=== PATIENT | male | born 1965 | race Caucasian/White ===

== ENCOUNTER 2018-07-01 07:58 | Day surgery (SDC) | payer OTHER ==
[2018-06-30 09:47] VITALS: BMI 30.2
[~2018-07-01 07:58] MED LIST: LACTATED RINGERS 1,000 ML IV SCH; LIDOCAINE 1% 20 ML VIAL (10MG/ML) FOR IV START INTRADERMA PRN
[2018-07-01 08:19] VITALS: TEMP 98
[2018-07-01] MEDS ORDERED: PROPOFOL 10 MG/ML 20 ML VIAL IV ONE (08:57)
--- NOTE | 2018-07-01 09:04 | P.GSHP ---
History of Present Illness H&P Date: 07/01/18 Chief Complaint: Screening colonoscopy This a 53-year-old male who presents today for screening colonoscopy. Patient never had a colonoscopy before. He denies a significant GI complaints. 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 History of Any Multi-Drug Resistant Organisms: None Reported Past Surgical History: Hernia Repair, Orthopedic Surgery Additional Past Surgical History / Comment(s): BENIGN LEFT TIBIA OSTEOCHONDROMA REMOVED, RT KNEE MENISCUS REPAIR, LEFT ACHILLIES TEAR Past Anesthesia/Blood Transfusion Reactions: No Reported Reaction Smoking Status: Current every day smoker - Past Family History Mother Family Medical History: No Reported History Medications and Allergies Home Medications Medication Instructions Recorded Confirmed Type Naproxen Sodium [Aleve] 220 mg PO Q6H PRN 01/29/16 07/01/18 History Losartan Potassium 50 mg PO QAM 06/30/18 07/01/18 History Rosuvastatin [Crestor] 10 mg PO HS 06/30/18 07/01/18 History Allergies Allergy/AdvReac Type Severity Reaction Status Date / Time No Known Allergies Allergy Verified 07/01/18 08:11 Surgical - Exam Vital Signs Temp Pulse Resp BP Pulse Ox 98.0 F 72 16 141/91 98 07/01/18 08:18 07/01/18 08:18 07/01/18 08:18 07/01/18 08:18 07/01/18 08:18 - General well developed, no distress - Eyes PERRL - ENT normal pinna - Neck no masses - Respiratory normal expansion - Cardiovascular Rhythm: regular - Abdomen Abdomen: soft, non tender Assessment and Plan Assessment: We'll perform initial screening colonoscopy
--- NOTE | 2018-07-01 09:19 | P.OP ---
Date of Procedure: 07/01/18 Preoperative Diagnosis: Screening colonoscopy Postoperative Diagnosis: Diverticulosis Left colon polyp Procedure(s) Performed: Colonoscopy Anesthesia: MAC Surgeon: Darrius Tinoco Pathology: other (Left colon polyp) Condition: stable Disposition: PACU Description of Procedure: the patient's placed on the endoscopy table in the lateral position. He received IV sedation. Digital rectal exam was performed which revealed no abnormalities. The flexible colonoscope was then placed patient anus and passed throughout the entire colon. The ileocecal valve was visualized. The cecum, ascending and transverse colon appeared normal. In the descending colon there was mild diverticular changes. There was also a pedunculated polyp which was removed. This was removed with snare. Scope was then brought back the sigmoid colon and there a few scattered diverticula. Scope was brought back the rectum and this appeared normal. Scope withdrawn for patient.
[2018-07-01 09:43] VITALS: BP 133/78; PULSE 78; RESP 18
== END 2018-07-01 10:13 | disposition home or self-care (01) ==
LOC: ORWHC2ENDO 07:58
PROVIDERS: ATTEND Surgery
DX: Z12.11 Encounter for screening for malignant neoplasm of colon (principal); K63.5 Polyp of colon; K57.30 Diverticulosis of large intestine without perforation or abscess without bleeding; E78.5 Hyperlipidemia, unspecified; I10 Essential (primary) hypertension; F17.200 Nicotine dependence, unspecified, uncomplicated; Z79.899 Other long term (current) drug therapy
CPT/HCPCS: 88305; 45385; J2704

== ENCOUNTER → 2019-03-02 | Outpatient (CLI) | payer OTHER ==
--- NOTE | 2019-03-03 10:12 | CT ---
EXAMINATION TYPE: CT chest w con DATE OF EXAM: 03/02/2019 COMPARISON: 08/16/2018 HISTORY: Follow-up lung nodule Automated exposure control for dose reduction was used. CONTRAST: CT scan of the chest is performed with IV Contrast, patient injected with 100 mL of Isovue 300. FINDINGS: LUNGS: Stable spiculated nodular density right upper lobe posteriorly measuring 7 mm seen best on jannette ge 20 of 70. No additional nodules identified. No focal consolidation. Curvilinear scarring right low er lobe image 43. Mild centrilobular emphysema. MEDIASTINUM: There are no greater than 1 cm hilar or mediastinal lymph nodes. No pericardial effusi on is seen. Mild cardiomegaly with coronary artery calcifications. Thoracic aorta is of normal calibe r. UPPER ABDOMEN: Simple cyst left kidney measures 1.1 cm upper pole. OTHER: No additional significant abnormality is seen. IMPRESSION: 1.Stable spiculated nodular density right upper lobe posteriorly measuring 7 mm seen best on image 20 of 70. No additional nodules identified. This likely reflects an area of scarring however continued follow-up is advised with CT of the chest recommended in 4-6 months.
== END | disposition home or self-care (01) ==
LOC: RADCTMAIN 13:32
PROVIDERS: ATTEND Internal Medicine
DX: R91.8 Other nonspecific abnormal finding of lung field (principal)
CPT/HCPCS: 71260; Q9967

== ENCOUNTER 2019-09-06 00:21 | Emergency (ER) | payer OTHER ==
[2019-09-06 00:28] VITALS: TEMP 97.3
[2019-09-06] MEDS ORDERED: IPRATROPIUM-ALBUTEROL 3 ML NEB INHALATION STA (00:56)
[2019-09-06] MEDS ORDERED: predniSONE 20 MG TAB PO STA (00:56)
[2019-09-06] MEDS ORDERED: ALBUTEROL NEBULIZED 2.5 MG/3 ML INHALATION STA (00:56)
--- NOTE | 2019-09-06 01:01 | ED ---
SOB HPI - General Chief Complaint: Shortness of Breath Stated Complaint: ESTELA Time Seen by Provider: 09/06/19 00:35 Source: patient Mode of arrival: ambulatory - History of Present Illness MD Complaint: shortness of breath, cough Onset/Timin -: hour(s) Consistency: constant Improves With: nothing Worsens With: exertion Known History Of: COPD Associated Symptoms: cough Treatments Prior to Arrival: none - Related Data Home Oxygen Therapy: No Home Medications Medication Instructions Recorded Confirmed Naproxen Sodium [Aleve] 220 mg PO Q6H PRN 01/29/16 07/01/18 Losartan Potassium 50 mg PO QAM 06/30/18 07/01/18 Rosuvastatin [Crestor] 10 mg PO HS 06/30/18 07/01/18 Previous Rx's Medication Instructions Recorded Albuterol Inhaler [Ventolin Hfa 1 - 2 puff INHALATION Q6HR PRN #1 09/06/19 Inhaler] inhaler predniSONE 60 mg PO DAILY #30 tab 09/06/19 Allergies Allergy/AdvReac Type Severity Reaction Status Date / Time No Known Allergies Allergy Verified 07/01/18 08:11 Review of Systems ROS Statement: Those systems with pertinent positive or pertinent negative responses have been documented in the HPI. ROS Other: All systems not noted in ROS Statement are negative. Constitutional: Denies: fever, weakness Respiratory: Reports: cough, dyspnea, wheezes Cardiovascular: Reports: dyspnea on exertion. 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 History of Any Multi-Drug Resistant Organisms: None Reported Past Surgical History: Hernia Repair, Orthopedic Surgery Additional Past Surgical History / Comment(s): BENIGN LEFT TIBIA OSTEOCHONDROMA REMOVED, RT KNEE MENISCUS REPAIR, LEFT ACHILLIES TEAR Past Anesthesia/Blood Transfusion Reactions: No Reported Reaction Past Psychological History: No Psychological Hx Reported Smoking Status: Current every day smoker - Past Family History Mother Family Medical History: No Reported History General Exam General appearance: alert, in no apparent distress Head exam: Present: atraumatic, normocephalic Eye exam: Present: normal appearance ENT exam: Present: normal oropharynx Respiratory exam: Present: respiratory distress (Mild tachypnea), wheezes. Absent: rales, rhonchi, stridor, accessory muscle use, decreased breath sounds, prolonged expiratory Cardiovascular Exam: Present: regular rate, normal rhythm, normal heart sounds. Absent: systolic murmur, diastolic murmur, rubs, gallop GI/Abdominal exam: Present: soft. Absent: distended, tenderness, guarding, rebound, rigid, mass Extremities exam: Present: normal inspection, normal capillary refill. Absent: pedal edema, calf tenderness Back exam: Present: normal inspection Neurological exam: Present: alert Skin exam: Present: warm, dry, intact, normal color. Absent: rash Course Vital Signs 09/06/19 09/06/19 09/06/19 00:24 01:27 01:37 Temperature 97.3 F L Pulse Rate 79 80 72 Respiratory 24 Rate Blood Pressure 157/93 O2 Sat by Pulse 95 Oximetry 09/06/19 09/06/19 01:38 02:01 Temperature Pulse Rate 72 68 Respiratory Rate Blood Pressure O2 Sat by Pulse Oximetry Medical Decision Making - Lab Data Result diagrams: 09/06/19 00:57 09/06/19 00:57 Lab Results 09/06/19 09/06/19 09/06/19 Range/Units 00:57 00:57 00:57 WBC 12.6 H (3.8-10.6) k/uL RBC 4.38 (4.30-5.90) m/uL Hgb 13.9 (13.0-17.5) gm/dL Hct 41.6 (39.0-53.0) % MCV 95.0 (80.0-100.0) fL MCH 31.8 (25.0-35.0) pg MCHC 33.5 (31.0-37.0) g/dL RDW 12.1 (11.5-15.5) % Plt Count 276 (150-450) k/uL Neutrophils % 71 % Lymphocytes % 11 % Monocytes % 5 % Eosinophils % 10 % Basophils % 1 % Neutrophils # 8.9 H (1.3-7.7) k/uL Lymphocytes # 1.4 (1.0-4.8) k/uL Monocytes # 0.7 (0-1.0) k/uL Eosinophils # 1.2 H (0-0.7) k/uL Basophils # 0.1 (0-0.2) k/uL PT 10.1 (9.0-12.0) sec INR 0.9 (<1.2) APTT 24.5 (22.0-30.0) sec Sodium 137 (137-145) mmol/L Potassium 4.4 (3.5-5.1) mmol/L Chloride 103 (98-107) mmol/L Carbon Dioxide 25 (22-30) mmol/L Anion Gap 9 mmol/L BUN 13 (9-20) mg/dL Creatinine 0.65 L (0.66-1.25) mg/dL Est GFR (CKD-EPI)AfAm >90 (>60 ml/min/1.73 sqM) Est GFR (CKD-EPI)NonAf >90 (>60 ml/min/1.73 sqM) Glucose 137 H (74-99) mg/dL Calcium 9.5 (8.4-10.2) mg/dL Total Bilirubin 0.6 (0.2-1.3) mg/dL AST 23 (17-59) U/L ALT 21 (4-49) U/L Alkaline Phosphatase 83 (38-126) U/L Troponin I (0.000-0.034) ng/mL Total Protein 7.8 (6.3-8.2) g/dL Albumin 4.2 (3.5-5.0) g/dL 09/06/19 Range/Units 00:57 WBC (3.8-10.6) k/uL RBC (4.30-5.90) m/uL Hgb (13.0-17.5) gm/dL Hct (39.0-53.0) % MCV (80.0-100.0) fL MCH (25.0-35.0) pg MCHC (31.0-37.0) g/dL RDW (11.5-15.5) % Plt Count (150-450) k/uL Neutrophils % % Lymphocytes % % Monocytes % % Eosinophils % % Basophils % % Neutrophils # (1.3-7.7) k/uL Lymphocytes # (1.0-4.8) k/uL Monocytes # (0-1.0) k/uL Eosinophils # (0-0.7) k/uL Basophils # (0-0.2) k/uL PT (9.0-12.0) sec INR (<1.2) APTT (22.0-30.0) sec Sodium (137-145) mmol/L Potassium (3.5-5.1) mmol/L Chloride (98-107) mmol/L Carbon Dioxide (22-30) mmol/L Anion Gap mmol/L BUN (9-20) mg/dL Creatinine (0.66-1.25) mg/dL Est GFR (CKD-EPI)AfAm (>60 ml/min/1.73 sqM) Est GFR (CKD-EPI)NonAf (>60 ml/min/1.73 sqM) Glucose (74-99) mg/dL Calcium (8.4-10.2) mg/dL Total Bilirubin (0.2-1.3) mg/dL AST (17-59) U/L ALT (4-49) U/L Alkaline Phosphatase (38-126) U/L Troponin I <0.012 (0.000-0.034) ng/mL Total Protein (6.3-8.2) g/dL Albumin (3.5-5.0) g/dL - EKG Data -: EKG Interpreted by Ri EKG shows normal: sinus rhythm, axis (Normal), intervals (Normal), QRS complexes (Normal), ST-T waves (Normal) Rate: normal (Rate 74 bpm) Disposition Clinical Impression: COPD exacerbation Disposition: HOME SELF-CARE Condition: Good Instructions (If sedation given, give patient instructions): COPD (Chronic Obstructive Pulmonary Disease) (ED) Prescriptions: predniSONE 60 mg PO DAILY #30 tab Albuterol Inhaler [Ventolin Hfa Inhaler] 1 - 2 puff INHALATION Q6HR PRN #1 inhaler PRN Reason: Wheezing Is patient prescribed a controlled substance at d/c from ED?: No Referrals: Stas Fink DO [Primary Care Provider] - 1-2 days
[2019-09-06 01:13] LABS: Basophils # (A) 0.1 k/uL (0-0.2); Basophils % (A) 1 %; Eosinophils # (A) 1.2 k/uL (0-0.7); Eosinophils % (A) 10 %; HCT 41.6 % (39.0-53.0); HGB 13.9 gm/dL (13.0-17.5); Lymphocytes # (A) 1.4 k/uL (1.0-4.8); Lymphocytes % (A) 11 %; MCH 31.8 pg (25.0-35.0); MCHC 33.5 g/dL (31.0-37.0); Mean Platelet Volume 7.6; Monocytes # (A) 0.7 k/uL (0-1.0); Monocytes % (A) 5 %; Neutrophils # (A) 8.9 k/uL (1.3-7.7); Neutrophils % (A) 71 %; Platelet Count 276 k/uL (150-450); RBC 4.38 m/uL (4.30-5.90); RDW 12.1 % (11.5-15.5); WBC 12.6 k/uL (3.8-10.6)
--- NOTE | 2019-09-06 01:13 | XR ---
EXAMINATION TYPE: XR chest 2V DATE OF EXAM: 09/06/2019 COMPARISON: 11/17/2018 HISTORY: Cough TECHNIQUE: Single view FINDINGS: There is no heart failure nor confluent pneumonic infiltrate. There is slight coarsening of interstitial markings. There are chest leads. Costophrenic angles are clear. IMPRESSION: Mild pulmonary fibrotic changes. No acute lung disease. No adverse change.
[2019-09-06 01:19] LABS: ALT 21 U/L (4-49); AST 23 U/L (17-59); African American GFR (CKD) >90 (>60 ml/min/1.73 sqM); Albumin 4.2 g/dL (3.5-5.0); Alkaline Phosphatase 83 U/L (38-126); Anion Gap 9 mmol/L; Blood Urea Nitrogen 13 mg/dL (9-20); Calcium 9.5 mg/dL (8.4-10.2); Carbon Dioxide 25 mmol/L (22-30); Chloride 103 mmol/L (98-107); Glucose 137 mg/dL (74-99); Non-African American GFR(CKD) >90 (>60 ml/min/1.73 sqM); Potassium 4.4 mmol/L (3.5-5.1); Sodium 137 mmol/L (137-145); Total Bilirubin 0.6 mg/dL (0.2-1.3); Total Protein 7.8 g/dL (6.3-8.2)
[2019-09-06 01:20] LABS: INR 0.9 (<1.2); Partial Thromboplastin Time 24.5 sec (22.0-30.0); Prothrombin Time 10.1 sec (9.0-12.0)
[2019-09-06 02:14] VITALS: RESP 18
[2019-09-06 02:20] VITALS: BP 122/77; PULSE 63
== END 2019-09-06 02:27 | disposition home or self-care (01) ==
LOC: EC 00:21
DX: J44.1 Chronic obstructive pulmonary disease with (acute) exacerbation (principal); I10 Essential (primary) hypertension; E78.5 Hyperlipidemia, unspecified; F17.200 Nicotine dependence, unspecified, uncomplicated
CPT/HCPCS: 36415; 94640 ×2; 93005; 80053; 84484; 85025; 85610; 85730; 71046; 99285; J7512

== ENCOUNTER 2019-10-04 09:38 | Emergency (ER) | payer OTHER ==
[2019-10-04 09:42] VITALS: TEMP 97.9
[2019-10-04] MEDS ORDERED: IPRATROPIUM-ALBUTEROL 3 ML NEB INHALATION STA ×2 (10:07→13:32)
[2019-10-04] MEDS ORDERED: methylPREDNISolone SOD SUCCI 125 MG/2 ML VIAL IV STA (10:07)
[2019-10-04] MEDS ORDERED: DILTIAZEM DRIP BOLUS FROM BAG 1 MG SOLN IV ONE (10:07)
[2019-10-04] MEDS ORDERED: DILTIAZEM 125 MG in SODIUM CHLORIDE 0.9% 100 ML IV SCH (10:15)
[2019-10-04 10:29] LABS: Basophils # (A) 0.1 k/uL (0-0.2); Basophils % (A) 1 %; Eosinophils # (A) 1.3 k/uL (0-0.7); Eosinophils % (A) 10 %; HCT 45.1 % (39.0-53.0); HGB 14.5 gm/dL (13.0-17.5); Lymphocytes # (A) 2.3 k/uL (1.0-4.8); Lymphocytes % (A) 19 %; MCH 30.8 pg (25.0-35.0); MCV 96.3 fL (80.0-100.0); Mean Platelet Volume 7.7; Monocytes # (A) 0.6 k/uL (0-1.0); Monocytes % (A) 5 %; Neutrophils # (A) 7.6 k/uL (1.3-7.7); Neutrophils % (A) 63 %; Platelet Count 358 k/uL (150-450); RBC 4.69 m/uL (4.30-5.90); RDW 12.2 % (11.5-15.5); WBC 12.2 k/uL (3.8-10.6)
[2019-10-04 10:30] LABS: Partial Thromboplastin Time 22.5 sec (22.0-30.0); Prothrombin Time 10.2 sec (9.0-12.0)
[2019-10-04 10:37] LABS: ALT 19 U/L (4-49); AST 25 U/L (17-59); African American GFR (CKD) >90 (>60 ml/min/1.73 sqM); Alkaline Phosphatase 68 U/L (38-126); Anion Gap 11 mmol/L; Blood Urea Nitrogen 14 mg/dL (9-20); Calcium 9.3 mg/dL (8.4-10.2); Carbon Dioxide 24 mmol/L (22-30); Chloride 105 mmol/L (98-107); Creatine Kinase 52 U/L (55-170); Glucose 187 mg/dL (74-99); Magnesium 1.9 mg/dL (1.6-2.3); Non-African American GFR(CKD) >90 (>60 ml/min/1.73 sqM); Potassium 4.3 mmol/L (3.5-5.1); Sodium 140 mmol/L (137-145); Total Bilirubin 0.5 mg/dL (0.2-1.3); Total Protein 7.5 g/dL (6.3-8.2)
[2019-10-04 10:41] VITALS: RESP 18
--- NOTE | 2019-10-04 11:09 | XR ---
EXAMINATION TYPE: XR chest 2V DATE OF EXAM: 10/04/2019 COMPARISON: 09/06/2019 HISTORY: 54 year-old male shortness of breath, difficulty breathing TECHNIQUE: PA and lateral views FINDINGS: Slight rightward patient rotation. Heart upper limits of normal in size. Mild diffuse interstitial pr ominence. Mild hyperinflation. No consolidation or pleural effusion. IMPRESSION: Chronic changes, possible underlying COPD. Correlate for underlying bronchitis or chronic asthma. No focal infiltrate.
--- NOTE | 2019-10-04 11:49 | ED ---
SOB HPI - General Chief Complaint: Shortness of Breath Stated Complaint: ESTELA Time Seen by Provider: 10/04/19 09:46 Source: patient, RN notes reviewed Mode of arrival: wheelchair Limitations: no limitations - History of Present Illness Initial Comments: This is a 54-year-old male with a history of atrial fibrillation in the past who presents with complaints of shortness of breath this started this morning. He did take his inhaler without much resolved this morning. He denies any fevers chills nausea vomiting sweats or cough at this time. He did feel palpitations also is concern for recurrent atrial fibrillation. Patient does state he took his medications about an hour prior to arrival. MD Complaint: shortness of breath - Related Data Home Medications Medication Instructions Recorded Confirmed Losartan Potassium 50 mg PO QAM 06/30/18 10/04/19 Rosuvastatin [Crestor] 10 mg PO HS 06/30/18 10/04/19 Albuterol Sulfate [Proair Hfa] 1 - 2 puff INHALATION RT-Q6H PRN 10/04/19 0 Apixaban [Eliquis] 5 mg PO BID 10/04/19 10/04/19 Cyclobenzaprine [Flexeril] 10 mg PO HS 10/04/19 10/04/19 Diltiazem HCl [Diltiazem HCl 24Hr 240 mg PO DAILY 10/04/19 10/04/19 ER (LA)] Ipratropium-Albuterol Nebulize 3 ml INHALATION RT-QID PRN 10/04/19 10/04/19 [Duoneb 0.5 mg-3 mg/3 ml Soln] Sotalol [Betapace] 80 mg PO BID 10/04/19 10/04/19 Previous Rx's Medication Instructions Recorded predniSONE [Deltasone] 20 mg PO BID #10 tab 10/04/19 Allergies Allergy/AdvReac Type Severity Reaction Status Date / Time No Known Allergies Allergy Verified 10/04/19 11:45 Review of Systems ROS Statement: Those systems with pertinent positive or pertinent negative responses have been documented in the HPI. ROS Other: All systems not noted in ROS Statement are negative. 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 History of Any Multi-Drug Resistant Organisms: None Reported Past Surgical History: Hernia Repair, Orthopedic Surgery Additional Past Surgical History / Comment(s): BENIGN LEFT TIBIA OSTEOCHONDROMA REMOVED, RT KNEE MENISCUS REPAIR, LEFT ACHILLIES TEAR Past Anesthesia/Blood Transfusion Reactions: No Reported Reaction Past Psychological History: No Psychological Hx Reported Smoking Status: Current every day smoker - Past Family History Mother Family Medical History: No Reported History General Exam - General Exam Comments Initial Comments: Is a well-developed well-nourished awake alert oriented times 3 male Limitations: no limitations General appearance: alert, anxious, in distress Head exam: Present: atraumatic, normocephalic, normal inspection Eye exam: Present: normal appearance, PERRL, EOMI. Absent: scleral icterus, conjunctival injection, periorbital swelling ENT exam: Present: normal exam, mucous membranes moist Neck exam: Present: normal inspection, full ROM, other (nO Stridor JVD or bruits). Absent: tenderness, meningismus, lymphadenopathy Respiratory exam: Present: wheezes, decreased breath sounds. Absent: respiratory distress, rales, rhonchi, stridor Cardiovascular Exam: Present: tachycardia, irregular rhythm. Absent: systolic murmur, diastolic murmur, rubs, gallop, clicks GI/Abdominal exam: Present: soft, normal bowel sounds. Absent: distended, tenderness, guarding, rebound, rigid Extremities exam: Present: normal inspection, full ROM, normal capillary refill. Absent: tenderness, pedal edema, joint swelling, calf tenderness Back exam: Present: normal inspection Neurological exam: Present: alert, oriented X3, CN II-XII intact Psychiatric exam: Present: normal affect, normal mood Skin exam: Present: warm, dry, intact, normal color. Absent: rash Course Vital Signs 10/04/19 10/04/19 10/04/19 09:40 09:57 10:23 Temperature 97.9 F Pulse Rate 67 90 Respiratory 28 H 20 Rate Blood Pressure 157/87 O2 Sat by Pulse 95 Oximetry 10/04/19 10/04/19 10/04/19 10:32 10:40 11:01 Temperature Pulse Rate 94 81 71 Respiratory 18 18 Rate Blood Pressure 92/76 107/80 O2 Sat by Pulse 93 L 95 Oximetry 10/04/19 10/04/19 13:00 14:16 Temperature Pulse Rate 65 Respiratory 18 Rate Blood Pressure 100/69 O2 Sat by Pulse 93 L 94 L Oximetry - Reevaluation(s) Reevaluation #1: 10/04/19 14:13 She is feeling better he did require second updraft treatment. Saturations have improved to 9% he will be discharged he is a follow-up with his doctor return when necessary he does have an appointment with Dr. Prieto tomorrow Reevaluation #2: 10/04/19 14:15 Patient did spontaneously convert to a sinus rhythm and repeat EKG showed a sinus rhythm a 61 appear interval 168 QRS 84 QT since QTC 414/416 nonspecific T- wave configuration Medical Decision Making - Medical Decision Making A she has improved with respect to his breathing and his heart rate has normalized. He will be discharged she is keep his follow-up tomorrow. He'll be placed on a Medrol Dosepak he does have inhalers at home. - Lab Data Result diagrams: 10/04/19 10:05 10/04/19 10:05 Lab Results 10/04/19 10/04/19 10/04/19 Range/Units 10:05 10:05 10:05 WBC 12.2 H (3.8-10.6) k/uL RBC 4.69 (4.30-5.90) m/uL Hgb 14.5 (13.0-17.5) gm/dL Hct 45.1 (39.0-53.0) % MCV 96.3 (80.0-100.0) fL MCH 30.8 (25.0-35.0) pg MCHC 32.0 (31.0-37.0) g/dL RDW 12.2 (11.5-15.5) % Plt Count 358 (150-450) k/uL Neutrophils % 63 % Lymphocytes % 19 % Monocytes % 5 % Eosinophils % 10 % Basophils % 1 % Neutrophils # 7.6 (1.3-7.7) k/uL Lymphocytes # 2.3 (1.0-4.8) k/uL Monocytes # 0.6 (0-1.0) k/uL Eosinophils # 1.3 H (0-0.7) k/uL Basophils # 0.1 (0-0.2) k/uL PT (9.0-12.0) sec INR (<1.2) APTT (22.0-30.0) sec Sodium 140 (137-145) mmol/L Potassium 4.3 (3.5-5.1) mmol/L Chloride 105 (98-107) mmol/L Carbon Dioxide 24 (22-30) mmol/L Anion Gap 11 mmol/L BUN 14 (9-20) mg/dL Creatinine 0.64 L (0.66-1.25) mg/dL Est GFR (CKD-EPI)AfAm >90 (>60 ml/min/1.73 sqM) Est GFR (CKD-EPI)NonAf >90 (>60 ml/min/1.73 sqM) Glucose 187 H (74-99) mg/dL Plasma Lactic Acid Matti 2.0 (0.7-2.0) mmol/L Calcium 9.3 (8.4-10.2) mg/dL Magnesium 1.9 (1.6-2.3) mg/dL Total Bilirubin 0.5 (0.2-1.3) mg/dL AST 25 (17-59) U/L ALT 19 (4-49) U/L Alkaline Phosphatase 68 (38-126) U/L Creatine Kinase 52 L (55-170) U/L Troponin I (0.000-0.034) ng/mL NT-Pro-B Natriuret Pep pg/mL Total Protein 7.5 (6.3-8.2) g/dL Albumin 4.0 (3.5-5.0) g/dL 10/04/19 10/04/19 10/04/19 Range/Units 10:05 10:05 10:05 WBC (3.8-10.6) k/uL RBC (4.30-5.90) m/uL Hgb (13.0-17.5) gm/dL Hct (39.0-53.0) % MCV (80.0-100.0) fL MCH (25.0-35.0) pg MCHC (31.0-37.0) g/dL RDW (11.5-15.5) % Plt Count (150-450) k/uL Neutrophils % % Lymphocytes % % Monocytes % % Eosinophils % % Basophils % % Neutrophils # (1.3-7.7) k/uL Lymphocytes # (1.0-4.8) k/uL Monocytes # (0-1.0) k/uL Eosinophils # (0-0.7) k/uL Basophils # (0-0.2) k/uL PT 10.2 (9.0-12.0) sec INR 1.0 (<1.2) APTT 22.5 (22.0-30.0) sec Sodium (137-145) mmol/L Potassium (3.5-5.1) mmol/L Chloride (98-107) mmol/L Carbon Dioxide (22-30) mmol/L Anion Gap mmol/L BUN (9-20) mg/dL Creatinine (0.66-1.25) mg/dL Est GFR (CKD-EPI)AfAm (>60 ml/min/1.73 sqM) Est GFR (CKD-EPI)NonAf (>60 ml/min/1.73 sqM) Glucose (74-99) mg/dL Plasma Lactic Acid Matti (0.7-2.0) mmol/L Calcium (8.4-10.2) mg/dL Magnesium (1.6-2.3) mg/dL Total Bilirubin (0.2-1.3) mg/dL AST (17-59) U/L ALT (4-49) U/L Alkaline Phosphatase (38-126) U/L Creatine Kinase (55-170) U/L Troponin I <0.012 (0.000-0.034) ng/mL NT-Pro-B Natriuret Pep 788 pg/mL Total Protein (6.3-8.2) g/dL Albumin (3.5-5.0) g/dL - EKG Data -: EKG Interpreted by Me EKG Comments: EKG showed atrial fibrillation the rate was 100 on this reading QRS 86 QT since QTC 346/446 nonspecific T-wave configuration - Radiology Data Radiology results: report reviewed (I did review the imaging and report no acute findings.), image reviewed Disposition Clinical Impression: Paroxysmal atrial fibrillation, COPD with exacerbation Disposition: HOME SELF-CARE Condition: Good Instructions (If sedation given, give patient instructions): COPD (Chronic Obstructive Pulmonary Disease) (ED), A-fib (Atrial Fibrillation) (ED) Additional Instructions: Steroid prescription sent to your preferred [facility] pharmacy Prescriptions: predniSONE [Deltasone] 20 mg PO BID #10 tab Is patient prescribed a controlled substance at d/c from ED?: No Referrals: Stas Fink DO [Primary Care Provider] - 1-2 days
[2019-10-04 14:37] VITALS: BP 112/83; PULSE 66
== END 2019-10-04 14:31 | disposition home or self-care (01) ==
LOC: EC 09:38
DX: J44.1 Chronic obstructive pulmonary disease with (acute) exacerbation (principal); I48.0 Paroxysmal atrial fibrillation; E78.5 Hyperlipidemia, unspecified; I10 Essential (primary) hypertension; M51.86 Other intervertebral disc disorders, lumbar region; F17.200 Nicotine dependence, unspecified, uncomplicated; Z79.01 Long term (current) use of anticoagulants; Z79.899 Other long term (current) drug therapy
CPT/HCPCS: 36415; 94640; 93005; 83880; 80053; 82550; 83605; 83735; 84484; 85025; 85610; 85730; 71046; 99285; 96365; 96375; 96376; J2930

== ENCOUNTER → 2019-11-23 | Day surgery (SDC) | payer OTHER ==
[2019-11-21 11:56] VITALS: BMI 31.9
[~2019-11-23] MED LIST changes: +LIDOCAINE 1% (10MG/ML) FOR IV START INTRADERMA PRN; -LIDOCAINE 1% 20 ML VIAL (10MG/ML) FOR IV START INTRADERMA PRN; +ONDANSETRON 4 MG/2 ML VIAL IVP PRN; +PROPOFOL 10 MG/ML 20 ML VIAL IV ONE; +SODIUM CHLORIDE 0.9% 1,000 ML IV SCH
[2019-11-23 08:48] LABS: African American GFR (CKD) >90 (>60 ml/min/1.73 sqM); Anion Gap 8 mmol/L; Blood Urea Nitrogen 9 mg/dL (9-20); Carbon Dioxide 24 mmol/L (22-30); Chloride 107 mmol/L (98-107); Glucose 124 mg/dL (74-99); Non-African American GFR(CKD) >90 (>60 ml/min/1.73 sqM); Potassium 4.5 mmol/L (3.5-5.1); Sodium 139 mmol/L (137-145)
[2019-11-23 10:00] VITALS: TEMP 97.2
[2019-11-23 10:01] VITALS: RESP 16
[2019-11-23 11:52] VITALS: BP 124/84; PULSE 108
--- NOTE | 2019-11-23 12:03 | P.PCN ---
Date of Procedure: 11/23/19 Description of Procedure: CARDIOVERSION REPORT Performing physician Ishaan Prieto MD Procedure performed Attempted cardioversion of atrial fibrillation Complication None Level of sedation Deep with propofol with [employer] in the room Indication Atrial fibrillation Procedure description After general anesthesia was induced using propofol we attempted doing cardioversion on the patient using 200 J, 300 J, and 360 J, and the patient continues to be in atrial fibrillation Conclusion Three attempts of cardioversion of atrial fibrillation performed and we are unsuccessful and the patient continues to be in A. fib.
== END ==
LOC: CATHCVL 07:51
PROVIDERS: ATTEND Internal Medicine Interventional Cardiology
DX: I48.0 Paroxysmal atrial fibrillation (principal); I10 Essential (primary) hypertension; E78.5 Hyperlipidemia, unspecified; I34.0 Nonrheumatic mitral (valve) insufficiency; I42.9 Cardiomyopathy, unspecified; J44.9 Chronic obstructive pulmonary disease, unspecified; N52.9 Male erectile dysfunction, unspecified; I49.3 Ventricular premature depolarization; I47.1 Supraventricular tachycardia; K21.9 Gastro-esophageal reflux disease without esophagitis; Z79.899 Other long term (current) drug therapy; Z79.01 Long term (current) use of anticoagulants; Z87.891 Personal history of nicotine dependence; Z79.51 Long term (current) use of inhaled steroids; Z82.49 Family history of ischemic heart disease and other diseases of the circulatory system
CPT/HCPCS: 92960; 80048; J2704

== ENCOUNTER 2019-12-18 14:37 | Inpatient (IN) | payer OTHER ==
[2019-12-18 15:04] LABS: Basophils # (A) 0.1 k/uL (0-0.2); Basophils % (A) 0 %; Eosinophils # (A) 0.6 k/uL (0-0.7); Eosinophils % (A) 5 %; HCT 38.9 % (39.0-53.0); HGB 12.8 gm/dL (13.0-17.5); Lymphocytes # (A) 2.5 k/uL (1.0-4.8); Lymphocytes % (A) 20 %; MCH 31.1 pg (25.0-35.0); MCV 94.4 fL (80.0-100.0); Mean Platelet Volume 7.9; Monocytes # (A) 0.6 k/uL (0-1.0); Monocytes % (A) 5 %; Neutrophils # (A) 8.3 k/uL (1.3-7.7); Neutrophils % (A) 67 %; Platelet Count 267 k/uL (150-450); RBC 4.12 m/uL (4.30-5.90); RDW 13.2 % (11.5-15.5); WBC 12.3 k/uL (3.8-10.6)
--- NOTE | 2019-12-18 15:07 | ED ---
General Adult HPI - General Source: patient Mode of arrival: wheelchair Limitations: no limitations <Chester Grimm Filomena - Last Filed: 12/18/19 15:06> <JoaquinAnnel Poonam - Last Filed: 12/18/19 16:55> - General Chief complaint: Shortness of Breath Stated complaint: SOB/sent bt pcp Time Seen by Provider: 12/18/19 14:43 - History of Present Illness Initial comments: Dictation was produced using [employer] dictation software. please excuse any grammatical, word or spelling errors. This patient was cared for during a federal and state declared state of emergency secondary to Covid 19 Chief Complaint: 54-year-old male presents with shortness of breath History of Present Illness: 54-year-old male who sent in by primary care physician for shortness of breath. Patient was directed by his primary care meliton britton come to the emergency department for evaluation. Patient has been short of breath for the last 2 weeks. Patient states he has history of COPD. States that he noticed that he is having difficulty breathing. He states that he also feels sharp chest pains especially worse at night that's worse with deep breathing. He was in contact with his primary care doctor who told him to come to the emergency department. 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 States he's been possibly exposed to a lot of people. Considering his job he was not able to social distance appropriately. Does complain of constitutional symptoms at home. The ROS documented in this emergency department record has been reviewed and confirmed by me. Those systems with pertinent positive or negative responses have been documented in the HPI. All other systems are other negative and/or noncontributory. PHYSICAL EXAM: General Impression: Alert and oriented x3, tachypneic HEENT: Normocephalic atraumatic, extra-ocular movements intact, pupils equal and reactive to light bilaterally, mucous membranes moist. Cardiovascular: Heart regular rate and rhythm Chest: Slightly Tachypneic Abdomen: Bowel sounds present, abdomen soft, non-tender, non-distended, no organomegaly Musculoskeletal: Pulses present and equal in all extremities, no peripheral edema Motor: no focal deficits noted Neurological: CN II-XII grossly intact, no focal motor or sensory deficits noted Skin: Intact with no visualized rashes Psych: Normal affect and mood ED course: -year-old male presents with shortness of breath. Vital signs upon arrival shows respiratory of 24, blood pressure 196/120, rest of vital signs within acceptable limits. Patient is taking apixaban. Patient is signed out to Dr. Nuñez for follow-up of pending labs and imaging studies. EKG interpretation: Ventricular rate 119, H or fibrillation rapid ventricular rate, QRS 90, QTC 396. No NC prolongation, no QTC prolongation, no ST or T-wave changes noted. . Overall, this EKG is unremarkable (Chester Grimm) - Related Data Home Medications Medication Instructions Recorded Confirmed Losartan Potassium 50 mg PO DAILY 06/30/18 12/18/19 Rosuvastatin [Crestor] 10 mg PO HS 06/30/18 12/18/19 Albuterol Sulfate [Proair Hfa] 1 - 2 puff INHALATION RT-Q4H PRN 10/04/19 12/18/19 Apixaban [Eliquis] 5 mg PO BID 10/04/19 12/18/19 Cyclobenzaprine [Flexeril] 10 mg PO HS PRN 10/04/19 12/18/19 Diltiazem HCl [Diltiazem HCl 24Hr 240 mg PO DAILY 10/04/19 12/18/19 ER ([place])] Ipratropium-Albuterol Nebulize 3 ml INHALATION RT-QID PRN 10/04/19 12/18/19 [Duoneb 0.5 mg-3 mg/3 ml Soln] Flecainide [Tambocor] 50 mg PO BID 11/21/19 12/18/19 Fluticasone/Umeclidin/Vilanter 1 inhalation INHALATION DAILY 11/21/19 12/18/19 [Trelegy Ellipta 100-62.5-25] Allergies Allergy/AdvReac Type Severity Reaction Status Date / Time No Known Allergies Allergy Verified 12/18/19 15:29 Review of Systems ROS Other: All systems not noted in ROS Statement are negative. <Chester Grimm - Last Filed: 12/18/19 15:06> ROS Other: All systems not noted in ROS Statement are negative. <Annel Nuñez - Last Filed: 12/18/19 16:55> ROS Statement: Those systems with pertinent positive or pertinent negative responses have been documented in the HPI. Past Medical History Past Medical History: COPD, Hyperlipidemia, Hypertension, Respiratory Disorder Additional Past Medical History / Comment(s): BACK PAIN, STATES HAS CURRENT RU PTURED DISC L4 and L5 History of Any Multi-Drug Resistant Organisms: None Reported Past Surgical History: Hernia Repair, Orthopedic Surgery Additional Past Surgical History / Comment(s): BENIGN LEFT TIBIA OSTEOCHONDROMA REMOVED, RT KNEE MENISCUS REPAIR, LEFT ACHILLIES TEAR Past Anesthesia/Blood Transfusion Reactions: No Reported Reaction Past Psychological History: No Psychological Hx Reported Smoking Status: Former smoker - Past Family History Mother Family Medical History: No Reported History <Chester Grimm - Last Filed: 12/18/19 15:06> General Exam Limitations: no limitations <Chester Grimm - Last Filed: 12/18/19 15:06> Course Vital Signs 12/18/19 12/18/19 12/18/19 14:38 15:01 16:03 Temperature 97.5 F L Pulse Rate 94 115 H 115 H Respiratory 24 24 22 Rate Blood Pressure 196/128 134/71 106/95 O2 Sat by Pulse 96 96 95 Oximetry Medical Decision Making - Lab Data Result diagrams: 12/18/19 14:55 <Chester Grimm - Last Filed: 12/18/19 15:06> - Lab Data Result diagrams: 12/18/19 14:55 12/18/19 14:55 <Annel Nuñez - Last Filed: 12/18/19 16:55> - Medical Decision Making The patient was signed out to me. The patient does continue to have conversational dyspnea. I did order 125 mg of Solu-Medrol and an albuterol inhaler. The patient's heart rate is near 115. The lab results with the patient's and the report of his imaging. I recommended admission to the hospital at this time for which the patient did agree. Discussed case with Dr. Fink who accepted admission. I will consult cardiology and pulmonology. The patient was treated with azithromycin and Rocephin. He is Coban negative at this time. The patient currently is awaiting a bed on the floor (Annel Nuñez) - Lab Data Lab Results 12/18/19 12/18/19 12/18/19 Range/Units 14:55 14:55 14:55 WBC 12.3 H (3.8-10.6) k/uL RBC 4.12 L (4.30-5.90) m/uL Hgb 12.8 L (13.0-17.5) gm/dL Hct 38.9 L (39.0-53.0) % MCV 94.4 (80.0-100.0) fL MCH 31.1 (25.0-35.0) pg MCHC 33.0 (31.0-37.0) g/dL RDW 13.2 (11.5-15.5) % Plt Count 267 (150-450) k/uL Neutrophils % 67 % Lymphocytes % 20 % Monocytes % 5 % Eosinophils % 5 % Basophils % 0 % Neutrophils # 8.3 H (1.3-7.7) k/uL Lymphocytes # 2.5 (1.0-4.8) k/uL Monocytes # 0.6 (0-1.0) k/uL Eosinophils # 0.6 (0-0.7) k/uL Basophils # 0.1 (0-0.2) k/uL PT 10.8 (9.0-12.0) sec INR 1.0 (<1.2) APTT 23.2 (22.0-30.0) sec Sodium (137-145) mmol/L Potassium (3.5-5.1) mmol/L Chloride (98-107) mmol/L Carbon Dioxide (22-30) mmol/L Anion Gap mmol/L BUN (9-20) mg/dL Creatinine (0.66-1.25) mg/dL Est GFR (CKD-EPI)AfAm (>60 ml/min/1.73 sqM) Est GFR (CKD-EPI)NonAf (>60 ml/min/1.73 sqM) Glucose (74-99) mg/dL Calcium (8.4-10.2) mg/dL Total Bilirubin (0.2-1.3) mg/dL AST (17-59) U/L ALT (4-49) U/L Alkaline Phosphatase (38-126) U/L C-Reactive Protein (<10.0) mg/L NT-Pro-B Natriuret Pep 1590 pg/mL Total Protein (6.3-8.2) g/dL Albumin (3.5-5.0) g/dL Coronavirus (PCR) (Not Detectd) 12/18/19 12/18/19 Range/Units 14:55 14:55 WBC (3.8-10.6) k/uL RBC (4.30-5.90) m/uL Hgb (13.0-17.5) gm/dL Hct (39.0-53.0) % MCV (80.0-100.0) fL MCH (25.0-35.0) pg MCHC (31.0-37.0) g/dL RDW (11.5-15.5) % Plt Count (150-450) k/uL Neutrophils % % Lymphocytes % % Monocytes % % Eosinophils % % Basophils % % Neutrophils # (1.3-7.7) k/uL Lymphocytes # (1.0-4.8) k/uL Monocytes # (0-1.0) k/uL Eosinophils # (0-0.7) k/uL Basophils # (0-0.2) k/uL PT (9.0-12.0) sec INR (<1.2) APTT (22.0-30.0) sec Sodium 138 (137-145) mmol/L Potassium 4.0 (3.5-5.1) mmol/L Chloride 107 (98-107) mmol/L Carbon Dioxide 21 L (22-30) mmol/L Anion Gap 10 mmol/L BUN 14 (9-20) mg/dL Creatinine 0.69 (0.66-1.25) mg/dL Est GFR (CKD-EPI)AfAm >90 (>60 ml/min/1.73 sqM) Est GFR (CKD-EPI)NonAf >90 (>60 ml/min/1.73 sqM) Glucose 140 H (74-99) mg/dL Calcium 8.9 (8.4-10.2) mg/dL Total Bilirubin 0.4 (0.2-1.3) mg/dL AST 21 (17-59) U/L ALT 19 (4-49) U/L Alkaline Phosphatase 65 (38-126) U/L C-Reactive Protein 26.1 H (<10.0) mg/L NT-Pro-B Natriuret Pep pg/mL Total Protein 7.0 (6.3-8.2) g/dL Albumin 3.9 (3.5-5.0) g/dL Coronavirus (PCR) Not Detected (Not Detectd) Disposition <Chester Grimm - Last Filed: 12/18/19 15:06> Is patient prescribed a controlled substance at d/c from ED?: No Decision to Admit Reason: Admit from EC Decision Date: 12/18/19 Decision Time: 16:17 <Annel Nuñez - Last Filed: 12/18/19 16:55> Clinical Impression: COPD exacerbation, CAP (community acquired pneumonia), Atrial fibrillation with RVR Disposition: ADMITTED IP TO THIS HOSP Condition: Stable
[2019-12-18 15:16] LABS: ALT 19 U/L (4-49); AST 21 U/L (17-59); African American GFR (CKD) >90 (>60 ml/min/1.73 sqM); Albumin 3.9 g/dL (3.5-5.0); Alkaline Phosphatase 65 U/L (38-126); Anion Gap 10 mmol/L; Blood Urea Nitrogen 14 mg/dL (9-20); C Reactive Protein 26.1 mg/L (<10.0); Calcium 8.9 mg/dL (8.4-10.2); Carbon Dioxide 21 mmol/L (22-30); Chloride 107 mmol/L (98-107); Glucose 140 mg/dL (74-99); Non-African American GFR(CKD) >90 (>60 ml/min/1.73 sqM); Sodium 138 mmol/L (137-145); Total Bilirubin 0.4 mg/dL (0.2-1.3)
[2019-12-18 15:17] LABS: Partial Thromboplastin Time 23.2 sec (22.0-30.0); Prothrombin Time 10.8 sec (9.0-12.0)
--- NOTE | 2019-12-18 15:28 | XR ---
EXAMINATION TYPE: XR chest 1V portable DATE OF EXAM: 12/18/2019 COMPARISON: 10/04/2019 INDICATION: Suspected Covid 19 pneumonia TECHNIQUE: Single frontal view of the chest is obtained. FINDINGS: The heart size is normal. The pulmonary vasculature is somewhat prominent. There is diffuse increased lung markings especially through the mid and lower lung sauceda. Clinical c orrelation recommended for pneumonia. IMPRESSION: 1. Bilateral increased lung markings especially through the mid lower lung sauceda compatible with an infectious pneumonia.
[2019-12-18] MEDS ORDERED: methylPREDNISolone SOD SUCCI 125 MG/2 ML VIAL IV STA (16:18)
[2019-12-18] MEDS ORDERED: AZITHROMYCIN 500 MG in SODIUM CHLORIDE 0.9% 250 ML IVPB STA (16:19)
[2019-12-18] MEDS ORDERED: NALOXONE 0.4 MG/ML 1 ML VIAL IV PRN (16:19)
[2019-12-18] MEDS ORDERED: cefTRIAXone IN SWFI 1,000 MG/10 ML SYRINGE IVP STA (16:19)
[2019-12-18] MEDS ORDERED: ALBUTEROL NEBULIZED 2.5 MG/3 ML INHALATION STA (16:28)
[2019-12-18] MEDS ORDERED: ONDANSETRON 4 MG/2 ML VIAL IVP STA (16:48)
[2019-12-18] MEDS ORDERED: ALBUTEROL HFA INHALER INHALATION PRN ×2 (18:47→19:37)
[2019-12-18] MEDS ORDERED: CYCLOBENZAPRINE 10 MG TAB PO PRN (18:47)
[2019-12-18] MEDS ORDERED: IPRATROPIUM-ALBUTEROL 3 ML NEB INHALATION PRN (18:47)
[2019-12-18] MEDS: SYMBICORT 80-4.5 MCG INHALER INHALATION SCH ×2 (19:24→19:34)
[2019-12-18] MEDS: ALBUTEROL HFA INHALER INHALATION SCH ×2 (19:24→19:34)
[2019-12-18] MEDS: FLECAINIDE 50 MG TAB PO SCH (19:50)
[2019-12-18] MEDS: APIXABAN 5 MG TAB PO SCH (19:50)
[2019-12-18] MEDS: ATORVASTATIN 20 MG TAB PO SCH (19:50)
[2019-12-19 03:45] LABS: Basophils % (A) 0 %; Eosinophils # (A) 0.1 k/uL (0-0.7); Eosinophils % (A) 1 %; HCT 38.7 % (39.0-53.0); HGB 12.5 gm/dL (13.0-17.5); Lymphocytes # (A) 0.7 k/uL (1.0-4.8); Lymphocytes % (A) 7 %; MCH 30.7 pg (25.0-35.0); MCHC 32.3 g/dL (31.0-37.0); MCV 95.3 fL (80.0-100.0); Mean Platelet Volume 8.1; Monocytes # (A) 0.1 k/uL (0-1.0); Monocytes % (A) 1 %; Neutrophils # (A) 8.6 k/uL (1.3-7.7); Neutrophils % (A) 91 %; Platelet Count 249 k/uL (150-450); RBC 4.06 m/uL (4.30-5.90); RDW 13.1 % (11.5-15.5); WBC 9.5 k/uL (3.8-10.6)
[2019-12-19 03:54] LABS: African American GFR (CKD) >90 (>60 ml/min/1.73 sqM); Anion Gap 7 mmol/L; Blood Urea Nitrogen 14 mg/dL (9-20); Calcium 9.2 mg/dL (8.4-10.2); Carbon Dioxide 23 mmol/L (22-30); Chloride 108 mmol/L (98-107); Glucose 174 mg/dL (74-99); Non-African American GFR(CKD) >90 (>60 ml/min/1.73 sqM); Potassium 4.7 mmol/L (3.5-5.1); Sodium 138 mmol/L (137-145)
[2019-12-19] MEDS ORDERED: IPRATROPIUM 0.5 MG/2.5 ML NEBU INHALATION SCH (08:00)
[2019-12-19] MEDS ORDERED: Trelegy Ellipta (fluticasone 100 mcg/umeclidinium 62.5 cmg/vilanterol 25 mcg) INHALATION SCH (08:00)
[2019-12-19 08:01] VITALS: RESP 18
[2019-12-19] MEDS ORDERED: DILTIAZEM CD 240 MG CAP.ER.24H PO SCH (09:00)
[2019-12-19] MEDS ORDERED: METOPROLOL TARTRATE 25 MG TAB PO SCH (09:00)
--- NOTE | 2019-12-19 09:06 | ECHOF ---
Referral Reason:afib MEASUREMENTS -------- HEIGHT: 185.4 cm WEIGHT: 103.9 kg BP: 126/78 RVIDd: 3.3 cm (< 3.3) IVSd: 1.4 cm (0.6 - 1.1) LVIDd: 4.8 cm (3.9 - 5.3) LVPWd: 1.5 cm (0.6 - 1.1) IVSs: 1.5 cm LVIDs: 4.1 cm LVPWs: 2.2 cm LA Diam: 4.1 cm (2.7 - 3.8) LAESV Index (A-L): 38.28 ml/m Ao Diam: 2.8 cm (2.0 - 3.7) AV Cusp: 1.8 cm (1.5 - 2.6) MV EXCURSION: 22.213 mm (> 18.000) MV EF SLOPE: 305 mm/s (70 - 150) EPSS: 1.2 cm AV maxP.29 mmHg AV meanP.38 mmHg RAP: 15.00 mmHg RVSP: 54.40 mmHg TAPSE: 14.32 mm FINDINGS -------- Atrial fibrillation. This was a technically adequate study. The left ventricular size is normal. There is moderate concentric left ventricular hypertrophy. T here is severe global hypokinesis of LV . Overall left ventricular systolic function is moderate-se verely impaired with, an EF between 30 - 35 %. The right ventricle is mildly enlarged. LA is moderately dilated 34-39 ml/m2 The right atrial size is normal. Interatrial and interventricular septum intact. There is mild to moderate aortic valve sclerosis. The mitral valve leaflets are mildly thickened. Ztstistu-ao-aoqqhf mitral regurgitation is present. Hdso-zn-fqljrsfu tricuspid regurgitation present. There is moderate pulmonary hypertension. The r ight ventricular systolic pressure, as measured by Doppler, is 54.40mmHg. Trace/mild (physiologic) pulmonic regurgitation. The aortic root size is normal. The inferior vena cava is dilated with poor inspiratory collapse which is consistent with estimated r ight atrial pressure of 15 mmHg. There is no pericardial effusion. CONCLUSIONS -------- 1. Atrial fibrillation. 2. There is moderate concentric left ventricular hypertrophy. 3. There is severe global hypokinesis of LV . 4. Overall left ventricular systolic function is moderate-severely impaired with, an EF between 30 - 35 %. 5. The right ventricle is mildly enlarged. 6. LA is moderately dilated 34-39 ml/m2 7. There is mild to moderate aortic valve sclerosis. 8. The mitral valve leaflets are mildly thickened. 9. Xgcoxrge-zw-vxqyta mitral regurgitation is present. 10. Ckkq-sw-lisguwsx tricuspid regurgitation present. 11. There is moderate pulmonary hypertension. 12. Trace/mild (physiologic) pulmonic regurgitation. 13. The inferior vena cava is dilated with poor inspiratory collapse which is consistent with estimat ed right atrial pressure of 15 mmHg. [employer]: Rona Queen RDCS
[2019-12-19] MEDS: LOSARTAN 50 MG TAB PO SCH (09:34)
[2019-12-19] MEDS: APIXABAN 5 MG TAB PO SCH ×2 (09:34→21:23)
--- NOTE | 2019-12-19 11:32 | P.HPIM ---
History of Present Illness H&P Date: 12/19/19 This is a 54-year-old gentleman with history of COPD, hyperlipidemia, hypertension, chronic back pain, former nicotine dependence presented to the ER with worsening dyspnea, palpitations, recent cardioversion November [address] Prieto and multiple other medical issues. 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 Denies fever. Reports productive cough with light brown sputum. Coronavirus reported negative. Complains of sleep deprivation secondary to shortness of breath. Reported no nausea, vomiting, positive diarrhea. Positive emesis in the ER. Afebrile on admission with leukocytosis, EKG reported atrial fibrillation with RVR, heart rate 120, telemetry reporting heart rates up to the 170s. Troponins negative 3. BNP 1590. Chest x-ray reporting bilateral increased lung markings especially to the mid lower lung sauceda compatible with infectious pneumonia. Echo reporting moderate concentric left ventricular hypertrophy, severe global hypokinesis of LV, moderately severe impaired LV function, EF 30-35%, moderate aortic sclerosis, moderate to severe mitral regurgitation, ihcv-vz-dwboespr tricuspid regurgitation, moderate pulmonary hypertension. Review of Systems ROS Other: All systems not noted in ROS Statement are negative. ROS Statement: Those systems with pertinent positive or pertinent negative responses have been documented in the HPI. Past Medical History Past Medical History: COPD, Hyperlipidemia, Hypertension, Respiratory Disorder Additional Past Medical History / Comment(s): BACK PAIN, STATES HAS CURRENT RUPTURED DISC L4 and L5 History of Any Multi-Drug Resistant Organisms: None Reported Past Surgical History: Hernia Repair, Orthopedic Surgery Additional Past Surgical History / Comment(s): BENIGN LEFT TIBIA OSTEOCHONDROMA REMOVED, RT KNEE MENISCUS REPAIR, LEFT ACHILLIES TEAR Past Anesthesia/Blood Transfusion Reactions: No Reported Reaction Past Psychological History: No Psychological Hx Reported Smoking Status: Former smoker Past Alcohol Use History: Rare Additional Past Alcohol Use History / Comment(s): SMOKES 3/4 PPD FROM AGE 14, (1978) Past Drug Use History: None Reported - Past Family History Mother Family Medical History: No Reported History Medications and Allergies Home Medications Medication Instructions Recorded Confirmed Type Losartan Potassium 50 mg PO DAILY 06/30/18 12/18/19 History Rosuvastatin [Crestor] 10 mg PO HS 06/30/18 12/18/19 History Albuterol Sulfate [Proair Hfa] 1 - 2 puff INHALATION RT-Q4H PRN 10/04/19 12/18/19 History Apixaban [Eliquis] 5 mg PO BID 10/04/19 12/18/19 History Cyclobenzaprine [Flexeril] 10 mg PO HS PRN 10/04/19 12/18/19 History Diltiazem HCl [Diltiazem HCl 24Hr 240 mg PO DAILY 10/04/19 12/18/19 History ER ([place])] Ipratropium-Albuterol Nebulize 3 ml INHALATION RT-QID PRN 10/04/19 12/18/19 History [Duoneb 0.5 mg-3 mg/3 ml Soln] Flecainide [Tambocor] 50 mg PO BID 11/21/19 12/18/19 History Fluticasone/Umeclidin/Vilanter 1 inhalation INHALATION DAILY 11/21/19 12/18/19 History [Trelegy Ellipta 100-62.5-25] Allergies Allergy/AdvReac Type Severity Reaction Status Date / Time egg AdvReac Diarrhea Verified 12/18/19 18:18 Physical Exam Vitals: Vital Signs Temp Pulse Pulse Resp BP BP Pulse Ox 12/19/19 07:56 97.6 F 90 18 123/87 92 L 12/19/19 03:58 98.2 F 113 H 20 126/78 96 12/19/19 00:20 97.9 F 118 H 18 155/78 98 12/18/19 20:00 98.2 F 126 H 18 126/78 99 12/18/19 18:38 103 H 12/18/19 18:00 98.1 F 103 H 20 125/73 96 12/18/19 17:29 98.0 F 128 H 22 107/85 96 12/18/19 16:03 115 H 22 106/95 95 12/18/19 15:01 115 H 24 134/71 96 12/18/19 14:38 97.5 F L 94 24 196/128 96 Intake and Output 12/18/19 12/19/19 12/19/19 22:59 06:59 14:59 Intake Total 250 555 Output Total 350 Balance 250 205 Intake: IV 250 Azithromycin 500 mg In 250 Sodium Chloride 0.9% 250 ml @ 250 mls/hr IVPB ONCE STA Rx#:[id number] Oral 555 Output: Urine 350 Other: Voiding Method Toilet Toilet # Voids 1 Weight 113.398 kg 104 kg PHYSICAL EXAM: VITAL SIGNS: As above GENERAL: Sitting up in bed, no acute distress HEENT: Conjunctivae normal. eyes normal. Oral mucosa moist NECK: No JVD. No thyroid enlargement. No LNs CARDIOVASCULAR: S1, S2 regular. Positive systolic murmur. RESPIRATION: Breath sounds diminished in the bases. No rhonchi, fine scattered crackles bilaterally, mid lobes through bases. No bronchial breathing. ABDOMEN: Soft, nontender . No guarding. no masses palpable. No ascites, No hepatosplenomegaly.Bowel sounds heard. LEGS: Trace edema. no calf tenderness. PSYCHIATRY: Alert and oriented X3, mood and affect normal. NERVOUS SYSTEM: Cranial N 2-12 grossly normal. Moves all 4 limbs. No focal deficits. Strength and sensation grossly intact.. Skin: no rash Results CBC & Chem 7: 12/19/19 03:29 12/19/19 03:29 Labs: Abnormal Lab Results - Last 24 Hours (Table) 12/18/19 12/18/19 12/19/19 Range/Units 14:55 14:55 03:29 WBC 12.3 H (3.8-10.6) k/uL RBC 4.12 L 4.06 L (4.30-5.90) m/uL Hgb 12.8 L 12.5 L (13.0-17.5) gm/dL Hct 38.9 L 38.7 L (39.0-53.0) % Neutrophils # 8.3 H 8.6 H (1.3-7.7) k/uL Lymphocytes # 0.7 L (1.0-4.8) k/uL Chloride (98-107) mmol/L Carbon Dioxide 21 L (22-30) mmol/L Creatinine (0.66-1.25) mg/dL Glucose 140 H (74-99) mg/dL C-Reactive Protein 26.1 H (<10.0) mg/L 12/19/19 Range/Units 03:29 WBC (3.8-10.6) k/uL RBC (4.30-5.90) m/uL Hgb (13.0-17.5) gm/dL Hct (39.0-53.0) % Neutrophils # (1.3-7.7) k/uL Lymphocytes # (1.0-4.8) k/uL Chloride 108 H (98-107) mmol/L Carbon Dioxide (22-30) mmol/L Creatinine 0.58 L (0.66-1.25) mg/dL Glucose 174 H (74-99) mg/dL C-Reactive Protein (<10.0) mg/L Thrombosis Risk Factor Assmnt - Choose All That Apply Each Factor Represents 1 point: Abnormal pulmonary function (COPD), Age 41-60 years, Serious lung disease incl. pneumonia (< 1month) Other Risk Factors: No Other congenital or acquired thrombophilia - If yes, enter type in comment: No Thrombosis Risk Factor Assessment Total Risk Factor Score: 3 Thrombosis Risk Factor Assessment Level: Moderate Risk Assessment and Plan Assessment: Acute bilateral pneumonia, community-acquired, coronavirus tested negative Leukocytosis secondary to the above Acute hypoxic respiratory failure secondary to the above COPD Chronic A.fib with RVR in a patient with history of Recent cardioversion November 2019 Moderately severely impaired LV function, EF 30-35% Moderate to severe mitral regurgitation Moderate tricuspid regurgitation Moderate pulmonary hypertension Hyperlipidemia Hypertension Chronic back pain History of nicotine dependence Plan: Continue current medication regime ,monitoring and symptomatic treatment. Continues on oral Cardizem. Anticoagulated on Eliquis. GI prophylaxis with Protonix. Maintain Rocephin, Zithromax, nebulized bronchodilators. Cardiology and pulmonary consult in place with recommendations pending. Home meds have been reviewed and resumed accordingly. The impression and plan of care has been dictated as directed. : I performed a history and examination of this patient, discussed the same with the dictator. I agree with the dictator's note ,documented as a scribe. Any additional findings or plans will be noted.
[2019-12-19] MEDS ORDERED: IPRATROPIUM-ALBUTEROL 3 ML NEB INHALATION PRN (11:42)
[2019-12-19 11:54] LABS: Glucose,Whole Blood 149 mg/dL (75-99)
--- NOTE | 2019-12-19 11:55 | P.CRDCN ---
History of Present Illness Consult date: 12/19/19 Requesting physician: Stas Fink Consult reason: atrial fibrillation Chief complaint: Shortness of breath History of present illness: This is a 54-year-old gentleman who follows with Dr. Alejandro in the office. He has a history of paroxysmal atrial fibrillation, prior cardiomyopathy, although according to the documentation from the office his most recent echo showed a normal LV function with mild to moderate MR, history of COPD, nicotine dependence. Patient was recently in the hospital in November at which time Dr. Alejandro attempted cardioversion which was unsuccessful. Patient presented to the hospital on this admission with symptoms of progressively worsening shortness of breath cardiology consultation was requested because of atrial fibrillation with a rapid ventricular response. Past Medical History Past Medical History: COPD, Hyperlipidemia, Hypertension, Respiratory Disorder Additional Past Medical History / Comment(s): BACK PAIN, STATES HAS CURRENT RUPTURED DISC L4 and L5 History of Any Multi-Drug Resistant Organisms: None Reported Past Surgical History: Hernia Repair, Orthopedic Surgery Additional Past Surgical History / Comment(s): BENIGN LEFT TIBIA OSTEOCHONDROMA REMOVED, RT KNEE MENISCUS REPAIR, LEFT ACHILLIES TEAR Past Anesthesia/Blood Transfusion Reactions: No Reported Reaction Past Psychological History: No Psychological Hx Reported Smoking Status: Former smoker Past Alcohol Use History: Rare Additional Past Alcohol Use History / Comment(s): SMOKES 3/4 PPD FROM AGE 14, (1978) Past Drug Use History: None Reported - Past Family History Mother Family Medical History: No Reported History Medications and Allergies Home Medications Medication Instructions Recorded Confirmed Type Losartan Potassium 50 mg PO DAILY 06/30/18 12/18/19 History Rosuvastatin [Crestor] 10 mg PO HS 06/30/18 12/18/19 History Albuterol Sulfate [Proair Hfa] 1 - 2 puff INHALATION RT-Q4H PRN 10/04/19 12/18/19 History Apixaban [Eliquis] 5 mg PO BID 10/04/19 12/18/19 History Cyclobenzaprine [Flexeril] 10 mg PO HS PRN 10/04/19 12/18/19 History Diltiazem HCl [Diltiazem HCl 24Hr 240 mg PO DAILY 10/04/19 12/18/19 History ER ([place])] Ipratropium-Albuterol Nebulize 3 ml INHALATION RT-QID PRN 10/04/19 12/18/19 History [Duoneb 0.5 mg-3 mg/3 ml Soln] Flecainide [Tambocor] 50 mg PO BID 11/21/19 12/18/19 History Fluticasone/Umeclidin/Vilanter 1 inhalation INHALATION DAILY 11/21/19 12/18/19 History [Trelegy Ellipta 100-62.5-25] Allergies Allergy/AdvReac Type Severity Reaction Status Date / Time egg AdvReac Diarrhea Verified 12/18/19 18:18 Physical Exam Vitals: Vital Signs Temp Pulse Pulse Resp BP BP Pulse Ox 12/19/19 07:56 97.6 F 90 18 123/87 92 L 12/19/19 03:58 98.2 F 113 H 20 126/78 96 12/19/19 00:20 97.9 F 118 H 18 155/78 98 12/18/19 20:00 98.2 F 126 H 18 126/78 99 12/18/19 18:38 103 H 12/18/19 18:00 98.1 F 103 H 20 125/73 96 12/18/19 17:29 98.0 F 128 H 22 107/85 96 12/18/19 16:03 115 H 22 106/95 95 12/18/19 15:01 115 H 24 134/71 96 12/18/19 14:38 97.5 F L 94 24 196/128 96 Intake and Output 12/18/19 12/19/19 12/19/19 22:59 06:59 14:59 Intake Total 250 555 420 Output Total 350 Balance 250 205 420 Intake: IV 250 Azithromycin 500 mg In 250 Sodium Chloride 0.9% 250 ml @ 250 mls/hr IVPB ONCE STA Rx#:[id number] Oral 555 420 Output: Urine 350 Other: Voiding Method Toilet Toilet # Voids 1 Weight 113.398 kg 104 kg Results 12/19/19 03:29 12/19/19 03:29 Cardiac Enzymes 12/18/19 12/18/19 12/18/19 Range/Units 14:55 14:55 22:11 AST 21 (17-59) U/L Troponin I <0.012 <0.012 (0.000-0.034) ng/mL 12/19/19 Range/Units 03:29 AST (17-59) U/L Troponin I <0.012 (0.000-0.034) ng/mL Coagulation 12/18/19 Range/Units 14:55 PT 10.8 (9.0-12.0) sec APTT 23.2 (22.0-30.0) sec CBC 12/18/19 12/19/19 Range/Units 14:55 03:29 WBC 12.3 H 9.5 (3.8-10.6) k/uL RBC 4.12 L 4.06 L (4.30-5.90) m/uL Hgb 12.8 L 12.5 L (13.0-17.5) gm/dL Hct 38.9 L 38.7 L (39.0-53.0) % Plt Count 267 249 (150-450) k/uL Comprehensive Metabolic Panel 12/18/19 12/19/19 Range/Units 14:55 03:29 Sodium 138 138 (137-145) mmol/L Potassium 4.0 4.7 (3.5-5.1) mmol/L Chloride 107 108 H (98-107) mmol/L Carbon Dioxide 21 L 23 (22-30) mmol/L BUN 14 14 (9-20) mg/dL Creatinine 0.69 0.58 L (0.66-1.25) mg/dL Glucose 140 H 174 H (74-99) mg/dL Calcium 8.9 9.2 (8.4-10.2) mg/dL AST 21 (17-59) U/L ALT 19 (4-49) U/L Alkaline Phosphatase 65 (38-126) U/L Total Protein 7.0 (6.3-8.2) g/dL Albumin 3.9 (3.5-5.0) g/dL Current Medications Generic Name Dose Route Start Last Admin Trade Name Freq PRN Reason Stop Dose Admin Albuterol Sulfate 2 puff 12/18/19 19:37 Ventolin Hfa Inhaler INHALATION RT-QID PRN Shortness Of Breath Or Wheezing Apixaban 5 mg 12/18/19 21:00 12/19/19 09:34 Eliquis PO 5 mg BID JOSH Administration Atorvastatin Calcium 20 mg 12/18/19 21:00 12/18/19 19:50 Lipitor PO 20 mg HS JOSH Administration Cyclobenzaprine HCl 10 mg 12/18/19 18:47 Flexeril PO HS PRN pain Diltiazem HCl 120 mg 12/20/19 09:00 Cardizem Cd PO DAILY [facility] Insulin Aspart 0 unit 12/19/19 12:30 Novolog SQ ACHS [facility] Protocol Losartan Potassium 50 mg 12/19/19 09:00 12/19/19 09:34 Cozaar PO 50 mg DAILY JOSH Administration Metoprolol Tartrate 50 mg 12/19/19 21:00 Lopressor PO BID [facility] Naloxone HCl 0.2 mg 12/18/19 16:19 Narcan IV Q2M PRN Opioid Reversal Trelegy Ellipta ( 1 each 12/19/19 08:00 12/19/19 07:29 Fluticasone 100 Mcg/ INHALATION 1 each Umeclidinium 62.5 RT-DAILY JOSH Administration Cmg/Vilanterol 25 Mcg) Intake and Output 12/18/19 12/19/19 12/19/19 22:59 06:59 14:59 Intake Total 250 555 420 Output Total 350 Balance 250 205 420 Intake: IV 250 Azithromycin 500 mg In 250 Sodium Chloride 0.9% 250 ml @ 250 mls/hr IVPB ONCE STA Rx#:[id number] Oral 555 420 Output: Urine 350 Other: Voiding Method Toilet Toilet # Voids 1 Weight 113.398 kg 104 kg 12/19/19 03:29 12/19/19 03:29
[2019-12-19] MEDS: methylPREDNISolone SOD SUCCI 40 MG/ML 1 ML VIAL IV SCH ×3 (13:00→23:37)
[2019-12-19] MEDS: INSULIN ASPART (NovoLOG) 100 UNIT/ML VIAL SQ SCH ×3 (13:03→21:23)
[2019-12-19] MEDS: PANTOPRAZOLE 40 MG/10 ML VIAL IVP SCH (13:03)
--- NOTE | 2019-12-19 13:56 | CONS ---
CONSULTATION PULMONARY/CRITICAL CARE CONSULTATION. DATE OF CONSULTATION: 12/18/2019 This is a 54-year-old male who I am seeing for shortness of breath. The patient was seen on December 17 at 1437. A 54-year-old male who presented to the emergency department for shortness of breath. He apparently was directed by his primary care physician to come to the emergency room to be evaluated. I believe that doctor is Dr. Fink. He has been short of breath, which has been progressive in nature for the prior two weeks prior to admission to the ER. He does have history of moderately severe COPD with an FEV1 at 54% of predicted. 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 In addition, he had some sharp pains in his chest, particularly at nighttime with deep breathing. Again, he was told to come in to the emergency room by his primary care provider. He also sees one of the pulmonologists, I believe one of my partners, and does also see Dr. Prieto in cardiology. The patient was tested for COVID-19 infection and apparently the test was negative. HOME MEDICATIONS: His home medications are reviewed. He is on losartan, Crestor, ProAir HFA, Eliquis, cyclobenzaprine, diltiazem, updrafts with albuterol and Atrovent, flecainide, and Trelegy. ALLERGIES: Denied. PAST MEDICAL HISTORY: Positive for COPD, hyperlipidemia, hypertension, chronic back pain, and irregular heart rhythm. PAST SURGICAL HISTORY: Previous benign left tibial osteochondroma, right knee meniscus removal, right knee meniscus repair, left Achilles tear, hernia repair, and some other minor procedures. SOCIAL HISTORY: Positive for previous tobacco use. He does not smoke currently. FAMILY HISTORY: Unremarkable. Mother is healthy. Does not know his father's health history. REVIEW OF SYSTEMS: CONSTITUTIONAL: Negative. NEUROLOGIC: Negative. HEENT: Negative. CARDIOVASCULAR: Sharp, left-sided, pleuritic type chest pain. PULMONARY: Shortness of breath, progressive, worse on exertion. GI: Negative. : Negative. RHEUMATOLOGIC: Negative. IMMUNOLOGIC: Negative. ENDOCRINOLOGIC: Negative. DERMATOLOGIC: Negative. PHYSICAL EXAMINATION: VITAL SIGNS: Current vital signs are reviewed. Temperature is 97.6, heart rate 90, respiratory rate 18, blood pressure 123/87, mean 99, and room air saturation is 96% to 98%. GENERAL: Appears in no acute distress. HEENT: Grossly unremarkable. Mucous membranes are moist. No oral lesions. NECK: Supple. Full range of motion. No adenopathy, thyromegaly, or neck vein distention. CARDIOVASCULAR: Regular rhythm and rate. Heart rate about 85 beats per minute. S1 and S2 normal. Heart sounds distant. No murmur. LUNGS: Reveal relatively clear but somewhat diminished breath sounds. There is slight prolongation on force maneuver. There are some mild, high-pitch expiratory wheezes on force maneuver. No crackles. ABDOMEN: Obese. Bowel sounds are heard. EXTREMITIES: Intact. No cyanosis, clubbing, or edema. SKIN: Without rash. NEUROLOGIC: Brief but nonfocal. Chest x-ray done yesterday in the emergency room reveals possible bibasilar pneumonia. LABS: Reviewed. White count 9.5, hemoglobin 12.5, hematocrit 38.7, platelet count 249,000. PT, INR, and PTT normal. Sodium and potassium normal. Chloride is 108, CO2 23, anion gap is 7, BUN and creatinine were 14 and 0.58. Troponins were negative x3. C-reactive protein 26.1. N-terminal proBNP 1590. Coronavirus testing was negative. TSH was 0.876. CURRENT MEDICATIONS: Reviewed. He is on albuterol inhaler, Eliquis, Lipitor, Flexeril, Cardizem, insulin, cozaar, metoprolol, Narcan, and Protonix. ASSESSMENT: 1. Chronic obstructive pulmonary disease exacerbation, possibly complicated by bibasilar pneumonia. Clinically is not behaving like pneumonia. 2. Previous history of tobacco use. 3. Moderately severe chronic obstructive pulmonary disease. 4. History of cardiac arrhythmia. 5. History of hypertension. 6. History of hyperlipidemia. 7. Chronic back pain. PLAN: The patient's medications will be adjusted accordingly. Additional recommendations and suggestions are forthcoming. We will get him on some corticosteroids. In addition, we do not have Trelegy on formulary here. Additional recommendations and suggestions are forthcoming. He could bring his Trelegy from home. Please see my orders and my recommendations. Prognosis is good. MMODL / IJN: [id number] /
[2019-12-19] MEDS: IPRATROPIUM-ALBUTEROL 3 ML NEB INHALATION SCH ×3 (15:48→20:07)
[2019-12-19 17:34] LABS: Glucose,Whole Blood 169 mg/dL (75-99)
[2019-12-19] MEDS: FLECAINIDE 50 MG TAB PO SCH (18:48)
[2019-12-19] MEDS: SYMBICORT 160-4.5 MCG INHALER INHALATION SCH (20:06)
[2019-12-19 20:43] LABS: Glucose,Whole Blood 200 mg/dL (75-99)
[2019-12-19] MEDS: ATORVASTATIN 20 MG TAB PO SCH (21:23)
[2019-12-19] MEDS: METOPROLOL TARTRATE 50 MG TAB PO SCH (21:59)
[2019-12-19 23:37] LABS: Glucose,Whole Blood 169 mg/dL (75-99)
[2019-12-20 06:20] LABS: Glucose,Whole Blood 179 mg/dL (75-99)
[2019-12-20] MEDS: methylPREDNISolone SOD SUCCI 40 MG/ML 1 ML VIAL IV SCH (06:46)
[2019-12-20] MEDS: INSULIN ASPART (NovoLOG) 100 UNIT/ML VIAL SQ SCH ×2 (06:52→12:25)
[2019-12-20 07:18] LABS: HCT 38.4 % (39.0-53.0); HGB 12.2 gm/dL (13.0-17.5); MCH 30.8 pg (25.0-35.0); MCHC 31.9 g/dL (31.0-37.0); MCV 96.5 fL (80.0-100.0); Mean Platelet Volume 8.4; Platelet Count 237 k/uL (150-450); RBC 3.98 m/uL (4.30-5.90); RDW 13.6 % (11.5-15.5); WBC 21.3 k/uL (3.8-10.6)
--- NOTE | 2019-12-20 07:27 | XR ---
EXAMINATION TYPE: XR chest 1V DATE OF EXAM: 12/20/2019 COMPARISON: 12/18/2019 INDICATION: Pneumonia TECHNIQUE: Single frontal view of the chest is obtained. FINDINGS: The heart size is enlarged. The pulmonary vasculature is normal. Mild diffuse increased lung markings are present diffusely. Suspicious focal consolidation is not saravanan dent. IMPRESSION: 1. Cardiomegaly. 2. Mild increased lung markings which are nonspecific. Findings have improved over the interval.
[2019-12-20 07:30] LABS: African American GFR (CKD) >90 (>60 ml/min/1.73 sqM); Anion Gap 10 mmol/L; Blood Urea Nitrogen 21 mg/dL (9-20); Calcium 9.3 mg/dL (8.4-10.2); Carbon Dioxide 23 mmol/L (22-30); Chloride 106 mmol/L (98-107); Glucose 162 mg/dL (74-99); Non-African American GFR(CKD) >90 (>60 ml/min/1.73 sqM); Potassium 5.1 mmol/L (3.5-5.1); Sodium 139 mmol/L (137-145)
[2019-12-20] MEDS: IPRATROPIUM-ALBUTEROL 3 ML NEB INHALATION SCH ×2 (08:08→12:00)
[2019-12-20] MEDS: SYMBICORT 160-4.5 MCG INHALER INHALATION SCH (08:08)
[2019-12-20] MEDS: APIXABAN 5 MG TAB PO SCH (08:40)
[2019-12-20] MEDS: LOSARTAN 50 MG TAB PO SCH (08:40)
[2019-12-20] MEDS ORDERED: DILTIAZEM CD 120 MG CAP.ER.24H PO SCH (09:00)
[2019-12-20] MEDS ORDERED: DILTIAZEM CD 240 MG CAP.ER.24H PO SCH (09:00)
[2019-12-20] MEDS: METOPROLOL TARTRATE 50 MG TAB PO SCH (09:29)
[2019-12-20] MEDS: PANTOPRAZOLE 40 MG/10 ML VIAL IVP SCH (09:29)
[2019-12-20 11:36] LABS: Glucose,Whole Blood 210 mg/dL (75-99)
[2019-12-20 12:38] VITALS: BP 125/82; PULSE 104; TEMP 97.9
--- NOTE | 2019-12-20 12:56 | PN ---
PROGRESS NOTE Mr. Nolan has chronic persistent atrial fibrillation. I explained that we need a beta gilmar, but he is not able to take it because of erectile dysfunction. He wants sotalol or flecainide. I explained to him that he has remaining atrial fib. We are unable to convert him to sinus rhythm. We should therefore pursue rate control. Additionally, his ejection fraction is quite poor, he is at 30%-35% range, which is a drop from his recent note from Dr. Prieto during the cardioversion. Given this, I explained to the patient that we will reduce the dose of Cardizem and place him on 6.25 mg b.i.d. of carvedilol. I had a long discussion and explained to him. He is willing to try this. I also spoke to his primary care physician, Dr. Fink. He has a question of pneumonia as well. Vitals are stable, no JVD. S1, S2 heard normally. Regular rhythm noted, short systolic murmur noted. Lungs reveal fair air entry. Abdomen and lower extremity exam unchanged. MMODL / IJN: [id number] /
--- NOTE | 2019-12-20 13:51 | P.PN ---
Subjective Progress Note Date: 12/20/19 Principal diagnosis: This is a 54-year-old gentleman who was seen in consultation by Dr. Khoury yesterday for complaints of shortness of breath. He presented to the emergency department here at [facility] for complaints of shortness of breath. He was apparently directed by his primary care physician to come to the emergency department to be evaluated. He has been complaining of progressive shortness of breath for 2 weeks prior to his presentation to the emergency department. He does have a history of moderately severe COPD with an FEV1 at 54% of predicted value. 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 In addition he had some sharp pains in his chest, particularly at nighttime with deep breathing. Due to his history of moderately severe COPD he also follows with Dr. Fish from [facility] medicine and follows with Dr. Prieto from cardiology for his hypertension and paroxysmal atrial fibrillation. On 12/20/2019 the patient was seen in follow-up on the selective care unit with Dr. Khoury. The patient is sitting up to the bedside chair and is in no acute distress. He is currently on room air with oxygen saturation is 96%. He had a repeat chest x-ray completed today which demonstrated some cardiomegaly, mild increase in lung markings which are nonspecific and an overall improvement compared to yesterday's film. His been afebrile the last 24 hours. Laboratory results today show a WBC count 21.3, Hgb 12.2, BUN 21, and creatinine 0.73. The patient reports that he is feeling much better today, denies any complaints of shortness of breath and would like to be discharged home today. He was tested for COVID 19 which was negative on 12/18/2019. Remote telemetry showing atrial fibrillation with RVR heart rate 130. Objective - Vital Signs Vital signs: Vital Signs Temp 97.9 F 12/20/19 12:00 Pulse 104 H 12/20/19 12:00 Resp 18 12/20/19 12:00 BP 125/82 12/20/19 12:00 Pulse Ox 95 12/20/19 12:00 Intake & Output 12/19/19 12/20/19 12/20/19 18:59 06:59 18:59 Intake Total 420 620 360 Balance 420 620 360 Weight 114.9 kg Intake: IV 0 Azithromycin 500 mg In 0 Sodium Chloride 0.9% 250 ml @ 250 mls/hr IVPB ONCE STA Rx#:[id number] Oral 420 761 360 Other: Voiding Method Toilet # Voids 1 1 - Exam Pleasant 54-year-old gentleman who is an obese gentleman, currently on room air with oxygen saturation is 96%. No acute distress. - Constitutional General appearance: Present: cooperative, no acute distress, obese - EENT Eyes: Present: PERRLA. Absent: scleral icterus ENT: Present: normal oropharynx. Absent: hard of hearing - Neck Details: Neck is supple, no JVD. Neck: Absent: stridor - Respiratory Details: Lung sounds with some few scattered crackles throughout. No wheezes or rhonchi. Respirations are symmetrical and nonlabored. - Cardiovascular Details: Irregular rhythm and tachycardic rate. Heart sounds: normal: S1, S2 Abnormal Heart Sounds: Present: systolic murmur. Absent: rub, S3 Gallop - Gastrointestinal Gastrointestinal Comment(s): Abdomen is soft, nontender and nondistended. Active bowel sounds present in all 4 quadrants. No guarding or rigidity. No organomegaly. - Integumentary Integumentary Comment(s): Skin is warm and dry. Integumentary: Absent: rash - Neurologic Neurologic: Present: CNII-XII intact - Musculoskeletal Musculoskeletal: Present: gait normal, strength equal bilaterally - Psychiatric Psychiatric: Present: A&O x's 3, appropriate affect, intact judgment & insight - Allied health notes Allied health notes reviewed: nursing - Labs CBC & Chem 7: 12/20/19 05:58 12/20/19 05:58 Labs: Abnormal Lab Results - Last 24 Hours (Table) 12/19/19 12/19/19 12/19/19 Range/Units 17:27 20:42 23:36 WBC (3.8-10.6) k/uL RBC (4.30-5.90) m/uL Hgb (13.0-17.5) gm/dL Hct (39.0-53.0) % BUN (9-20) mg/dL Glucose (74-99) mg/dL POC Glucose (mg/dL) 169 H 200 H 169 H (75-99) mg/dL 12/20/19 12/20/19 12/20/19 Range/Units 05:58 05:58 06:18 WBC 21.3 H (3.8-10.6) k/uL RBC 3.98 L (4.30-5.90) m/uL Hgb 12.2 L (13.0-17.5) gm/dL Hct 38.4 L (39.0-53.0) % BUN 21 H (9-20) mg/dL Glucose 162 H (74-99) mg/dL POC Glucose (mg/dL) 179 H (75-99) mg/dL 12/20/19 Range/Units 11:35 WBC (3.8-10.6) k/uL RBC (4.30-5.90) m/uL Hgb (13.0-17.5) gm/dL Hct (39.0-53.0) % BUN (9-20) mg/dL Glucose (74-99) mg/dL POC Glucose (mg/dL) 210 H (75-99) mg/dL - Imaging and Cardiology Chest x-ray: report reviewed, image reviewed Assessment and Plan Assessment: 1. Chronic obstructive pulmonary disease exacerbation, possibly complicated by a basilar pneumonia. Clinically not behaving like pneumonia 2. Previous history of tobacco use. 3. Moderately severe chronic obstructive pulmonary disease 4. History of chronic persistent paroxysmal atrial fibrillation 5. History of hypertension 6. History of hyperlipidemia 7. Chronic back pain Plan: 1. The patient was seen and examined at his bedside at the cardiac stepdown unit with Dr. Khoury. 2. His Solu-Medrol has been discontinued as he reports his breathing is much better and his oxygen saturations are well maintained on room air. 3. Per the pulmonary medicine standpoint he can be discharged home whenever he is cleared by cardiology and primary care service. 4. The importance of continued smoking cessation has been reviewed with the patient. 5. Once the patient is discharged he should follow-up with Dr. Fish 1 week post discharge, this has been discussed with the patient. 6. More recommendations follow based on patient's clinical course. I, the cosigning physician, performed a history and physical examination on the patient. Lungs with few scattered crackles and maintaining O2 saturation in the 90s on room air. I discussed the plan and assessment of care with Ap Hickman NP. I attest that the above note is dictated by him. Time with Patient: Greater than 30
--- NOTE | 2019-12-20 14:06 | P.DS ---
Providers Date of admission: 12/18/19 16:19 Expected date of discharge: 12/20/19 Attending physician: Stas Fink Consults: 12/18/19 16:20 Consult Physician Urgent Consulting Provider: [facility] Consult Reason/Comments: afib with rvr Do you want consulting provider notified?: Yes Consult Physician Urgent Consulting Provider: Antonio Fish Reason/Comments: COPD exacerbation, CAP Do you want consulting provider notified?: Yes Primary care physician: Stas Fink Hospital Course: Final Diagnoses: Acute COPD Exac. with Acute bilateral pneumonia, community-acquired, influenza A & B, coronavirus tested negative. Leukocytosis secondary to the above Hx. of moderate to severe COPD Chronic A.fib with RVR in a patient with history of Recent cardioversion November 2019 Moderately severely impaired LV function, EF 30-35% Moderate to severe mitral regurgitation Moderate tricuspid regurgitation Moderate pulmonary hypertension Hyperlipidemia Hypertension Chronic back pain History of nicotine dependence Hospital course:This is a 54-year-old gentleman with history of COPD, hyperlipidemia, hypertension, chronic back pain, former nicotine dependence presented to the ER with worsening dyspnea, palpitations, recent cardioversion November [address] Prieto and multiple other medical issues. 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 Denies fever. Reports productive cough with light brown sputum. Coronavirus reported negative. Complains of sleep deprivation secondary to shortness of breath. Reported no nausea, vomiting, positive diarrhea. Positive emesis in the ER. Afebrile on admission with leukocytosis, EKG reported atrial fibrillation with RVR, heart rate 120, telemetry reporting heart rates up to the 170s. Troponins negative 3. BNP 1590. Chest x-ray reporting bilateral increased lung markings especially to the mid lower lung sauceda compatible with infectious pneumonia. Echo reporting moderate concentric left ventricular hypertrophy, severe global hypokinesis of LV, moderately severe impaired LV function, EF 30-35%, moderate aortic sclerosis, moderate to severe mitral regurgitation, [id number] tricuspid regurgitation, moderate pulmonary hypertension. 12/19/2009 tested negative for influenza A and B. Chest x-ray reporting mild increased lung markings, nonspecific, overall improved. Last night patient declined change in beta gilmar/metoprolol. telemetry reporting A. fib, uncontrolled with heart rates up into the 180s currently.Mainstaining O2 Sats in the 90s on RA. Evaluated by both pulmonary and cardiology. Antiarrhythmics further adjusted. Significant clinical improvement. Cleared by pulmonary for discharge. Patient will be discharged home today in stable condition with fair prognosis pending cardiology clearance. The impression and plan of care has been dictated as directed. : I performed a history and examination of this patient, discussed the same with the dictator. I agree with the dictator's note ,documented as a scribe. Any additional findings or plans will be noted. Patient Condition at Discharge: Stable Plan - Discharge Summary Discharge Rx Participant: No New Discharge Prescriptions: New Diltiazem Cd [Cardizem CD] 120 mg PO DAILY #30 cap.er.24h Carvedilol [Coreg] 6.25 mg PO BID-W/MEALS #60 tab methylPREDNISolone Dose Pack [Medrol Dose Pack] 4 mg PO DIRECTED #21 package Azithromycin [Zithromax Z-pack] 0 mg PO DIRECTED #6 tab Continue Rosuvastatin [Crestor] 10 mg PO HS Losartan Potassium 50 mg PO DAILY Albuterol Sulfate [Proair Hfa] 1 - 2 puff INHALATION RT-Q4H PRN PRN Reason: Shortness Of Breath Apixaban [Eliquis] 5 mg PO BID Cyclobenzaprine [Flexeril] 10 mg PO HS PRN PRN Reason: pain Fluticasone/Umeclidin/Vilanter [Trelegy Ellipta 100-62.5-25] 1 inhalation INHALATION DAILY Ipratropium-Albuterol Nebulize [Duoneb 0.5 mg-3 mg/3 ml Soln] 3 ml INHALATION RT-QID PRN #0 PRN Reason: Shortness Of Breath Discontinued Diltiazem HCl [Diltiazem HCl 24Hr ER (LA)] 240 mg PO DAILY Flecainide [Tambocor] 50 mg PO BID Discharge Medication List Losartan Potassium 50 mg PO DAILY 06/30/18 [History] Rosuvastatin [Crestor] 10 mg PO HS 06/30/18 [History] Albuterol Sulfate [Proair Hfa] 1 - 2 puff INHALATION RT-Q4H PRN 10/04/19 [History] Apixaban [Eliquis] 5 mg PO BID 10/04/19 [History] Cyclobenzaprine [Flexeril] 10 mg PO HS PRN 10/04/19 [History] Fluticasone/Umeclidin/Vilanter [Trelegy Ellipta 100-62.5-25] 1 inhalation INHALATION DAILY 11/21/19 [History] Azithromycin [Zithromax Z-pack] 0 mg PO DIRECTED #6 tab 12/20/19 [Rx] Carvedilol [Coreg] 6.25 mg PO BID-W/MEALS #60 tab 12/20/19 [Rx] Diltiazem Cd [Cardizem CD] 120 mg PO DAILY #30 cap.er.24h 12/20/19 [Rx] Ipratropium-Albuterol Nebulize [Duoneb 0.5 mg-3 mg/3 ml Soln] 3 ml INHALATION RT-QID PRN #0 12/20/19 [Rx] methylPREDNISolone Dose Pack [Medrol Dose Pack] 4 mg PO DIRECTED #21 package 12/20/19 [Rx] Follow up Appointment(s)/Referral(s): Antonio Fish MD [STAFF PHYSICIAN] - 1 Week Stas Fink DO [Primary Care Provider] - 1-2 days Patient Instructions/Handouts: Metoprolol (By mouth), Carvedilol (By mouth)
[2019-12-20] MEDS ORDERED: CARVEDILOL 6.25 MG TAB PO SCH (17:30)
== END 2019-12-20 15:28 | disposition home or self-care (01) | DRG 193 ==
LOC: EC 14:37 → 3SCARD 16:19
PROVIDERS: ADMIT Family Medicine; ATTEND Family Medicine
DX: J18.9 Pneumonia, unspecified organism (principal); J96.01 Acute respiratory failure with hypoxia; J44.0 Chronic obstructive pulmonary disease with (acute) lower respiratory infection; J44.1 Chronic obstructive pulmonary disease with (acute) exacerbation; I42.9 Cardiomyopathy, unspecified; I48.19 Other persistent atrial fibrillation; I27.20 Pulmonary hypertension, unspecified; Z20.828 Contact with and (suspected) exposure to other viral communicable diseases; G89.29 Other chronic pain; M54.9 Dorsalgia, unspecified; I08.3 Combined rheumatic disorders of mitral, aortic and tricuspid valves; E78.5 Hyperlipidemia, unspecified; I10 Essential (primary) hypertension; R19.7 Diarrhea, unspecified; N52.9 Male erectile dysfunction, unspecified; Z79.01 Long term (current) use of anticoagulants; Z79.51 Long term (current) use of inhaled steroids; Z79.899 Other long term (current) drug therapy; Z72.820 Sleep deprivation; Z87.891 Personal history of nicotine dependence; Z87.39 Personal history of other diseases of the musculoskeletal system and connective tissue; Z98.890 Other specified postprocedural states
CPT/HCPCS: 36415; 71045; 80048; 80053; 83735; 83880; 84443; 84484; 85025; 85027; 85610; 85730; 86140; 87502; 87635; 93005; 93306; 94640; 96365; 96375; 99285

== ENCOUNTER 2020-01-01 10:33 | Day surgery (SDC) | payer OTHER ==
[2019-12-28 09:50] VITALS: BMI 33.0
[~2020-01-01 10:33] MED LIST changes: +ALPRAZolam 0.25 MG TAB PO PRN; +ALPRAZolam 0.5 MG TAB PO PRN; +ASPIRIN 325 MG TAB PO STA; +ATORVASTATIN 80 MG TAB PO STA; -LACTATED RINGERS 1,000 ML IV SCH; -LIDOCAINE 1% (10MG/ML) FOR IV START INTRADERMA PRN; +NITROGLYCERIN SL TABS 0.4 MG TAB SUBLINGUAL PRN; -ONDANSETRON 4 MG/2 ML VIAL IVP PRN; -PROPOFOL 10 MG/ML 20 ML VIAL IV ONE; -SODIUM CHLORIDE 0.9% 1,000 ML IV SCH; +SODIUM CHLORIDE 0.9% 1,000 ML in EMPTY BAG 1 BAG IV ONE
[2020-01-01 11:26] VITALS: TEMP 98
[2020-01-01 11:43] LABS: Basophils # (A) 0.1 k/uL (0-0.2); Basophils % (A) 1 %; Eosinophils # (A) 0.4 k/uL (0-0.7); Eosinophils % (A) 3 %; HGB 13.1 gm/dL (13.0-17.5); Lymphocytes # (A) 2.1 k/uL (1.0-4.8); Lymphocytes % (A) 16 %; MCH 30.5 pg (25.0-35.0); MCHC 31.1 g/dL (31.0-37.0); Mean Platelet Volume 7.8; Monocytes # (A) 0.8 k/uL (0-1.0); Monocytes % (A) 6 %; Neutrophils # (A) 9.6 k/uL (1.3-7.7); Neutrophils % (A) 73 %; Platelet Count 231 k/uL (150-450); RBC 4.29 m/uL (4.30-5.90); RDW 13.5 % (11.5-15.5); WBC 13.2 k/uL (3.8-10.6)
[2020-01-01] MEDS ORDERED: BENZOCAINE SPRAY 1 CAN TOPICAL ONE ×2 (11:47→11:53)
[2020-01-01] MEDS ORDERED: IV FLUID CONTINUATION 950 ML IV ONE (11:48)
[2020-01-01] MEDS ORDERED: LIDOCAINE 1% INJ 10MG/ML (20 ML MDV) ONE (12:06)
[2020-01-01] MEDS ORDERED: VERAPAMIL 2.5 MG/ML 2 ML AMP ONE (12:06)
[2020-01-01] MEDS ORDERED: MIDAZOLAM 2 MG/2 ML VIAL IVP ONE ×2 (12:10→12:41)
[2020-01-01] MEDS ORDERED: fentaNYL (PF) 50 MCG/ML 2 ML AMP IVP ONE (12:10)
[2020-01-01 12:17] VITALS: RESP 16
--- NOTE | 2020-01-01 12:31 | P.PCN ---
Date of Procedure: 01/01/20 Operative Findings: TRANSESOPHAGEAL ECHOCARDIOGRAM PRACTICE OFFICE ASSOCIATE: TESS ROBERTS MD, RPVI INDICATION: Mitral regurgitation SEDATION: Conscious sedation COMPLICATION: None PROCEDURE DESCRIPTION: After obtaining an informed consent, the patient was brought to transesophageal echocardiogram room. Pulse oximetry and heart monitors were attached to the patient. The patient throat was sprayed using lidocaine. The patient was turned into left lateral position. After that a bite guard was placed. After an appropriate conscious sedation was initiated, the transesophageal echocardiogram was advanced through a bite guard into the mid esophagus. A 2-D echocardiogram images, color Doppler images, continuous wave images, pulse-wave images, of various cardiac structure were performed. After that the transesophageal echocardiogram probe was advanced into the stomach and fixed to obtain transgastric view was. The probe was brought into the mid esophagus. Inter-atrial septum was interrogated using 2D images, color Doppler images, continuous Doppler images, and then contrast study. After that transesophageal echocardiogram was withdrawn out and upon withdrawing the descending thoracic aorta all the way up to the arch was evaluated. FINDING: The left ventricular systolic function is impaired with EF between 40-45%. The right ventricle appears to be within normal limits for function. The left atrium and right atrium are moderately dilated. The left atrial appendage was not well visualized. The interatrial septum appears to be intact without any evidence of shunt by color flow or by contrast study. The aortic valve is sclerotic but no evidence of stenosis or regurgitation. The mitral valve appears to be thickened with evidence off severe mitral regurgitation by color flow Doppler as well as by evidence of reversal flow in the pulmonary veins. The tricuspid valve showed evidence of moderate tricuspid regurgitation. The pulmonic valve was not well-visualized. CONCLUSION: 1. Impaired LV function with EF between 40-45% and global hypokinesia 2. Normal right ventricular dimension and systolic function 3. Moderate biatrial enlargement 4. Intact interatrial septum without any evidence of shunt 5. Aortic sclerosis without stenosis or insufficiency 6. Thickened mitral valve leaflets with evidence of severe mitral regurgitation by color flow Doppler. There was reversal flow in the pulmonary veins 7. Moderate tricuspid regurgitation 8. No evidence of pericardial effusion
[2020-01-01] MEDS ORDERED: LIDOCAINE 1% INJ 10MG/ML (20 ML MDV) SQ ONE (12:37)
[2020-01-01] MEDS ORDERED: VERAPAMIL SYRINGE (5 MG/10 ML) INTRAARTER ONE ×2 (12:39→12:53)
[2020-01-01] MEDS ORDERED: HEPARIN SODIUM 1,000 UN/ML (10ML VL) ONE (12:42)
[2020-01-01] MEDS ORDERED: HEPARIN SODIUM 1,000 UN/ML (10ML VL) IV ONE (12:45)
[2020-01-01] MEDS ORDERED: IOPAMIDOL-370 125ML BTL INJ ONE (12:53)
[2020-01-01] MEDS ORDERED: RX INFO: IV CONTRAST WAS GIVEN 1 EACH MISC MISCELLANE PRN (12:57)
[2020-01-01] MEDS ORDERED: SODIUM CHLORIDE 0.9% 1,000 ML IV SCH (13:00)
--- NOTE | 2020-01-01 13:02 | P.PCN ---
Date of Procedure: 01/01/20 Operative Findings: CARDIAC CATHETERIZATION PERFORMING PHYSICIAN: Ishaan Prieto MD, RPVI PROCEDURE PERFORMED: 1. Selective right and left coronary angiogram 2. Left heart catheterization INDICATION: This is a 54-year-old gentleman who was diagnosed recently with cardiomyopathy as well as atrial fibrillation. The heart catheterization is to rule out severe underlying coronary artery disease COMPLICATION: None APPROACH: Right radial artery LEVEL OF SEDATION: Moderate with sedation length of 20 minutes PROCEDURE DESCRIPTION: After obtaining an informed consent, the patient was brought to cardiac engineer geophysical laboratory. Local anesthesia was performed using lidocaine subcutaneously. The right radial artery was cannulated using Seldinger technique, the guidewire passed easily, following that we advanced a 5-Surinamese sheath dilator assembly, the wire and dilator were removed and sheath was flushed. Following that, 2 mg of verapamil along with 5000 unit heparin were given. Selective right and left coronary angiogram using a 6-Surinamese JR4 and JL 3.5 catheters. Following that we did left heart catheterization using 6-Surinamese pigtail catheter. The procedure was completed there was no complication. SELECTIVE CORONARY ANGIOGRAM: The right coronary artery: Is a large caliber vessel and super dominant vessel. The proximal RCA is angiographically normal. The mid RCA is calcified with a long tubular lesion with multiple spots appeared to be in the range of 70-80%. The distal RCA is normal and bifurcates into PDA and PLV branches and both appeared to be angiographically normal Left main: Has a plaque appears to be in the range of 30%. Bifurcates into LCx and LAD The left circumflex: Is a large caliber vessel and nondominant vessel. The left circumflex in the proximal portion appears to have mild plaque. Gives rises into the first and second obtuse marginal branches and both appeared to be angiographically normal The left anterior descending artery: Is a large caliber vessel. The proximal and mid LAD appears to have mild disease only. The LAD distally appears to be angiographically normal. LAD gives rises into the first and second diagonal branches and both appeared to have mild disease only. HEMODYNAMICS: The LVEDP was 16-18 mmHg without significant gradient across aortic valve CONCLUSION: 1. Calcified right and left coronary systems 2. Severe disease involving the mid RCA along segment 3. Mild disease involving the left coronary system POSTPROCEDURE MANAGEMENT: PCI of the RCA probably with adjunctive use off atherectomy device
[2020-01-01 16:00] VITALS: BP 112/83; PULSE 88
== END 2020-01-01 16:55 | disposition home or self-care (01) ==
LOC: CATHCVL 10:33
PROVIDERS: ATTEND Internal Medicine Interventional Cardiology
DX: I25.10 Atherosclerotic heart disease of native coronary artery without angina pectoris (principal); I08.1 Rheumatic disorders of both mitral and tricuspid valves; I42.9 Cardiomyopathy, unspecified; I70.0 Atherosclerosis of aorta; I48.0 Paroxysmal atrial fibrillation; I47.1 Supraventricular tachycardia; I10 Essential (primary) hypertension; J44.9 Chronic obstructive pulmonary disease, unspecified; F17.210 Nicotine dependence, cigarettes, uncomplicated; Z79.01 Long term (current) use of anticoagulants; Z79.899 Other long term (current) drug therapy; Z82.49 Family history of ischemic heart disease and other diseases of the circulatory system
CPT/HCPCS: 93312; 93320; 93325; 85025; 93458; J2250; J2001; J3010; J1644; Q9967

== ENCOUNTER 2020-01-05 10:46 | Day surgery (SDC) | payer OTHER ==
[2020-01-05] MEDS ORDERED: SODIUM CHLORIDE 0.9% 1,000 ML IV ONE (11:00)
[2020-01-05] MEDS ORDERED: LIDOCAINE 1% INJ 10MG/ML (20 ML MDV) ONE (13:54)
[2020-01-05] MEDS ORDERED: LIDOCAINE 1% INJ 10MG/ML (20 ML MDV) SQ ONE (14:22)
[2020-01-05] MEDS ORDERED: MIDAZOLAM 2 MG/2 ML VIAL IVP ONE (14:22)
[2020-01-05] MEDS ORDERED: HYDROmorphone 1 MG/ML 1 ML SYRINGE ONE ×3 (14:26→15:22)
[2020-01-05] MEDS: HYDROmorphone 1 MG/ML 1 ML SYRINGE IVP ONE ×2 (14:27→15:15)
[2020-01-05] MEDS ORDERED: BIVALIRUDIN BOLUS 250 MG/50 ML IV ONE (14:30)
[2020-01-05] MEDS ORDERED: BIVALIRUDIN 250 MG in SODIUM CHLORIDE 0.9% 50 ML IV ONE ×2 (14:34→15:08)
[2020-01-05] MEDS ORDERED: niCARdipine 25 MG/10 ML VIAL ONE (14:43)
[2020-01-05] MEDS ORDERED: NITROGLYCERIN 1000MCG/10ML SYRINGE INTRACORON ONE ×3 (14:49→16:00)
[2020-01-05] MEDS ORDERED: niCARdipine Syringe (1,000 mcg/10 mL) INTRACORON ONE (14:49)
[2020-01-05] MEDS ORDERED: HYDROmorphone 1 MG/ML 1 ML SYRINGE IVP ONE ×2 (15:00→15:24)
[2020-01-05] MEDS ORDERED: PRASUGREL 10 MG TAB ONE (15:44)
[2020-01-05] MEDS ORDERED: PRASUGREL 10 MG TAB PO ONE (15:48)
[2020-01-05] MEDS ORDERED: IOPAMIDOL-370 100ML BTL INJ ONE (16:10)
[2020-01-05] MEDS ORDERED: HEPARIN SODIUM 1,000 UN/ML (10ML VL) ONE (16:13)
[2020-01-05] MEDS ORDERED: CYCLOBENZAPRINE 10 MG TAB PO PRN (16:20)
[2020-01-05] MEDS ORDERED: ALBUTEROL NEBULIZED 2.5 MG/3 ML INHALATION PRN (16:20)
[2020-01-05] MEDS ORDERED: MAG HYDROX/AL HYDROX/SIMETH 30 ML CUP PO PRN (16:21)
[2020-01-05] MEDS ORDERED: NITROGLYCERIN SL TABS 0.4 MG TAB SUBLINGUAL PRN (16:21)
[2020-01-05] MEDS ORDERED: ATROPINE SULFATE 0.1 MG/ML 10ML SYRINGE IV PRN (16:21)
[2020-01-05] MEDS ORDERED: RX INFO: IV CONTRAST WAS GIVEN 1 EACH MISC MISCELLANE PRN (16:21)
[2020-01-05] MEDS ORDERED: ZOLPIDEM 5 MG TAB PO PRN (16:21)
[2020-01-05] MEDS ORDERED: ONDANSETRON 4 MG/2 ML VIAL ONE (16:28)
[2020-01-05] MEDS ORDERED: SODIUM CHLORIDE 0.9% 1,000 ML IV SCH (16:30)
--- NOTE | 2020-01-05 16:43 | P.PCN ---
Date of Procedure: 01/05/20 Operative Findings: PERCUTANEOUS CORONARY INTERVENTION Performing physician Ishaan Prieto M.D. Procedure performed 1. An atherectomy of the right coronary artery using the Diamondback atherectomy device 2. Successful stenting of the distal right RCA using 3.5 x 8 mm Xience EES with an excellent angiographic results 3. Successful stenting of the mid RCA using 3.5 x 18 and 3.5 x 23 mm Xience AVI with an excellent angiographic results 4. Successful stenting of the proximal RCA using 3.5 x 23 mm Xience AVI with an excellent angiographic results 5. Intravascular ultrasound (IVUS) of the right coronary artery 6. Placement of transvenous temporary pacemaker Indication This is a 54-year-old gentleman who was diagnosed recently with atrial fibrillation and underwent cardioversion and that was unsuccessful. He underwent an echocardiogram as part of his workup and that revealed cardiomyopathy. A heart catheterization was advised to rule out severe CAD and a heart catheterization revealed critical disease involving the mid RCA which was tortuous and calcified with a long lesion. He was brought today to undergo a PCI of the RCA Approach Right common femoral artery The right common femoral vein Complication None Level of sedation Moderate with a sedation length of 114 minutes Procedure description After obtaining an informed consent the patient was brought to the cardiac corn lab technician. The right common femoral vein and right common femoral artery where cannulated using micropuncture technique, the micropuncture wire passed easily then I placed a 6-Belarusian sheath in the artery as well as the vein. Subsequently anticoagulation was initiated was Angiomax was bolused and drip per protocol. Subsequently and under fluoroscopy guidance transvenous temporary pacemaker was advanced after the balloon was inflated all the way to the right ventricle. The pacer was set for a heart rate of 60 and an 05. Subsequently I did engage the right coronary artery using JR4 guide. I did wire the right coronary artery using a whisper wire. The wire was a long wire. After that I did exchange my whisper J-wire into the Viber using a Teleport catheter. The wire was advanced all the way to the PDA branch of the RCA. After that I did atherectomy of the right coronary artery were I did 2 runs of atherectomy and the low-speed and each run for 20 seconds. The following angiogram showed no flow in the right coronary artery but the flow has improved after a gave the patient nitroglycerin as well as nicardipine. The pressure was low briefly then the pressure came back to normal. After that I did balloon angioplasty of the right coronary artery initially tried using 3.5 mm balloon but the balloon want cross the RCA in the midportion and at that point I did balloon angioplasty using 2.5 x 20 mm balloon. I did balloon angioplasty for the whole mid and distal right coronary artery. Attempting advancing 3.5 x 23 mm Xience AVI was unsuccessful in spite using heraclio wire with a run-through wire. After that I was able to get 3.5 mm x 15 mm noncompliant balloon and I did balloon angioplasty of the right coronary artery in the mid portion. Attempting advancing the stent again over the fiber wire as well as a run- through wire was unsuccessful. At that point I decided to pull the fiber wire out and I placed a whisper wire. I attempted advancing the stent over the whisper wire and that was unsuccessful but finally I was able to advance a short the stent which was 3.5 x 18 mm over the run-through wire to the mid right coronary artery where the stent was positioned under fluoroscopy guidance and deployed under its nominal pressure. The stent was deployed after the heraclio wire was pulled out. After that every advanced a heraclio wire in again. Then proximal to that lesion I deployed the 3.5 x 23 mm which we used initially and I deployed that stent just proximal to the first the stent with about 2 mm overlap between the 2 stents. Again the second stent was deployed after the heraclio wire was pulled out and then every advanced a heraclio wire again. The following angiogram showed a hazy lesion involving the very proximal right coronary artery I decided to cover that with a stent so I placed 3.5 x 23 mm Xience AVI where the stent again was positioned under fluoroscopy guidance and deployed under its nominal pressure. The following angiogram showed flow outside the stent concerning for some dissection and because of that I did intravascular ultrasound which showed no flap inside the ramona part of the right coronary artery proximal to the stent and no flap protruding inside the stent as well. There was no dye staining seen. The flow in the right coronary artery was good and because of that I decided not to do anything on that part of the right coronary artery. There was a hazy lesion involving the distal right coronary artery distal to the first stent we placed and I decided to cover that with the stent so I placed 3.5 x 8 mm Xience AVI where the stent again was positioned under fluoroscopy guidance and deployed under its nominal pressure. Please note that I postdilated the whole stented segment using 3.75 x 20 mm NC balloon. The final angiogram showed good angiographic results with DONTAE-3 flow and no dye staining and the patient was asymptomatic as well. The procedure was completed without any complication. The pacer wire was pulled out and the patient left the room in a very stable condition. I gave the patient 60 mg of Effient at the beginning of the procedure. Postprocedure management 1. Dual antiplatelet therapy 2. Risk factors modifications 3. Follow-up with the patient
[2020-01-05] MEDS ORDERED: ATORVASTATIN 20 MG TAB PO SCH (21:00)
[2020-01-05] MEDS: ASPIRIN 325 MG TAB PO SCH (21:09)
[2020-01-05] MEDS: DILTIAZEM CD 120 MG CAP.ER.24H PO SCH (21:10)
[2020-01-05] MEDS: CARVEDILOL 6.25 MG TAB PO SCH (21:10)
[2020-01-06 07:26] LABS: Basophils # (A) 0.1 k/uL (0-0.2); Basophils % (A) 1 %; Eosinophils # (A) 0.3 k/uL (0-0.7); Eosinophils % (A) 3 %; HCT 35.9 % (39.0-53.0); Hypochromasia Slight; Lymphocytes # (A) 1.4 k/uL (1.0-4.8); Lymphocytes % (A) 14 %; MCH 30.8 pg (25.0-35.0); MCHC 30.7 g/dL (31.0-37.0); MCV 100.1 fL (80.0-100.0); Mean Platelet Volume 7.9; Monocytes # (A) 0.5 k/uL (0-1.0); Monocytes % (A) 5 %; Neutrophils % (A) 76 %; Platelet Count 178 k/uL (150-450); RBC 3.58 m/uL (4.30-5.90); RDW 13.4 % (11.5-15.5); WBC 10.5 k/uL (3.8-10.6)
[2020-01-06 07:33] LABS: African American GFR (CKD) >90 (>60 ml/min/1.73 sqM); Anion Gap 6 mmol/L; Blood Urea Nitrogen 17 mg/dL (9-20); Calcium 8.6 mg/dL (8.4-10.2); Carbon Dioxide 26 mmol/L (22-30); Chloride 105 mmol/L (98-107); Glucose 110 mg/dL (74-99); Non-African American GFR(CKD) >90 (>60 ml/min/1.73 sqM); Potassium 4.8 mmol/L (3.5-5.1); Sodium 137 mmol/L (137-145)
[2020-01-06] MEDS ORDERED: TRELEGY ELLIPTA INHALATION SCH (08:00)
[2020-01-06] MEDS: DILTIAZEM CD 120 MG CAP.ER.24H PO SCH (08:08)
[2020-01-06] MEDS: CARVEDILOL 6.25 MG TAB PO SCH (08:08)
[2020-01-06] MEDS: ASPIRIN 325 MG TAB PO SCH (08:08)
[2020-01-06 08:15] VITALS: BP 125/77; PULSE 63; RESP 16; TEMP 98.2
--- NOTE | 2020-01-06 08:40 | P.DS ---
Providers Date of admission: January 042019 Attending physician: Ishaan Prieto Consults: 01/05/20 16:21 Consult Physician Routine Consulting Provider: [facility] Consult Reason/Comments: Post Interventional patient Do you want consulting provider notified?: Already Contacted Primary care physician: Stas Fink [facility] Course: This is a very pleasant 54-year-old gentleman who underwent yesterday successful stenting of the right coronary artery with a placing of 4 drug-eluting stents with a very complex procedure due to extremely calcified right coronary artery and tortuous as well. The procedure was performed with adjunctive use of atherectomy as well as intravascular ultrasound. By the end we achieved excellent angiographic results and the procedure was performed without any complication. The patient was seen this morning. He seems to be asymptomatic. Overall he states "I feel better" and he stated that he does not feel as tired as before and not as short of breath as before. His physical examination is unremarkable. The chest is clear on examination. He still in atrial fibrillation was controlled heart rate. The right groin is soft nontender and without any bruises. He is going to be discharged on dual antiplatelet therapy along with anticoagulation along with statin. I will follow-up with the patient next week in the office Plan - Discharge Summary Discharge Rx Participant: Yes New Discharge Prescriptions: New Prasugrel [Effient] 10 mg PO DAILY #90 tab Continue Rosuvastatin [Crestor] 10 mg PO HS Losartan Potassium 50 mg PO DAILY Albuterol Sulfate [Proair Hfa] 1 - 2 puff INHALATION DIRECTED PRN PRN Reason: Shortness Of Breath Cyclobenzaprine [Flexeril] 10 mg PO HS PRN PRN Reason: pain Fluticasone/Umeclidin/Vilanter [Trelegy Ellipta 100-62.5-25] 1 inhalation INHALATION DAILY Diltiazem Cd [Cardizem CD] 120 mg PO BID Carvedilol [Coreg] 6.25 mg PO BID Albuterol Nebulizer 1 dose INHALATION DIRECTED PRN PRN Reason: Shortness Of Breath Aspirin 325 mg PO BID Changed Apixaban [Eliquis] 2.5 mg PO BID #0 Discharge Medication List Losartan Potassium 50 mg PO DAILY 06/30/18 [History] Rosuvastatin [Crestor] 10 mg PO HS 06/30/18 [History] Albuterol Sulfate [Proair Hfa] 1 - 2 puff INHALATION DIRECTED PRN 10/04/19 [History] Cyclobenzaprine [Flexeril] 10 mg PO HS PRN 10/04/19 [History] Fluticasone/Umeclidin/Vilanter [Trelegy Ellipta 100-62.5-25] 1 inhalation INHALATION DAILY 11/21/19 [History] Albuterol Nebulizer 1 dose INHALATION DIRECTED PRN 12/28/19 [History] Carvedilol [Coreg] 6.25 mg PO BID 12/28/19 [History] Diltiazem Cd [Cardizem CD] 120 mg PO BID 12/28/19 [History] Aspirin 325 mg PO BID 01/03/20 [History] Apixaban [Eliquis] 2.5 mg PO BID #0 01/06/20 [Rx] Prasugrel [Effient] 10 mg PO DAILY #90 tab 01/06/20 [Rx] Follow up Appointment(s)/Referral(s): Ishaan Prieto MD [STAFF PHYSICIAN] - 1 Week
[2020-01-06] MEDS ORDERED: PRASUGREL 10 MG TAB PO SCH (09:00)
[2020-01-06] MEDS ORDERED: LOSARTAN 50 MG TAB PO SCH (09:00)
[2020-01-06] MEDS ORDERED: SYMBICORT 80-4.5 MCG INHALER INHALATION SCH (09:00)
[2020-01-06] MEDS ORDERED: IPRATROPIUM 0.5 MG/2.5 ML NEBU INHALATION SCH (09:00)
[2020-01-06] MEDS ORDERED: APIXABAN 2.5 MG TABLET PO SCH (09:30)
[2020-01-06 11:07] VITALS: BMI 33.2
== END 2020-01-06 11:42 | disposition home or self-care (01) ==
LOC: CATHCVL 10:46 → 3SCARD 16:17 → CATHCVL 01-06 11:42
PROVIDERS: ATTEND Internal Medicine Interventional Cardiology
DX: I25.10 Atherosclerotic heart disease of native coronary artery without angina pectoris (principal); I42.9 Cardiomyopathy, unspecified; I48.0 Paroxysmal atrial fibrillation; I47.1 Supraventricular tachycardia; I10 Essential (primary) hypertension; E78.5 Hyperlipidemia, unspecified; F17.210 Nicotine dependence, cigarettes, uncomplicated; Z79.01 Long term (current) use of anticoagulants; Z79.02 Long term (current) use of antithrombotics/antiplatelets; Z79.51 Long term (current) use of inhaled steroids; Z79.82 Long term (current) use of aspirin; Z79.899 Other long term (current) drug therapy; Z82.49 Family history of ischemic heart disease and other diseases of the circulatory system
CPT/HCPCS: 92978; 80048; 85025; 87635; C9602; C1769 ×6; C1887; C1725 ×4; C1894; C1753; C1714; C1874; J2250; J2001; J1170; J0583; Q9967

== ENCOUNTER 2020-01-17 13:54 | Inpatient (IN) | payer OTHER ==
[2020-01-17] MEDS ORDERED: ASPIRIN 81 MG PO STA (14:41)
[2020-01-17] MEDS ORDERED: SODIUM CHLORIDE 0.9% 500 ML 500 ML IV STA (14:41)
--- NOTE | 2020-01-17 14:44 | ED ---
General Adult HPI - General Chief complaint: Shortness of Breath Stated complaint: ESTELA Time Seen by Provider: 01/17/20 14:27 Source: patient, RN notes reviewed, old records reviewed Mode of arrival: ambulatory Limitations: physical limitation - History of Present Illness Initial comments: 54-year-old male patient past history significant for having 4 stents placed in the right coronary artery 12 days ago, COPD, atrial fibrillation presents to ED for chief complaint of chest pain shortness of breath heart racing. Patient reports that since Wednesday he has been short of breath typically with exertion. Reports that particularly bending over makes this worse. Reports that this morning he had mild pressure in the substernal region as well as the continued shortness of breath, did not hit his heart rate is elevated. Patient was discontinued from his Cardizem due to bradycardia. Patient is anticoagulated on L glass as well as antiplatelet. Denies any other complaints at this time. Systemic: Pt denies fatigue, fever/chills, rash. Pt denies weakness, night sweats, weight loss. Neuro: Pt denies headache, visual disturbances, syncope or pre-syncope. HEENT: Pt denies ocular discharge or irritation, otalgia, rhinorrhea, pharyngitis or notable lymphadenopathy. Cardiopulmonary: Pt denies dyspnea on exertion. Abdominal/GI: Pt denies abdominal pain, n/v/d. : Pt denies dysuria, burning w/ urination, frequency/urgency. Denies new onset urinary or bowel incontinence. MSK: Pt denies myalgia, loss of strength or function in extremities. Neuro: Pt denies new onset weakness, paresthesias. - Related Data Home Medications Medication Instructions Recorded Confirmed Losartan Potassium 25 mg PO DAILY 06/30/18 01/17/20 Rosuvastatin [Crestor] 10 mg PO HS 06/30/18 01/17/20 Albuterol Sulfate [Proair Hfa] 2 puff INHALATION RT-Q4H PRN 10/04/19 01/17/20 Cyclobenzaprine [Flexeril] 10 mg PO HS PRN 10/04/19 01/17/20 Fluticasone/Umeclidin/Vilanter 1 puff INHALATION RT-DAILY 11/21/19 01/17/20 [Trelegy Ellipta 100-62.5-25] Carvedilol [Coreg] 6.25 mg PO BID 12/28/19 01/17/20 Aspirin 325 mg PO HS 01/03/20 01/17/20 Ipratropium-Albuterol Nebulize 3 ml INHALATION RT-QID PRN 01/17/20 01/17/20 [Duoneb 0.5 mg-3 mg/3 ml Soln] Previous Rx's Medication Instructions Recorded Apixaban [Eliquis] 2.5 mg PO BID #0 01/06/20 Prasugrel [Effient] 10 mg PO DAILY #90 tab 01/06/20 Allergies Allergy/AdvReac Type Severity Reaction Status Date / Time egg AdvReac Diarrhea Verified 01/17/20 16:37 Review of Systems ROS Statement: Those systems with pertinent positive or pertinent negative responses have been documented in the HPI. ROS Other: All systems not noted in ROS Statement are negative. Past Medical History Past Medical History: Atrial Fibrillation, COPD, Hyperlipidemia, Hypertension, Pneumonia, Respiratory Disorder Additional Past Medical History / Comment(s): BACK PAIN, RUPTURED DISC L4 and L5. 12/18/19 Admit w/ AE COPD, Pneumonia, AFib; History of Any Multi-Drug Resistant Organisms: None Reported Past Surgical History: Heart Catheterization With Stent, Hernia Repair, Orthopedic Surgery Additional Past Surgical History / Comment(s): BENIGN LT TIBIA OSTEOCHONDROMA REMOVED, RT KNEE MENISCUS REPAIR, LEFT ACHILLIES TEAR. ATTEMPTED CARDIOVERSION 11/23/19. Heart Cath 01/01/20, vasectomy Past Anesthesia/Blood Transfusion Reactions: No Reported Reaction Past Psychological History: No Psychological Hx Reported Smoking Status: Former smoker Past Alcohol Use History: Rare Past Drug Use History: None Reported - Past Family History Mother Family Medical History: No Reported History General Exam - General Exam Comments Initial Comments: Constitutional: NAD, AOX3, Pt has pleasant affect. HEENT: NC/AT, trachea midline, neck supple, no lymphadenopathy. Posterior pharynx non erythematous, without exudates. External ears appear normal, without discharge. Mucous membranes moist. Eyes PERRLA, EOM intact. There is no scleral icterus. No pallor noted. Cardiopulmonary: Tachycardia, irregular, no murmurs, rubs or gallops, no JVD noted. Lungs CTAB in anterior and posterior sauceda. No peripheral edema. Abdominal exam: Abdomen soft and non-distended. Abdomen non-tender to palpation in all 4 quadrants. Bowel sounds active in LLQ. No hepatosplenomegaly. No ecchymosis Neuro: CN II-XII grossly intact. No nuchal rigidity. No raccon eyes, no comer sign, no hemotympanum. No cervical spinal tenderness. MSK: No posterior calf tenderness bilaterally, homans sign negative bilaterally. Posterior tibialis and radial pulse +2 bilaterally. Sensation intact in upper and lower extremities. Full active ROM in upper and lower extremities, 5/5 stregnth. Limitations: physical limitation Course Vital Signs 01/17/20 01/17/20 01/17/20 14:00 15:35 15:55 Temperature 97.5 F L Pulse Rate 130 H 134 H 126 H Respiratory 25 H 20 20 Rate Blood Pressure 106/74 121/93 121/93 O2 Sat by Pulse 95 96 95 Oximetry 01/17/20 01/17/20 01/17/20 16:44 17:05 17:15 Temperature Pulse Rate 122 H 115 H 115 H Respiratory 22 22 18 Rate Blood Pressure 106/82 97/69 99/68 O2 Sat by Pulse 96 96 95 Oximetry 01/17/20 01/17/20 01/17/20 17:36 18:31 19:12 Temperature 97.0 F L 98.2 F Pulse Rate 112 H 123 H 101 H Respiratory 24 22 18 Rate Blood Pressure 95/67 112/84 105/95 O2 Sat by Pulse 94 L 95 95 Oximetry Medical Decision Making - Medical Decision Making 54-year-old male patient past history significant for having 4 stents placed in the right coronary artery 12 days ago, COPD, atrial fibrillation presents to ED for chief complaint of chest pain shortness of breath heart racing. Patient reports that since Wednesday he has been short of breath typically with exertion. Reports that particularly bending over makes this worse. Reports that this mor mariano he had mild pressure in the substernal region as well as the continued shortness of breath, did not hit his heart rate is elevated. Patient was discontinued from his Cardizem due to bradycardia. Patient is anticoagulated on L glass as well as antiplatelet. Denies any other complaints at this time. Patient also displayed mild tachycardia. Physical exam displayed irregular tachycardia. Laboratory investigations revealed mild cytosis, negative troponin, EKG revealed A. fib ablation of epinephrine ventricular response. Chest x-ray revealed by nasal infiltrates possible pneumonia. Patient denies any significant coughing. Reports that shortness of breath that seems to improve after rate control with the Cardizem. Discussed case with patient's steam trap worker Dr. Prieto who recommended discontinuing Corag, initiating metoprolol and placing patient on a Cardizem drip and admitting patient to hospital. Patient not experiencing active pain. Will be admitted for further evaluation. Case discussed with Dr. Grimm. - Lab Data Result diagrams: 01/17/20 14:19 01/17/20 14:19 Lab Results 01/17/20 01/17/20 01/17/20 Range/Units 14:19 14:19 14:19 WBC 11.4 H (3.8-10.6) k/uL RBC 3.94 L (4.30-5.90) m/uL Hgb 12.2 L (13.0-17.5) gm/dL Hct 37.6 L (39.0-53.0) % MCV 95.4 (80.0-100.0) fL MCH 31.0 (25.0-35.0) pg MCHC 32.5 (31.0-37.0) g/dL RDW 13.7 (11.5-15.5) % Plt Count 353 (150-450) k/uL Neutrophils % 74 % Lymphocytes % 19 % Monocytes % 4 % Eosinophils % 1 % Basophils % 1 % Neutrophils # 8.5 H (1.3-7.7) k/uL Lymphocytes # 2.1 (1.0-4.8) k/uL Monocytes # 0.5 (0-1.0) k/uL Eosinophils # 0.1 (0-0.7) k/uL Basophils # 0.1 (0-0.2) k/uL PT 11.6 (9.0-12.0) sec INR 1.1 (<1.2) APTT 22.5 (22.0-30.0) sec Sodium 134 L (137-145) mmol/L Potassium 5.0 (3.5-5.1) mmol/L Chloride 103 (98-107) mmol/L Carbon Dioxide 22 (22-30) mmol/L Anion Gap 9 mmol/L BUN 21 H (9-20) mg/dL Creatinine 0.82 (0.66-1.25) mg/dL Est GFR (CKD-EPI)AfAm >90 (>60 ml/min/1.73 sqM) Est GFR (CKD-EPI)NonAf >90 (>60 ml/min/1.73 sqM) Glucose 142 H (74-99) mg/dL Calcium 9.1 (8.4-10.2) mg/dL Magnesium 2.1 (1.6-2.3) mg/dL Total Bilirubin 0.9 (0.2-1.3) mg/dL AST 32 (17-59) U/L ALT 27 (4-49) U/L Alkaline Phosphatase 65 (38-126) U/L Troponin I (0.000-0.034) ng/mL Total Protein 6.9 (6.3-8.2) g/dL Albumin 3.7 (3.5-5.0) g/dL TSH (0.465-4.680) mIU/L 01/17/20 01/17/20 Range/Units 14:19 14:19 WBC (3.8-10.6) k/uL RBC (4.30-5.90) m/uL Hgb (13.0-17.5) gm/dL Hct (39.0-53.0) % MCV (80.0-100.0) fL MCH (25.0-35.0) pg MCHC (31.0-37.0) g/dL RDW (11.5-15.5) % Plt Count (150-450) k/uL Neutrophils % % Lymphocytes % % Monocytes % % Eosinophils % % Basophils % % Neutrophils # (1.3-7.7) k/uL Lymphocytes # (1.0-4.8) k/uL Monocytes # (0-1.0) k/uL Eosinophils # (0-0.7) k/uL Basophils # (0-0.2) k/uL PT (9.0-12.0) sec INR (<1.2) APTT (22.0-30.0) sec Sodium (137-145) mmol/L Potassium (3.5-5.1) mmol/L Chloride (98-107) mmol/L Carbon Dioxide (22-30) mmol/L Anion Gap mmol/L BUN (9-20) mg/dL Creatinine (0.66-1.25) mg/dL Est GFR (CKD-EPI)AfAm (>60 ml/min/1.73 sqM) Est GFR (CKD-EPI)NonAf (>60 ml/min/1.73 sqM) Glucose (74-99) mg/dL Calcium (8.4-10.2) mg/dL Magnesium (1.6-2.3) mg/dL Total Bilirubin (0.2-1.3) mg/dL AST (17-59) U/L ALT (4-49) U/L Alkaline Phosphatase (38-126) U/L Troponin I <0.012 (0.000-0.034) ng/mL Total Protein (6.3-8.2) g/dL Albumin (3.5-5.0) g/dL TSH 4.300 (0.465-4.680) mIU/L - EKG Data -: EKG Interpreted by Me (and Dr. Grimm) EKG Comments: Ventricular 144, QRS 88, QT/QTC 326 is final for. She'll fibrillation rapid ventricular response. Abnormal EKG. No concern for acute ischemia at this time. Disposition Clinical Impression: Atrial fibrillation with RVR, Pneumonia Disposition: ADMITTED IP TO THIS HOSP Condition: Serious Is patient prescribed a controlled substance at d/c from ED?: No Referrals: Stas Fink DO [Primary Care Provider] - 1-2 days
[2020-01-17 15:11] LABS: Basophils # (A) 0.1 k/uL (0-0.2); Basophils % (A) 1 %; Eosinophils # (A) 0.1 k/uL (0-0.7); Eosinophils % (A) 1 %; HCT 37.6 % (39.0-53.0); HGB 12.2 gm/dL (13.0-17.5); Lymphocytes # (A) 2.1 k/uL (1.0-4.8); Lymphocytes % (A) 19 %; MCHC 32.5 g/dL (31.0-37.0); MCV 95.4 fL (80.0-100.0); Monocytes # (A) 0.5 k/uL (0-1.0); Monocytes % (A) 4 %; Neutrophils # (A) 8.5 k/uL (1.3-7.7); Neutrophils % (A) 74 %; Platelet Count 353 k/uL (150-450); RBC 3.94 m/uL (4.30-5.90); RDW 13.7 % (11.5-15.5); WBC 11.4 k/uL (3.8-10.6)
[2020-01-17] MEDS: DILTIAZEM 125 MG in SODIUM CHLORIDE 0.9% 100 ML IV SCH (15:12)
[2020-01-17 15:16] LABS: ALT 27 U/L (4-49); AST 32 U/L (17-59); African American GFR (CKD) >90 (>60 ml/min/1.73 sqM); Albumin 3.7 g/dL (3.5-5.0); Alkaline Phosphatase 65 U/L (38-126); Anion Gap 9 mmol/L; Blood Urea Nitrogen 21 mg/dL (9-20); Calcium 9.1 mg/dL (8.4-10.2); Carbon Dioxide 22 mmol/L (22-30); Chloride 103 mmol/L (98-107); Glucose 142 mg/dL (74-99); Magnesium 2.1 mg/dL (1.6-2.3); Non-African American GFR(CKD) >90 (>60 ml/min/1.73 sqM); Sodium 134 mmol/L (137-145); Total Bilirubin 0.9 mg/dL (0.2-1.3); Total Protein 6.9 g/dL (6.3-8.2)
[2020-01-17 15:34] LABS: INR 1.1 (<1.2); Partial Thromboplastin Time 22.5 sec (22.0-30.0); Prothrombin Time 11.6 sec (9.0-12.0)
--- NOTE | 2020-01-17 15:39 | XR ---
EXAMINATION TYPE: XR chest 2V DATE OF EXAM: 01/17/2020 COMPARISON: 12/20/2019 INDICATION: Chest pain COPD TECHNIQUE: Frontal and lateral views of the chest are obtained. FINDINGS: The heart size is mildly prominent. The pulmonary vasculature is normal. Mild infiltrate is at the lingula silhouetting the cardiac apex. Mild diffuse increased lung markings are present at the bilateral lung bases. Correlate for subsegmental atelectasis.. On the lateral pr ojection there is increased lung markings overlying the spine. A posterior infiltrate is present whic h may be in the medial right base or in the retrocardiac region. IMPRESSION: 1. Bibasilar infiltrates. Correlate for subsegmental atelectasis. This may be slightly more focal wit hin the lingula. Pneumonia should be considered. This is also present on the lateral projection in th e posterior pneumonia should be considered as well. 2. Mild cardiomegaly
[2020-01-17] MEDS ORDERED: AMPICILLIN-SULBACTAM 3 GM in SODIUM CHLORIDE 0.9% 100 ML IVPB STA (16:37)
[2020-01-17] MEDS ORDERED: SODIUM CHLORIDE 0.9% 500 ML 500 ML IV ONE (17:38)
[2020-01-17] MEDS ORDERED: NITROGLYCERIN SL TABS 0.4 MG TAB SUBLINGUAL PRN (17:51)
[2020-01-17] MEDS ORDERED: ALBUTEROL HFA INHALER INHALATION PRN (21:58)
[2020-01-17] MEDS: METOPROLOL TARTRATE 25 MG TAB PO SCH (22:17)
[2020-01-17] MEDS: ASPIRIN 325 MG TAB PO SCH (22:17)
[2020-01-17] MEDS: APIXABAN 2.5 MG TABLET PO SCH (22:17)
[2020-01-17] MEDS: CYCLOBENZAPRINE 10 MG TAB PO PRN (22:17)
[2020-01-18] MEDS: AMPICILLIN-SULBACTAM 3 GM in SODIUM CHLORIDE 0.9% 100 ML IVPB SCH ×3 (02:01→17:56)
[2020-01-18] MEDS: IPRATROPIUM-ALBUTEROL 3 ML NEB INHALATION PRN ×5 (03:30→20:13)
[2020-01-18 06:00] LABS: Cholesterol 128 mg/dL (<200); HDL Cholesterol 19 mg/dL (40-60); LDL Cholesterol,Calculated 89 mg/dL (0-99); Triglycerides 99 mg/dL (<150)
[2020-01-18] MEDS ORDERED: NON FORMULARY DRUG (Fluticasone/Umeclidin/Vilanter [Trelegy Ellipta 100-62.5-25] 1 PUFF) INHALATION SCH (08:00)
[2020-01-18] MEDS ORDERED: SYMBICORT 80-4.5 MCG INHALER INHALATION SCH (08:00)
[2020-01-18] MEDS ORDERED: ASPIRIN 325 MG TAB PO SCH (09:00)
[2020-01-18] MEDS: LOSARTAN 25 MG TAB PO SCH (09:05)
[2020-01-18] MEDS: METOPROLOL TARTRATE 25 MG TAB PO SCH ×2 (09:05→19:48)
[2020-01-18] MEDS: PRASUGREL 10 MG TAB PO SCH (09:05)
[2020-01-18] MEDS: APIXABAN 2.5 MG TABLET PO SCH ×2 (09:05→19:48)
[2020-01-18] MEDS: NON FORMULARY DRUG (Fluticasone/Umeclidin/Vilanter [Trelegy Ellipta 100-62.5-25] 1 PUFF) INHALATION SCH (09:05)
[2020-01-18] MEDS: DILTIAZEM 125 MG in SODIUM CHLORIDE 0.9% 100 ML IV SCH (12:01)
--- NOTE | 2020-01-18 14:34 | CONS ---
CONSULTATION CHIEF COMPLAINT: Atrial fibrillation with rapid ventricular rate. HISTORY OF PRESENT ILLNESS: Aleks Nolan is a 54-year-old gentleman with history of COPD, coronary artery disease, status post angioplasty of right coronary artery, hypertension, and persistent atrial fibrillation. He presented to the hospital with chest pain, palpitations, chest tightness, difficulty breathing. At the time of his initial evaluation, he was found to be in atrial fibrillation with rapid ventricular rate. He was treated with intravenous Cardizem. His blood pressure dropped a little so they cut back on the dose of the Cardizem. At the time of my evaluation this morning, he is still in atrial fibrillation. Heart rate is poorly controlled. The patient has just received nebulizer and he is on isolation for suspected Covid. Due to this, I spoke to him over the phone and I have seen him outside his room. I am not doing a physical exam at this time as he just received a nebulizer and it is unsafe to go into his room. I had a long conversation with the patient and told him that I will gradually increase the dose of Cardizem for better rate control and schedule him for cardioversion tomorrow with Dr. Prieto who sees him regularly. The patient had a cardioversion in the past that was unsuccessful. He will have another attempt and if this one does not work, he may require an ablation. PAST MEDICAL HISTORY: Significant for COPD, atrial fibrillation and dyslipidemia, CAD status post angioplasty of right coronary artery. CURRENT MEDICATIONS: Include Crestor 10 mg daily, Effient 10 mg daily, losartan 25 daily, DuoNeb, Flexeril, Coreg, aspirin, Eliquis, and albuterol. ALLERGIES: The patient is allergic to EGG. FAMILY HISTORY: Is negative for premature coronary artery disease. SOCIAL HISTORY: He quit smoking nearly 15 months ago. REVIEW OF SYSTEMS: HEENT is unremarkable. CARDIAC as described above. RESPIRATORY as described above. GI negative. GENITOURINARY negative. ALLERGY none. IMMUNOLOGY: Negative. SKIN negative. MUSCULOSKELETAL negative. ENDOCRINE negative. CONSTITUTIONAL negative. ONCOLOGICAL negative. ENAMEL SHADER negative. Rest of the system review is not relevant. PHYSICAL EXAMINATION: On exam, patient is afebrile. Heart rate is 120 beats per minute. Respiratory rate is 20, O2 sat is 96% on 3 L. Blood pressure is 144/69. I reviewed his physical exam from the emergency room. He has irregular heart rhythm. Lung exam did not reveal rhonchi, or crackles. Abdomen was soft, nontender. Exam of the extremities did not reveal any edema. ENAMEL SHADER exam did not reveal focal neurological deficits. I did not perform this exam. LABS: Labs show that hemoglobin is 12.2. Potassium is 5, creatinine is 0.8. Troponin is negative. TSH is normal. LDL cholesterol is 89. ASSESSMENT: 1. Persistent atrial fibrillation with poorly controlled ventricular rate. 2. Coronary artery disease status post angioplasty of right coronary artery. 3. Chronic obstructive pulmonary disease. PLAN: I will increase the dose of Cardizem. Schedule him for cardioversion tomorrow with Dr. Prieto. MMKAYE / MAMADOUN: [id number] /
--- NOTE | 2020-01-18 16:22 | P.HPIM ---
History of Present Illness H&P Date: 01/18/20 Chief Complaint: Palpitations, shortness of breath This is a 54-year-old gentleman with history of atrial fibrillation, recent stenting of the RCA with 4 drug-eluting stents ,COPD, hyperlipidemia, hypertension, chronic back pain, former nicotine dependence presented to the ER with worsening dyspnea, palpitations and multiple other medical issues. Reported dyspnea started on Wednesday, worsened with exertion, accompanied by mid substernal pressure. Reports he had been having episodes of bradycardia and Cardizem had been discontinued, anticoagulated on Eliquis.Denies fever. Coronavirus reported negative. Reported no nausea, vomiting, positive diarrhea. Afebrile on admission with leukocytosis, EKG reported atrial fibrillation with RVR, heart rate 140s, Troponins negative 3. Chest x-ray reporting bilateral infiltrates.radiologist's comparison requested .recent echo reported moderate concentric left ventricular hypertrophy, severe global hypokinesis of LV, modera tely severe impaired LV function, EF 30-35%, moderate aortic sclerosis, moderate to severe mitral regurgitation, [id number] tricuspid regurgitation, moderate pulmonary hypertension. Cardizem drip initiated. Cardiology consulted. Review of Systems ROS Other: All systems not noted in ROS Statement are negative. ROS Statement: Those systems with pertinent positive or pertinent negative responses have been documented in the HPI. Past Medical History Past Medical History: Atrial Fibrillation, COPD, Hyperlipidemia, Hypertension, Pneumonia, Respiratory Disorder Additional Past Medical History / Comment(s): BACK PAIN, RUPTURED DISC L4 and L5. 12/18/19 Admit w/ AE COPD, Pneumonia, AFib; History of Any Multi-Drug Resistant Organisms: None Reported Past Surgical History: Heart Catheterization With Stent, Hernia Repair, Orthopedic Surgery Additional Past Surgical History / Comment(s): BENIGN LT TIBIA OSTEOCHONDROMA REMOVED, RT KNEE MENISCUS REPAIR, LEFT ACHILLIES TEAR. ATTEMPTED CARDIOVERSION 11/23/19. Heart Cath, and 4/, vasectomy Past Anesthesia/Blood Transfusion Reactions: No Reported Reaction Date of Last Stent Placement:: 12/29/19 Past Psychological History: No Psychological Hx Reported Smoking Status: Former smoker Past Alcohol Use History: Rare Additional Past Alcohol Use History / Comment(s): QUIT SMOKING 10/2018, SMOKED 3/4 PPD FROM AGE 14, (1978) Past Drug Use History: None Reported - Past Family History Mother Family Medical History: No Reported History Medications and Allergies Home Medications Medication Instructions Recorded Confirmed Type Losartan Potassium 25 mg PO DAILY 06/30/18 01/17/20 History Rosuvastatin [Crestor] 10 mg PO HS 06/30/18 01/17/20 History Albuterol Sulfate [Proair Hfa] 2 puff INHALATION RT-Q4H PRN 10/04/19 01/17/20 History Cyclobenzaprine [Flexeril] 10 mg PO HS PRN 10/04/19 01/17/20 History Fluticasone/Umeclidin/Vilanter 1 puff INHALATION RT-DAILY 11/21/19 01/17/20 History [Trelegy Ellipta 100-62.5-25] Carvedilol [Coreg] 6.25 mg PO BID 12/28/19 01/17/20 History Aspirin 325 mg PO HS 01/03/20 01/17/20 History Apixaban [Eliquis] 2.5 mg PO BID #0 01/06/20 01/17/20 Rx Prasugrel [Effient] 10 mg PO DAILY #90 tab 01/06/20 01/17/20 Rx Ipratropium-Albuterol Nebulize 3 ml INHALATION RT-QID PRN 01/17/20 01/17/20 History [Duoneb 0.5 mg-3 mg/3 ml Soln] Allergies Allergy/AdvReac Type Severity Reaction Status Date / Time egg AdvReac Diarrhea Verified 01/17/20 16:37 Physical Exam Vitals: Vital Signs Temp Pulse Pulse Resp BP BP Pulse Ox 01/18/20 11:33 140 H 01/18/20 11:24 136 H 01/18/20 08:50 97.4 F L 124 H 22 145/69 96 01/18/20 08:19 118 H 01/18/20 08:10 124 H 01/18/20 03:48 104 H 18 01/18/20 03:47 97.6 F 104 H 18 121/75 94 L 01/18/20 03:39 124 H 01/18/20 03:25 120 H 01/17/20 23:30 134 H 18 01/17/20 23:24 97.7 F 134 H 18 121/80 96 01/17/20 21:45 134 H 18 01/17/20 21:43 97.8 F 126 H 18 113/77 93 L 01/17/20 20:00 123 H 20 123/90 93 L 01/17/20 19:12 98.2 F 101 H 18 105/95 95 01/17/20 18:31 123 H 22 112/84 95 01/17/20 17:36 97.0 F L 112 H 24 95/67 94 L 01/17/20 17:15 115 H 18 99/68 95 01/17/20 17:05 115 H 22 97/69 96 01/17/20 16:44 122 H 22 106/82 96 01/17/20 15:55 126 H 20 121/93 95 01/17/20 15:35 134 H 20 121/93 96 01/17/20 14:00 97.5 F L 130 H 25 H 106/74 95 Intake and Output 01/17/20 01/18/20 01/18/20 22:59 06:59 14:59 Intake Total 16.917 260 493.667 Balance 16.917 260 493.667 Intake: Intake, IV Titration 16.917 260 93.667 Amount Ampicillin-Sulbactam 3 gm 100 In Sodium Chloride 0.9% 100 ml @ 200 mls/hr IVPB Q8H [facility] Rx#:[id number] Diltiazem 125 mg In 16.917 93.667 Sodium Chloride 0.9% 100 ml @ 5 MG/HR 5 mls/hr IV .Q24H [facility] Rx#:[id number] Sodium Chloride 0.9% 500 160 ml 500 ml @ 999 mls/hr IV .Q31M [facility] Rx#:[id number] Oral 400 Other: Voiding Method Toilet Toilet Urinal Urinal # Voids 1 Weight 115.212 kg 114.2 kg PHYSICAL EXAM: VITAL SIGNS: As above GENERAL: Sitting up in bed, no acute distress HEENT: Conjunctivae normal. eyes normal. Oral mucosa moist NECK: No JVD. No thyroid enlargement. No LNs CARDIOVASCULAR: S1, S2 irregular. Tachycardic Positive systolic murmur. RESPIRATION: Breath sounds diminished in the bases. No rhonchi, fine scattered crackles bilaterally, mid lobes through bases. Occasional expiratory wheeze ABDOMEN: Soft, nontender . No guarding. no masses palpable. No ascites, No hepatosplenomegaly.Bowel sounds heard. LEGS: Trace edema. no calf tenderness. PSYCHIATRY: Alert and oriented X3, mood and affect normal. NERVOUS SYSTEM: Cranial N 2-12 grossly normal. Moves all 4 limbs. No focal deficits. Strength and sensation grossly intact.. Skin: no rash Results CBC & Chem 7: 01/17/20 14:19 01/17/20 14:19 Labs: Abnormal Lab Results - Last 24 Hours (Table) 01/17/20 01/17/20 01/18/20 Range/Units 14:19 14:19 02:11 WBC 11.4 H (3.8-10.6) k/uL RBC 3.94 L (4.30-5.90) m/uL Hgb 12.2 L (13.0-17.5) gm/dL Hct 37.6 L (39.0-53.0) % Neutrophils # 8.5 H (1.3-7.7) k/uL Sodium 134 L (137-145) mmol/L BUN 21 H (9-20) mg/dL Glucose 142 H (74-99) mg/dL HDL Cholesterol 19 L (40-60) mg/dL Thrombosis Risk Factor Assmnt - Choose All That Apply Any of the Below Risk Factors Present?: Yes Each Factor Represents 1 point: Abnormal pulmonary function (COPD), Age 41-60 years Other Risk Factors: No Other congenital or acquired thrombophilia - If yes, enter type in comment: No Thrombosis Risk Factor Assessment Total Risk Factor Score: 2 Thrombosis Risk Factor Assessment Level: Low Risk Assessment and Plan Assessment: A.fib with RVR in a patient with history of Recent cardioversion November 2019, on Cardizem drip Acute bilateral pneumonia, community-acquired, coronavirus tested negative Acute COPD exacerbation Leukocytosis secondary to the above Acute hypoxic respiratory failure secondary to the above CAD with stent of the RCA Moderately severely impaired LV function, EF 30-35% Moderate to severe mitral regurgitation Moderate tricuspid regurgitation Moderate pulmonary hypertension Hyperlipidemia Hypertension Chronic back pain History of nicotine dependence Plan: Continue current medication regime ,monitoring and symptomatic treatment. Maintained on Cardizem drip. Anticoagulated on Eliquis. GI prophylaxis with Protonix. Maintain Rocephin, Zithromax, nebulized bronchodilators. Evaluated by cardiology with cardioversion scheduled for tomorrow .Home meds have been reviewed and resumed accordingly. The impression and plan of care has been dictated as directed. : I performed a history and examination of this patient, discussed the same with the dictator. I agree with the dictator's note ,documented as a scribe. Any additional findings or plans will be noted.
[2020-01-18] MEDS: PANTOPRAZOLE 40 MG/10 ML VIAL IVP SCH (18:07)
[2020-01-18] MEDS: SODIUM CHLORIDE 0.9% 1,000 ML IV SCH (18:07)
[2020-01-18] MEDS: ASPIRIN 325 MG TAB PO SCH (19:48)
[2020-01-19] MEDS: AMPICILLIN-SULBACTAM 3 GM in SODIUM CHLORIDE 0.9% 100 ML IVPB SCH ×3 (02:55→18:52)
[2020-01-19] MEDS: LOSARTAN 25 MG TAB PO SCH (06:35)
[2020-01-19] MEDS: METOPROLOL TARTRATE 25 MG TAB PO SCH ×2 (06:35→20:03)
[2020-01-19] MEDS: APIXABAN 2.5 MG TABLET PO SCH ×2 (06:36→20:03)
[2020-01-19] MEDS: PRASUGREL 10 MG TAB PO SCH (06:36)
[2020-01-19] MEDS: TRELEGY ELLIPTA INHALATION SCH (06:50)
[2020-01-19 06:58] LABS: Basophils # (A) 0.1 k/uL (0-0.2); Basophils % (A) 1 %; Eosinophils # (A) 0.3 k/uL (0-0.7); Eosinophils % (A) 3 %; HCT 38.6 % (39.0-53.0); HGB 12.4 gm/dL (13.0-17.5); Hypochromasia Slight; Lymphocytes # (A) 1.9 k/uL (1.0-4.8); Lymphocytes % (A) 17 %; MCHC 32.1 g/dL (31.0-37.0); MCV 96.3 fL (80.0-100.0); Mean Platelet Volume 8.1; Monocytes # (A) 0.6 k/uL (0-1.0); Monocytes % (A) 5 %; Neutrophils # (A) 8.1 k/uL (1.3-7.7); Neutrophils % (A) 72 %; Platelet Count 293 k/uL (150-450); RBC 4.01 m/uL (4.30-5.90); RDW 13.5 % (11.5-15.5); WBC 11.3 k/uL (3.8-10.6)
--- NOTE | 2020-01-19 07:05 | XR ---
EXAMINATION TYPE: XR chest 1V DATE OF EXAM: 01/19/2020 COMPARISON: 01/17/2020 HISTORY: Abnormal x-ray TECHNIQUE: Single frontal view of the chest is obtained. FINDINGS: Heart is enlarged and is bilateral consolidation and pleural effusion. Diffuse interstitia l pattern. No pneumothorax. Atherosclerotic change aorta. Underlying hyperinflation and COPD suspecte d. IMPRESSION: 1. Progressive changes correlate for CHF otherwise consider pneumonia.
[2020-01-19] MEDS: IPRATROPIUM-ALBUTEROL 3 ML NEB INHALATION PRN ×2 (07:11→15:44)
[2020-01-19 07:12] LABS: African American GFR (CKD) >90 (>60 ml/min/1.73 sqM); Anion Gap 10 mmol/L; Blood Urea Nitrogen 19 mg/dL (9-20); Calcium 8.6 mg/dL (8.4-10.2); Carbon Dioxide 24 mmol/L (22-30); Chloride 104 mmol/L (98-107); Glucose 119 mg/dL (74-99); Non-African American GFR(CKD) >90 (>60 ml/min/1.73 sqM); Potassium 4.4 mmol/L (3.5-5.1); Sodium 138 mmol/L (137-145)
[2020-01-19] MEDS: PANTOPRAZOLE 40 MG/10 ML VIAL IVP SCH (08:42)
[2020-01-19] MEDS ORDERED: BENZOCAINE SPRAY 1 CAN TOPICAL ONE (11:01)
[2020-01-19] MEDS ORDERED: LIDOCAINE 1% INJ 10MG/ML (20 ML MDV) ONE (11:03)
[2020-01-19] MEDS ORDERED: PROPOFOL 10 MG/ML 20 ML VIAL IV ONE (11:03)
[2020-01-19] MEDS: NON FORMULARY DRUG (Fluticasone/Umeclidin/Vilanter [Trelegy Ellipta 100-62.5-25] 1 PUFF) INHALATION SCH (11:22)
[2020-01-19] MEDS ORDERED: DEXTROSE 5% IN WATER 100 ML with AMIODARONE 150 MG IV ONE (11:53)
[2020-01-19] MEDS ORDERED: AMIODARONE 360 MG in DEXTROSE 5% IN WATER 200 ML IV ONE ×2 (11:53)
--- NOTE | 2020-01-19 11:56 | P.PN ---
Progress Note - Text Progress Note Date: 01/19/20 Patient underwent GIUSEPPE with subsequent cardioversion today by Dr. Alejandro. Patient did convert to normal sinus rhythm and shortly thereafter went back into atrial fibrillation. We will load him with IV amiodarone and continue the drip per protocol. Keep him nothing by mouth Wednesday night and plan for repeat attempt at cardioversion on Wednesday. DNP note has been reviewed, I agree with a documented findings and plan of care. Patient was seen and examined.
--- NOTE | 2020-01-19 12:18 | P.PN ---
Subjective Progress Note Date: 01/19/20 This is a 54-year-old gentleman with history of atrial fibrillation, recent stenting of the RCA with 4 drug-eluting stents ,COPD, hyperlipidemia, hypertension, chronic back pain, former nicotine dependence presented to the ER with worsening dyspnea, palpitations and multiple other medical issues. Reported dyspnea started on Wednesday, worsened with exertion, accompanied by mid substernal pressure. Reports he had been having episodes of bradycardia and Cardizem had been discontinued, anticoagulated on Eliquis.Denies fever. Coronavirus reported negative. Reported no nausea, vomiting, positive diarrhea. Afebrile on admission with leukocytosis, EKG reported atrial fibrillation with RVR, heart rate 140s, Troponins negative 3. Chest x-ray reporting bilateral infiltrates.radiologist's comparison requested .recent echo reported moderate concentric left ventricular hypertrophy, severe global hypokinesis of LV, moderately severe impaired LV function, EF 30-35%, moderate aortic sclerosis, moderate to severe mitral regurgitation, [id number] tricuspid regurgitation, moderate pulmonary hypertension. Cardizem drip initiated. Cardiology consulted. 01/19/2020 continues on Cardizem drip, telemetry reporting atrial fibrillation with rapid heart rate currently in the 130s.Symptomatic, positive palpitations. NPO, scheduled for cardioversion this morning. Chest x-ray reporting progressive changes, correlate for CHF, consider pneumonia. Maintained on Unasyn. Afebrile, WBC 11.3. Objective - Vital Signs Vital signs: Vital Signs Temp 98.5 F 01/19/20 10:27 Pulse 82 01/19/20 12:05 Resp 18 01/19/20 12:05 BP 146/97 01/19/20 12:05 Pulse Ox 95 01/19/20 12:05 Intake & Output 01/18/20 01/19/20 01/19/20 18:59 06:59 18:59 Intake Total 613.667 Balance 613.667 Weight 115.9 kg Intake: Intake, IV Titration 93.667 Amount Diltiazem 125 mg In 93.667 Sodium Chloride 0.9% 100 ml @ 7.5 MG/HR 7.5 mls/hr IV .[id number] [facility] Rx#: [id number] Oral 520 Other: Voiding Method Toilet Urinal # Voids 1 1 - Exam PHYSICAL EXAM: VITAL SIGNS: As above GENERAL: Sitting up in bed, no acute distress HEENT: Conjunctivae normal. eyes normal. Oral mucosa moist NECK: No JVD. No thyroid enlargement. No LNs CARDIOVASCULAR: S1, S2 irregular. Tachycardic Positive systolic murmur. RESPIRATION: Breath sounds diminished in the bases. No rhonchi, fine scattered crackles bilaterally, mid lobes through bases. ABDOMEN: Soft, nontender . No guarding. no masses palpable. No ascites, No hepatosplenomegaly.Bowel sounds heard. LEGS: Trace edema. no calf tenderness. PSYCHIATRY: Alert and oriented X3, mood and affect normal. NERVOUS SYSTEM: Cranial N 2-12 grossly normal. Moves all 4 limbs. No focal deficits. Strength and sensation grossly intact.. Skin: no rash - Labs CBC & Chem 7: 01/19/20 06:24 01/19/20 06:24 Labs: Abnormal Lab Results - Last 24 Hours (Table) 01/19/20 01/19/20 Range/Units 06:24 06:24 WBC 11.3 H (3.8-10.6) k/uL RBC 4.01 L (4.30-5.90) m/uL Hgb 12.4 L (13.0-17.5) gm/dL Hct 38.6 L (39.0-53.0) % Neutrophils # 8.1 H (1.3-7.7) k/uL Glucose 119 H (74-99) mg/dL Microbiology - Last 24 Hours (Table) 01/17/20 18:15 Blood Culture - Preliminary Blood No Growth after 24 hours Assessment and Plan Assessment: A.fib with RVR in a patient with history of Recent cardioversion November 2019, on Cardizem drip. Possible Acute bilateral pneumonia, community-acquired, coronavirus tested negative Acute COPD exacerbation Leukocytosis secondary to the above Acute hypoxic respiratory failure secondary to the above CAD with stent of the RCA Moderately severely impaired LV function, EF 30-35% Moderate to severe mitral regurgitation Moderate tricuspid regurgitation Moderate pulmonary hypertension Hyperlipidemia Hypertension Chronic back pain History of nicotine dependence Plan: Continue current medication regime ,monitoring and symptomatic treatment. Maintained on Cardizem drip. Carderversion pending. Maintain IV antibiotics, nebulized bronchodilators. The impression and plan of care has been dictated as directed. : I performed a history and examination of this patient, discussed the same with the dictator. I agree with the dictator's note ,documented as a scribe. Any additional findings or plans will be noted.
[2020-01-19] MEDS: DILTIAZEM 125 MG in SODIUM CHLORIDE 0.9% 100 ML IV SCH (13:28)
[2020-01-19] MEDS: SODIUM CHLORIDE 0.9% 1,000 ML IV SCH (13:29)
--- NOTE | 2020-01-19 13:44 | CE ---
CARDIAC ELECTROPHYSIOLOGY REPORT DATE OF SERVICE: January 17, 2020 PERFORMING PHYSICIAN: Ishaan Prieto MD. PROCEDURE PERFORMED: Attempted cardioversion of atrial fibrillation. COMPLICATION: None. LEVEL OF SEDATION: The procedure was performed using a BAKER OPERATOR AUTOMATIC study with deep sedation using propofol with COURSE DEVELOPER and anesthesiologist in the room. PROCEDURE DESCRIPTION: After the sedation was induced using propofol and after a transesophageal echocardiogram was performed and intracardiac thrombus was ruled out, I did perform the 2 attempts of cardioversion. I attempted cardioversion using 300 joules and the patient came back to normal sinus rhythm for few seconds, then went back into atrial fibrillation and the second attempt was with 360 joules and the same thing happened. Because of that, I decided to stop. CONCLUSION: Attempted cardioversion of atrial fibrillation to normal sinus mechanism was done and was unsuccessful using 300 joules and 360 joules. POSTPROCEDURE MANAGEMENT: I advised the patient to be started on amiodarone IV and try to do the cardioversion in the next few days. MMODL / IJN: [id number] /
--- NOTE | 2020-01-19 13:44 | ECHOT ---
TRANSESOPHAGEAL ECHOCARDIOGRAM DATE OF SERVICE: January 17, 2020 PERFORMING PHYSICIAN: Ishaan Prieto MD. PROCEDURE PERFORMED: Transesophageal echocardiogram. INDICATION: This is a very pleasant 54-year-old gentleman with coronary artery disease who underwent recently stenting of the right coronary artery as well as known history of cardiomyopathy as well as hypertension and dyslipidemia who presented to the emergency room complaining of increasing in the shortness of breath and he was found to be in atrial fibrillation with rapid ventricular response. The patient was admitted to the hospital. He was scheduled as an outpatient to undergo a GIUSEPPE and cardioversion by the end of January, but because he continues to be tachycardic, he was brought today to undergo the GIUSEPPE and cardioversion. COMPLICATION: None. The procedure was performed using propofol with CAMPUS POLICE OFFICER and anesthesiologist in the room. PROCEDURE DESCRIPTION: After obtaining an informed consent, the patient was brought to the recovery room. The pulse oximetry and heart rate monitors were attached to the patient. The patient was turned into left lateral position. A bite guard was placed. Subsequently the patient throat was sprayed using lidocaine. After that, deep sedation was induced using propofol. After that, the transesophageal echocardiogram was advanced through the bite guard to the mid esophagus, 2D echocardiogram images as well as color Doppler images of various cardiac structures were obtained. Particular attention was made to the left atrial appendage. The procedure was completed without any complication. FINDINGS: The left ventricle is dilated. The left ventricular systolic function appeared to be impaired with an ejection fraction between 35-40 percent with global hypokinesia. The right ventricle appeared to be within normal limits for dimension. The left atrium appeared to be severely dilated. The left atrial appendage appeared to be free from any thrombus. The interatrial septum was interrogated using color-flow Doppler without contrast study. The aortic valve appeared to be trileaflet valve without stenosis or regurgitation. The mitral valve seems to be mildly thickened with evidence of severe mitral regurgitation. There was mild to moderate tricuspid regurgitation. The pulmonary artery systolic pressure was not calculated. CONCLUSION: 1. Impaired LV function with EF between 35-40 percent with global hypokinesia. 2. Severely dilated left atrium. 3. Intact interatrial septum without any evidence of shunt. 4. Intact left atrial appendage without any evidence of thrombus. 5. Mildly thickened mitral valve leaflets with evidence of severe mitral regurgitation. 6. Trileaflet aortic valve without stenosis or insufficiency. 7. Mild to moderate tricuspid regurgitation. 8. No evidence of pericardial effusion. MMODL / IJN: [id number] /
[2020-01-19] MEDS: AMIODARONE 300 MG in DEXTROSE 5% IN WATER 250 ML IV SCH ×2 (19:15)
[2020-01-19] MEDS: ASPIRIN 81 MG PO SCH (20:03)
[2020-01-19] MEDS: CYCLOBENZAPRINE 10 MG TAB PO PRN (20:03)
[2020-01-20] MEDS: AMPICILLIN-SULBACTAM 3 GM in SODIUM CHLORIDE 0.9% 100 ML IVPB SCH ×3 (02:40→17:24)
[2020-01-20] MEDS: DILTIAZEM 125 MG in SODIUM CHLORIDE 0.9% 100 ML IV SCH ×2 (06:03→18:05)
[2020-01-20] MEDS: AMIODARONE 300 MG in DEXTROSE 5% IN WATER 250 ML IV SCH ×2 (06:03)
[2020-01-20] MEDS: IPRATROPIUM-ALBUTEROL 3 ML NEB INHALATION PRN ×4 (07:51→20:11)
[2020-01-20] MEDS: TRELEGY ELLIPTA INHALATION SCH (07:51)
[2020-01-20 09:05] LABS: Basophils # (A) 0.1 k/uL (0-0.2); Basophils % (A) 1 %; Eosinophils # (A) 0.2 k/uL (0-0.7); Eosinophils % (A) 1 %; HCT 40.3 % (39.0-53.0); HGB 12.3 gm/dL (13.0-17.5); Hypochromasia Slight; Lymphocytes # (A) 1.7 k/uL (1.0-4.8); Lymphocytes % (A) 12 %; MCH 30.1 pg (25.0-35.0); MCHC 30.5 g/dL (31.0-37.0); MCV 98.7 fL (80.0-100.0); Mean Platelet Volume 8.3; Monocytes # (A) 0.8 k/uL (0-1.0); Monocytes % (A) 5 %; Neutrophils % (A) 79 %; Platelet Count 273 k/uL (150-450); RBC 4.08 m/uL (4.30-5.90); RDW 14.2 % (11.5-15.5); WBC 13.9 k/uL (3.8-10.6)
[2020-01-20 09:12] LABS: African American GFR (CKD) >90 (>60 ml/min/1.73 sqM); Anion Gap 10 mmol/L; Blood Urea Nitrogen 15 mg/dL (9-20); Calcium 8.8 mg/dL (8.4-10.2); Carbon Dioxide 23 mmol/L (22-30); Chloride 104 mmol/L (98-107); Glucose 150 mg/dL (74-99); Non-African American GFR(CKD) >90 (>60 ml/min/1.73 sqM); Potassium 4.2 mmol/L (3.5-5.1); Sodium 137 mmol/L (137-145)
[2020-01-20] MEDS: PANTOPRAZOLE 40 MG/10 ML VIAL IVP SCH (09:31)
[2020-01-20] MEDS: PRASUGREL 10 MG TAB PO SCH (09:31)
[2020-01-20] MEDS: APIXABAN 2.5 MG TABLET PO SCH ×2 (09:32→19:54)
[2020-01-20] MEDS: METOPROLOL TARTRATE 25 MG TAB PO SCH ×3 (09:32→19:54)
[2020-01-20] MEDS: LOSARTAN 25 MG TAB PO SCH (09:32)
--- NOTE | 2020-01-20 10:46 | P.PN ---
Subjective Progress Note Date: 01/20/20 This is a 54-year-old male patient with past medical history of COPD, coronary artery disease status post angioplasty of the right coronary artery, hypertension, persistent atrial fibrillation. Patient presented to the hospital with chest pain, palpitations, chest tightness and difficulty breathing. Patient initially was found to be in atrial fibrillation with RVR. He was treated with IV Cardizem. His blood pressure dropped a little so they cut back on Cardizem dose. On initial evaluation by cardiology, patient was still in atrial fibrillation and heart rate was poorly controlled. Patient received nebulized treatment and was in isolation for COVID-19. Cardizem drip was initially increased. Patient has had cardioversion in the past that was unsuccessful. Yesterday, patient underwent GIUSEPPE with subsequent cardioversion today by Dr. Alejandro. Patient did convert to normal sinus rhythm and shortly thereafter went back into atrial fibrillation. We will load him with IV amiodarone and continue the drip per protocol. Keep him nothing by mouth Wednesday night and plan for repeat attempt at cardioversion on Wednesday. 01/19: Patient's heart rate continues to be poorly controlled despite use of amiodarone drip and Cardizem drip. Heart rate is running 120s and 130s sometimes up to 150. We will increase frequency of Lopressor 25 mg to 3 times daily. The patient has been resumed on eliquis. Physical examination: Gen: This is a 54-year-old male. He is sitting on the edge of the bed. No acute distress noted VS: Afebrile, heart rate 138, blood pressure 150/87, pulse ox 90% on 4 L nasal cannula. HEENT: Head is atraumatic, normocephalic. Pupils equal, round. Sclerae is anicteric. NECK: Supple. No JVD. No lymphadenopathy. No thyromegaly. LUNGS: Diminished at the bases. Fine scattered crackles. No wheezes. No intercostal retractions. HEART: Irregular rate and rhythm. Systolic murmur. Tachycardic. ABDOMEN: Soft. Bowel sounds are present. No masses. No tenderness. EXTREMITIES: Trace pedal edema. No calf tenderness. NEUROLOGICAL: Patient is awake, alert and oriented x3. Cranial nerves 2 through 12 are grossly intact. Assessment: Persistent atrial fibrillation, poor controlled ventricular rate Coronary artery disease status post angioplasty of the right coronary artery Chronic obstructive pulmonary disease Plan: Continue amiodarone and Cardizem drips Increased frequency of Lopressor 25 mg to 3 times daily Continue eliquis 2.5 mg twice daily Patient scheduled for cardioversion on Wednesday Nurse practitioner note has been reviewed, I agree with documented findings and plan of care. Patient was seen and examined. Objective - Vital Signs Vital signs: Vital Signs Temp 98.1 F 01/20/20 03:25 Pulse 138 H 01/20/20 08:03 Resp 20 01/20/20 03:25 BP 150/87 01/20/20 03:25 Pulse Ox 98 01/20/20 03:25 Intake & Output 01/19/20 01/20/20 01/20/20 18:59 06:59 18:59 Intake Total 260 648.375 Balance 260 648.375 Weight 114.6 kg Intake: Intake, IV Titration 648.375 Amount Amiodarone 300 mg In 250 Dextrose 5% in Water 250 ml @ 0.5 MG/MIN 25 mls/hr IV .Q10H [facility] Rx#: [id number] Amiodarone 360 mg In 200 Dextrose 5% in Water 200 ml @ 1 MG/MIN 33.333 mls/ hr IV .Q6H [facility] Rx#: [id number] Ampicillin-Sulbactam 3 gm 100 In Sodium Chloride 0.9% 100 ml @ 200 mls/hr IVPB Q8H [facility] Rx#:[id number] Diltiazem 125 mg In 98.375 Sodium Chloride 0.9% 100 ml @ 7.5 MG/HR 7.5 mls/hr IV .[id number] [facility] Rx#: [id number] Oral 260 Other: Voiding Method Toilet Urinal # Voids 2 2 - Labs CBC & Chem 7: 01/20/20 08:27 01/20/20 08:27 Labs: Abnormal Lab Results - Last 24 Hours (Table) 01/20/20 01/20/20 Range/Units 08:27 08:27 WBC 13.9 H (3.8-10.6) k/uL RBC 4.08 L (4.30-5.90) m/uL Hgb 12.3 L (13.0-17.5) gm/dL MCHC 30.5 L (31.0-37.0) g/dL Neutrophils # 11.0 H (1.3-7.7) k/uL Glucose 150 H (74-99) mg/dL Microbiology - Last 24 Hours (Table) 01/17/20 18:15 Blood Culture - Preliminary Blood No Growth after 48 hours
[2020-01-20] MEDS: AMIODARONE 200 MG TAB PO SCH ×2 (17:23→19:54)
--- NOTE | 2020-01-20 18:01 | P.PN ---
Subjective Progress Note Date: 01/20/20 Principal diagnosis: Persistent atrial fibrillation with RVR 54-year-old male patient with past medical history of COPD, coronary artery disease status post angioplasty of the right coronary artery, hypertension, persistent atrial fibrillation. Patient presented to the hospital with chest pain, palpitations, chest tightness and difficulty breathing. Patient initially was found to be in atrial fibrillation with RVR. He was treated with IV Cardizem. His blood pressure dropped a little so they cut back on Cardizem dose. On initial evaluation by cardiology, patient was still in atrial fibrillation and heart rate was poorly controlled. Patient received nebulized treatment and was in isolation for COVID-19. Cardizem drip was initially increased. Patient has had cardioversion in the past that was unsuccessful. Yesterday, patient underwent GIUSEPPE with subsequent cardioversion today by Dr. Alejandro. Patient did convert to normal sinus rhythm and shortly thereafter went back into atrial fibrillation. We will load him with IV amiodarone and continue the drip per protocol. Keep him nothing by mouth Wednesday and plan for repeat attempt at cardioversion on Wednesday. Objective - Vital Signs Vital signs: Vital Signs Temp 98.1 F 01/20/20 09:30 Pulse 132 H 01/20/20 11:36 Resp 24 01/20/20 09:30 BP 165/90 01/20/20 09:30 Pulse Ox 91 L 01/20/20 09:30 Intake & Output 01/19/20 01/20/20 01/20/20 18:59 06:59 18:59 Intake Total 260 648.375 360 Balance 260 648.375 360 Weight 114.6 kg Intake: Intake, IV Titration 648.375 Amount Amiodarone 300 mg In 250 Dextrose 5% in Water 250 ml @ 0.5 MG/MIN 25 mls/hr IV .Q10H [facility] Rx#: [id number] Amiodarone 360 mg In 200 Dextrose 5% in Water 200 ml @ 1 MG/MIN 33.333 mls/ hr IV .Q6H [facility] Rx#: [id number] Ampicillin-Sulbactam 3 gm 100 In Sodium Chloride 0.9% 100 ml @ 200 mls/hr IVPB Q8H [facility] Rx#:[id number] Diltiazem 125 mg In 98.375 Sodium Chloride 0.9% 100 ml @ 7.5 MG/HR 7.5 mls/hr IV .[id number] [facility] Rx#: [id number] Oral 260 360 Other: Voiding Method Toilet Urinal # Voids 2 2 - Exam Gen: This is a 54-year-old male. He is sitting on the edge of the bed. No acute distress noted VS: Afebrile, heart rate 138, blood pressure 150/87, pulse ox 90% on 4 L nasal cannula. HEENT: Head is atraumatic, normocephalic. Pupils equal, round. Sclerae is anicteric. NECK: Supple. No JVD. No lymphadenopathy. No thyromegaly. LUNGS: Diminished at the bases. Fine scattered crackles. No wheezes. No intercostal retractions. HEART: Irregular rate and rhythm. Systolic murmur. Tachycardic. ABDOMEN: Soft. Bowel sounds are present. No masses. No tenderness. EXTREMITIES: Trace pedal edema. No calf tenderness. NEUROLOGICAL: Patient is awake, alert and oriented x3. Cranial nerves 2 through 12 are grossly intact. - Labs CBC & Chem 7: 01/20/20 08:27 01/20/20 08:27 Labs: Abnormal Lab Results - Last 24 Hours (Table) 01/20/20 01/20/20 Range/Units 08:27 08:27 WBC 13.9 H (3.8-10.6) k/uL RBC 4.08 L (4.30-5.90) m/uL Hgb 12.3 L (13.0-17.5) gm/dL MCHC 30.5 L (31.0-37.0) g/dL Neutrophils # 11.0 H (1.3-7.7) k/uL Glucose 150 H (74-99) mg/dL Microbiology - Last 24 Hours (Table) 01/17/20 18:15 Blood Culture - Preliminary Blood No Growth after 48 hours Assessment and Plan Assessment: Persistent atrial fibrillation, poor controlled ventricular rate Coronary artery disease status post angioplasty of the right coronary artery Chronic obstructive pulmonary disease Plan: Continue amiodarone and Cardizem drips Increased frequency of Lopressor 25 mg to 3 times daily Continue eliquis 2.5 mg twice daily Patient scheduled for cardioversion on Wednesday
[2020-01-20] MEDS: SODIUM CHLORIDE 0.9% 1,000 ML IV SCH (18:06)
[2020-01-20] MEDS: ASPIRIN 81 MG PO SCH (19:54)
[2020-01-20] MEDS: CYCLOBENZAPRINE 10 MG TAB PO PRN (22:36)
[2020-01-21] MEDS: AMPICILLIN-SULBACTAM 3 GM in SODIUM CHLORIDE 0.9% 100 ML IVPB SCH ×3 (02:47→18:10)
[2020-01-21] MEDS: DILTIAZEM 125 MG in SODIUM CHLORIDE 0.9% 100 ML IV SCH ×2 (04:07→21:49)
[2020-01-21 08:04] LABS: African American GFR (CKD) >90 (>60 ml/min/1.73 sqM); Anion Gap 9 mmol/L; Blood Urea Nitrogen 12 mg/dL (9-20); Calcium 8.4 mg/dL (8.4-10.2); Carbon Dioxide 22 mmol/L (22-30); Chloride 104 mmol/L (98-107); Glucose 121 mg/dL (74-99); Non-African American GFR(CKD) >90 (>60 ml/min/1.73 sqM); Potassium 4.3 mmol/L (3.5-5.1); Sodium 135 mmol/L (137-145)
[2020-01-21 08:06] LABS: Basophils # (A) 0.1 k/uL (0-0.2); Basophils % (A) 0 %; Eosinophils # (A) 0.2 k/uL (0-0.7); Eosinophils % (A) 1 %; HCT 36.6 % (39.0-53.0); HGB 11.2 gm/dL (13.0-17.5); Hypochromasia Slight; Lymphocytes # (A) 1.7 k/uL (1.0-4.8); Lymphocytes % (A) 12 %; MCH 29.8 pg (25.0-35.0); MCHC 30.8 g/dL (31.0-37.0); MCV 96.7 fL (80.0-100.0); Mean Platelet Volume 8.5; Monocytes # (A) 0.9 k/uL (0-1.0); Monocytes % (A) 7 %; Neutrophils # (A) 10.4 k/uL (1.3-7.7); Neutrophils % (A) 77 %; Platelet Count 231 k/uL (150-450); RBC 3.78 m/uL (4.30-5.90); RDW 14.6 % (11.5-15.5); WBC 13.5 k/uL (3.8-10.6)
[2020-01-21] MEDS: TRELEGY ELLIPTA INHALATION SCH (08:22)
[2020-01-21] MEDS: IPRATROPIUM-ALBUTEROL 3 ML NEB INHALATION PRN ×4 (08:22→20:24)
[2020-01-21] MEDS: AMIODARONE 200 MG TAB PO SCH ×3 (09:25→21:15)
[2020-01-21] MEDS: APIXABAN 2.5 MG TABLET PO SCH ×2 (09:25→21:16)
[2020-01-21] MEDS: METOPROLOL TARTRATE 25 MG TAB PO SCH ×3 (09:26→21:16)
[2020-01-21] MEDS: LOSARTAN 25 MG TAB PO SCH (09:26)
[2020-01-21] MEDS: PANTOPRAZOLE 40 MG TABLET PO SCH (09:26)
[2020-01-21] MEDS: PRASUGREL 10 MG TAB PO SCH (09:26)
--- NOTE | 2020-01-21 11:33 | P.PN ---
Subjective Progress Note Date: 01/21/20 This is a 54-year-old male patient with past medical history of COPD, coronary artery disease status post angioplasty of the right coronary artery, hypertension, persistent atrial fibrillation. Patient presented to the hospital with chest pain, palpitations, chest tightness and difficulty breathing. Patient initially was found to be in atrial fibrillation with RVR. He was treated with IV Cardizem. His blood pressure dropped a little so they cut back on Cardizem dose. On initial evaluation by cardiology, patient was still in atrial fibrillation and heart rate was poorly controlled. Patient received nebulized treatment and was in isolation for COVID-19. Cardizem drip was initially increased. Patient has had cardioversion in the past that was unsuccessful. Yesterday, patient underwent GIUSEPPE with subsequent cardioversion today by Dr. Alejandro. Patient did convert to normal sinus rhythm and shortly thereafter went back into atrial fibrillation. We will load him with IV amiodarone and continue the drip per protocol. Keep him nothing by mouth Wednesday night and plan for repeat attempt at cardioversion on Wednesday morning. 01/19: Patient's heart rate continues to be poorly controlled despite use of amiodarone drip and Cardizem drip. Heart rate is running 120s and 130s sometimes up to 150. We will increase frequency of Lopressor 25 mg to 3 times daily. The patient has been resumed on eliquis. 01/20: quality assurance monitor final continues to be atrial fibrillation running in the 120s. Patient is scheduled for cardioversion on Wednesday. Lopressor was increased frequency to 3 times daily yesterday and he continues on Cardizem drip. Amiodarone drip has been transitioned to amiodarone 200 mg 3 times daily. Patient denies any new complaints. He continues to have shortness of breath at rest and with exertion. Physical examination: Gen: This is a 54-year-old male. He is sitting on the edge of the bed. VS: Afebrile, heart rate 124, blood pressure 127/72, pulse ox 97% on 4 L nasal cannula. HEENT: Head is atraumatic, normocephalic. Pupils equal, round. Sclerae is anic teric. NECK: Supple. No JVD. No lymphadenopathy. No thyromegaly. LUNGS: Diminished at the bases. Fine scattered crackles. No wheezes. No intercostal retractions. HEART: Irregular rate and rhythm. Systolic murmur. Tachycardic. ABDOMEN: Soft. Bowel sounds are present. No masses. No tenderness. EXTREMITIES: Trace pedal edema. No calf tenderness. NEUROLOGICAL: Patient is awake, alert and oriented x3. Cranial nerves 2 through 12 are grossly intact. Assessment: Persistent atrial fibrillation, poor controlled ventricular rate Coronary artery disease status post angioplasty of the right coronary artery Chronic obstructive pulmonary disease Plan: Continue amiodarone transitioned to oral at 200 mg 3 times daily Continue Cardizem drip Continue Lopressor 25 mg 3 times daily Continue eliquis 2.5 mg twice daily Patient scheduled for cardioversion on Wednesday Nurse practitioner note has been reviewed, I agree with documented findings and plan of care. Patient was seen and examined. Objective - Vital Signs Vital signs: Vital Signs Temp 98.3 F 01/21/20 03:41 Pulse 126 H 01/21/20 08:38 Resp 22 01/21/20 03:42 BP 119/81 01/21/20 03:41 Pulse Ox 95 01/21/20 03:41 Intake & Output 01/20/20 01/21/20 01/21/20 18:59 06:59 18:59 Intake Total 1170.25 575.25 Balance 1170.25 575.25 Weight 112 kg Intake: IV 20 Invasive Line 5 20 Intake, IV Titration 90.25 455.25 Amount Ampicillin-Sulbactam 3 gm 100 In Sodium Chloride 0.9% 100 ml @ 200 mls/hr IVPB Q8H [facility] Rx#:[id number] Diltiazem 125 mg In 90.25 75.25 Sodium Chloride 0.9% 100 ml @ 7.5 MG/HR 7.5 mls/hr IV .[id number] [facility] Rx#: [id number] Sodium Chloride 0.9% 1, 280 000 ml @ 20 mls/hr IV . Q24H [facility] Rx#:[id number] Oral 1080 100 Other: Voiding Method Toilet Urinal # Voids 3 2 # Bowel Movements 1 - Labs CBC & Chem 7: 01/21/20 06:41 01/21/20 06:41 Labs: Abnormal Lab Results - Last 24 Hours (Table) 01/20/20 01/20/20 01/21/20 Range/Units 08:27 08:27 06:41 WBC 13.9 H 13.5 H (3.8-10.6) k/uL RBC 4.08 L 3.78 L (4.30-5.90) m/uL Hgb 12.3 L 11.2 L (13.0-17.5) gm/dL Hct 36.6 L (39.0-53.0) % MCHC 30.5 L 30.8 L (31.0-37.0) g/dL Neutrophils # 11.0 H 10.4 H (1.3-7.7) k/uL Sodium (137-145) mmol/L Creatinine (0.66-1.25) mg/dL Glucose 150 H (74-99) mg/dL 01/21/20 Range/Units 06:41 WBC (3.8-10.6) k/uL RBC (4.30-5.90) m/uL Hgb (13.0-17.5) gm/dL Hct (39.0-53.0) % MCHC (31.0-37.0) g/dL Neutrophils # (1.3-7.7) k/uL Sodium 135 L (137-145) mmol/L Creatinine 0.65 L (0.66-1.25) mg/dL Glucose 121 H (74-99) mg/dL Microbiology - Last 24 Hours (Table) 01/17/20 18:15 Blood Culture - Preliminary Blood No Growth after 72 hours
[2020-01-21] MEDS: SODIUM CHLORIDE 0.9% 1,000 ML IV SCH (15:33)
--- NOTE | 2020-01-21 18:00 | P.PN ---
Subjective Progress Note Date: 01/21/20 Principal diagnosis: Persistent atrial fibrillation with RVR 54-year-old male patient with past medical history of COPD, coronary artery disease status post angioplasty of the right coronary artery, hypertension, persistent atrial fibrillation. Patient presented to the hospital with chest pain, palpitations, chest tightness and difficulty breathing. Patient initially was found to be in atrial fibrillation with RVR. He was treated with IV Cardizem. His blood pressure dropped a little so they cut back on Cardizem dose. On initial evaluation by cardiology, patient was still in atrial fibrillation and heart rate was poorly controlled. Patient received nebulized treatment and was in isolation for COVID-19. Cardizem drip was initially increased. Patient has had cardioversion in the past that was unsuccessful. Yesterday, patient underwent GIUSEPPE with subsequent cardioversion today by Dr. Alejandro. Patient did convert to normal sinus rhythm and shortly thereafter went back into atrial fibrillation. We will load him with IV amiodarone and continue the drip per protocol. Keep him nothing by mouth Wednesday night and plan for repeat attempt at cardioversion on Wednesday morning. 01/21/2020 Patient is seen and evaluated in room at bedside; denies any complaint of chest shortness of breath Remains in atrial fibrillation running in the 120s. Patient is scheduled for cardioversion on Wednesday. Lopressor was increased frequency to 3 times daily yesterday and he continues on Cardizem drip. Amiodarone drip has been transitioned to amiodarone 200 mg 3 times daily. Objective - Vital Signs Vital signs: Vital Signs Temp 98.5 F 01/21/20 09:15 Pulse 122 H 01/21/20 11:57 Resp 22 01/21/20 09:15 BP 127/72 01/21/20 09:15 Pulse Ox 97 01/21/20 09:15 Intake & Output 01/20/20 01/21/20 01/21/20 18:59 06:59 18:59 Intake Total 1170.25 575.25 250 Balance 1170.25 575.25 250 Weight 112 kg Intake: IV 20 10 Invasive Line 5 20 10 Intake, IV Titration 90.25 455.25 Amount Ampicillin-Sulbactam 3 gm 100 In Sodium Chloride 0.9% 100 ml @ 200 mls/hr IVPB Q8H [facility] Rx#:[id number] Diltiazem 125 mg In 90.25 75.25 Sodium Chloride 0.9% 100 ml @ 7.5 MG/HR 7.5 mls/hr IV .[id number] [facility] Rx#: [id number] Sodium Chloride 0.9% 1, 280 000 ml @ 20 mls/hr IV . Q24H [facility] Rx#:[id number] Oral 1080 100 240 Other: Voiding Method Toilet Urinal # Voids 3 2 # Bowel Movements 1 - Exam Gen: This is a 54-year-old male. He is sitting on the edge of the bed. No acute distress noted VS: Afebrile, heart rate 138, blood pressure 150/87, pulse ox 90% on 4 L nasal cannula. HEENT: Head is atraumatic, normocephalic. Pupils equal, round. Sclerae is anicteric. NECK: Supple. No JVD. No lymphadenopathy. No thyromegaly. LUNGS: Diminished at the bases. Fine scattered crackles. No wheezes. No intercostal retractions. HEART: Irregular rate and rhythm. Systolic murmur. Tachycardic. ABDOMEN: Soft. Bowel sounds are present. No masses. No tenderness. EXTREMITIES: Trace pedal edema. No calf tenderness. NEUROLOGICAL: Patient is awake, alert and oriented x3. Cranial nerves 2 through 12 are grossly intact. - Labs CBC & Chem 7: 01/21/20 06:41 01/21/20 06:41 Labs: Abnormal Lab Results - Last 24 Hours (Table) 01/21/20 01/21/20 Range/Units 06:41 06:41 WBC 13.5 H (3.8-10.6) k/uL RBC 3.78 L (4.30-5.90) m/uL Hgb 11.2 L (13.0-17.5) gm/dL Hct 36.6 L (39.0-53.0) % MCHC 30.8 L (31.0-37.0) g/dL Neutrophils # 10.4 H (1.3-7.7) k/uL Sodium 135 L (137-145) mmol/L Creatinine 0.65 L (0.66-1.25) mg/dL Glucose 121 H (74-99) mg/dL Microbiology - Last 24 Hours (Table) 01/17/20 18:15 Blood Culture - Preliminary Blood No Growth after 72 hours Assessment and Plan Assessment: Persistent atrial fibrillation, poor controlled ventricular rate Coronary artery disease status post angioplasty of the right coronary artery Chronic obstructive pulmonary disease Plan: Continue amiodarone and Cardizem drips Increased frequency of Lopressor 25 mg to 3 times daily Continue eliquis 2.5 mg twice daily Patient scheduled for cardioversion on Wednesday
[2020-01-21] MEDS: ASPIRIN 81 MG PO SCH (21:16)
[2020-01-21] MEDS: CYCLOBENZAPRINE 10 MG TAB PO PRN (21:16)
[2020-01-22] MEDS: AMPICILLIN-SULBACTAM 3 GM in SODIUM CHLORIDE 0.9% 100 ML IVPB SCH ×3 (02:09→18:01)
[2020-01-22 07:04] LABS: Basophils # (A) 0.1 k/uL (0-0.2); Basophils % (A) 1 %; Eosinophils # (A) 0.2 k/uL (0-0.7); Eosinophils % (A) 2 %; HGB 11.3 gm/dL (13.0-17.5); Hypochromasia Slight; Lymphocytes # (A) 1.9 k/uL (1.0-4.8); Lymphocytes % (A) 13 %; MCH 30.7 pg (25.0-35.0); MCHC 31.5 g/dL (31.0-37.0); MCV 97.5 fL (80.0-100.0); Mean Platelet Volume 8.4; Monocytes % (A) 7 %; Neutrophils # (A) 11.1 k/uL (1.3-7.7); Neutrophils % (A) 76 %; Platelet Count 249 k/uL (150-450); RBC 3.69 m/uL (4.30-5.90); RDW 14.4 % (11.5-15.5); WBC 14.5 k/uL (3.8-10.6)
[2020-01-22 07:05] LABS: African American GFR (CKD) >90 (>60 ml/min/1.73 sqM); Anion Gap 8 mmol/L; Blood Urea Nitrogen 14 mg/dL (9-20); Calcium 8.4 mg/dL (8.4-10.2); Carbon Dioxide 24 mmol/L (22-30); Chloride 103 mmol/L (98-107); Glucose 116 mg/dL (74-99); Non-African American GFR(CKD) >90 (>60 ml/min/1.73 sqM); Potassium 4.7 mmol/L (3.5-5.1); Sodium 135 mmol/L (137-145)
[2020-01-22] MEDS: TRELEGY ELLIPTA INHALATION SCH (07:32)
[2020-01-22] MEDS: IPRATROPIUM-ALBUTEROL 3 ML NEB INHALATION PRN ×3 (07:32→15:18)
[2020-01-22] MEDS: LOSARTAN 25 MG TAB PO SCH (09:22)
[2020-01-22] MEDS: METOPROLOL TARTRATE 25 MG TAB PO SCH ×3 (09:22→21:07)
[2020-01-22] MEDS: PANTOPRAZOLE 40 MG TABLET PO SCH (09:22)
[2020-01-22] MEDS: APIXABAN 2.5 MG TABLET PO SCH ×2 (09:22→21:07)
[2020-01-22] MEDS: PRASUGREL 10 MG TAB PO SCH (09:22)
[2020-01-22] MEDS: AMIODARONE 200 MG TAB PO SCH ×3 (09:22→21:07)
[2020-01-22] MEDS: SODIUM CHLORIDE 0.9% 1,000 ML IV SCH ×2 (12:48)
--- NOTE | 2020-01-22 12:58 | P.PN ---
Subjective Progress Note Date: 01/22/20 This is a 54-year-old gentleman with history of COPD, coronary artery disease, hypertension, persistent atrial fibrillation who presented to the hospital with symptoms of palpitations. He underwent a GIUSEPPE with subsequent cardioversion by Dr. Alejandro, he did convert to normal sinus rhythm and shortly thereafter went back into atrial fibrillation. He was loaded with IV amiodarone over the weekend, continues at this time to be on oral amiodarone as well as Cardizem. He continues to be in atrial fibrillation this morning with a rapid ventricular response. He will be scheduled to undergo a reattempt at cardioversion tomorrow. Hemodynamically he is stable. Objective - Vital Signs Vital signs: Vital Signs Temp 98.0 F 01/22/20 08:00 Pulse 116 H 01/22/20 11:13 Resp 26 H 01/22/20 04:00 BP 131/75 01/22/20 08:00 Pulse Ox 93 L 01/22/20 08:00 Intake & Output 01/21/20 01/22/20 01/22/20 18:59 06:59 18:59 Intake Total 870 245 10 Output Total 3 Balance 867 245 10 Weight 118.3 kg Intake: IV 30 120 10 .9 90 Invasive Line 5 30 30 10 Intake, IV Titration 125 Amount Diltiazem 125 mg In 125 Sodium Chloride 0.9% 100 ml @ 7.5 MG/HR 7.5 mls/hr IV .[id number] [facility] Rx#: [id number] Oral 840 Output: Urine 3 Other: Voiding Method Toilet Urinal # Voids 2 1 - Exam Physical examination: Gen: This is a 54-year-old male. He is sitting on the edge of the bed. No acute distress noted VS: Afebrile, heart rate 138, blood pressure 150/87, pulse ox 90% on 4 L nasal cannula. HEENT: Head is atraumatic, normocephalic. Pupils equal, round. Sclerae is ani cteric. NECK: Supple. No JVD. No lymphadenopathy. No thyromegaly. LUNGS: Diminished at the bases. Fine scattered crackles. No wheezes. No intercostal retractions. HEART: Irregular rate and rhythm. Systolic murmur. Tachycardic. ABDOMEN: Soft. Bowel sounds are present. No masses. No tenderness. EXTREMITIES: Trace pedal edema. No calf tenderness. NEUROLOGICAL: Patient is awake, alert and oriented x3. Cranial nerves 2 through 12 are grossly intact. - Labs CBC & Chem 7: 01/22/20 05:43 01/22/20 05:43 Labs: Abnormal Lab Results - Last 24 Hours (Table) 01/22/20 01/22/20 Range/Units 05:43 05:43 WBC 14.5 H (3.8-10.6) k/uL RBC 3.69 L (4.30-5.90) m/uL Hgb 11.3 L (13.0-17.5) gm/dL Hct 36.0 L (39.0-53.0) % Neutrophils # 11.1 H (1.3-7.7) k/uL Sodium 135 L (137-145) mmol/L Glucose 116 H (74-99) mg/dL Microbiology - Last 24 Hours (Table) 01/17/20 18:15 Blood Culture - Preliminary Blood No Growth after 96 hours Assessment and Plan Plan: Assessment and plan: #1 atrial fibrillation with rapid ventricular response, paroxysmal #2 Coronary artery disease status post angioplasty of the right coronary artery #3 Chronic obstructive pulmonary disease #4 hyperlipidemia Plan We will continue the oral amiodarone as well as the IV Cardizem, patient will be scheduled to undergo another attempt at cardioversion tomorrow by Dr. Alejandro. Further recommendations will be based on those findings. DNP note has been reviewed, I agree with a documented findings and plan of care. Patient was seen and examined.
--- NOTE | 2020-01-22 14:36 | P.PN ---
Subjective Progress Note Date: 01/22/20 This is a 54-year-old gentleman with history of atrial fibrillation, recent stenting of the RCA with 4 drug-eluting stents ,COPD, hyperlipidemia, hypertension, chronic back pain, former nicotine dependence presented to the ER with worsening dyspnea, palpitations and multiple other medical issues. Reported dyspnea started on Wednesday, worsened with exertion, accompanied by mid substernal pressure. Reports he had been having episodes of bradycardia and Cardizem had been discontinued, anticoagulated on Eliquis.Denies fever. Coronavirus reported negative. Reported no nausea, vomiting, positive diarrhea. Afebrile on admission with leukocytosis, EKG reported atrial fibrillation with RVR, heart rate 140s, Troponins negative 3. Chest x-ray reporting bilateral infiltrates.radiologist's comparison requested .recent echo reported moderate concentric left ventricular hypertrophy, severe global hypokinesis of LV, moderately severe impaired LV function, EF 30-35%, moderate aortic sclerosis, moderate to severe mitral regurgitation, [id number] tricuspid regurgitation, moderate pulmonary hypertension. Cardizem drip initiated. Cardiology consulted. 01/19/2020 continues on Cardizem drip, telemetry reporting atrial fibrillation with rapid heart rate currently in the 130s.Symptomatic, positive palpitations. NPO, scheduled for cardioversion this morning. Chest x-ray reporting progressive changes, correlate for CHF, consider pneumonia. Maintained on Unasyn. Afebrile, WBC 11.3. 01/22/2020 underwent GIUSEPPE with unsuccessful cardioversion last week. Maintained on IV amiodarone and Cardizem, continues reporting atrial fibrillation with HR in the 120s. Scheduled for repeat cardioversion tomorrow.VSS. Objective - Vital Signs Vital signs: Vital Signs Temp 98.0 F 01/22/20 08:00 Pulse 118 H 01/22/20 12:00 Resp 26 H 01/22/20 04:00 BP 103/62 01/22/20 12:00 Pulse Ox 93 L 01/22/20 12:00 Intake & Output 01/21/20 01/22/20 01/22/20 18:59 06:59 18:59 Intake Total 870 245 10 Output Total 3 Balance 867 245 10 Weight 118.3 kg Intake: IV 30 120 10 .9 90 Invasive Line 5 30 30 10 Intake, IV Titration 125 Amount Diltiazem 125 mg In 125 Sodium Chloride 0.9% 100 ml @ 7.5 MG/HR 7.5 mls/hr IV .[id number] [facility] Rx#: [id number] Oral 840 Output: Urine 3 Other: Voiding Method Toilet Urinal # Voids 2 1 - Exam PHYSICAL EXAM: VITAL SIGNS: As above GENERAL: Sitting up in bed, no acute distress HEENT: Conjunctivae normal. eyes normal. Oral mucosa moist NECK: No JVD. No thyroid enlargement. No LNs CARDIOVASCULAR: S1, S2 irregular. Tachycardic Positive systolic murmur. RESPIRATION: Breath sounds diminished in the bases. No rhonchi, fine scattered crackles bilaterally. ABDOMEN: Soft, nontender . No guarding. no masses palpable.Bowel sounds heard. LEGS: Trace edema. no calf tenderness. PSYCHIATRY: Alert and oriented X3, mood and affect normal. NERVOUS SYSTEM: Cranial N 2-12 grossly normal. Moves all 4 limbs. No focal deficits. Strength and sensation grossly intact. Skin: no rash - Labs CBC & Chem 7: 01/22/20 05:43 01/22/20 05:43 Labs: Abnormal Lab Results - Last 24 Hours (Table) 01/22/20 01/22/20 Range/Units 05:43 05:43 WBC 14.5 H (3.8-10.6) k/uL RBC 3.69 L (4.30-5.90) m/uL Hgb 11.3 L (13.0-17.5) gm/dL Hct 36.0 L (39.0-53.0) % Neutrophils # 11.1 H (1.3-7.7) k/uL Sodium 135 L (137-145) mmol/L Glucose 116 H (74-99) mg/dL Microbiology - Last 24 Hours (Table) 01/17/20 18:15 Blood Culture - Preliminary Blood No Growth after 96 hours Assessment and Plan Assessment: Paroxysmal A.fib with RVR in a patient with history of Recent cardioversion November 2019, on Cardizem drip. Possible Acute bilateral pneumonia, community-acquired, coronavirus tested negative Acute COPD exacerbation Leukocytosis secondary to the above Acute hypoxic respiratory failure secondary to the above CAD with stent of the RCA Moderately severely impaired LV function, EF 30-35% Moderate to severe mitral regurgitation Moderate tricuspid regurgitation Moderate pulmonary hypertension Hyperlipidemia Hypertension Chronic back pain History of nicotine dependence Plan: Continue current medication regime ,monitoring and symptomatic treatment. Carderversion pending. Antiarrhythmics as per cardiology. Antibiotics, nebulized bronchodilators and aggressive pulmonary toileting. The impression and plan of care has been dictated as directed. : I performed a history and examination of this patient, discussed the same with the dictator. I agree with the dictator's note ,documented as a scribe. Any additional findings or plans will be noted.
[2020-01-22] MEDS: DILTIAZEM 125 MG in SODIUM CHLORIDE 0.9% 100 ML IV SCH (20:58)
[2020-01-22] MEDS: ASPIRIN 81 MG PO SCH (21:07)
[2020-01-22] MEDS: CYCLOBENZAPRINE 10 MG TAB PO PRN (23:11)
[2020-01-23] MEDS ORDERED: FUROSEMIDE 10 MG/ML 2 ML VIAL IV STA (00:22)
[2020-01-23] MEDS: AMPICILLIN-SULBACTAM 3 GM in SODIUM CHLORIDE 0.9% 100 ML IVPB SCH ×3 (02:26→17:37)
[2020-01-23 06:49] LABS: African American GFR (CKD) >90 (>60 ml/min/1.73 sqM); Anion Gap 9 mmol/L; Blood Urea Nitrogen 15 mg/dL (9-20); Calcium 8.4 mg/dL (8.4-10.2); Carbon Dioxide 24 mmol/L (22-30); Chloride 101 mmol/L (98-107); Glucose 113 mg/dL (74-99); Non-African American GFR(CKD) >90 (>60 ml/min/1.73 sqM); Potassium 4.3 mmol/L (3.5-5.1); Sodium 134 mmol/L (137-145)
[2020-01-23 06:57] LABS: Basophils # (A) 0.1 k/uL (0-0.2); Basophils % (A) 1 %; Eosinophils # (A) 0.3 k/uL (0-0.7); Eosinophils % (A) 2 %; HGB 11.1 gm/dL (13.0-17.5); Hypochromasia Slight; Lymphocytes # (A) 1.5 k/uL (1.0-4.8); Lymphocytes % (A) 12 %; MCH 30.6 pg (25.0-35.0); MCHC 31.6 g/dL (31.0-37.0); MCV 96.8 fL (80.0-100.0); Mean Platelet Volume 8.4; Monocytes # (A) 0.7 k/uL (0-1.0); Monocytes % (A) 6 %; Neutrophils # (A) 9.3 k/uL (1.3-7.7); Neutrophils % (A) 77 %; Platelet Count 245 k/uL (150-450); RBC 3.61 m/uL (4.30-5.90); RDW 14.3 % (11.5-15.5); WBC 12.2 k/uL (3.8-10.6)
[2020-01-23] MEDS ORDERED: LACTATED RINGERS 1,000 ML IV ONE (07:00)
[2020-01-23] MEDS ORDERED: PROPOFOL 10 MG/ML 20 ML VIAL IV ONE (07:04)
[2020-01-23] MEDS ORDERED: LIDOCAINE 1% INJ 10MG/ML (20 ML MDV) ONE (07:04)
--- NOTE | 2020-01-23 07:31 | CE ---
CARDIAC ELECTROPHYSIOLOGY REPORT DATE OF SERVICE: January 23, 2020 PERFORMING PHYSICIAN: Ishaan Prieto MD. PROCEDURE PERFORMED: Cardioversion. INDICATION: Atrial fibrillation. COMPLICATION: None. LEVEL OF SEDATION: Deep sedation was performed with FORM MAKER in the room and using propofol. PROCEDURE DESCRIPTION: After obtaining an informed consent, the patient was brought to the recovery room. We performed cardioversion without GIUSEPPE because the patient just underwent GIUSEPPE 2 days ago and he has oral anticoagulation was never interrupted. Subsequently, cardioversion was attempted using 300 joules and 360 joules and both attempts were unsuccessful. CONCLUSION: Attempted cardioversion of atrial fibrillation using 300 joules and 360 joules were unsuccessful. POSTPROCEDURE MANAGEMENT: 1. I would suggest the patient to be seen by Dr. Cook for possible atrial fibrillation ablation. 2. Follow up with the patient. MMODL / IJN: [id number] /
[2020-01-23] MEDS: TRELEGY ELLIPTA INHALATION SCH (07:38)
[2020-01-23] MEDS ORDERED: LOSARTAN 25 MG TAB PO SCH (09:00)
[2020-01-23] MEDS: PRASUGREL 10 MG TAB PO SCH (10:48)
[2020-01-23] MEDS: PANTOPRAZOLE 40 MG TABLET PO SCH (10:48)
[2020-01-23] MEDS: APIXABAN 2.5 MG TABLET PO SCH (10:48)
[2020-01-23] MEDS: AMIODARONE 200 MG TAB PO SCH (10:49)
[2020-01-23] MEDS: METOPROLOL TARTRATE 50 MG TAB PO SCH ×2 (10:49→17:37)
--- NOTE | 2020-01-23 10:57 | P.PN ---
Subjective Progress Note Date: 01/23/20 This is a 54-year-old gentleman with history of COPD, coronary artery disease, hypertension, persistent atrial fibrillation who presented to the hospital with symptoms of palpitations. He underwent a GIUSEPPE with subsequent cardioversion by Dr. Alejandro, he did convert to normal sinus rhythm and shortly thereafter went back into atrial fibrillation. He was loaded with IV amiodarone over the weekend, continues at this time to be on oral amiodarone as well as Cardizem. He continues to be in atrial fibrillation this morning with a rapid ventricular response. He will be scheduled to undergo a reattempt at cardioversion tomorrow. Hemodynamically he is stable. 01/23/2020 Patient was taken downstairs this morning for an attempt at cardioversion which was unsuccessful. He was seen and examined back on the cardiac unit, sitting up at bedside. Continues to be in atrial fibrillation with a heart rate in the 120 to 1:[address] Ribera did have a discussion with Dr. Cook regarding seeing the patient in consultation for possible ablation procedure. Blood pressure 115/70 with a heart rate of 1:30, 93% on 4 L of oxygen. White blood cell count 12.2, hemoglobin 11.1, platelet count 245. Sodium 134, potassium 4.3, BUN 15 and creatinine 0.7, TSH level is 5.9. Patient states he was quite short of breath post attempted cardioversion, his breathing is much easier sitting up at the bedside. We will increase his dose of metoprolol to 50 mg 3 times a day and decrease his Cozaar to 12-1/2 mg daily. Objective - Vital Signs Vital signs: Vital Signs Temp 98.2 F 01/23/20 04:00 Pulse 114 H 01/23/20 07:51 Resp 20 01/23/20 07:51 BP 115/77 01/23/20 07:51 Pulse Ox 93 L 01/23/20 07:51 Intake & Output 01/22/20 01/23/20 01/23/20 18:59 06:59 18:59 Intake Total 726 180 100 Output Total 150 Balance 726 30 100 Weight 119.2 kg Intake: IV 10 180 100 .9 180 Invasive Line 5 10 Oral 716 Output: Urine 150 Other: Voiding Method Toilet Urinal # Voids 2 1 - Exam Physical examination: Gen: This is a 54-year-old male. He is sitting on the edge of the bed. No acute distress noted VS: Afebrile, heart rate 138, blood pressure 150/87, pulse ox 90% on 4 L nasal cannula. HEENT: Head is atraumatic, normocephalic. Pupils equal, round. Sclerae is anicteric. NECK: Supple. No JVD. No lymphadenopathy. No thyromegaly. LUNGS: Diminished at the bases. No wheezes. No intercostal retractions. HEART: Irregular rate and rhythm. Systolic murmur. Tachycardic. ABDOMEN: Soft. Bowel sounds are present. No masses. No tenderness. EXTREMITIES: Trace pedal edema. No calf tenderness. NEUROLOGICAL: Patient is awake, alert and oriented x3. Cranial nerves 2 through 12 are grossly intact. - Labs CBC & Chem 7: 01/23/20 05:50 01/23/20 05:50 Labs: Abnormal Lab Results - Last 24 Hours (Table) 01/23/20 01/23/20 01/23/20 Range/Units 05:50 05:50 05:55 WBC 12.2 H (3.8-10.6) k/uL RBC 3.61 L (4.30-5.90) m/uL Hgb 11.1 L (13.0-17.5) gm/dL Hct 35.0 L (39.0-53.0) % Neutrophils # 9.3 H (1.3-7.7) k/uL Sodium 134 L (137-145) mmol/L Glucose 113 H (74-99) mg/dL TSH 5.960 H (0.465-4.680) mIU/L Microbiology - Last 24 Hours (Table) 01/17/20 18:15 Blood Culture - Preliminary Blood No Growth after 120 hours Assessment and Plan Plan: Assessment and plan: #1 atrial fibrillation with rapid ventricular response, paroxysmal, status post attempted cardioversion 2 #2 Coronary artery disease status post angioplasty of the right coronary artery #3 Chronic obstructive pulmonary disease #4 hyperlipidemia #5 ischemic cardiomyopathy, documented ejection fraction 35-40%, global hypokinesia #6 severe mitral regurgitation Plan We will request a consultation with Dr. Cook to see the patient today for possible EP/ablation procedure. Patient also has cardiomyopathy with severe mitral regurgitation. We will increase the beta gilmar to 50 mg 3 times a day and decrease the ARB to 12-1/2 mg daily. DNP note has been reviewed, I agree with a documented findings and plan of care. Patient was seen and examined.
[2020-01-23] MEDS: IPRATROPIUM-ALBUTEROL 3 ML NEB INHALATION PRN (11:40)
[2020-01-23] MEDS: SODIUM CHLORIDE 0.9% 1,000 ML IV SCH (13:10)
[2020-01-23 13:49] VITALS: BMI 34.7
[2020-01-23] MEDS: FUROSEMIDE 100 MG in SODIUM CHLORIDE 0.9% 90 ML IV SCH (15:30)
--- NOTE | 2020-01-23 16:57 | P.PN ---
Subjective Progress Note Date: 01/23/20 This is a 54-year-old gentleman with history of atrial fibrillation, recent stenting of the RCA with 4 drug-eluting stents ,COPD, hyperlipidemia, hypertension, chronic back pain, former nicotine dependence presented to the ER with worsening dyspnea, palpitations and multiple other medical issues. Reported dyspnea started on Wednesday, worsened with exertion, accompanied by mid substernal pressure. Reports he had been having episodes of bradycardia and Cardizem had been discontinued, anticoagulated on Eliquis.Denies fever. Coronavirus reported negative. Reported no nausea, vomiting, positive diarrhea. Afebrile on admission with leukocytosis, EKG reported atrial fibrillation with RVR, heart rate 140s, Troponins negative 3. Chest x-ray reporting bilateral infiltrates.radiologist's comparison requested .recent echo reported moderate concentric left ventricular hypertrophy, severe global hypokinesis of LV, moderately severe impaired LV function, EF 30-35%, moderate aortic sclerosis, moderate to severe mitral regurgitation, [id number] tricuspid regurgitation, moderate pulmonary hypertension. Cardizem drip initiated. Cardiology consulted. 01/19/2020 continues on Cardizem drip, telemetry reporting atrial fibrillation with rapid heart rate currently in the 130s.Symptomatic, positive palpitations. NPO, scheduled for cardioversion this morning. Chest x-ray reporting progressive changes, correlate for CHF, consider pneumonia. Maintained on Unasyn. Afebrile, WBC 11.3. 01/22/2020 underwent GIUSEPPE with unsuccessful cardioversion last week. Maintained on IV amiodarone and Cardizem, continues reporting atrial fibrillation with HR in the 120s. Scheduled for repeat cardioversion tomorrow.VSS. 01/23/2020 received a dose of Lasix last night for complaints of increased lower extremity edema .Remains in atrial fibrillation with heart rates up to 130s.underwent unsuccessful cardioversion this morning. TSH elevated. Denies chest pain, complains of shortness of breath accompanying his faster heart rates. Objective - Vital Signs Vital signs: Vital Signs Temp 98.2 F 01/23/20 04:00 Pulse 114 H 01/23/20 07:51 Resp 20 01/23/20 07:51 BP 115/77 01/23/20 07:51 Pulse Ox 93 L 01/23/20 07:51 Intake & Output 01/22/20 01/23/20 01/23/20 18:59 06:59 18:59 Intake Total 726 180 100 Output Total 150 Balance 726 30 100 Weight 119.2 kg Intake: IV 10 180 100 .9 180 Invasive Line 5 10 Oral 716 Output: Urine 150 Other: Voiding Method Toilet Urinal # Voids 2 1 - Exam PHYSICAL EXAM: VITAL SIGNS: As above GENERAL: Sitting up at bedside, no acute distress, mild increased respiratory e ffort HEENT: Conjunctivae normal. eyes normal. NECK: No JVD. No thyroid enlargement. CARDIOVASCULAR: S1, S2 irregular. Tachycardic Positive systolic murmur. RESPIRATION: Breath sounds diminished in the bases. No rhonchi, fine scattered crackles bilaterally. ABDOMEN: Soft, nontender . No guarding. no masses palpable.Bowel sounds heard. LEGS: Positive edema. no calf tenderness. PSYCHIATRY: Alert and oriented X3, mood and affect normal. NERVOUS SYSTEM: Cranial N 2-12 grossly normal. Moves all 4 limbs. No focal deficits. Strength and sensation grossly intact. Skin: no rash - Labs CBC & Chem 7: 01/23/20 05:50 01/23/20 05:50 Labs: Abnormal Lab Results - Last 24 Hours (Table) 01/23/20 01/23/20 Range/Units 05:50 05:50 WBC 12.2 H (3.8-10.6) k/uL RBC 3.61 L (4.30-5.90) m/uL Hgb 11.1 L (13.0-17.5) gm/dL Hct 35.0 L (39.0-53.0) % Neutrophils # 9.3 H (1.3-7.7) k/uL Sodium 134 L (137-145) mmol/L Glucose 113 H (74-99) mg/dL Microbiology - Last 24 Hours (Table) 01/17/20 18:15 Blood Culture - Preliminary Blood No Growth after 120 hours Assessment and Plan Assessment: Paroxysmal A.fib with RVR in a patient with history of Recent cardioversion November 2019, on Cardizem drip. Possible Acute bilateral pneumonia, community-acquired, coronavirus tested negative Acute COPD exacerbation Leukocytosis secondary to the above Acute hypoxic respiratory failure secondary to the above CAD with stent of the RCA Moderately severely impaired LV function, EF 30-35% Moderate to severe mitral regurgitation Moderate tricuspid regurgitation Moderate pulmonary hypertension Hyperlipidemia Hypertension Chronic back pain History of nicotine dependence Elevated TSH Plan: Continue current medication regime ,monitoring and symptomatic treatment. Antiarrhythmics further adjusted as per cardiology. consulted for potential ablation. Antibiotics, nebulized bronchodilators and aggressive pulmonary toileting. The impression and plan of care has been dictated as directed. : I performed a history and examination of this patient, discussed the same with the dictator. I agree with the dictator's note ,documented as a scribe. Any additional findings or plans will be noted.
--- NOTE | 2020-01-23 19:20 | P.CRDCN ---
History of Present Illness History of present illness: This is Dr. Cook dictating a consult on this patient The patient was interviewed and examined by me IMPRESSION / ASSESSMENT: Symptomatic sustained/persistent atrial fibrillation with RVR despite amiodarone and beta blockers, failed electrical cardioversions Severe LV dysfunction, progressive, with reduction in LV systolic function between the 2 GIUSEPPE within the last few months Severe mitral regurgitation, equally severe in both the serial GIUSEPPE's Congestive heart failure, systolic acute and chronic Dilated left atrium History of sick sinus syndrome and bradycardia in the 40s Past history of severe COPD/chronic lung disease. Smoking and environmental factors, avoid amiodarone Coronary artery disease status post stenting to the RCA about 2 weeks back Patient was treated with sotalol and the past and this was discontinued on account of his lung problems PLAN: Optimize medical management prior to proceeding with an A. fib ablation under general anesthesia IV Lasix drip Increase metoprolol by mouth and maximize. Hold losartan temporarily Stop amiodarone Proceed with A. fib ablation next week, once medically optimized Monitor electrolytes and renal function daily Discussed with Dr. blankenship Increase ELIQUIS 25 mg twice daily and switch to Plavix Aspirin may be discontinued after 4 weeks Hypothyroidism Detailed discussion with the patient regarding further management of atrial fibrillation I explained the issue of worsening cardio myopathy which is most likely secondary to A. fib with RVR However at this point we're not sure as to the exact etiology of the mitral regurgitation It is quite likely that he may have had mitral regurgitation along It is a severe, central mitral regurgitation with 2 jets that spread eccentrically in the left atrium, the valve tissue appears to be structurally normal Likely subvalvular apparatus dysfunction This should be reevaluated when he is in sinus rhythm in the future HPI Patient presented with shortness of breath and palpitations and heart failure symptoms Progressive symptoms, recurrent since September with multiple hospital admissions No syncope Possible pneumonitis ROS: No fever chills or rigors, no cough, phlegm or expectoration, no nausea, vomiting or diarrhea, no hematuria, dysuria, no musculoskeletal complaints, no strokes or seizures, no skin lesions. EXAMINATION: Short of breath at rest Heart rates between 1 2260 in atrial fibrillation Blood pressure 140/69 and 108/69 Respirations 20 Heart sounds irregular and tachycardic Pansystolic murmur audible during periods of slowing of the heart rate Breath sounds are reduced bilaterally but I don't appreciate any crackles or rhonchi Bilateral lower extremity edema Increased BMI REVIEW OF LABS, ECG & MEDICAL DATA Mildly elevated white count, hemoglobin 11.1 Normal potassium and low sodium BUN 15 and creatinine 0.74 TSH 5.96 NT proBNP 2500 Coronavirus PCR not detected Past Medical History Past Medical History: Atrial Fibrillation, COPD, Hyperlipidemia, Hypertension, Pneumonia, Respiratory Disorder Additional Past Medical History / Comment(s): BACK PAIN, RUPTURED DISC L4 and L5. 12/18/19 Admit w/ AE COPD, Pneumonia, AFib; History of Any Multi-Drug Resistant Organisms: None Reported Past Surgical History: Heart Catheterization With Stent, Hernia Repair, Orthopedic Surgery Additional Past Surgical History / Comment(s): BENIGN LT TIBIA OSTEOCHONDROMA REMOVED, RT KNEE MENISCUS REPAIR, LEFT ACHILLIES TEAR. ATTEMPTED CARDIOVERSION 11/23/19. Heart Cath, and 4/, vasectomy Past Anesthesia/Blood Transfusion Reactions: No Reported Reaction Date of Last Stent Placement:: 12/29/19 Past Psychological History: No Psychological Hx Reported Smoking Status: Former smoker Past Alcohol Use History: Rare Additional Past Alcohol Use History / Comment(s): QUIT SMOKING 10/2018, SMOKED 3/4 PPD FROM AGE 14, (1978) Past Drug Use History: None Reported - Past Family History Mother Family Medical History: No Reported History Medications and Allergies Home Medications Medication Instructions Recorded Confirmed Type Losartan Potassium 25 mg PO DAILY 06/30/18 01/17/20 History Rosuvastatin [Crestor] 10 mg PO HS 06/30/18 01/17/20 History Albuterol Sulfate [Proair Hfa] 2 puff INHALATION RT-Q4H PRN 10/04/19 01/17/20 History Cyclobenzaprine [Flexeril] 10 mg PO HS PRN 10/04/19 01/17/20 History Fluticasone/Umeclidin/Vilanter 1 puff INHALATION RT-DAILY 11/21/19 01/17/20 History [Trelegy Ellipta 100-62.5-25] Carvedilol [Coreg] 6.25 mg PO BID 12/28/19 01/17/20 History Aspirin 325 mg PO HS 01/03/20 01/17/20 History Apixaban [Eliquis] 2.5 mg PO BID #0 01/06/20 01/17/20 Rx Prasugrel [Effient] 10 mg PO DAILY #90 tab 01/06/20 01/17/20 Rx Ipratropium-Albuterol Nebulize 3 ml INHALATION RT-QID PRN 01/17/20 01/17/20 History [Duoneb 0.5 mg-3 mg/3 ml Soln] Allergies Allergy/AdvReac Type Severity Reaction Status Date / Time No Known Allergies Allergy Verified 01/22/20 13:00 Physical Exam Vitals: Vital Signs Temp Pulse Pulse Resp BP Pulse Ox 01/23/20 17:00 94 L 01/23/20 16:00 155 H 140/69 97 01/23/20 12:00 135 H 108/69 97 01/23/20 11:51 128 H 01/23/20 11:42 128 H 01/23/20 10:00 97.9 F 144 H 118/85 96 01/23/20 07:51 114 H 20 115/77 93 L 01/23/20 07:33 132 H 16 114/78 94 L 01/23/20 07:28 107 H 16 108/88 96 01/23/20 06:55 146 H 22 106/80 92 L 01/23/20 04:00 98.2 F 106 H 22 107/79 94 L 01/23/20 00:00 98.2 F 126 H 24 145/66 92 L 01/22/20 20:00 98.7 F 133 H 26 H 119/86 94 L Intake and Output 01/23/20 01/23/20 01/23/20 06:59 14:59 22:59 Intake Total 180 286 Output Total 150 950 650 Balance 30 -414 650 Intake: IV 180 50 .9 180 Oral 236 Output: Urine 150 950 650 Other: # Voids 1 Weight 119.2 kg 119.2 kg Results 01/23/20 05:50 01/23/20 05:50 CBC 01/23/20 Range/Units 05:50 WBC 12.2 H (3.8-10.6) k/uL RBC 3.61 L (4.30-5.90) m/uL Hgb 11.1 L (13.0-17.5) gm/dL Hct 35.0 L (39.0-53.0) % Plt Count 245 (150-450) k/uL Comprehensive Metabolic Panel 01/23/20 Range/Units 05:50 Sodium 134 L (137-145) mmol/L Potassium 4.3 (3.5-5.1) mmol/L Chloride 101 (98-107) mmol/L Carbon Dioxide 24 (22-30) mmol/L BUN 15 (9-20) mg/dL Creatinine 0.74 (0.66-1.25) mg/dL Glucose 113 H (74-99) mg/dL Calcium 8.4 (8.4-10.2) mg/dL Current Medications Generic Name Dose Route Start Last Admin Trade Name Freq PRN Reason Stop Dose Admin Albuterol Sulfate 2 puff 01/17/20 21:58 Ventolin Hfa Inhaler INHALATION RT-Q4H PRN Shortness Of Breath Albuterol/Ipratropium 3 ml 01/17/20 21:58 01/23/20 11:40 Duoneb 0.5 Mg-3 Mg/3 Ml Soln INHALATION 3 ml RT-QID PRN Administration Shortness Of Breath Apixaban 5 mg 01/23/20 21:00 Eliquis PO BID [facility] Aspirin 81 mg 01/19/20 21:00 01/22/20 21:07 Aspirin PO 81 mg HS JOSH Administration Clopidogrel Bisulfate 75 mg 01/24/20 09:00 Plavix PO DAILY [facility] Cyclobenzaprine HCl 10 mg 01/23/20 11:30 Flexeril PO BID PRN Muscle Spasm Ampicillin Sodium/Sulbactam 100 mls @ 200 mls/hr 01/18/20 02:00 01/23/20 17:37 Sodium 3 gm/ Sodium Chloride IVPB 200 mls/hr Q8H JOSH Administration Furosemide 100 mg/ Sodium 100 mls @ 10 mls/hr 01/23/20 14:30 01/23/20 15:30 Chloride IV 10 mg/hr .Q10H JOSH 10 mls/hr Administration 10 MG/HR Levothyroxine Sodium 50 mcg 01/24/20 06:30 Synthroid PO DAILY@0630 [facility] Metoprolol Tartrate 75 mg 01/23/20 22:00 Lopressor PO TID [facility] Nitroglycerin 0.4 mg 01/17/20 17:51 01/22/20 23:59 Nitrostat SUBLINGUAL 0.4 mg Q5M PRN Administration Chest Pain Trelegy Ellipta 100- 1 puff 01/19/20 08:00 05/19/20 07:38 62.5-25 (Fluticasone INHALATION Not Given /Umeclidin/Vilanter) RT-DAILY JOSH 1 Puff) Pantoprazole Sodium 40 mg 01/21/20 09:00 01/23/20 10:48 Protonix PO 40 mg DAILY JOSH Administration Intake and Output 01/23/20 01/23/20 01/23/20 06:59 14:59 22:59 Intake Total 180 286 Output Total 150 950 650 Balance 30 -732 -650 Intake: IV 180 50 .9 180 Oral 236 Output: Urine 150 950 650 Other: # Voids 1 Weight 119.2 kg 119.2 kg Patient Weight 01/24/20 06:59 Weight 119.2 kg 01/23/20 05:50 01/23/20 05:50
[2020-01-23] MEDS: ASPIRIN 81 MG PO SCH (20:38)
[2020-01-23] MEDS: APIXABAN 5 MG TAB PO SCH (20:38)
[2020-01-23] MEDS ORDERED: METOPROLOL TARTRATE 50 MG TAB PO SCH (22:00)
[2020-01-24] MEDS: FUROSEMIDE 100 MG in SODIUM CHLORIDE 0.9% 90 ML IV SCH ×3 (01:30→14:38)
[2020-01-24] MEDS: AMPICILLIN-SULBACTAM 3 GM in SODIUM CHLORIDE 0.9% 100 ML IVPB SCH ×3 (02:26→17:10)
[2020-01-24] MEDS: LEVOTHYROXINE 50 MCG TAB PO SCH (06:34)
[2020-01-24 07:00] LABS: African American GFR (CKD) >90 (>60 ml/min/1.73 sqM); Anion Gap 12 mmol/L; Blood Urea Nitrogen 14 mg/dL (9-20); Calcium 8.4 mg/dL (8.4-10.2); Carbon Dioxide 26 mmol/L (22-30); Chloride 99 mmol/L (98-107); Glucose 115 mg/dL (74-99); Non-African American GFR(CKD) >90 (>60 ml/min/1.73 sqM); Potassium 3.5 mmol/L (3.5-5.1); Sodium 137 mmol/L (137-145)
[2020-01-24] MEDS: TRELEGY ELLIPTA INHALATION SCH ×2 (07:35→07:40)
--- NOTE | 2020-01-24 07:39 | P.PN ---
Progress Note - Text Patient reevaluated this morning He has lost 6-8 pounds weight since yesterday on IV Lasix drip and his diuresing well Heart rates are still poorly controlled on Lopressor 75 mg 3 times a day BUN and creatinine stable Potassium 3.5 to Suggest Add spironolactone 25 mg by mouth daily Continue IV Lasix to 10 mg an hour today Increase Lopressor to 75 mg 4 times a day if he can tolerate it Daily BMP Continue ELIQUIS 5 mg twice daily
[2020-01-24] MEDS: SPIRONOLACTONE 25 MG TAB PO SCH (08:00)
[2020-01-24] MEDS: PANTOPRAZOLE 40 MG TABLET PO SCH (08:00)
[2020-01-24] MEDS: CLOPIDOGREL 75 MG TAB PO SCH (08:00)
[2020-01-24] MEDS: METOPROLOL TARTRATE 25 MG TAB PO SCH ×4 (08:00→20:45)
[2020-01-24] MEDS: APIXABAN 5 MG TAB PO SCH ×2 (08:00→20:45)
--- NOTE | 2020-01-24 10:37 | P.PN ---
Subjective Progress Note Date: 01/24/20 This is a 54-year-old gentleman with history of COPD, coronary artery disease, hypertension, persistent atrial fibrillation who presented to the hospital with symptoms of palpitations. He underwent a GIUSEPPE with subsequent cardioversion by Dr. Alejandro, he did convert to normal sinus rhythm and shortly thereafter went back into atrial fibrillation. He was loaded with IV amiodarone over the weekend, continues at this time to be on oral amiodarone as well as Cardizem. He continues to be in atrial fibrillation this morning with a rapid ventricular response. He will be scheduled to undergo a reattempt at cardioversion tomorrow. Hemodynamically he is stable. 01/23/2020 Patient was taken downstairs this morning for an attempt at cardioversion which was unsuccessful. He was seen and examined back on the cardiac unit, sitting up at bedside. Continues to be in atrial fibrillation with a heart rate in the 120 to 1:[address] Ribera did have a discussion with Dr. Cook regarding seeing the patient in consultation for possible ablation procedure. Blood pressure 115/70 with a heart rate of 1:30, 93% on 4 L of oxygen. White blood cell count 12.2, hemoglobin 11.1, platelet count 245. Sodium 134, potassium 4.3, BUN 15 and creatinine 0.7, TSH level is 5.9. Patient states he was quite short of breath post attempted cardioversion, his breathing is much easier sitting up at the bedside. We will increase his dose of metoprolol to 50 mg 3 times a day and decrease his Cozaar to 12-1/2 mg daily. 01/24/2020 Patient was seen and examined this morning, he had been seen in consultation yesterday by Dr. Cook, initiated on IV Lasix drip. Patient has lost significant weight, he is down 4 pounds from yesterday. He was seen and examined this morning and overall doing well. He does state that his breathing is significantly improving. He continues to be in a rapid rate of 120s to 130s, atrial fibrillation. Beta gilmar dose has been increased to 75 mg 4 times a day. Objective - Vital Signs Vital signs: Vital Signs Temp 98.0 F 01/24/20 07:51 Pulse 148 H 01/24/20 07:51 Resp 19 01/24/20 03:38 BP 105/71 01/24/20 07:51 Pulse Ox 92 L 01/24/20 08:53 Intake & Output 01/23/20 01/24/20 01/24/20 18:59 06:59 18:59 Intake Total 286 100 240 Output Total 950 3050 Balance -154 -2450 240 Weight 119.2 kg 115.1 kg Intake: IV 50 Intake, IV Titration 100 Amount Furosemide 100 mg In 100 Sodium Chloride 0.9% 90 ml @ 10 MG/HR 10 mls/hr IV .Q10H [facility] Rx#: [id number] Oral 236 240 Output: Urine 950 3050 Other: Voiding Method Toilet Urinal - Exam Physical examination: Gen: This is a 54-year-old male. He is sitting on the edge of the bed. No acute distress noted VS: Afebrile, heart rate 138, blood pressure 150/87, pulse ox 90% on 4 L nasal cannula. HEENT: Head is atraumatic, normocephalic. Pupils equal, round. Sclerae is anicteric. NECK: Supple. No JVD. No lymphadenopathy. No thyromegaly. LUNGS: Diminished at the bases. No wheezes. No intercostal retractions. HEART: Irregular rate and rhythm. Systolic murmur. Tachycardic. ABDOMEN: Soft. Bowel sounds are present. No masses. No tenderness. EXTREMITIES: Trace pedal edema. No calf tenderness. NEUROLOGICAL: Patient is awake, alert and oriented x3. Cranial nerves 2 through 12 are grossly intact. - Labs CBC & Chem 7: 01/23/20 05:50 01/24/20 05:44 Labs: Abnormal Lab Results - Last 24 Hours (Table) 01/24/20 Range/Units 05:44 Glucose 115 H (74-99) mg/dL Microbiology - Last 24 Hours (Table) 01/17/20 18:15 Blood Culture - Final Blood No Growth after 144 hours Assessment and Plan Plan: Assessment and plan: #1 atrial fibrillation with rapid ventricular response, paroxysmal, status post attempted cardioversion 2 #2 Coronary artery disease status post angioplasty of the right coronary artery #3 Chronic obstructive pulmonary disease #4 hyperlipidemia #5 ischemic cardiomyopathy, documented ejection fraction 35-40%, global hypokinesia #6 severe mitral regurgitation Plan Beta gilmar has been increased to 75 mg 4 times a day, patient is overall diuresing well on the IV Lasix drip which we will continue. Patient was seen in consultation by Dr. Cook, possible ablation on the weekend. DNP note has been reviewed, I agree with a documented findings and plan of care. Patient was seen and examined.
--- NOTE | 2020-01-24 13:48 | P.PN ---
Subjective Progress Note Date: 01/24/20 This is a 54-year-old gentleman with history of atrial fibrillation, recent stenting of the RCA with 4 drug-eluting stents ,COPD, hyperlipidemia, hypertension, chronic back pain, former nicotine dependence presented to the ER with worsening dyspnea, palpitations and multiple other medical issues. Reported dyspnea started on Wednesday, worsened with exertion, accompanied by mid substernal pressure. Reports he had been having episodes of bradycardia and Cardizem had been discontinued, anticoagulated on Eliquis.Denies fever. Coronavirus reported negative. Reported no nausea, vomiting, positive diarrhea. Afebrile on admission with leukocytosis, EKG reported atrial fibrillation with RVR, heart rate 140s, Troponins negative 3. Chest x-ray reporting bilateral infiltrates.radiologist's comparison requested .recent echo reported moderate concentric left ventricular hypertrophy, severe global hypokinesis of LV, moderately severe impaired LV function, EF 30-35%, moderate aortic sclerosis, moderate to severe mitral regurgitation, [id number] tricuspid regurgitation, moderate pulmonary hypertension. Cardizem drip initiated. Cardiology consulted. 01/19/2020 continues on Cardizem drip, telemetry reporting atrial fibrillation with rapid heart rate currently in the 130s.Symptomatic, positive palpitations. NPO, scheduled for cardioversion this morning. Chest x-ray reporting progressive changes, correlate for CHF, consider pneumonia. Maintained on Unasyn. Afebrile, WBC 11.3. 01/22/2020 underwent GIUSEPPE with unsuccessful cardioversion last week. Maintained on IV amiodarone and Cardizem, continues reporting atrial fibrillation with HR in the 120s. Scheduled for repeat cardioversion tomorrow.VSS. 01/23/2020 received a dose of Lasix last night for complaints of increased lower extremity edema .Remains in atrial fibrillation with heart rates up to 130s.underwent unsuccessful cardioversion this morning. TSH elevated. Denies chest pain, complains of shortness of breath accompanying his faster heart rates. 01/24/[address] Cook,Lasix drip initiated yesterday afternoon, diuresing well with 24-hour I&O reflecting a negative fluid balance, 4 kg weight loss. Creatinine 0.71. Oxygen requirement significantly improved, weaned down from 4 L to room air, maintaining O2 sats in the 90s. Remains in atrial fibrillation with heart rates uncontrolled ranging from 120 to 160s. Beta gilmar increased, Aldactone added to med regime. Objective - Vital Signs Vital signs: Vital Signs Temp 98.0 F 01/24/20 07:51 Pulse 124 H 01/24/20 11:44 Resp 18 01/24/20 11:44 BP 116/56 01/24/20 11:44 Pulse Ox 92 L 01/24/20 11:44 Intake & Output 01/23/20 01/24/20 01/24/20 18:59 06:59 18:59 Intake Total 286 100 385 Output Total 950 3050 1300 Balance -724 -4448 -911 Weight 119.2 kg 115.1 kg Intake: IV 50 145 Ampicillin-Sulbactam 3 gm 100 In Sodium Chloride 0.9% 100 ml @ 200 mls/hr IVPB Q8H [facility] Rx#:[id number] Furosemide 100 mg In 45 Sodium Chloride 0.9% 90 ml @ 10 MG/HR 10 mls/hr IV .Q10H [facility] Rx#: [id number] Intake, IV Titration 100 Amount Furosemide 100 mg In 100 Sodium Chloride 0.9% 90 ml @ 10 MG/HR 10 mls/hr IV .Q10H [facility] Rx#: [id number] Oral 236 240 Output: Urine 950 3050 1300 Other: Voiding Method Toilet Urinal - Exam PHYSICAL EXAM: VITAL SIGNS: As above GENERAL: Sitting up at bedside, no acute distress HEENT: Conjunctivae normal. eyes normal. Oral mucosa moist NECK: No JVD. No thyroid enlargement. CARDIOVASCULAR: S1, S2 irregular. Tachycardic Positive systolic murmur. RESPIRATION: Breath sounds diminished in the bases. Expiratory wheezing ABDOMEN: Soft, nontender . No guarding. no masses palpable.Bowel sounds heard. LEGS: Decreasing edema. no calf tenderness. PSYCHIATRY: Alert and oriented X3, mood and affect normal. NERVOUS SYSTEM: Cranial N 2-12 grossly normal. Moves all 4 limbs. No focal deficits. Strength and sensation grossly intact. Skin: no rash - Labs CBC & Chem 7: 01/23/20 05:50 01/24/20 05:44 Labs: Abnormal Lab Results - Last 24 Hours (Table) 01/24/20 Range/Units 05:44 Glucose 115 H (74-99) mg/dL Microbiology - Last 24 Hours (Table) 01/17/20 18:15 Blood Culture - Final Blood No Growth after 144 hours Assessment and Plan Assessment: Paroxysmal A.fib with RVR in a patient with history of Recent cardioversion November 2019. Status post unsuccessful cardioversions 2. Acute on chronic CHF, systolic dysfunction. EF 30-35% Possible Acute bilateral pneumonia, community-acquired, coronavirus tested negative Acute COPD exacerbation Leukocytosis secondary to the above Acute hypoxic respiratory failure secondary to the above CAD with stent of the RCA Moderate to severe mitral regurgitation Moderate tricuspid regurgitation Moderate pulmonary hypertension Hyperlipidemia Hypertension Chronic back pain History of nicotine dependence Elevated TSH Plan: Continue current medication regime ,monitoring and symptomatic treatment. Diuresing, antiarrhythmics as per cardiology. Potential ablation this weekend. Antibiotics, nebulized bronchodilators and aggressive pulmonary toileting. Follow-up chest x-ray in a.m. The impression and plan of care has been dictated as directed. : I performed a history and examination of this patient, discussed the same with the dictator. I agree with the dictator's note ,documented as a scribe. Any additional findings or plans will be noted.
[2020-01-24] MEDS: ASPIRIN 81 MG PO SCH (20:45)
[2020-01-24] MEDS: CYCLOBENZAPRINE 10 MG TAB PO PRN (20:48)
[2020-01-25] MEDS: AMPICILLIN-SULBACTAM 3 GM in SODIUM CHLORIDE 0.9% 100 ML IVPB SCH (03:26)
[2020-01-25] MEDS: LEVOTHYROXINE 50 MCG TAB PO SCH (06:29)
[2020-01-25] MEDS: FUROSEMIDE 100 MG in SODIUM CHLORIDE 0.9% 90 ML IV SCH ×2 (06:30→10:06)
[2020-01-25 07:56] LABS: HCT 38.2 % (39.0-53.0); HGB 12.1 gm/dL (13.0-17.5); Hypochromasia Slight; MCH 30.4 pg (25.0-35.0); MCHC 31.7 g/dL (31.0-37.0); MCV 95.8 fL (80.0-100.0); Mean Platelet Volume 8.3; Platelet Count 274 k/uL (150-450); RBC 3.99 m/uL (4.30-5.90); RDW 14.2 % (11.5-15.5); WBC 11.9 k/uL (3.8-10.6)
[2020-01-25 08:08] LABS: African American GFR (CKD) >90 (>60 ml/min/1.73 sqM); Anion Gap 12 mmol/L; Blood Urea Nitrogen 12 mg/dL (9-20); Calcium 8.8 mg/dL (8.4-10.2); Carbon Dioxide 31 mmol/L (22-30); Chloride 95 mmol/L (98-107); Glucose 113 mg/dL (74-99); Non-African American GFR(CKD) >90 (>60 ml/min/1.73 sqM); Potassium 3.4 mmol/L (3.5-5.1); Sodium 138 mmol/L (137-145)
--- NOTE | 2020-01-25 08:18 | XR ---
EXAMINATION TYPE: XR chest 2V DATE OF EXAM: 01/25/2020 COMPARISON: 01/19/2020 INDICATION: COPD TECHNIQUE: Frontal and lateral views of the chest are obtained. FINDINGS: The heart size is normal. The pulmonary vasculature is normal. There is diffuse mild patchy infiltrates present. This may be developing over the interval. Minimal b ilateral pleural effusions may be present. IMPRESSION: 1. Minimal peripheral patchy infiltrates present diffusely through the bilateral lung sauceda. Correla te for atypical pneumonia. 2. COPD 3. Minimal bilateral pleural effusions.
[2020-01-25] MEDS: CLOPIDOGREL 75 MG TAB PO SCH (08:30)
[2020-01-25] MEDS: SPIRONOLACTONE 25 MG TAB PO SCH (08:30)
[2020-01-25] MEDS: APIXABAN 5 MG TAB PO SCH ×2 (08:30→20:21)
[2020-01-25] MEDS: METOPROLOL TARTRATE 25 MG TAB PO SCH ×2 (08:30→16:31)
[2020-01-25] MEDS: PANTOPRAZOLE 40 MG TABLET PO SCH (08:30)
[2020-01-25] MEDS: TRELEGY ELLIPTA INHALATION SCH (08:51)
[2020-01-25] MEDS ORDERED: Potassium Replacement Protocol 1 EACH MISC MISCELLANE PRN (09:54)
[2020-01-25] MEDS: POTASSIUM CHLORIDE ER 20 MEQ TAB.ER PO SCH ×2 (10:04→20:21)
[2020-01-25] MEDS ORDERED: SODIUM CHLORIDE 0.9% 1,000 ML IV SCH (10:15)
[2020-01-25] MEDS ORDERED: SODIUM CHLORIDE 0.9% 500 ML 500 ML IV ONE ×2 (11:02→15:16)
[2020-01-25] MEDS ORDERED: Magnesium Replacement Protocol 1 EACH MISC MISCELLANE PRN (11:13)
[2020-01-25] MEDS ORDERED: HEPARIN SOD,PORK IN 0.45% NACL 25,000 UNIT in 0.45% NACL 1 250ML.BAG IV ONE ×2 (11:22)
[2020-01-25] MEDS ORDERED: FUROSEMIDE 10 MG/ML 2 ML VIAL ONE (11:23)
[2020-01-25] MEDS ORDERED: PROPOFOL 10 MG/ML 20 ML VIAL IV ONE (11:23)
[2020-01-25] MEDS ORDERED: NEOSTIGMINE 1 MG/ML 10 ML VIAL ONE (11:23)
[2020-01-25] MEDS ORDERED: LIDOCAINE 1% INJ 10MG/ML (20 ML MDV) ONE ×2 (11:23→11:25)
[2020-01-25] MEDS ORDERED: PROTAMINE SULFATE 10 MG/ML 5 ML VIAL IV ONE (11:23)
[2020-01-25] MEDS ORDERED: HEPARIN SODIUM,PORCINE 10,000 UNIT/ML 1 ML VIAL ONE (11:23)
[2020-01-25] MEDS ORDERED: MIDAZOLAM 2 MG/2 ML VIAL ONE (11:23)
[2020-01-25] MEDS ORDERED: fentaNYL (PF) 50 MCG/ML 2 ML AMP ONE (11:23)
[2020-01-25] MEDS ORDERED: GLYCOPYRROLATE 0.2 MG/ML 2 ML VIAL ONE (11:23)
[2020-01-25] MEDS ORDERED: ROCURONIUM BROMIDE 10 MG/ML 5 ML VIAL IV ONE (11:23)
[2020-01-25] MEDS ORDERED: HYDROmorphone (PF) 1 MG/ML ONE (11:23)
[2020-01-25] MEDS ORDERED: SUCCINYLCHOLINE CHLORIDE VIAL 200 MG/10 ML VIAL IV ONE (11:23)
--- NOTE | 2020-01-25 11:34 | P.PN ---
Subjective Progress Note Date: 01/25/20 This is a 54-year-old gentleman with history of atrial fibrillation, recent stenting of the RCA with 4 drug-eluting stents ,COPD, hyperlipidemia, hypertension, chronic back pain, former nicotine dependence presented to the ER with worsening dyspnea, palpitations and multiple other medical issues. Reported dyspnea started on Wednesday, worsened with exertion, accompanied by mid substernal pressure. Reports he had been having episodes of bradycardia and Cardizem had been discontinued, anticoagulated on Eliquis.Denies fever. Coronavirus reported negative. Reported no nausea, vomiting, positive diarrhea. Afebrile on admission with leukocytosis, EKG reported atrial fibrillation with RVR, heart rate 140s, Troponins negative 3. Chest x-ray reporting bilateral infiltrates.radiologist's comparison requested .recent echo reported moderate concentric left ventricular hypertrophy, severe global hypokinesis of LV, moderately severe impaired LV function, EF 30-35%, moderate aortic sclerosis, moderate to severe mitral regurgitation, [id number] tricuspid regurgitation, moderate pulmonary hypertension. Cardizem drip initiated. Cardiology consulted. 01/19/2020 continues on Cardizem drip, telemetry reporting atrial fibrillation with rapid heart rate currently in the 130s.Symptomatic, positive palpitations. NPO, scheduled for cardioversion this morning. Chest x-ray reporting progressive changes, correlate for CHF, consider pneumonia. Maintained on Unasyn. Afebrile, WBC 11.3. 01/22/2020 underwent GIUSEPPE with unsuccessful cardioversion last week. Maintained on IV amiodarone and Cardizem, continues reporting atrial fibrillation with HR in the 120s. Scheduled for repeat cardioversion tomorrow.VSS. 01/23/2020 received a dose of Lasix last night for complaints of increased lower extremity edema .Remains in atrial fibrillation with heart rates up to 130s.underwent unsuccessful cardioversion this morning. TSH elevated. Denies chest pain, complains of shortness of breath accompanying his faster heart rates. 01/24/[address] Cook,Lasix drip initiated yesterday afternoon, diuresing well with 24-hour I&O reflecting a negative fluid balance, 4 kg weight loss. Creatinine 0.71. Oxygen requirement significantly improved, weaned down from 4 L to room air, maintaining O2 sats in the 90s. Remains in atrial fibrillation with heart rates uncontrolled ranging from 120 to 160s. Beta gilmar increased, Aldactone added to med regime. 01/25/2020 Continues diuresing well on Lasix drip with 24-hour I&O reflecting a negative fluid balance.renal function stable .Reports breathing so much easier, maintaining O2 sats in the high 90s on room air. Chest x-ray reporting minimal peripheral infiltrates diffuse bilateral lung sauceda, COPD, minimal bilateral pleural effusions. Afebrile, WBC trending down, nearly within normal limits .Telemetry reporting atrial fibrillation with heart rates currently in the 120s. Potassium 3.4, receiving supplements per replacement protocol. Objective - Vital Signs Vital signs: Vital Signs Temp 97.3 F L 01/25/20 03:54 Pulse 106 H 01/25/20 03:54 Resp 18 01/25/20 03:54 BP 112/80 01/25/20 03:54 Pulse Ox 94 L 01/25/20 03:54 Intake & Output 01/24/20 01/25/20 01/25/20 18:59 06:59 18:59 Intake Total 1085 300 Output Total 1625 1600 1000 Balance -540 -1300 -1000 Weight 112.5 kg Intake: IV 145 Ampicillin-Sulbactam 3 gm 100 In Sodium Chloride 0.9% 100 ml @ 200 mls/hr IVPB Q8H [facility] Rx#:[id number] Furosemide 100 mg In 45 Sodium Chloride 0.9% 90 ml @ 10 MG/HR 10 mls/hr IV .Q10H [facility] Rx#: [id number] Intake, IV Titration 100 100 Amount Furosemide 100 mg In 100 100 Sodium Chloride 0.9% 90 ml @ 10 MG/HR 10 mls/hr IV .Q10H [facility] Rx#: [id number] Oral 840 200 Output: Urine 1625 1600 1000 Other: Voiding Method Toilet Urinal # Voids 2 - Exam PHYSICAL EXAM: VITAL SIGNS: As above GENERAL: Sitting up at bedside, no acute distress HEENT: Conjunctivae normal. eyes normal. Oral mucosa moist NECK: No JVD. No thyroid enlargement. CARDIOVASCULAR: S1, S2 irregular. Tachycardic Positive systolic murmur. RESPIRATION: Breath sounds diminished in the bases. ABDOMEN: Soft, nontender . No guarding. no masses palpable.positive Bowel sounds. LEGS: Trace edema. no calf tenderness. PSYCHIATRY: Alert and oriented X3, mood and affect normal. NERVOUS SYSTEM: Cranial N 2-12 grossly normal. Moves all 4 limbs. No focal deficits. Strength and sensation grossly intact. Skin: no rash - Labs CBC & Chem 7: 01/25/20 07:25 01/25/20 07:25 Labs: Abnormal Lab Results - Last 24 Hours (Table) 01/25/20 01/25/20 Range/Units 07:25 07:25 WBC 11.9 H (3.8-10.6) k/uL RBC 3.99 L (4.30-5.90) m/uL Hgb 12.1 L (13.0-17.5) gm/dL Hct 38.2 L (39.0-53.0) % Potassium 3.4 L (3.5-5.1) mmol/L Chloride 95 L (98-107) mmol/L Carbon Dioxide 31 H (22-30) mmol/L Glucose 113 H (74-99) mg/dL Assessment and Plan Assessment: Paroxysmal A.fib with RVR in a patient with history of Recent cardioversion November 2019. Status post unsuccessful cardioversions 2. Acute on chronic CHF, systolic dysfunction. EF 30-35% Possible Acute bilateral pneumonia, community-acquired, coronavirus tested negative. Completed antibiotic therapy. COPD Acute hypoxic respiratory failure secondary to the above,resolved CAD with stent of the RCA Moderate to severe mitral regurgitation Moderate tricuspid regurgitation Moderate pulmonary hypertension Hyperlipidemia Hypertension Chronic back pain History of nicotine dependence Hypothyroidism, Levothyroxine initiated Hypokalemia Plan: Continue current medication regime ,monitoring and symptomatic treatment. Ablation pending. Continue on diuresing, antiarrhythmics as per cardiology. Aggressive pulmonary toileting. Receiving potassium supplementation. Magnesium level pending. Close monitoring of electrolytes, renal function with repeat labs ordered for a.m. The impression and plan of care has been dictated as directed. : I performed a history and examination of this patient, discussed the same with the dictator. I agree with the dictator's note ,documented as a scribe. Any additional findings or plans will be noted.
--- NOTE | 2020-01-25 11:34 | P.PN ---
Subjective Progress Note Date: 01/25/20 This is a 54-year-old gentleman with history of COPD, coronary artery disease, hypertension, persistent atrial fibrillation who presented to the hospital with symptoms of palpitations. He underwent a GIUSEPPE with subsequent cardioversion by Dr. Alejandro, he did convert to normal sinus rhythm and shortly thereafter went back into atrial fibrillation. He was loaded with IV amiodarone over the weekend, continues at this time to be on oral amiodarone as well as Cardizem. He continues to be in atrial fibrillation this morning with a rapid ventricular response. He will be scheduled to undergo a reattempt at cardioversion tomorrow. Hemodynamically he is stable. 01/23/2020 Patient was taken downstairs this morning for an attempt at cardioversion which was unsuccessful. He was seen and examined back on the cardiac unit, sitting up at bedside. Continues to be in atrial fibrillation with a heart rate in the 120 to 1:[address] Ribera did have a discussion with Dr. Cook regarding seeing the patient in consultation for possible ablation procedure. Blood pressure 115/70 with a heart rate of 1:30, 93% on 4 L of oxygen. White blood cell count 12.2, hemoglobin 11.1, platelet count 245. Sodium 134, potassium 4.3, BUN 15 and creatinine 0.7, TSH level is 5.9. Patient states he was quite short of breath post attempted cardioversion, his breathing is much easier sitting up at the bedside. We will increase his dose of metoprolol to 50 mg 3 times a day and decrease his Cozaar to 12-1/2 mg daily. 01/24/2020 Patient was seen and examined this morning, he had been seen in consultation yesterday by Dr. Cook, initiated on IV Lasix drip. Patient has lost significant weight, he is down 4 pounds from yesterday. He was seen and examined this morning and overall doing well. He does state that his breathing is significantly improving. He continues to be in a rapid rate of 120s to 130s, atrial fibrillation. Beta gilmar dose has been increased to 75 mg 4 times a day. 01/25/2020 Patient seen and examined this morning, again diuresed well through the night last night. He was seen this morning by Dr. Cook and the plan is to take the patient today for EP study and possible ablation. Blood pressure 103/63, 112/80, heart rate 106-120. White blood cell count 11.9, hemoglobin 12.1, platelet count 274. Sodium 138, potassium 3.4, BUN 12, creatinine 0.8. Objective - Vital Signs Vital signs: Vital Signs Temp 98.1 F 01/25/20 08:00 Pulse 120 H 01/25/20 08:00 Resp 18 01/25/20 08:00 BP 103/63 01/25/20 08:00 Pulse Ox 93 L 01/25/20 08:00 Intake & Output 01/24/20 01/25/20 01/25/20 18:59 06:59 18:59 Intake Total 1085 300 36 Output Total 1625 1600 1000 Balance -540 -1300 -964 Weight 112.5 kg Intake: IV 145 Ampicillin-Sulbactam 3 gm 100 In Sodium Chloride 0.9% 100 ml @ 200 mls/hr IVPB Q8H [facility] Rx#:[id number] Furosemide 100 mg In 45 Sodium Chloride 0.9% 90 ml @ 10 MG/HR 10 mls/hr IV .Q10H [facility] Rx#: [id number] Intake, IV Titration 100 100 36 Amount Furosemide 100 mg In 100 100 36 Sodium Chloride 0.9% 90 ml @ 10 MG/HR 10 mls/hr IV .Q10H [facility] Rx#: [id number] Oral 840 200 Output: Urine 1625 1600 1000 Other: Voiding Method Toilet Urinal # Voids 2 - Exam Physical examination: Gen: This is a 54-year-old male. He is sitting on the edge of the bed. No acute distress noted VS: Afebrile, heart rate 138, blood pressure 150/87, pulse ox 90% on 4 L nasal cannula. HEENT: Head is atraumatic, normocephalic. Pupils equal, round. Sclerae is anicteric. NECK: Supple. No JVD. No lymphadenopathy. No thyromegaly. LUNGS: Diminished at the bases. No wheezes. No intercostal retractions. HEART: Irregular rate and rhythm. Systolic murmur. Tachycardic. ABDOMEN: Soft. Bowel sounds are present. No masses. No tenderness. EXTREMITIES: Trace pedal edema. No calf tenderness. NEUROLOGICAL: Patient is awake, alert and oriented x3. Cranial nerves 2 through 12 are grossly intact. - Labs CBC & Chem 7: 01/25/20 07:25 01/25/20 07:25 Labs: Abnormal Lab Results - Last 24 Hours (Table) 01/25/20 01/25/20 Range/Units 07:25 07:25 WBC 11.9 H (3.8-10.6) k/uL RBC 3.99 L (4.30-5.90) m/uL Hgb 12.1 L (13.0-17.5) gm/dL Hct 38.2 L (39.0-53.0) % Potassium 3.4 L (3.5-5.1) mmol/L Chloride 95 L (98-107) mmol/L Carbon Dioxide 31 H (22-30) mmol/L Glucose 113 H (74-99) mg/dL Assessment and Plan Plan: Assessment and plan: #1 atrial fibrillation with rapid ventricular response, paroxysmal, status post attempted cardioversion 2 #2 Coronary artery disease status post angioplasty of the right coronary artery #3 Chronic obstructive pulmonary disease #4 hyperlipidemia #5 ischemic cardiomyopathy, documented ejection fraction 35-40%, global hypokinesia #6 severe mitral regurgitation Plan Patient will be scheduled today to undergo EP study with possible ablation. Further recommendations to follow. DNP note has been reviewed, I agree with a documented findings and plan of care. Patient was seen and examined.
[2020-01-25] MEDS ORDERED: LIDOCAINE 1% INJ 10MG/ML (20 ML MDV) SQ ONE (12:10)
[2020-01-25] MEDS ORDERED: HEPARIN SODIUM (1,000 UNIT/ML) 1,000 UNIT in SODIUM CHLORIDE 0.9% 1,000 ML IRRIGATION ONE (14:18)
[2020-01-25] MEDS ORDERED: IOPAMIDOL-370 100ML BTL INJ ONE (14:18)
[2020-01-25] MEDS ORDERED: ACETAMINOPHEN IV (For NPO) 1,000 MG in EMPTY BAG 1 BAG IVPB ONE (15:38)
[2020-01-25] MEDS ORDERED: ACETAMINOPHEN TAB 325 MG TAB PO PRN (15:38)
--- NOTE | 2020-01-25 15:57 | P.PCN ---
Preoperative Diagnosis: Diagnosis Persistent Atrial fibrillation, symptomatic, refractory to therapy both antiarrhythmic drug therapy, rate control medications and electrical cardioversion Significantly enlarged right and left atria large pulmonary veins especially left inferior, right superior and right inferior pulmonary veins Severe mitral regurgitation Severe LV dysfunction, dilated LV Result No left atrial appendage mass seen on intracardiac echo. Smoke in both atria Successful pulmonary vein isolation of all veins using cryo-ablation Complete entrance block in all 4 veins confirmed No evidence for phrenic nerve injury Following cryoablation portion went into atrial flutter, typical Successful ablation of atrial flutter/cavo tricuspid isthmus RFA Esophageal deflection YES , right-sided Electrical cardioversion with a synchronized shock across the chest NO Procedure details Patient was brought to the EP lab in a fasting state. Written informed consent was obtained prior to the procedure. Procedure performed under general anesthesia After initial muscle relaxant use, muscle relaxants were not given thereafter in order to assess phrenic nerve during procedure. Patient prepped and draped as per protocol Full cryo-set up with standard preparation of the cryoablation tools done. Femoral Venous access obtained on the right and left groins Venous and arterial Sheaths placed. Diagnostic catheters for the high right atrium, phrenic nerve stimulation and pacing, His bundle, RV and coronary sinus placed Intracardiac echo catheter placed. Long sheath placed in the right atrium Left and right transseptal catheterization performed under intracardiac echo guidance. Intravenous heparin with aCT above 300 Later, catheter positioning and balloon positioning in the left atrium, under intracardiac echo guidance Diagnostic EP study with Coronary sinus pacing and recording Baseline measurements initially patient was in A. fib with RVR Subsequently the patient went into sinus rhythm following A. fib and a flutter ablation LA 189 ms, sinus cycle length 600-620 ms, QRS 90 ms, QT 400 ms Atrial pacing performed from the high right atrium and the coronary sinus RV pacing, VAAV Wenckebach block 110 ms AV node Wenckebach block 320 ms Sinus recovery times at 540 ms were 847 and 847 ms Transseptal catheterization performed RA pressure 26/13/19 LA pressure 40/8/26 Transseptal catheterization performed with standard sheath. The cryoablation sheath was then placed with an over the wire exchange without any acute complications. All 4 pulmonary veins were isolated in the following sequence: Left superior followed by left inferior followed by right superior followed by right inferior The cryo-ablation balloon was placed at the os of each vein 1.5 mL of IV dye was injected to confirm an occluded vein Goal during cryoablation was to achieve complete occlusion of the pulmonary vein, achieve -30 degrees C at 30 seconds and achieve -40 degrees C at 60 seconds and a time to effect of less than 60-90 seconds, . If not the balloon was repositioned to obtain this result After completion of Cryoblation with durations from 180-240 seconds, entrance block was confirmed with the Attain circular catheter in a roving fashion around the antrum of the pulmonary veins Phrenic nerve pacing was performed from the SVC, right innominate vein area and diaphragm voltage was monitored. Diaphragmatic contractions were also monitored manually for strength of contraction. Parameter goals for each cryo freeze Complete occlusion of the appropriate vein -30 degrees C by 30 seconds -40 degrees C by 60 seconds Minimum between minus 40-55 degrees C Thaw time greater than 10 seconds Balloon visualized by intracardiac echo The esophagus was intubated. Esophageal Temperature monitoring with a CIRCA catheter formed. Esophageal deflection for hypothermia of the esophagus below 30 degrees C Left superior pulmonary vein Complete isolation, entrance block Left inferior pulmonary vein, very large vein Complete isolation, entrance block Right superior pulmonary vein, during phrenic nerve pacing, large vein Complete isolation, entrance block Right inferior pulmonary vein, during phrenic nerve pacing, large vein Complete isolation, entrance block At the end of the procedure the Achieve catheter was once again used to check for entrance block Phrenic nerve stimulation was performed to confirm diaphragmatic stimulation the end of the procedure Cine fluoroscopy was performed at the very end of the procedure to confirm move ment of both diaphragms with inspiration and expiration Once all 4 veins were completely isolated the patient went into atrial flutter Disappeared to be typical atrial flutter Entrainment mapping was performed from the cavo tricuspid isthmus and the post- pacing interval minus tachycardia cycle length was less than 50 ms 3-D I anatomic mapping was performed The cavo tricuspid isthmus was mapped While the isthmus was short there was a mid isthmus pouch with a step-like pattern towords the tricuspid valve RF ablation lesions were applied and the entire cavo tricuspid isthmus including the pouch and the step-like portion was carefully ablated. Atrial flutter was terminated to sinus rhythm Line was interrogated with high output pacing Non-capture was noted Anatomically the line is complete Differential pacing was performed and bidirectional block was proven At the end of the procedure the patient was extubated Heparin was reversed Venous sheaths were removed and hemostasis assured Procedures performed ([facility] - CRYO Ablation) Diagnostic EP study CS pacing and recording Left and right transseptal catheterization 3D electro-anatomic mapping) Intracardiac echocardiography Pulmonary vein isolation with transseptal and comprehensive EPS, [id number] atrial flutter ablation, [id number]
--- NOTE | 2020-01-25 18:45 | P.PRLE ---
RE: Aleks Nolan Dear Stas Mr. Hector has persistent symptomatic atrial fibrillation with RVR that is difficult to control He has severe LV dysfunction with congestive heart failure and I had treated him with IV Lasix drip for the last few days He has severe mitral regurgitation and very large right and left atria Today he underwent an A. fib ablation and we terminated the A. fib during the ablation process Subsequently he had atrial flutter and be successfully ablated atrial flutter to He is now in sinus rhythm Hopefully this resulted in improvement of his LV function following which his mitral regurgitation needs to be reevaluated He will continue to see you and Dr. Alejandro as before Thank you for entrusting me with the care of the patient Warm regards Sincerely Kael Cook
[2020-01-25] MEDS: ASPIRIN 81 MG PO SCH (20:21)
[2020-01-25] MEDS: METOPROLOL TARTRATE 50 MG TAB PO SCH (20:21)
[2020-01-25] MEDS: CYCLOBENZAPRINE 10 MG TAB PO PRN (21:07)
[2020-01-26] MEDS: FUROSEMIDE 100 MG in SODIUM CHLORIDE 0.9% 90 ML IV SCH (02:30)
[2020-01-26 06:29] LABS: Basophils # (A) 0.1 k/uL (0-0.2); Basophils % (A) 1 %; Eosinophils # (A) 0.1 k/uL (0-0.7); Eosinophils % (A) 1 %; HCT 34.5 % (39.0-53.0); HGB 11.1 gm/dL (13.0-17.5); Hypochromasia Slight; Lymphocytes # (A) 1.5 k/uL (1.0-4.8); Lymphocytes % (A) 14 %; MCH 30.7 pg (25.0-35.0); MCHC 32.2 g/dL (31.0-37.0); MCV 95.1 fL (80.0-100.0); Mean Platelet Volume 8.4; Monocytes # (A) 0.6 k/uL (0-1.0); Monocytes % (A) 5 %; Neutrophils # (A) 8.4 k/uL (1.3-7.7); Neutrophils % (A) 77 %; Platelet Count 269 k/uL (150-450); RBC 3.63 m/uL (4.30-5.90); RDW 14.3 % (11.5-15.5); WBC 10.9 k/uL (3.8-10.6)
[2020-01-26] MEDS: LEVOTHYROXINE 50 MCG TAB PO SCH (06:33)
[2020-01-26 06:38] LABS: African American GFR (CKD) >90 (>60 ml/min/1.73 sqM); Anion Gap 9 mmol/L; Blood Urea Nitrogen 17 mg/dL (9-20); Calcium 8.6 mg/dL (8.4-10.2); Carbon Dioxide 32 mmol/L (22-30); Chloride 94 mmol/L (98-107); Glucose 105 mg/dL (74-99); Magnesium 1.8 mg/dL (1.6-2.3); Non-African American GFR(CKD) 88 (>60 ml/min/1.73 sqM); Potassium 3.7 mmol/L (3.5-5.1); Sodium 135 mmol/L (137-145)
--- NOTE | 2020-01-26 08:01 | P.PN ---
Progress Note - Text Electrophysiology follow-up note, post A. fib ablation Patient is doing well post A. fib ablation. No chest discomfort dizziness lightheadedness No shortness of breath Groin sutures were removed. No hematoma minimal induration minimal tenderness No pericardial rub Pansystolic murmur of mitral regurgitation audible No orthopnea Afebrile 98.2F blood pressure 135/84 mmHg normal respirations no orthopnea Pansystolic murmur over the precordium Breath sounds are clear no rhonchi no crackles Abdomen is soft Bilateral lower extremity edema present Impression Persistent atrial fibrillation with RVR, refractory to all therapy Status post cryoablation of the pulmonary veins Complex right superior and right inferior pulmonary venous anatomy Termination of atrial fibrillation with pulmonary vein isolation with organization to typical atrial flutter Successful ablation of typical atrial flutter Synagogue of sinus rhythm with ablation Severe LV dysfunction Severe mitral regurgitation Severe biatrial enlargement Suggest Lifelong and granulation with apixaban 5 mg twice daily continue Plavix Discontinue aspirin. 6 weeks after stenting procedure Continue spironolactone and metoprolol and lisinopril. Subsequently switched to long-acting beta blockers Lasix drip was discontinued this morning We'll start Lasix 40 mg twice daily by mouth From electrophysiology standpoint he may be discharged home and follow-up with Dr. Alejandro
[2020-01-26] MEDS: CLOPIDOGREL 75 MG TAB PO SCH (08:28)
[2020-01-26] MEDS: APIXABAN 5 MG TAB PO SCH (08:28)
[2020-01-26] MEDS: PANTOPRAZOLE 40 MG TABLET PO SCH (08:28)
[2020-01-26] MEDS: METOPROLOL TARTRATE 50 MG TAB PO SCH (08:29)
[2020-01-26] MEDS: TRELEGY ELLIPTA INHALATION SCH (08:52)
[2020-01-26] MEDS ORDERED: SPIRONOLACTONE 25 MG TAB PO SCH (09:00)
[2020-01-26] MEDS ORDERED: FUROSEMIDE 40 MG TAB PO SCH (09:00)
[2020-01-26 09:41] VITALS: RESP 16; TEMP 97.6
--- NOTE | 2020-01-26 10:29 | P.DS ---
Providers Date of admission: 01/17/20 20:52 Expected date of discharge: 01/26/20 Attending physician: Stas Fink Consults: 01/17/20 17:51 Consult Physician Urgent Consulting Provider: Bart Gabriel Consult Reason/Comments: a fib rvr Do you want consulting provider notified?: Yes Primary care physician: Stas Fink [facility] Course: Final Diagnoses: Persistent A.fib with RVR ,Status post unsuccessful cardioversions 2. Status post successful ablation. Acute on chronic CHF, systolic dysfunction. EF 30-35% Possible Acute bilateral pneumonia, community-acquired, coronavirus tested negative. Completed antibiotic therapy. COPD Acute hypoxic respiratory failure secondary to the above,resolved CAD with stent of the RCA Moderate to severe mitral regurgitation Moderate tricuspid regurgitation Moderate pulmonary hypertension Hyperlipidemia Hypertension Chronic back pain History of nicotine dependence Hypothyroidism, Levothyroxine initiated Hospital course:This is a 54-year-old gentleman with history of atrial fibrillation, recent stenting of the RCA with 4 drug-eluting stents ,COPD, hyperlipidemia, hypertension, chronic back pain, former nicotine dependence presented to the ER with worsening dyspnea, palpitations and multiple other medical issues. Reported dyspnea started on Wednesday, worsened with exertion, accompanied by mid substernal pressure. Reports he had been having episodes of bradycardia and Cardizem had been discontinued, anticoagulated on Eliquis.Denies fever. Coronavirus reported negative. Reported no nausea, vomiting, positive diarrhea. Afebrile on admission with leukocytosis, EKG reported atrial fibrillation with RVR, heart rate 140s, Troponins negative 3. Chest x-ray reporting bilateral infiltrates.radiologist's comparison requested .recent echo reported moderate concentric left ventricular hypertrophy, severe global hypokinesis of LV, moderately severe impaired LV function, EF 30-35%, moderate aortic sclerosis, moderate to severe mitral regurgitation, [id number] tricuspid regurgitation, moderate pulmonary hypertension. Cardizem drip initiated. Cardiology consulted. 01/19/2020 continues on Cardizem drip, telemetry reporting atrial fibrillation with rapid heart rate currently in the 130s.Symptomatic, positive palpitations. NPO, scheduled for cardioversion this morning. Chest x-ray reporting progressive changes, correlate for CHF, consider pneumonia. Maintained on Unasyn. Afebrile, WBC 11.3. 01/22/2020 underwent GIUSEPPE with unsuccessful cardioversion last week. Maintained on IV amiodarone and Cardizem, continues reporting atrial fibrillation with HR in the 120s. Scheduled for repeat cardioversion tomorrow.VSS. 01/23/2020 received a dose of Lasix last night for complaints of increased lower extremity edema .Remains in atrial fibrillation with heart rates up to 130s.underwent unsuccessful cardioversion this morning. TSH elevated. Denies chest pain, complains of shortness of breath accompanying his faster heart rates. 01/24/[address] Cook,Lasix drip initiated yesterday afternoon, diuresing well with 24-hour I&O reflecting a negative fluid balance, 4 kg weight loss. Creatinine 0.71. Oxygen requirement significantly improved, weaned down from 4 L to room air, maintaining O2 sats in the 90s. Remains in atrial fibrillation with heart rates uncontrolled ranging from 120 to 160s. Beta gilmar increased, Aldactone added to med regime. 01/25/2020 Continues diuresing well on Lasix drip with 24-hour I&O reflecting a negative fluid balance.renal function stable .Reports breathing so much easier, maintaining O2 sats in the high 90s on room air. Chest x-ray reporting minimal peripheral infiltrates diffuse bilateral lung sauceda, COPD, minimal bilateral pleural effusions. Afebrile, WBC trending down, nearly within normal limits .Telemetry reporting atrial fibrillation with heart rates currently in the 120s. Potassium 3.4, receiving supplements per replacement protocol. Underwent successful ablation. Remains in sinus rhythm. Significant clinical improvement. Cleared by cardiology for discharge. She is being discharged home in a stable condition with guarded prognosis. The impression and plan of care has been dictated as directed. : I performed a history and examination of this patient, discussed the same with the dictator. I agree with the dictator's note ,documented as a scribe. Any additional findings or plans will be noted. Patient Condition at Discharge: Stable Plan - Discharge Summary Discharge Rx Participant: No New Discharge Prescriptions: New Aspirin 81 mg PO DAILY #30 chewable Apixaban [Eliquis] 5 mg PO BID #180 tab Furosemide [Lasix] 40 mg PO BID #180 tablet Metoprolol Tartrate [Lopressor] 100 mg PO BID #180 tab Clopidogrel Bisulfate [Plavix] 75 mg PO DAILY #90 tab Spironolactone 50 mg PO DAILY #90 tablet Pantoprazole [Protonix] 40 mg PO DAILY #30 tablet. Levothyroxine Sodium [Synthroid] 50 mcg PO DAILY@0630 #30 tab Lisinopril [Zestril] 5 mg PO 1200 #30 tab Continue Rosuvastatin [Crestor] 10 mg PO HS Albuterol Sulfate [Proair Hfa] 2 puff INHALATION RT-Q4H PRN PRN Reason: Shortness Of Breath Cyclobenzaprine [Flexeril] 10 mg PO HS PRN PRN Reason: pain Fluticasone/Umeclidin/Vilanter [Trelegy Ellipta 100-62.5-25] 1 puff INHALATION RT-DAILY Ipratropium-Albuterol Nebulize [Duoneb 0.5 mg-3 mg/3 ml Soln] 3 ml INHALATION RT-QID PRN PRN Reason: Shortness Of Breath Discontinued Losartan Potassium 25 mg PO DAILY Carvedilol [Coreg] 6.25 mg PO BID Aspirin 325 mg PO HS Prasugrel [Effient] 10 mg PO DAILY #90 tab Apixaban [Eliquis] 2.5 mg PO BID #0 Discharge Medication List Rosuvastatin [Crestor] 10 mg PO HS 06/30/18 [History] Albuterol Sulfate [Proair Hfa] 2 puff INHALATION RT-Q4H PRN 10/04/19 [History] Cyclobenzaprine [Flexeril] 10 mg PO HS PRN 10/04/19 [History] Fluticasone/Umeclidin/Vilanter [Trelegy Ellipta 100-62.5-25] 1 puff INHALATION RT-DAILY 11/21/19 [History] Ipratropium-Albuterol Nebulize [Duoneb 0.5 mg-3 mg/3 ml Soln] 3 ml INHALATION RT-QID PRN 01/17/20 [History] Apixaban [Eliquis] 5 mg PO BID #180 tab 01/26/20 [Rx] Aspirin 81 mg PO DAILY #30 chewable 01/26/20 [Rx] Clopidogrel Bisulfate [Plavix] 75 mg PO DAILY #90 tab 01/26/20 [Rx] Furosemide [Lasix] 40 mg PO BID #180 tablet 01/26/20 [Rx] Levothyroxine Sodium [Synthroid] 50 mcg PO DAILY@0630 #30 tab 01/26/20 [Rx] Lisinopril [Zestril] 5 mg PO 1200 #30 tab 01/26/20 [Rx] Metoprolol Tartrate [Lopressor] 100 mg PO BID #180 tab 01/26/20 [Rx] Pantoprazole [Protonix] 40 mg PO DAILY #30 tablet. 01/26/20 [Rx] Spironolactone 50 mg PO DAILY #90 tablet 01/26/20 [Rx] Follow up Appointment(s)/Referral(s): Stas Fink DO [Primary Care Provider] - 3 Days Ambulatory/Diagnostic Orders: Complete Blood Count w/diff [LAB.AMB] Time Frame: 3 Days, Location: None Selected Activity/Diet/Wound Care/Special Instructions: Nadir lintonpons are in patients chart. Confirm cardiology follow-up appointment per to discharge.
[2020-01-26] MEDS ORDERED: LISINOPRIL 5 MG TAB PO SCH (12:00)
[2020-01-26 12:45] VITALS: BP 96/65; PULSE 67
--- NOTE | 2020-01-26 15:17 | PN ---
PROGRESS NOTE A 54-year-old gentleman who is admitted to hospital with atrial fibrillation with atrial fibrillation with rapid ventricular rate. Yesterday, he underwent ablation. This morning he is in sinus rhythm and is free of symptoms. He is on Lasix 40 b.i.d., Eliquis 5 b.i.d., aspirin, Plavix. On exam, comfortable at rest. Vital signs are stable. There is no jugular venous distention. Chest exam reveals good air entry bilaterally. Heart exam reveals first and second heart sounds, irregular rhythm. No murmur. Exam of the extremities did not reveal any edema. Peripheral pulses are felt. Right groin is free of bleeding, bruit, hematoma. Foot pulses are intact. ASSESSMENT: 1. Persistent atrial fibrillation, status post ablation. 2. Coronary artery disease. 3. Acute exacerbation of chronic congestive heart failure. PLAN: Patient is doing well. He is stable for discharge. Followup with Dr. Prieto. GIRISH / JEREMIAH: [id number] /
== END 2020-01-26 13:25 | disposition home or self-care (01) | DRG 273 ==
LOC: EC 13:54 → 3SCARD 20:52
PROVIDERS: ADMIT Family Medicine; ATTEND Family Medicine
PROC: 5A2204Z Restoration of Cardiac Rhythm, Single (ICD-10-PCS; 2020-01-19)
PROC: B24BZZ4 Ultrasonography of Heart with Aorta, Transesophageal (ICD-10-PCS; 2020-01-19)
PROC: 5A2204Z Restoration of Cardiac Rhythm, Single (ICD-10-PCS; 2020-01-23)
PROC: 4A023FZ Measurement of Cardiac Rhythm, Percutaneous Approach (ICD-10-PCS; principal; 2020-01-25 09:00)
PROC: 02583ZZ Destruction of Conduction Mechanism, Percutaneous Approach (ICD-10-PCS; principal; 2020-01-25 09:00)
PROC: 02K83ZZ Map Conduction Mechanism, Percutaneous Approach (ICD-10-PCS; principal; 2020-01-25 09:00)
DX: I48.19 Other persistent atrial fibrillation (principal); I50.23 Acute on chronic systolic (congestive) heart failure; J18.9 Pneumonia, unspecified organism; J96.01 Acute respiratory failure with hypoxia; J44.0 Chronic obstructive pulmonary disease with (acute) lower respiratory infection; J44.1 Chronic obstructive pulmonary disease with (acute) exacerbation; I48.3 Typical atrial flutter; I27.20 Pulmonary hypertension, unspecified; I11.0 Hypertensive heart disease with heart failure; Z20.828 Contact with and (suspected) exposure to other viral communicable diseases; E03.9 Hypothyroidism, unspecified; E78.5 Hyperlipidemia, unspecified; E87.6 Hypokalemia; G89.29 Other chronic pain; I25.10 Atherosclerotic heart disease of native coronary artery without angina pectoris; I25.5 Ischemic cardiomyopathy; M54.9 Dorsalgia, unspecified; R19.7 Diarrhea, unspecified; I08.1 Rheumatic disorders of both mitral and tricuspid valves; I70.0 Atherosclerosis of aorta; Z79.01 Long term (current) use of anticoagulants; Z79.02 Long term (current) use of antithrombotics/antiplatelets; Z79.82 Long term (current) use of aspirin; Z79.899 Other long term (current) drug therapy; Z87.891 Personal history of nicotine dependence; Z95.5 Presence of coronary angioplasty implant and graft; Z87.01 Personal history of pneumonia (recurrent); Z91.012 Allergy to eggs
CPT/HCPCS: 36415; 71045; 71046; 80048; 80053; 80061; 83735; 83880; 84145; 84439; 84443; 84484; 85025; 85027; 85347; 85610; 85730; 87040; 87635; 92960; 93005; 93312; 93320; 93325; 93613; 93656; 93657; 93662; 94640; 96365; 96366; 96368; 99285

== ENCOUNTER 2020-01-31 12:24 | Inpatient (IN) | payer OTHER ==
[2020-01-31] MEDS ORDERED: SODIUM CHLORIDE 0.9% 500 ML 500 ML IV STA (12:49)
[2020-01-31] MEDS ORDERED: DILTIAZEM DRIP BOLUS FROM BAG 1 MG SOLN IV ONE (13:03)
[2020-01-31] MEDS ORDERED: NALOXONE 0.4 MG/ML 1 ML VIAL IV PRN (13:04)
--- NOTE | 2020-01-31 13:09 | ED ---
General Adult HPI - General Chief complaint: Weakness Stated complaint: Low BP High HR Time Seen by Provider: 01/31/20 12:49 Source: patient, family, RN notes reviewed, old records reviewed Mode of arrival: wheelchair Limitations: no limitations - History of Present Illness Initial comments: 54-year-old male presenting from the primary care office for evaluation of palpitations, low blood pressure. Patient has history of atrial fibrillation, and atrial flutter with an ablation approximately one week ago. He followed up with his primary care physician and was noted to be hypotensive in the 70 systolic. He was short of breath and lightheaded. He has been compliant with all of his medications which does include metoprolol, eliquis, aspirin, Plavix. He denies central chest pain. Denies cough or fever. He additionally has history of COPD. - Related Data Home Medications Medication Instructions Recorded Confirmed Rosuvastatin [Crestor] 10 mg PO HS 06/30/18 01/17/20 Albuterol Sulfate [Proair Hfa] 2 puff INHALATION RT-Q4H PRN 10/04/19 01/17/20 Cyclobenzaprine [Flexeril] 10 mg PO HS PRN 10/04/19 01/17/20 Fluticasone/Umeclidin/Vilanter 1 puff INHALATION RT-DAILY 11/21/19 01/17/20 [Trelegy Ellipta 100-62.5-25] Ipratropium-Albuterol Nebulize 3 ml INHALATION RT-QID PRN 01/17/20 01/17/20 [Duoneb 0.5 mg-3 mg/3 ml Soln] Previous Rx's Medication Instructions Recorded Apixaban [Eliquis] 5 mg PO BID #180 tab 01/26/20 Aspirin 81 mg PO DAILY #30 chewable 01/26/20 Clopidogrel Bisulfate [Plavix] 75 mg PO DAILY #90 tab 01/26/20 Furosemide [Lasix] 40 mg PO BID #180 tablet 01/26/20 Levothyroxine Sodium [Synthroid] 50 mcg PO DAILY@0630 #30 tab 01/26/20 Lisinopril [Zestril] 5 mg PO 1200 #30 tab 01/26/20 Metoprolol Tartrate [Lopressor] 100 mg PO BID #180 tab 01/26/20 Pantoprazole [Protonix] 40 mg PO DAILY #30 tablet. 01/26/20 Spironolactone 50 mg PO DAILY #90 tablet 01/26/20 Allergies Allergy/AdvReac Type Severity Reaction Status Date / Time No Known Allergies Allergy Verified 01/31/20 12:33 Review of Systems ROS Statement: Those systems with pertinent positive or pertinent negative responses have been documented in the HPI. ROS Other: All systems not noted in ROS Statement are negative. Past Medical History Past Medical History: Atrial Fibrillation, COPD, Hyperlipidemia, Hypertension, Pneumonia, Respiratory Disorder Additional Past Medical History / Comment(s): BACK PAIN, RUPTURED DISC L4 and L5. 12/18/19 Admit w/ AE COPD, Pneumonia, AFib; History of Any Multi-Drug Resistant Organisms: None Reported Past Surgical History: Heart Catheterization With Stent, Hernia Repair, Orthopedic Surgery Additional Past Surgical History / Comment(s): BENIGN LT TIBIA OSTEOCHONDROMA REMOVED, RT KNEE MENISCUS REPAIR, LEFT ACHILLIES TEAR. ATTEMPTED CARDIOVERSION 11/23/19. Heart Cath, and , vasectomy, heart ablation Past Anesthesia/Blood Transfusion Reactions: No Reported Reaction Date of Last Stent Placement:: 12/29/19 Past Psychological History: No Psychological Hx Reported Smoking Status: Former smoker Past Alcohol Use History: Rare Past Drug Use History: None Reported - Past Family History Mother Family Medical History: No Reported History General Exam Limitations: no limitations General appearance: alert, in no apparent distress Head exam: Present: atraumatic, normocephalic Eye exam: Present: normal appearance, PERRL ENT exam: Present: normal exam Neck exam: Present: normal inspection. Absent: tenderness, meningismus Respiratory exam: Present: normal lung sounds bilaterally. Absent: respiratory distress, wheezes Cardiovascular Exam: Present: normal rhythm, tachycardia GI/Abdominal exam: Present: soft. Absent: distended, tenderness, guarding, rebound Extremities exam: Present: normal inspection, normal capillary refill. Absent: pedal edema Neurological exam: Present: alert, oriented X3, CN II-XII intact. Absent: motor sensory deficit Psychiatric exam: Present: normal affect, normal mood Skin exam: Present: warm, dry, intact. Absent: cyanosis, diaphoretic Course Vital Signs 01/31/20 12:26 Temperature 97.7 F Pulse Rate 72 Respiratory 18 Rate Blood Pressure 82/56 O2 Sat by Pulse 99 Oximetry - Reevaluation(s) Reevaluation #1: 01/31/[address] Prieto who is familiar with this patient, recommends Cardizem infusion. Patient will be admitted to telemetry. EKG Findings - EKG Comments: EKG Findings:: EKG: Atrial flutter with 2:1 AV block, PVC, left posterior fascicular block, rate of 147, QRS duration 84, QTC 535, no ST segment elevation. Medical Decision Making - Medical Decision Making 54-year-old male presenting in atrial flutter with 21 AV conduction, rapid ventricular rate at approximately 150. Blood pressure is marginal, initial blood pressure is 100 systolic. Laboratory testing has been ordered, chest x- ray and echo has been ordered. Dr. Prieto is able to evaluate the patient in the emergency department and recommends initiating Cardizem. Patient will be admitted to Dr. Fink, who has been paged. All blood work and imaging are pending at the time of this dictation. Critical Care Time Critical Care Time: Yes Total Critical Care Time: 35 Disposition Clinical Impression: Atrial flutter with rapid ventricular response Disposition: ADMITTED IP TO THIS HOSP Condition: Serious Is patient prescribed a controlled substance at d/c from ED?: No Referrals: Stas Fink DO [Primary Care Provider] - 1-2 days Decision to Admit Reason: Admit from EC Decision Date: 01/31/20 Decision Time: 13:09
[2020-01-31] MEDS: SODIUM CHLORIDE 0.9% 1,000 ML IV SCH (13:40)
[2020-01-31 13:58] LABS: INR 1.6 (<1.2); Partial Thromboplastin Time 23.1 sec (22.0-30.0); Prothrombin Time 15.6 sec (9.0-12.0)
[2020-01-31 13:59] LABS: Albumin 3.7 g/dL (3.5-5.0); Calcium 9.2 mg/dL (8.4-10.2); HCT 35.7 % (39.0-53.0); HGB 11.5 gm/dL (13.0-17.5); Hypochromasia Slight; MCH 30.9 pg (25.0-35.0); MCHC 32.3 g/dL (31.0-37.0); MCV 95.8 fL (80.0-100.0); Magnesium 1.9 mg/dL (1.6-2.3); Mean Platelet Volume 8.2; Platelet Count 392 k/uL (150-450); RBC 3.72 m/uL (4.30-5.90); RDW 14.8 % (11.5-15.5); Total Protein 7.2 g/dL (6.3-8.2); WBC 11.2 k/uL (3.8-10.6)
--- NOTE | 2020-01-31 14:16 | P.CRDCN ---
History of Present Illness Consult date: 01/31/20 Chief complaint: Fatigue and tiredness History of present illness: This is a very pleasant 54-year-old gentleman who I follow in the office as an outpatient with a past medical history significant for coronary artery disease and prior stenting of the RCA was performed recently, nonischemic cardiomyopathy with EF around 40%, paroxysmal atrial fibrillation, as well as multiple comorbid conditions. The patient was diagnosed with paroxysmal atrial fibrillation several months ago. At that point he was found to have cardiomyopathy and subsequently heart catheterization was performed and revealed critical disease involving heavily calcified right coronary artery where the patient underwent stenting of the RCA with adjunctive use of atherectomy. I did perform a cardioversion on him and that was unsuccessful before and after the coronary r evascularization. The patient was referred at that point to Dr. Cook where he did perform atrial fibrillation ablation/isolation of the pulmonary vein. Subsequently the patient converted to normal sinus mechanism. He was discharged home in stable medical condition. He was discharged home in normal sinus mechanism. He states that since discharge she was not feeling well. He has been feeling tired and fatigued and has no energy. No symptoms of chest pain or chest discomfort but does have shortness of breath with exertion as well as symptoms of being tired and fatigued and has no energy. He was seen earlier today by his primary care physician Dr. Fink who did perform an EKG in [facility] and that revealed what it seems to be atrial flutter with differential diagnosis of atrial tachycardia. The heart rate at that point was 140 beats per minutes. I advised the patient to come to the emergency room where I saw him and evaluated him in the emergency room. I am going to start him on Cardizem drip at this point. Also would obtain a consult from Dr. Cook as well. Meanwhile we'll continue the current medical regimen including his antiplatelet and anticoagulation. Beside that I will obtain a limited echocardiogram to rule out any pericardial effusion. Past Medical History Past Medical History: Atrial Fibrillation, COPD, Hyperlipidemia, Hypertension, Pneumonia, Respiratory Disorder Additional Past Medical History / Comment(s): BACK PAIN, RUPTURED DISC L4 and L5. 12/18/19 Admit w/ AE COPD, Pneumonia, AFib; History of Any Multi-Drug Resistant Organisms: None Reported Past Surgical History: Heart Catheterization With Stent, Hernia Repair, Orthopedic Surgery Additional Past Surgical History / Comment(s): BENIGN LT TIBIA OSTEOCHONDROMA REMOVED, RT KNEE MENISCUS REPAIR, LEFT ACHILLIES TEAR. ATTEMPTED CARDIOVERSION 11/23/19. Heart Cath, and 4/, vasectomy, heart ablation Past Anesthesia/Blood Transfusion Reactions: No Reported Reaction Date of Last Stent Placement:: 12/29/19 Past Psychological History: No Psychological Hx Reported Smoking Status: Former smoker Past Alcohol Use History: Rare Past Drug Use History: None Reported - Past Family History Mother Family Medical History: No Reported History Medications and Allergies Home Medications Medication Instructions Recorded Confirmed Type Rosuvastatin [Crestor] 10 mg PO HS 06/30/18 01/17/20 History Albuterol Sulfate [Proair Hfa] 2 puff INHALATION RT-Q4H PRN 10/04/19 01/17/20 History Cyclobenzaprine [Flexeril] 10 mg PO HS PRN 10/04/19 01/17/20 History Fluticasone/Umeclidin/Vilanter 1 puff INHALATION RT-DAILY 11/21/19 01/17/20 History [Avila Ellipta 100-62.5-25] Ipratropium-Albuterol Nebulize 3 ml INHALATION RT-QID PRN 01/17/20 01/17/20 History [Duoneb 0.5 mg-3 mg/3 ml Soln] Apixaban [Eliquis] 5 mg PO BID #180 tab 01/26/20 Rx Aspirin 81 mg PO DAILY #30 chewable 01/26/20 Rx Clopidogrel Bisulfate [Plavix] 75 mg PO DAILY #90 tab 01/26/20 Rx Furosemide [Lasix] 40 mg PO BID #180 tablet 01/26/20 Rx Levothyroxine Sodium [Synthroid] 50 mcg PO DAILY@0630 #30 tab 01/26/20 Rx Lisinopril [Zestril] 5 mg PO 1200 #30 tab 01/26/20 Rx Metoprolol Tartrate [Lopressor] 100 mg PO BID #180 tab 01/26/20 Rx Pantoprazole [Protonix] 40 mg PO DAILY #30 tablet.dr 01/26/20 Rx Spironolactone 50 mg PO DAILY #90 tablet 01/26/20 Rx Allergies Allergy/AdvReac Type Severity Reaction Status Date / Time No Known Allergies Allergy Verified 01/31/20 12:33 Physical Exam Vitals: Vital Signs Temp Pulse Resp BP Pulse Ox 01/31/20 12:26 97.7 F 72 18 82/56 99 Intake and Output 01/30/20 01/31/20 01/31/20 22:59 06:59 14:59 Other: Weight 109.769 kg - Constitutional General appearance: no acute distress - Respiratory Respiratory: bilateral: CTA - Cardiovascular Rhythm: regular Heart sounds: normal: S1, S2 Results 01/31/20 13:18 01/31/20 13:18 Cardiac Enzymes 01/31/20 Range/Units 13:18 AST 346 H (17-59) U/L Coagulation 01/31/20 Range/Units 13:18 PT 15.6 H (9.0-12.0) sec APTT 23.1 (22.0-30.0) sec CBC 01/31/20 Range/Units 13:18 WBC 11.2 H (3.8-10.6) k/uL RBC 3.72 L (4.30-5.90) m/uL Hgb 11.5 L (13.0-17.5) gm/dL Hct 35.7 L (39.0-53.0) % Plt Count 392 (150-450) k/uL Comprehensive Metabolic Panel 01/31/20 Range/Units 13:18 Sodium 135 L (137-145) mmol/L Potassium 5.0 (3.5-5.1) mmol/L Chloride 99 (98-107) mmol/L Carbon Dioxide 25 (22-30) mmol/L BUN 21 H (9-20) mg/dL Creatinine 1.13 (0.66-1.25) mg/dL Glucose 118 H (74-99) mg/dL Calcium 9.2 (8.4-10.2) mg/dL AST 346 H (17-59) U/L ALT 252 H (4-49) U/L Alkaline Phosphatase 90 (38-126) U/L Total Protein 7.2 (6.3-8.2) g/dL Albumin 3.7 (3.5-5.0) g/dL Current Medications Generic Name Dose Route Start Last Admin Trade Name Freq PRN Reason Stop Dose Admin Diltiazem HCl 125 mg/ Sodium 125 mls @ 5 mls/hr 01/31/20 13:15 Chloride IV .Q24H JOSH 5 MG/HR Sodium Chloride 1,000 mls @ 75 mls/hr 01/31/20 13:15 01/31/20 13:40 Saline 0.9% IV 75 mls/hr .[id number] JOSH Administration Naloxone HCl 0.2 mg 01/31/20 13:04 Narcan IV Q2M PRN Opioid Reversal Intake and Output 01/30/20 01/31/20 01/31/20 22:59 06:59 14:59 Other: Weight 109.769 kg Patient Weight 02/01/20 06:59 Weight 109.769 kg 01/31/20 13:18 01/31/20 13:18 Assessment and Plan Assessment: Assessment #1 atrial flutter with differential diagnosis of atrial tachycardia #2 status post atrial fibrillation ablation #3 coronary artery disease and status post RCA stenting #4 cardiomyopathy, nonischemic #5 multiple comorbid conditions. Plan #1 start the patient on Cardizem drip #2 continue the oral anticoagulation and/or antiplatelet #3 obtain limited echocardiogram #[address] Cook #5 follow-up with the patient
[2020-01-31] MEDS: DILTIAZEM 125 MG in SODIUM CHLORIDE 0.9% 100 ML IV SCH (14:39)
[2020-01-31 14:52] LABS: Eosinophils # (M) 0.11 k/uL (0-0.7); Lymphocytes # (M) 1.57 k/uL (1.0-4.8); Monocytes # (M) 0.56 k/uL (0-1.0); Neutrophils # (M) 8.96 k/uL (1.3-7.7); Neutrophils % (M) 80 %; Nucleated Red Blood Cells 0 /100 WBC (0-0); Total Cells Counted 100
--- NOTE | 2020-01-31 16:00 | XR ---
EXAMINATION TYPE: XR chest 1V portable DATE OF EXAM: 01/31/2020 HISTORY: Shortness of breath. COMPARISON: 01/25/2020 TECHNIQUE: Single view of the chest is submitted. FINDINGS: Demonstrated are scattered senescent parenchymal change. Patchy infiltrates persist right lower lobe, right upper lobe and left perihilar regions. Correlate f or pneumonia. The heart is stable. Hilar and mediastinal structures are within normal limits. Degenerative changes are seen of the dorsal spine. IMPRESSION: 1. Patchy infiltrates persist right lower lobe, right upper lobe and left perihilar regions. Correla te for pneumonia.
[2020-02-01] MEDS: SODIUM CHLORIDE 0.9% 1,000 ML IV SCH ×2 (06:08→17:35)
[2020-02-01] MEDS: DILTIAZEM 125 MG in SODIUM CHLORIDE 0.9% 100 ML IV SCH (06:40)
[2020-02-01] MEDS ORDERED: SPIRONOLACTONE 50 MG PO SCH (09:00)
[2020-02-01] MEDS: ASPIRIN 81 MG PO SCH (10:08)
[2020-02-01] MEDS: APIXABAN 5 MG TAB PO SCH ×2 (10:08→21:25)
[2020-02-01] MEDS: CLOPIDOGREL 75 MG TAB PO SCH (10:08)
[2020-02-01] MEDS ORDERED: IPRATROPIUM-ALBUTEROL 3 ML NEB INHALATION PRN ×2 (10:41→10:47)
[2020-02-01] MEDS ORDERED: CYCLOBENZAPRINE 10 MG TAB PO PRN (10:41)
[2020-02-01] MEDS: IPRATROPIUM-ALBUTEROL 3 ML NEB INHALATION SCH ×3 (12:09→19:16)
[2020-02-01] MEDS: PANTOPRAZOLE 40 MG TABLET PO SCH (12:49)
[2020-02-01] MEDS: FUROSEMIDE 40 MG TAB PO SCH ×2 (12:49→21:25)
--- NOTE | 2020-02-01 14:39 | P.HPIM ---
History of Present Illness H&P Date: 02/01/20 Chief Complaint: Palpitations, heart rates up into the 150s atrial flutter This is a 54-year-old gentleman with recent ablation ,history of atrial fibrillation, recent stenting of the RCA with 4 drug-eluting stents ,COPD, hyperlipidemia, hypertension, chronic back pain, former nicotine dependence , followed up with PCP yesterday with complaints of not feeling well since dis charge, increased fatigue, accompanied by exertional shortness of breath,. Denied chest pain.Heart rates up into the 150s at PCPs office, EKG obtained, tachycardic, possible atrial flutter versus atrial tachycardia; forwarded to Dr. Alejandro. Patient was advised to proceed to the ER. On admission, heart rate 144, blood pressure 82/56, maintaining O2 sats in the high 90s on room air, afebrile, WBC 11.2. EKG obtained reporting atrial flutter and variable AV block with PVCs or aberrantly conducted complexes, left posterior fascicular block, nonspecific ST and T-wave abnormality. Troponin 0.101. Hemoglobin 11.5, INR 1.6, sodium 135, potassium 5, BUN 21, creatinine 1.13, magnesium 1.8, AST 346, ALT 252. Cardiology consulted, Cardizem drip initiated, chest x-ray pending. Review of Systems ROS Other: All systems not noted in ROS Statement are negative. ROS Statement: Those systems with pertinent positive or pertinent negative responses have been documented in the HPI. Past Medical History Past Medical History: Atrial Fibrillation, COPD, Hyperlipidemia, Hypertension, Pneumonia, Respiratory Disorder Additional Past Medical History / Comment(s): BACK PAIN, RUPTURED DISC L4 and L5. 12/18/19 Admit w/ AE COPD, Pneumonia, AFib; History of Any Multi-Drug Resistant Organisms: None Reported Past Surgical History: Heart Catheterization With Stent, Hernia Repair, Orthopedic Surgery Additional Past Surgical History / Comment(s): BENIGN LT TIBIA OSTEOCHONDROMA REMOVED, RT KNEE MENISCUS REPAIR, LEFT ACHILLIES TEAR. ATTEMPTED CARDIOVERSION 11/23/19. Heart Cath, and 4/, vasectomy, heart ablation Past Anesthesia/Blood Transfusion Reactions: No Reported Reaction Date of Last Stent Placement:: 12/29/19 Past Psychological History: No Psychological Hx Reported Smoking Status: Former smoker Past Alcohol Use History: Rare Additional Past Alcohol Use History / Comment(s): QUIT SMOKING 10/2018, SMOKED 3/4 PPD FROM AGE 14, (1978) Past Drug Use History: None Reported - Past Family History Mother Family Medical History: No Reported History Medications and Allergies Home Medications Medication Instructions Recorded Confirmed Type Rosuvastatin [Crestor] 10 mg PO HS 06/30/18 02/01/20 History Albuterol Sulfate [Proair Hfa] 2 puff INHALATION RT-Q4H PRN 10/04/19 02/01/20 History Cyclobenzaprine [Flexeril] 10 mg PO HS PRN 10/04/19 02/01/20 History Fluticasone/Umeclidin/Vilanter 1 puff INHALATION RT-DAILY 11/21/19 02/01/20 History [Avila Ellipta 100-62.5-25] Ipratropium-Albuterol Nebulize 3 ml INHALATION RT-QID PRN 01/17/20 02/01/20 History [Duoneb 0.5 mg-3 mg/3 ml Soln] Apixaban [Eliquis] 5 mg PO BID #180 tab 01/26/20 02/01/20 Rx Aspirin 81 mg PO DAILY #30 chewable 01/26/20 02/01/20 Rx Clopidogrel Bisulfate [Plavix] 75 mg PO DAILY #90 tab 01/26/20 02/01/20 Rx Furosemide [Lasix] 40 mg PO BID #180 tablet 01/26/20 02/01/20 Rx Levothyroxine Sodium [Synthroid] 50 mcg PO DAILY@0630 #30 tab 01/26/20 02/01/20 Rx Metoprolol Tartrate [Lopressor] 100 mg PO BID #180 tab 01/26/20 02/01/20 Rx Pantoprazole [Protonix] 40 mg PO DAILY #30 tablet.dr 01/26/20 02/01/20 Rx Spironolactone 50 mg PO DAILY #90 tablet 01/26/20 02/01/20 Rx Lisinopril [Zestril] 5 mg PO DAILY@1200 02/01/20 02/01/20 History Allergies Allergy/AdvReac Type Severity Reaction Status Date / Time No Known Allergies Allergy Verified 02/01/20 10:03 Physical Exam Vitals: Vital Signs Temp Pulse Pulse Resp BP BP Pulse Ox 02/01/20 08:00 98.4 F 102 H 17 111/80 97 02/01/20 04:00 97.8 F 50 L 18 107/69 93 L 02/01/20 00:00 97.4 F L 92 18 101/70 92 L 01/31/20 19:00 98 20 98/86 98 01/31/20 18:30 98 22 94/63 99 01/31/20 18:00 108 H 21 103/90 100 01/31/20 17:00 108 H 24 94/77 97 01/31/20 16:30 17 92/77 100 01/31/20 16:00 120 H 20 108/28 99 01/31/20 15:30 98 18 92/63 100 01/31/20 15:00 98 18 97/76 99 01/31/20 14:30 147 H 19 102/73 97 Intake and Output 01/31/20 02/01/20 02/01/20 22:59 06:59 14:59 Intake Total 980.083 240 Balance 980.083 240 Intake: Intake, IV Titration 80.083 Amount Diltiazem 125 mg In 80.083 Sodium Chloride 0.9% 100 ml @ 5 MG/HR 5 mls/hr IV .Q24H [facility] Rx#:[id number] Oral 900 240 Other: Voiding Method Toilet # Voids 1 2 Weight 109.769 kg 109 kg VITAL SIGNS: As above GENERAL: Sitting up in bed, no acute distress HEENT: Conjunctivae normal. eyes normal. Oral mucosa moist NECK: No JVD. No thyroid enlargement. No LNs CARDIOVASCULAR: S1, S2 irregular. Tachycardic Positive systolic murmur. RESPIRATION: Breath sounds diminished in the bases. No rhonchi, fine scattered crackles bilaterally, mid lobes through bases. Occasional expiratory wheeze ABDOMEN: Soft, nontender . No guarding. no masses palpable. No ascites, No hepatosplenomegaly.Bowel sounds heard. LEGS: Trace edema. no calf tenderness. PSYCHIATRY: Alert and oriented X3, mood and affect normal. NERVOUS SYSTEM: Cranial N 2-12 grossly normal. Moves all 4 limbs. No focal deficits. Strength and sensation grossly intact.. Skin: no rash Results CBC & Chem 7: 01/31/20 13:18 01/31/20 13:18 Labs: Abnormal Lab Results - Last 24 Hours (Table) 01/31/20 01/31/20 Range/Units 13:18 13:18 WBC 11.2 H (3.8-10.6) k/uL RBC 3.72 L (4.30-5.90) m/uL Hgb 11.5 L (13.0-17.5) gm/dL Hct 35.7 L (39.0-53.0) % Neutrophils # (Manual) 8.96 H (1.3-7.7) k/uL Troponin I 0.101 H* (0.000-0.034) ng/mL Assessment and Plan Assessment: Atrial flutter, possible atrial tachycardia Recently admitted with Persistent A.fib with RVR ,Status post unsuccessful cardioversions 2. Status post successful ablation. Recently treated for a possible bilateral pneumonia, community-acquired, amezcua virus not detected. Chronic CHF, systolic dysfunction. EF 30-35% Nonischemic cardiomyopathy COPD Acute hypoxic respiratory failure secondary to the above,resolved CAD with stent of the RCA Moderate to severe mitral regurgitation Moderate tricuspid regurgitation Moderate pulmonary hypertension Hyperlipidemia Hypertension Chronic back pain Plan: Continue on current medication regime ,monitoring and symptomatic treatment. Maintain Cardizem drip, anticoagulation as per cardiology. Echo pending. Dr. Cook consulted. Follow closely with cardiology. Prognosis guarded given multiple complex medical issues. The impression and plan of care has been dictated as directed. : I performed a history and examination of this patient, discussed the same with the dictator. I agree with the dictator's note ,documented as a scribe. Any additional findings or plans will be noted.
--- NOTE | 2020-02-01 15:04 | P.PN ---
Subjective Progress Note Date: 02/01/20 This is a very pleasant 54-year-old gentleman who follows with Dr Prieto in the office as an outpatient with a past medical history significant for coronary artery disease and prior stenting of the RCA was performed recently, nonischemic cardiomyopathy with EF around 40%, paroxysmal atrial fibrillation, as well as multiple comorbid conditions. The patient was diagnosed with paroxysmal atrial fibrillation several months ago. At that point he was found to have cardiomyopathy and subsequently heart catheterization was performed and revealed critical disease involving heavily calcified right coronary artery where the patient underwent stenting of the RCA with adjunctive use of atherectomy. He underwent a cardioversion which was unsuccessful before and after the coronary revascularization. The patient was referred at that point to Dr. Cook where he did perform atrial fibrillation ablation/isolation of the pulmonary vein. Subsequently the patient converted to normal sinus mechanism. He was discharged home in stable medical condition. He was discharged home in normal sinus mechanism. He states that since discharge he was not feeling well. He has been feeling tired and fatigued and has no energy. No symptoms of chest pain or chest discomfort but does have shortness of breath with exertion as well as symptoms of being tired and fatigued and has no energy. He was seen earlier today by his primary care physician Dr. Fink who did perform an EKG in the office and that revealed what it seems to be atrial flutter with differential diagnosis of atrial tachycardia. The heart rate at that point was 140 beats per minutes. Patient came to the emergency room where he was seen and evaluated by Dr Prieto. The pateint was initiated on a Cardizem drip, and consultation requested with Dr. Cook as well. Patient was seen and examined this morning, continued to be in an atrial flutter this morning, however currently in a normal sinus rhythm. Blood pressure 110/80 with a heart rate in the 90s. Objective - Vital Signs Vital signs: Vital Signs Temp 98.4 F 02/01/20 08:00 Pulse 102 H 02/01/20 08:00 Resp 17 02/01/20 08:00 BP 111/80 02/01/20 08:00 Pulse Ox 97 02/01/20 08:00 Intake & Output 01/31/20 02/01/20 02/01/20 18:59 06:59 18:59 Intake Total 980.083 240 Balance 980.083 240 Weight 109.769 kg 109 kg Intake: Intake, IV Titration 80.083 Amount Diltiazem 125 mg In 80.083 Sodium Chloride 0.9% 100 ml @ 5 MG/HR 5 mls/hr IV .Q24H [facility] Rx#:[id number] Oral 900 240 Other: Voiding Method Toilet # Voids 1 2 - Exam Physical examination: Gen: This is a 54-year-old male. He is sitting on the edge of the bed. No acute distress noted VS: Afebrile, heart rate 138, blood pressure 150/87, pulse ox 90% on 4 L nasal cannula. HEENT: Head is atraumatic, normocephalic. Pupils equal, round. Sclerae is anicteric. NECK: Supple. No JVD. No lymphadenopathy. No thyromegaly. LUNGS: Diminished at the bases. No wheezes. No intercostal retractions. HEART: Heart S1S2. Systolic murmur. ABDOMEN: Soft. Bowel sounds are present. No masses. No tenderness. EXTREMITIES: Trace pedal edema. No calf tenderness. NEUROLOGICAL: Patient is awake, alert and oriented x3. Cranial nerves 2 through 12 are grossly intact. - Labs CBC & Chem 7: 01/31/20 13:18 01/31/20 13:18 Labs: Abnormal Lab Results - Last 24 Hours (Table) 01/31/20 01/31/20 Range/Units 13:18 13:18 WBC 11.2 H (3.8-10.6) k/uL RBC 3.72 L (4.30-5.90) m/uL Hgb 11.5 L (13.0-17.5) gm/dL Hct 35.7 L (39.0-53.0) % Neutrophils # (Manual) 8.96 H (1.3-7.7) k/uL Troponin I 0.101 H* (0.000-0.034) ng/mL Assessment and Plan Plan: Assessment #1 atrial flutter with differential diagnosis of atrial tachycardia #2 status post atrial fibrillation ablation #3 coronary artery disease and status post RCA stenting #4 cardiomyopathy, nonischemic #5 multiple comorbid conditions #6 severe MR Plan We will continue current medications, consultation requested with Dr. Joey vora possible ablation. DNP note has been reviewed, I agree with a documented findings and plan of care. Patient was seen and examined.
--- NOTE | 2020-02-01 17:41 | ECHOF ---
Referral Reason:sob MEASUREMENTS -------- HEIGHT: 185.4 cm WEIGHT: 109.8 kg BP: 82/56 IVSd: 1.3 cm (0.6 - 1.1) LVIDd: 4.8 cm (3.9 - 5.3) LVPWd: 1.4 cm (0.6 - 1.1) IVSs: 1.4 cm LVIDs: 4.4 cm LVPWs: 1.6 cm LA Diam: 4.5 cm (2.7 - 3.8) RVIDd: 3.2 cm (< 3.3) LAESV Index (A-L): 33.68 ml/m Ao Diam: 3.0 cm (2.0 - 3.7) AV Cusp: 1.5 cm (1.5 - 2.6) EPSS: 1.3 cm RAP: 15.00 mmHg RVSP: 40.78 mmHg MV EF SLOPE: 232.85 mm/s (70 - 150) MV EXCURSION: 21.17 mm (> 18.000) FINDINGS -------- Resting tachycardia (HR>100bpm). This was a technically adequate study. The left ventricular size is normal. There is moderate concentric left ventricular hypertrophy. O verall left ventricular systolic function is severely impaired with, an EF between 25 - 30 %. The right ventricle is normal in size. LA is midly dilated 29-33ml/m2. The right atrium is normal in size. Interatrial and interventricular septum intact. There is mild aortic valve sclerosis. The mitral valve leaflets are mildly thickened. Mild mitral annular calcification present. Modera [id number] mitral regurgitation is present. Mild tricuspid regurgitation present. There is mild pulmonary hypertension. The right ventricular systolic pressure, as measured by Doppler, is 40.78mmHg. Trace/mild (physiologic) pulmonic regurgitation. The aortic root size is normal. The inferior vena cava is dilated with no significant inspiratory collapse which is consistent estima alden right atrial pressure of >15 mmHg. There is no pericardial effusion. CONCLUSIONS -------- 1. Resting tachycardia (HR>100bpm). 2. This was a technically adequate study. 3. The left ventricular size is normal. 4. There is moderate concentric left ventricular hypertrophy. 5. Overall left ventricular systolic function is severely impaired with, an EF between 25 - 30 %. 6. The right ventricle is normal in size. 7. LA is midly dilated 29-33ml/m2. 8. The right atrium is normal in size. 9. Interatrial and interventricular septum intact. 10. There is mild aortic valve sclerosis. 11. The mitral valve leaflets are mildly thickened. 12. Mild mitral annular calcification present. 13. [id number] mitral regurgitation is present. 14. Mild tricuspid regurgitation present. 15. There is mild pulmonary hypertension. 16. The right ventricular systolic pressure, as measured by Doppler, is 40.78mmHg. 17. Trace/mild (physiologic) pulmonic regurgitation. 18. The aortic root size is normal. 19. The inferior vena cava is dilated with no significant inspiratory collapse which is consistent es timated right atrial pressure of >15 mmHg. 20. There is no pericardial effusion. GARAGEMAN: Rona Queen RDCS
[2020-02-01] MEDS ORDERED: ATORVASTATIN 20 MG TAB PO SCH (21:00)
[2020-02-01] MEDS ORDERED: APIXABAN 5 MG TAB PO SCH (21:00)
[2020-02-01] MEDS: METOPROLOL TARTRATE 50 MG TAB PO SCH (21:24)
[2020-02-02] MEDS: SODIUM CHLORIDE 0.9% 1,000 ML IV SCH (06:10)
[2020-02-02] MEDS ORDERED: LEVOTHYROXINE 50 MCG TAB PO SCH (06:30)
--- NOTE | 2020-02-02 07:38 | P.CRDCN ---
History of Present Illness History of present illness: HISTORY OF PRESENTING ILLNESS This is a pleasant 54-year-old male past medical history significant for or coronary artery disease, atrial fibrillation and atrial flutter status post ablation, hypertension, dyslipidemia, COPD and former nicotine dependence. Dr. Johnson has been asked to see for an EP consultation for arrhythmia. He underwent successful pulmonary vein isolation using cryoablation, complete entrance block, successful ablation of atrial flutter on January [address] Cook. He presented to the hospital yesterday with symptoms of palpitations. EKG obtained on admission revealed left atrial tachycardia. He was noted to be hypotensive on admission. He was initially placed on Cardizem. He spontaneously converted to sinus mechanism yesterday morning around 10 AM. He is seen and examined sitting up in bed in no acute distress. He states overall he is feeling back to his baseline. He has no further palpitations. He denies chest pain, shortness of breath or dizziness. Current cardiac medications include Eliquis 5 mg twice a day, aspirin 81 mg twice a day, Plavix 75 mg daily, Lasix 40 mg twice a day, lisinopril 5 mg daily, Lopressor 100 mg twice a day, rosuvastatin 10 mg at bedtime Aldactone 50 mg daily. Echocardiogram obtained on this admission reveals impaired LV systolic function with ejection fraction 25- 30%, moderate to severe MR, mild TR and mild pulmonary hypertension with an RVSP of 40 mmHg. REVIEW OF SYSTEMS At the time of my exam: CONSTITUTIONAL: Denies fever or chills. CARDIOVASCULAR: Denies chest pain, shortness of breath, orthopnea, PND or palpitations. RESPIRATORY: Denies cough. GASTROINTESTINAL: Denies abdominal pain, diarrhea, constipation, nausea or vomiting. MUSCULOSKELETAL: Denies myalgias. NEUROLOGIC: Denies numbness, tingling or weakness. ENDOCRINE: Denies fatigue, weight change, polydipsia or polyurina. GENITOURINARY: Denies burning, hematuria or urgency with micturation. HEMATOLOGIC: Denies history of anemia or bleeding. PHYSICAL EXAMINATION Blood pressure 111/80 heart rate 102 afebrile and maintaining oxygen saturation on room air. CONSTITUTIONAL: No apparent distress. HEENT: Head is normocephalic. Pupils are equal, round. Sclerae anicteric. Mucous membranes of the mouth are moist. No JVD. No carotid bruit. CHEST EXAMINATION: Lungs are clear to auscultation. No chest wall tenderness is noted on palpation or with deep breathing. Diminished bilaterally. HEART EXAMINATION: Regular rate and rhythm. S1, S2 heard. Systolic ejection murmur at the left sternal border, no gallops or rub. ABDOMEN: Soft, nontender. Positive bowel sounds. EXTREMITIES: 2+ peripheral pulses, no lower extremity edema and no calf tenderness. NEUROLOGIC EXAMINATION: Patient is awake, alert and oriented x3. ASSESSMENT Left atrial tachycardia History of symptomatic atrial fibrillation and induced typical atrial flutter status post ablation Coronary artery disease status post recent PCI maintained on triple therapy. Chronic systolic heart failure, currently euvolemic Hypertension Dyslipidemia PLAN He has converted to sinus mechanism. He is currently asymptomatic. Plans is for further ablation to take place electively next week. Office will contact the patient with scheduling information. The plan has been explained to him in great detail and he is in agreement. No medications changes at this time. Thank you kindly for this consultation. Nurse Practitioner note has been reviewed, I agree with a documented findings and plan of care. Patient was seen and examined. Past Medical History Past Medical History: Atrial Fibrillation, COPD, Hyperlipidemia, Hypertension, Pneumonia, Respiratory Disorder Additional Past Medical History / Comment(s): BACK PAIN, RUPTURED DISC L4 and L5. 12/18/19 Admit w/ AE COPD, Pneumonia, AFib; History of Any Multi-Drug Resistant Organisms: None Reported Past Surgical History: Heart Catheterization With Stent, Hernia Repair, Orthopedic Surgery Additional Past Surgical History / Comment(s): BENIGN LT TIBIA OSTEOCHONDROMA RE MOVED, RT KNEE MENISCUS REPAIR, LEFT ACHILLIES TEAR. ATTEMPTED CARDIOVERSION 11/23/19. Heart Cath, and 4/, vasectomy, heart ablation Past Anesthesia/Blood Transfusion Reactions: No Reported Reaction Date of Last Stent Placement:: 12/29/19 Past Psychological History: No Psychological Hx Reported Smoking Status: Former smoker Past Alcohol Use History: Rare Additional Past Alcohol Use History / Comment(s): QUIT SMOKING 10/2018, SMOKED 3/4 PPD FROM AGE 14, (1978) Past Drug Use History: None Reported - Past Family History Mother Family Medical History: No Reported History Medications and Allergies Home Medications Medication Instructions Recorded Confirmed Type Rosuvastatin [Crestor] 10 mg PO HS 06/30/18 02/01/20 History Albuterol Sulfate [Proair Hfa] 2 puff INHALATION RT-Q4H PRN 10/04/19 02/01/20 History Cyclobenzaprine [Flexeril] 10 mg PO HS PRN 10/04/19 02/01/20 History Fluticasone/Umeclidin/Vilanter 1 puff INHALATION RT-DAILY 11/21/19 02/01/20 History [[place] Ellipta 100-62.5-25] Ipratropium-Albuterol Nebulize 3 ml INHALATION RT-QID PRN 01/17/20 02/01/20 History [Duoneb 0.5 mg-3 mg/3 ml Soln] Apixaban [Eliquis] 5 mg PO BID #180 tab 01/26/20 02/01/20 Rx Aspirin 81 mg PO DAILY #30 chewable 01/26/20 02/01/20 Rx Clopidogrel Bisulfate [Plavix] 75 mg PO DAILY #90 tab 01/26/20 02/01/20 Rx Furosemide [Lasix] 40 mg PO BID #180 tablet 01/26/20 02/01/20 Rx Levothyroxine Sodium [Synthroid] 50 mcg PO DAILY@0630 #30 tab 01/26/20 02/01/20 Rx Metoprolol Tartrate [Lopressor] 100 mg PO BID #180 tab 01/26/20 02/01/20 Rx Pantoprazole [Protonix] 40 mg PO DAILY #30 tablet. 01/26/20 02/01/20 Rx Spironolactone 50 mg PO DAILY #90 tablet 01/26/20 02/01/20 Rx Lisinopril [Zestril] 5 mg PO DAILY@1200 02/01/20 02/01/20 History Allergies Allergy/AdvReac Type Severity Reaction Status Date / Time No Known Allergies Allergy Verified 02/01/20 10:03 Physical Exam Vitals: Vital Signs Temp Pulse Resp BP Pulse Ox 02/02/20 04:00 78 18 126/87 97 02/02/20 00:00 96 18 118/74 97 02/01/20 20:00 96 20 129/89 92 L 02/01/20 19:41 96 16 02/01/20 16:00 97.4 F L 94 18 123/85 91 L 02/01/20 12:00 98.4 F 83 17 119/85 94 L 02/01/20 08:00 98.4 F 102 H 17 111/80 97 Intake and Output 02/01/20 02/02/20 02/02/20 22:59 06:59 14:59 Intake Total 240 480 Balance 240 480 Intake: Oral 240 480 Other: Voiding Method Toilet Toilet # Voids 2 1 Weight 109.4 kg Results 01/31/20 13:18 01/31/20 13:18 Current Medications Generic Name Dose Route Start Last Admin Trade Name Freq PRN Reason Stop Dose Admin Albuterol/Ipratropium 3 ml 02/01/20 12:00 02/01/20 19:16 Duoneb 0.5 Mg-3 Mg/3 Ml Soln INHALATION Not Given RT-QID JOSH Albuterol/Ipratropium 3 ml 02/01/20 10:47 Duoneb 0.5 Mg-3 Mg/3 Ml Soln INHALATION Q4H PRN Shortness Of Breath Or Wheezing Apixaban 5 mg 02/01/20 09:00 02/01/20 21:25 Eliquis PO 5 mg BID JOHS Administration Aspirin 81 mg 02/01/20 09:00 02/01/20 10:08 Aspirin PO 81 mg DAILY JOSH Administration Atorvastatin Calcium 20 mg 02/01/20 21:00 02/01/20 21:25 Lipitor PO 20 mg HS JOSH Administration Budesonide/Formoterol Fumarate 2 puff 02/02/20 08:00 Symbicort 80-4.5 Mcg Inhaler INHALATION RT-BID JOSH Clopidogrel Bisulfate 75 mg 02/01/20 09:00 02/01/20 10:08 Plavix PO 75 mg DAILY JOSH Administration Cyclobenzaprine HCl 10 mg 02/01/20 10:41 Flexeril PO HS PRN pain Furosemide 40 mg 02/01/20 10:45 02/01/20 21:25 Lasix PO 40 mg BID JOSH Administration Sodium Chloride 1,000 mls @ 75 mls/hr 01/31/20 13:15 02/02/20 06:10 Saline 0.9% IV Not Given .[id number] JOSH Levothyroxine Sodium 50 mcg 02/02/20 06:30 02/02/20 06:22 Synthroid PO 50 mcg DAILY@0630 JOSH Administration Metoprolol Tartrate 100 mg 02/01/20 21:00 02/01/20 21:24 Lopressor PO 100 mg BID JOSH Administration Naloxone HCl 0.2 mg 01/31/20 13:04 Narcan IV Q2M PRN Opioid Reversal Pantoprazole Sodium 40 mg 02/01/20 10:45 02/01/20 12:49 Protonix PO Not Given DAILY JOSH Intake and Output 02/01/20 02/02/20 02/02/20 22:59 06:59 14:59 Intake Total 240 480 Balance 240 480 Intake: Oral 240 480 Other: Voiding Method Toilet Toilet # Voids 2 1 Weight 109.4 kg 01/31/20 13:18 01/31/20 13:18
[2020-02-02] MEDS ORDERED: SYMBICORT 80-4.5 MCG INHALER INHALATION SCH (08:00)
[2020-02-02] MEDS: IPRATROPIUM-ALBUTEROL 3 ML NEB INHALATION SCH ×2 (08:03→11:36)
[2020-02-02] MEDS: PANTOPRAZOLE 40 MG TABLET PO SCH (08:19)
[2020-02-02] MEDS: FUROSEMIDE 40 MG TAB PO SCH (08:19)
[2020-02-02] MEDS: APIXABAN 5 MG TAB PO SCH (08:19)
[2020-02-02] MEDS: ASPIRIN 81 MG PO SCH (08:19)
[2020-02-02] MEDS: METOPROLOL TARTRATE 50 MG TAB PO SCH (08:19)
[2020-02-02] MEDS: CLOPIDOGREL 75 MG TAB PO SCH (08:19)
[2020-02-02 08:27] LABS: ALT 286 U/L (4-49); AST 210 U/L (17-59); African American GFR (CKD) >90 (>60 ml/min/1.73 sqM); Albumin 3.3 g/dL (3.5-5.0); Alkaline Phosphatase 81 U/L (38-126); Anion Gap 11 mmol/L; Blood Urea Nitrogen 19 mg/dL (9-20); Calcium 8.7 mg/dL (8.4-10.2); Carbon Dioxide 25 mmol/L (22-30); Chloride 99 mmol/L (98-107); Glucose 95 mg/dL (74-99); Non-African American GFR(CKD) >90 (>60 ml/min/1.73 sqM); Sodium 135 mmol/L (137-145); Total Bilirubin 0.9 mg/dL (0.2-1.3); Total Protein 6.6 g/dL (6.3-8.2)
[2020-02-02 08:58] LABS: Basophils # (A) 0.1 k/uL (0-0.2); Basophils % (A) 1 %; Eosinophils # (A) 0.1 k/uL (0-0.7); Eosinophils % (A) 2 %; HCT 35.4 % (39.0-53.0); HGB 10.7 gm/dL (13.0-17.5); Hypochromasia Moderate; Lymphocytes # (A) 1.6 k/uL (1.0-4.8); Lymphocytes % (A) 18 %; MCHC 30.1 g/dL (31.0-37.0); MCV 96.4 fL (80.0-100.0); Mean Platelet Volume 8.3; Monocytes # (A) 0.5 k/uL (0-1.0); Monocytes % (A) 6 %; Neutrophils # (A) 6.2 k/uL (1.3-7.7); Neutrophils % (A) 72 %; Platelet Count 334 k/uL (150-450); RBC 3.67 m/uL (4.30-5.90); RDW 14.9 % (11.5-15.5); WBC 8.7 k/uL (3.8-10.6)
[2020-02-02] MEDS ORDERED: ASPIRIN 81 MG PO SCH (09:00)
[2020-02-02] MEDS ORDERED: CLOPIDOGREL 75 MG TAB PO SCH (09:00)
[2020-02-02 09:57] LABS: Polychromasia Present; Toxic Granulation Present
[2020-02-02 09:58] LABS: Poikilocytosis (M) Present
[2020-02-02 11:18] VITALS: BP 106/73; PULSE 61; RESP 16; TEMP 97.9
--- NOTE | 2020-02-02 15:36 | P.PN ---
Subjective Progress Note Date: 02/02/20 This is a very pleasant 54-year-old gentleman who follows with Dr Prieto in the office as an outpatient with a past medical history significant for coronary artery disease and prior stenting of the RCA was performed recently, nonischemic cardiomyopathy with EF around 40%, paroxysmal atrial fibrillation, as well as multiple comorbid conditions. The patient was diagnosed with paroxysmal atrial fibrillation several months ago. At that point he was found to have cardiomyopathy and subsequently heart catheterization was performed and revealed critical disease involving heavily calcified right coronary artery where the patient underwent stenting of the RCA with adjunctive use of atherectomy. He underwent a cardioversion which was unsuccessful before and after the coronary revascularization. The patient was referred at that point to Dr. Cook where he did perform atrial fibrillation ablation/isolation of the pulmonary vein. Subsequently the patient converted to normal sinus mechanism. He was discharged home in stable medical condition. He was discharged home in normal sinus mechanism. He states that since discharge he was not feeling well. He has been feeling tired and fatigued and has no energy. No symptoms of chest pain or chest discomfort but does have shortness of breath with exertion as well as symptoms of being tired and fatigued and has no energy. He was seen earlier today by his primary care physician Dr. Fink who did perform an EKG in the office and that revealed what it seems to be atrial flutter with differential diagnosis of atrial tachycardia. The heart rate at that point was 140 beats per minutes. Patient came to the emergency room where he was seen and evaluated by Dr Prieto. The pateint was initiated on a Cardizem drip, and consultation requested with Dr. Cook as well. Patient was seen and examined this morning, continued to be in an atrial flutter this morning, however currently in a normal sinus rhythm. Blood pressure 110/80 with a heart rate in the 90s. 02/02/2020 Patient was seen and examined this morning, he continues to be in a normal sinus rhythm. Blood pressure ranging from 106/70-127/80. Dr. Cook did see the patient in consultation and the plan is to proceed with ablation procedure in 2- 3 weeks. From our perspective he may be able to be discharged home today on the current dose of beta gilmar, see Dr. Alejandro in the office post discharge. Objective - Vital Signs Vital signs: Vital Signs Temp 97.9 F 02/02/20 11:13 Pulse 61 05/29/20 11:13 Resp 16 02/02/20 11:13 BP 106/73 02/02/20 11:13 Pulse Ox 97 02/02/20 11:13 Intake & Output 02/01/20 02/02/20 02/02/20 18:59 06:59 18:59 Intake Total 720 480 Balance 720 480 Weight 109.4 kg Intake: Oral 720 480 Other: Voiding Method Toilet Toilet # Voids 2 1 2 - Exam Physical examination: Gen: This is a 54-year-old male. He is sitting on the edge of the bed. No acute distress noted VS: Afebrile, heart rate 138, blood pressure 150/87, pulse ox 90% on 4 L nasal cannula. HEENT: Head is atraumatic, normocephalic. Pupils equal, round. Sclerae is anicteric. NECK: Supple. No JVD. No lymphadenopathy. No thyromegaly. LUNGS: Diminished at the bases. No wheezes. No intercostal retractions. HEART: Heart S1S2. Systolic murmur. ABDOMEN: Soft. Bowel sounds are present. No masses. No tenderness. EXTREMITIES: Trace pedal edema. No calf tenderness. NEUROLOGICAL: Patient is awake, alert and oriented x3. Cranial nerves 2 through 12 are grossly intact. - Labs CBC & Chem 7: 02/02/20 06:46 02/02/20 06:46 Labs: Abnormal Lab Results - Last 24 Hours (Table) 02/02/20 02/02/20 Range/Units 06:46 06:46 RBC 3.67 L (4.30-5.90) m/uL Hgb 10.7 L (13.0-17.5) gm/dL Hct 35.4 L (39.0-53.0) % MCHC 30.1 L (31.0-37.0) g/dL Sodium 135 L (137-145) mmol/L AST 210 H (17-59) U/L ALT 286 H (4-49) U/L Albumin 3.3 L (3.5-5.0) g/dL Microbiology - Last 24 Hours (Table) 01/31/20 13:18 Blood Culture - Preliminary Blood No Growth after 24 hours Assessment and Plan Plan: Assessment #1 atrial flutter with differential diagnosis of atrial tachycardia #2 status post atrial fibrillation ablation #3 coronary artery disease and status post RCA stenting #4 cardiomyopathy, nonischemic #5 multiple comorbid conditions #6 severe MR Plan We will continue current medications, including beta gilmar 100 mg by mouth twice a day. Discharged home today from our perspective, follow-up appointment in the office with Dr. Alejandro, ablation procedure by Dr. Cook in 2-3 weeks. DNP note has been reviewed, I agree with a documented findings and plan of care. Patient was seen and examined.
== END 2020-02-02 14:35 | disposition home or self-care (01) | DRG 308 ==
LOC: EC 12:24 → 2SICU 13:04 → 3SCARD 16:41
PROVIDERS: ADMIT Family Medicine; ATTEND Family Medicine
DX: I48.3 Typical atrial flutter (principal); J96.01 Acute respiratory failure with hypoxia; I50.22 Chronic systolic (congestive) heart failure; I47.1 Supraventricular tachycardia; I48.0 Paroxysmal atrial fibrillation; I42.8 Other cardiomyopathies; I27.20 Pulmonary hypertension, unspecified; I95.9 Hypotension, unspecified; I11.0 Hypertensive heart disease with heart failure; E78.5 Hyperlipidemia, unspecified; G89.29 Other chronic pain; I08.1 Rheumatic disorders of both mitral and tricuspid valves; I25.10 Atherosclerotic heart disease of native coronary artery without angina pectoris; I44.30 Unspecified atrioventricular block; I44.5 Left posterior fascicular block; J44.9 Chronic obstructive pulmonary disease, unspecified; Z11.59 Encounter for screening for other viral diseases; M51.26 Other intervertebral disc displacement, lumbar region; Z79.01 Long term (current) use of anticoagulants; Z79.02 Long term (current) use of antithrombotics/antiplatelets; Z79.82 Long term (current) use of aspirin; Z79.890 Hormone replacement therapy; Z79.899 Other long term (current) drug therapy; Z95.5 Presence of coronary angioplasty implant and graft; Z87.891 Personal history of nicotine dependence; Z87.01 Personal history of pneumonia (recurrent)
CPT/HCPCS: 71045; 80053; 83605; 83735; 84484; 85025; 85610; 85730; 87040; 93005; 93306; 96361; 96365; 96366; 96376; 99291

== ENCOUNTER 2020-02-19 10:43 | Day surgery (SDC) | payer OTHER ==
[2020-02-15 12:16] VITALS: BMI 31.1
[2020-02-19] MEDS: SODIUM CHLORIDE 0.9% 1,000 ML IV SCH (11:19)
[2020-02-19] MEDS ORDERED: FUROSEMIDE 10 MG/ML 2 ML VIAL ONE (11:25)
[2020-02-19] MEDS ORDERED: ROCURONIUM BROMIDE 10 MG/ML 5 ML VIAL IV ONE (11:25)
[2020-02-19] MEDS ORDERED: HEPARIN SODIUM,PORCINE 10,000 UNIT/ML 1 ML VIAL ONE (11:25)
[2020-02-19] MEDS ORDERED: PROTAMINE SULFATE 10 MG/ML 5 ML VIAL IV ONE (11:25)
[2020-02-19] MEDS ORDERED: SUCCINYLCHOLINE CHLORIDE VIAL 200 MG/10 ML VIAL IV ONE (11:25)
[2020-02-19] MEDS ORDERED: PHENYLEPHRINE-0.9% NACL SYG 1 MG/10 ML SYRINGE ONE (11:25)
[2020-02-19] MEDS ORDERED: GLYCOPYRROLATE 0.2 MG/ML 2 ML VIAL ONE (11:25)
[2020-02-19] MEDS ORDERED: MIDAZOLAM 2 MG/2 ML VIAL ONE (11:25)
[2020-02-19] MEDS ORDERED: NEOSTIGMINE 1 MG/ML 10 ML VIAL ONE (11:25)
[2020-02-19] MEDS ORDERED: ISOPROTERENOL 250 MCG/1.25 ML SYR IV ONE (11:25)
[2020-02-19] MEDS ORDERED: PROPOFOL 10 MG/ML 20 ML VIAL IV ONE (11:25)
[2020-02-19] MEDS ORDERED: fentaNYL (PF) 50 MCG/ML 2 ML AMP ONE (11:25)
[2020-02-19 11:34] LABS: African American GFR (CKD) >90 (>60 ml/min/1.73 sqM); Anion Gap 8 mmol/L; Blood Urea Nitrogen 14 mg/dL (9-20); Calcium 9.5 mg/dL (8.4-10.2); Carbon Dioxide 26 mmol/L (22-30); Chloride 106 mmol/L (98-107); Glucose 123 mg/dL (74-99); Non-African American GFR(CKD) >90 (>60 ml/min/1.73 sqM); Potassium 4.5 mmol/L (3.5-5.1); Sodium 140 mmol/L (137-145)
[2020-02-19] MEDS ORDERED: LIDOCAINE 1% INJ 10MG/ML (20 ML MDV) ONE (11:34)
[2020-02-19] MEDS ORDERED: SODIUM CHLORIDE 0.9% 100 ML with ceFAZolin 2,000 MG IV ONE ×2 (11:40)
[2020-02-19 11:47] LABS: Basophils # (A) 0.1 k/uL (0-0.2); Basophils % (A) 1 %; Eosinophils # (A) 0.7 k/uL (0-0.7); Eosinophils % (A) 7 %; Hypochromasia Moderate; Lymphocytes # (A) 1.4 k/uL (1.0-4.8); Lymphocytes % (A) 15 %; MCH 30.1 pg (25.0-35.0); MCV 94.3 fL (80.0-100.0); Mean Platelet Volume 7.4; Monocytes # (A) 0.5 k/uL (0-1.0); Monocytes % (A) 5 %; Neutrophils # (A) 6.7 k/uL (1.3-7.7); Neutrophils % (A) 69 %; Platelet Count 261 k/uL (150-450); RBC 4.99 m/uL (4.30-5.90); WBC 9.7 k/uL (3.8-10.6)
[2020-02-19] MEDS ORDERED: HEPARIN SOD,PORK IN 0.45% NACL 25,000 UNIT in 0.45% NACL 1 250ML.BAG IV ONE (11:56)
[2020-02-19] MEDS ORDERED: LIDOCAINE 1% INJ 10MG/ML (20 ML MDV) SQ ONE (12:00)
[2020-02-19] MEDS ORDERED: HEPARIN SODIUM (1,000 UNIT/ML) 1,000 UNIT in SODIUM CHLORIDE 0.9% 1,000 ML IRRIGATION ONE (13:30)
[2020-02-19] MEDS ORDERED: HYDROcodone/APAP 5-325MG 1 EACH TAB PO PRN (16:18)
[2020-02-19] MEDS ORDERED: ACETAMINOPHEN TAB 325 MG TAB PO PRN (16:18)
[2020-02-19] MEDS ORDERED: CYCLOBENZAPRINE 10 MG TAB PO PRN (16:19)
[2020-02-19] MEDS ORDERED: IPRATROPIUM-ALBUTEROL 3 ML NEB INHALATION PRN (16:19)
--- NOTE | 2020-02-19 16:24 | P.PCN ---
Preoperative Diagnosis: Procedures Diagnostic EP revealed inducible nonsustained runs of atrial tachycardia whose atrial morphology was similar to his clinical recurrence Linear ablation in the left and right atrium Linear ablation in the left atrium along the septum anteriorly and along the posterior wall Linear ablation in the ridge between the left atrial appendage and the left- sided veins Continue ablation in the right atrium Following this on Isuprel, no inducible atrial tachycardia sustained or nonsustained Intracardiac echo revealed significant improvement in LV systolic function
[2020-02-19] MEDS ORDERED: ACETAMINOPHEN IV (For NPO) 1,000 MG in EMPTY BAG 1 BAG IVPB ONE (16:45)
[2020-02-19] MEDS ORDERED: METOCLOPRAMIDE 5 MG/ML 2 ML VIAL IVP ONE (16:47)
[2020-02-19] MEDS ORDERED: IPRATROPIUM 0.5 MG/2.5 ML NEBU INHALATION SCH (20:00)
[2020-02-19] MEDS ORDERED: ATORVASTATIN 20 MG TAB PO SCH (21:00)
[2020-02-19] MEDS: METOPROLOL TARTRATE 50 MG TAB PO SCH (21:58)
[2020-02-19] MEDS: APIXABAN 5 MG TAB PO SCH (21:58)
[2020-02-20] MEDS: SODIUM CHLORIDE 0.9% 1,000 ML IV SCH (00:33)
--- NOTE | 2020-02-20 01:20 | CE ---
CARDIAC ELECTROPHYSIOLOGY REPORT Mr. Nolan is a 54-year-old male patient who has undergone cryoablation with PVI of the pulmonary veins and atrial flutter ablation. He came back with an atrial tachycardia with upright P-waves in lead V1 and slightly negative P waves in 2, 3 and AVF, but the cycle length was closer to 200 or 220 milliseconds. The inferior P waves in V1 were almost simultaneous. He was brought in for an EP study. The patient was brought to the EP lab in a fasting state. Written informed consent was obtained prior to the procedure. Venous sheaths were placed in the right and left femoral vein. A [employer] sheath was used this time since he had a very enlarged right and left atrium. Intracardiac echo was placed. No pericardial effusion noted in the baseline state. At the end of the procedure, there was no pericardial effusion. However, he has a significant improvement in his LV systolic function since his last ablation. The patient was in sinus rhythm. Diagnostic catheters were placed in the high right atrium, His bundle area, RV and left atrium, coronary sinus and the right atrium. Sinus cycle length 925 milliseconds, ME interval 172 milliseconds, QRS 93 milliseconds, QT 331 milliseconds. AH interval 76 milliseconds, HV interval 50 milliseconds. [id number] transseptal catheterization was performed after intracardiac echo. Interatrial septum was identified. No pericardial effusion was noted. RA pressure 15/1/8 mmHg and LA pressure 23/3/14 mmHg. This represented a significant improvement in his right and left atrial pressures as compared to his prior study. Sinus node recovery times at a paced cycle length of 600 milliseconds was 1233 milliseconds. Corresponding corrected sinus node recovery time was within normal limits. AV node Wenckebach block 340 milliseconds. VA Wenckebach block 500 milliseconds on Isuprel. AV node Wenckebach block from the high right atrium on Isuprel was 340 milliseconds. No slow pathway conduction. No delta waves noted. Burst stimulation from the coronary sinus was performed. Extra stimulation up to double extra stimuli from the coronary sinus was performed. Three different sites of pacing were used. There were infrequent episodes of nonsustained atrial tachycardia noted, but they had a morphology which is similar to his clinical recurrence with upright small P waves in V1 and flat to slightly inferior P waves in inferior leads, but the peak of these P waves in lead V1 and the of the P waves in the inferior leads more simultaneous. The lmat-gk-egmia transseptal catheterization was performed. Intracardiac echocardiography was performed. A 3-D electroanatomic mapping was performed. The left atrium was extremely enlarged. First, voltage map of the pulmonary veins was performed and the pulmonary veins were isolated at the ostial level and were completely quiescent. Following that, linear ablation was performed along the right atrial septum and this was carried around posteriorly. An RF line block was made and linear ablation was performed along the anterior septum between the isolated pulmonary veins and transseptal puncture level. This RF line was carried around posteriorly to debulk the left atrium. The patient in his previous ablation had termination of atrial fibrillation when isolating the right-sided pulmonary veins. Therefore, a complete septal area was isolated and this was also carried posteriorly. This large segment of linear ablation had a diameter of 32 mm x 50 mm. Within this segment, there was complete isolation and exit block noted. Linear ablation was then performed along the ridge between the large left atrial appendage and the isolated pulmonary veins. This ablation was then joined to the pulmonary veins on the left side. Following that high-dose Isuprel was used and burst stimulation and extra stimulation was performed from the coronary sinus. No further episodes of atrial tachycardia could be induced. Then the heparin was stopped and the sheath was placed in the right atrium and voltage mapping of the right atrium was performed. The cavotricuspid isthmus was mapped. RF ablation was applied along the septal aspect as well as the lateral aspect. This was a thick short cavotricuspid isthmus with a step mid way in between the isthmus. This was a large step with a pouch. In addition, there was a sub-eustachian pouch. The line was very carefully mapped and RF ablation was applied along the septal lateral aspect. Voltage map revealed complete scar below 0.07 mV. All catheters were then removed and hemostasis was assured. RESULT: Diagnostic EP study revealed: 1. Inducible Nonsustained runs of clinical atrial tachycardia. 2. Linear ablation along the septum and the posterior wall of the left atrium linear ablation in the wide ridge between the left atrial appendage and the left- sided veins. 3. Linear ablation in the right atrium. 4. Patient was rendered noninducible after these ablations Patient tolerated the procedure well without any acute complications. No pericardial effusion was noted at the end of the procedure. LV function almost looked near normal on intracardiac echo. GIRISH / MAMADOUN: [id number] / MTDD
[2020-02-20 05:56] VITALS: PULSE 67
[2020-02-20] MEDS ORDERED: LEVOTHYROXINE 50 MCG TAB PO SCH (06:30)
[2020-02-20] MEDS ORDERED: PANTOPRAZOLE 40 MG TABLET PO SCH (07:30)
[2020-02-20] MEDS ORDERED: SYMBICORT 80-4.5 MCG INHALER INHALATION SCH (08:00)
[2020-02-20] MEDS ORDERED: FUROSEMIDE 40 MG TAB PO SCH (08:00)
[2020-02-20] MEDS: APIXABAN 5 MG TAB PO SCH (08:42)
[2020-02-20] MEDS: METOPROLOL TARTRATE 50 MG TAB PO SCH (08:42)
--- NOTE | 2020-02-20 08:44 | P.DS ---
Providers Attending physician: Kael Cook Primary care physician: [facility] Course: Patient is doing well. No pleuritic chest discomfort no dizziness lightheadedness no sore throat No shortness of breath On examination he is afebrile 98.1F, pulse rate in the 70s, blood pressure 109/66. His mercury Breath sounds are clear no rhonchi no crackles normal percussion Pansystolic murmur over the precordium and apex Abdomen soft Except is warm no edema Impression Post atrial flutter ablation atrial tachycardia Nonsustained inducible episodes at EP study Radiofrequency ablation around the septum, the atrium between the left atrial appendage and the left-sided pulmonary veins and the right atrium Mitral regurgitation Improvement in LV systolic function noted on intracardiac echo Suggest Continue anticoagulation with ELIQUIS continue Plavix May stop aspirin in the next few weeks Continue metoprolol 100 mg twice daily Continue Crestor Now with improvement in LV systolic function, reevaluation of the etiology of mitral regurgitation with an outpatient to go home today Patient Condition at Discharge: Stable Plan - Discharge Summary Discharge Rx Participant: No New Discharge Prescriptions: Continue Rosuvastatin [Crestor] 10 mg PO HS Albuterol Sulfate [Proair Hfa] 2 puff INHALATION RT-Q4H PRN PRN Reason: Shortness Of Breath Cyclobenzaprine [Flexeril] 10 mg PO HS PRN PRN Reason: pain Fluticasone/Umeclidin/Vilanter [Trelegy Ellipta 100-62.5-25] 1 puff INHALATION RT-DAILY Ipratropium-Albuterol Nebulize [Duoneb 0.5 mg-3 mg/3 ml Soln] 3 ml INHALATION RT-QID PRN PRN Reason: Shortness Of Breath Aspirin 81 mg PO DAILY #30 chewable Apixaban [Eliquis] 5 mg PO BID #180 tab Furosemide [Lasix] 40 mg PO BID #180 tablet Metoprolol Tartrate [Lopressor] 100 mg PO BID #180 tab Clopidogrel Bisulfate [Plavix] 75 mg PO DAILY #90 tab Pantoprazole [Protonix] 40 mg PO DAILY #30 tablet. Levothyroxine Sodium [Synthroid] 50 mcg PO DAILY@0630 #30 tab Discharge Medication List Rosuvastatin [Crestor] 10 mg PO HS 06/30/18 [History] Albuterol Sulfate [Proair Hfa] 2 puff INHALATION RT-Q4H PRN 10/04/19 [History] Cyclobenzaprine [Flexeril] 10 mg PO HS PRN 10/04/19 [History] Fluticasone/Umeclidin/Vilanter [Trelegy Ellipta 100-62.5-25] 1 puff INHALATION RT-DAILY 11/21/19 [History] Ipratropium-Albuterol Nebulize [Duoneb 0.5 mg-3 mg/3 ml Soln] 3 ml INHALATION RT-QID PRN 01/17/20 [History] Apixaban [Eliquis] 5 mg PO BID #180 tab 01/26/20 [Rx] Aspirin 81 mg PO DAILY #30 chewable 01/26/20 [Rx] Clopidogrel Bisulfate [Plavix] 75 mg PO DAILY #90 tab 01/26/20 [Rx] Furosemide [Lasix] 40 mg PO BID #180 tablet 01/26/20 [Rx] Levothyroxine Sodium [Synthroid] 50 mcg PO DAILY@0630 #30 tab 01/26/20 [Rx] Metoprolol Tartrate [Lopressor] 100 mg PO BID #180 tab 01/26/20 [Rx] Pantoprazole [Protonix] 40 mg PO DAILY #30 tablet. 01/26/20 [Rx] Follow up Appointment(s)/Referral(s): Ishaan Prieto MD [STAFF PHYSICIAN] - 1 Week (Follow Dr. Prieto/Kimberlee Yepez in 1 week) Activity/Diet/Wound Care/Special Instructions: Post EP study - Ablation instructions 1. Keep access sites dry for 2 days. 2. No heavy lifting or straining for 2 days. 3. Avoid bending the hips repeatedly for 2 days. 4. You may go up and down stairs slowly Call if the following is noted 1. Bleeding, increasing swelling or pain at the access sites. 2. Increasing chest discomfort, especially upon taking a deep breath. 3. Increasing shortness of breath, at rest or with exertion. 4. Undue cough / phlegm 5. Difficulty or pain while swallowing. 6. Pain or change in color in the extremities. 7. Fever, chills, rigors. 8. Increasing headache or neurologic symptoms. 9. Dizziness, fainting, palpitations No change in medications Follow Dr. Ginger Yepez within one week
[2020-02-20 08:52] VITALS: BP 134/90; RESP 18; TEMP 96.6
[2020-02-20] MEDS ORDERED: ASPIRIN 81 MG PO SCH (09:00)
[2020-02-20] MEDS ORDERED: CLOPIDOGREL 75 MG TAB PO SCH (09:00)
== END 2020-02-20 11:05 | disposition home or self-care (01) ==
LOC: CATHEP 10:43 → 1SOBS 16:06 → CATHEP 02-20 11:05
PROVIDERS: ATTEND Internal Medicine Clinical Cardiac Electrophysiology
DX: I47.1 Supraventricular tachycardia (principal); I34.0 Nonrheumatic mitral (valve) insufficiency; I48.0 Paroxysmal atrial fibrillation; I48.3 Typical atrial flutter; I42.8 Other cardiomyopathies; I10 Essential (primary) hypertension; E78.5 Hyperlipidemia, unspecified; I25.10 Atherosclerotic heart disease of native coronary artery without angina pectoris; Z95.5 Presence of coronary angioplasty implant and graft; J44.9 Chronic obstructive pulmonary disease, unspecified; F17.210 Nicotine dependence, cigarettes, uncomplicated; G89.29 Other chronic pain; M54.9 Dorsalgia, unspecified; Z86.79 Personal history of other diseases of the circulatory system; Z82.49 Family history of ischemic heart disease and other diseases of the circulatory system; Z79.01 Long term (current) use of anticoagulants; Z79.02 Long term (current) use of antithrombotics/antiplatelets; Z79.899 Other long term (current) drug therapy; Z79.51 Long term (current) use of inhaled steroids; Z79.890 Hormone replacement therapy
CPT/HCPCS: 93623; 93662; 93613; 93653; 80048; 85025; C1769 ×3; C1894; C1766; C1730 ×3; C1732; J2250; J0330; J2720; J1644 ×3; J1940; J2710; J2765; J0690; J2001; J3010; J2370; J2704

== ENCOUNTER 2020-05-22 14:58 | Emergency (ER) | payer OTHER ==
[2020-05-22 15:03] VITALS: TEMP 98.5
--- NOTE | 2020-05-22 16:07 | XR ---
EXAMINATION TYPE: XR shoulder complete RT DATE OF EXAM: 05/22/2020 CLINICAL HISTORY: Pain. TECHNIQUE: Three views of the right shoulder are obtained. COMPARISON: None. FINDINGS: There is no acute fracture/dislocation evident in the right shoulder. [id number] balbir rowing with mild spurring at acromioclavicular joint. Glenohumeral joint is preserved. The visualized ribs are intact . IMPRESSION: Evidence of bowel.
--- NOTE | 2020-05-22 16:21 | ED ---
Extremity Problem HPI - General Chief complaint: Extremity Problem,Nontraumatic Stated complaint: rt shoulder/arm pain, numbness Time Seen by Provider: 05/22/20 15:32 Source: patient Mode of arrival: ambulatory Limitations: no limitations - History of Present Illness Initial comments: Patient is a 54-year-old male presenting to the emergency room with a chief complaint of right shoulder pain. 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 Patient states she also uses his right arm only to open up mailboxes. Patient states recently he has been working with o lder mailboxes tends to be stuck and he has to use excessive force to open them. Patient states he cannot abduct his right shoulder above 90. States there is also tingling sensation on the medial aspect of his right upper extremity at the axilla. Denies any chest pain or shortness of breath. States he feels weaker in his right upper extremity due to the pain . States it feels like a burning sensation. States this is been happening occasionally but it never hurt this bad. Denies any weakness or paresthesias in the right lower extremity. Denies any slurred speech, headaches, visual changes. - Related Data Home Medications Medication Instructions Recorded Confirmed Rosuvastatin [Crestor] 10 mg PO HS 06/30/18 02/19/20 Albuterol Sulfate [Proair Hfa] 2 puff INHALATION RT-Q4H PRN 10/04/19 02/19/20 Cyclobenzaprine [Flexeril] 10 mg PO HS PRN 10/04/19 02/19/20 Fluticasone/Umeclidin/Vilanter 1 puff INHALATION RT-DAILY 11/21/19 02/19/20 [Trelegy Ellipta 100-62.5-25] Ipratropium-Albuterol Nebulize 3 ml INHALATION RT-QID PRN 01/17/20 02/19/20 [Duoneb 0.5 mg-3 mg/3 ml Soln] Previous Rx's Medication Instructions Recorded Apixaban [Eliquis] 5 mg PO BID #180 tab 01/26/20 Aspirin 81 mg PO DAILY #30 chewable 01/26/20 Clopidogrel Bisulfate [Plavix] 75 mg PO DAILY #90 tab 01/26/20 Furosemide [Lasix] 40 mg PO BID #180 tablet 01/26/20 Levothyroxine Sodium [Synthroid] 50 mcg PO DAILY@0630 #30 tab 01/26/20 Metoprolol Tartrate [Lopressor] 100 mg PO BID #180 tab 01/26/20 Pantoprazole [Protonix] 40 mg PO DAILY #30 tablet. 01/26/20 Allergies Allergy/AdvReac Type Severity Reaction Status Date / Time No Known Allergies Allergy Verified 05/22/20 15:03 Review of Systems ROS Statement: Those systems with pertinent positive or pertinent negative responses have been documented in the HPI. ROS Other: All systems not noted in ROS Statement are negative. Past Medical History Past Medical History: Atrial Fibrillation, COPD, Hyperlipidemia, Hypertension, Pneumonia, Respiratory Disorder Additional Past Medical History / Comment(s): See Dr Cook H&P,BACK PAIN, RUPTURED DISC L4 and L5. 12/18/19 Admit w/ AE COPD, Pneumonia, AFib; History of Any Multi-Drug Resistant Organisms: None Reported Past Surgical History: Cardiac Ablation, Heart Catheterization With Stent, Hernia Repair, Orthopedic Surgery Additional Past Surgical History / Comment(s): BENIGN LT TIBIA OSTEOCHONDROMA REMOVED, RT KNEE MENISCUS REPAIR, LEFT ACHILLIES TEAR. ATTEMPTED CARDIOVERSION 11/23/19. Heart Cath, and 4/, vasectomy,hiatal hernia repair Past Anesthesia/Blood Transfusion Reactions: No Reported Reaction Date of Last Stent Placement:: 12/29/19 Past Psychological History: No Psychological Hx Reported Smoking Status: Former smoker Past Alcohol Use History: Rare Past Drug Use History: None Reported - Past Family History Mother Family Medical History: No Reported History General Exam Limitations: no limitations General appearance: alert, in no apparent distress Head exam: Present: atraumatic, normocephalic, normal inspection Eye exam: Present: normal appearance, PERRL, EOMI Pupils: Present: normal accommodation ENT exam: Present: normal exam, normal oropharynx, mucous membranes moist, TM's normal bilaterally, normal external ear exam, other (Face is symmetrical) Neck exam: Present: normal inspection, full ROM. Absent: tenderness Respiratory exam: Present: normal lung sounds bilaterally. Absent: respiratory distress, wheezes, rales Cardiovascular Exam: Present: regular rate, normal rhythm, normal heart sounds Extremities exam: Present: normal inspection, tenderness (Anterior shoulder tenderness to palpation. Positive [place] and empty can test.), normal capillary refill. Absent: full ROM (Limited range of motion with abduction above 90.), pedal edema, joint swelling, calf tenderness Back exam: Present: normal inspection, full ROM. Absent: tenderness, CVA tenderness (R), CVA tenderness (L) Neurological exam: Present: alert, oriented X3, CN II-XII intact, normal gait Expanded Speech: Present: fluid speech Cranial nerves: EOM's Intact: Normal, Gag Reflex: Normal, Tongue Deviation: Normal, Nystagmus: Normal, Facial Sensation: Normal Cerebellar function: Finger to Nose: Normal Upper motor neuron: Pronator Drift: Normal Sensory exam: Upper Extremity Light Touch: Normal, Upper Extremity Pin Prick: Normal, Lower Extremity Light Touch: Normal, Lower Extremity Pin Prick: Normal Motor strength exam: RUE: 4, LUE: 5, RLE: 5, LLE: 5 DTR: Bicep (R): 3+, Bicep (L): 4+, Brachioradialis (R): 3+, Brachioradialis (L): 4+, Tricep (R): 4+, Tricep (L): 4+, Patellar (R): 4+, Patellar (L): 4+, Achilles Tendon (R): 4+, Achilles Tendon (L): 4+ Psychiatric exam: Present: normal affect, normal mood Skin exam: Present: warm, dry, intact, normal color Course Vital Signs 05/22/20 05/22/20 15:00 16:41 Temperature 98.5 F Pulse Rate 79 70 Respiratory 20 18 Rate Blood Pressure 143/78 140/70 O2 Sat by Pulse 99 98 Oximetry Medical Decision Making - Medical Decision Making Patient is a 54-year-old male presenting to the emergency department with a chief complaint of right shoulder pain. On physical examination, patient does have focal tenderness along the anterior aspect of his right shoulder. The pain seems to be radiating down to the elbow region as well. He does have decreased strength and limited range of motion due to the pain especially above 90. Neurological examination is unremarkable. No symptoms in his right lower extremity. I have very low suspicion for CVA at this time. I do suspect this is a rotator cuff tendinitis due to his increased workload and the type of job he performs which is heavily reliant on using his right hand. Patient is also working almost twice his typical hours for the past month. Patient alert he takes a blood thinner and an antiplatelet medication. No NSAIDs will be started. I advised him to rest, apply a sling and apply ice compress. Also give the patient contact information to follow up with an transit specialist. He does not have any chest pain or shortness of breath. Strict return parameters were thoroughly discussed with patient was understanding and agreeable. Case discussed with physician. Disposition Clinical Impression: Shoulder pain, right, Tendinitis of right shoulder Disposition: HOME SELF-CARE Condition: Stable Instructions (If sedation given, give patient instructions): Rotator Cuff Tendinitis (ED) Additional Instructions: Apply ice compress and rest. Follow-up with an transit specialist. Return to emergency department if symptoms worsen. Is patient prescribed a controlled substance at d/c from ED?: No Referrals: Stas Fink DO [Primary Care Provider] - 1-2 days Giuseppe Fong DO [Doctor of Osteopathic Medicine] - 1-2 days Time of Disposition: 16:33
[2020-05-22 16:42] VITALS: BP 140/70; PULSE 70; RESP 18
== END 2020-05-22 16:41 | disposition home or self-care (01) ==
LOC: EC 14:58
DX: M77.9 Enthesopathy, unspecified (principal); E78.5 Hyperlipidemia, unspecified; J44.9 Chronic obstructive pulmonary disease, unspecified; Z79.899 Other long term (current) drug therapy; Z79.51 Long term (current) use of inhaled steroids; Z87.891 Personal history of nicotine dependence; Z98.890 Other specified postprocedural states
CPT/HCPCS: 99284

== ENCOUNTER → 2020-12-18 | Outpatient (CLI) | payer OTHER | END | disposition home or self-care (01) | LOC: LABWHC1 15:25 | PROVIDERS: ATTEND Family Medicine | DX: Z03.818 Encounter for observation for suspected exposure to other biological agents ruled out (principal); Z20.822 Contact with and (suspected) exposure to COVID-19 | CPT/HCPCS: U0003; C9803 ==

== ENCOUNTER 2021-12-15 19:41 | Observation (INO) | payer OTHER ==
[2021-12-15 20:10] LABS: Glucose,Whole Blood >600 mg/dL (75-99)
[2021-12-15] MEDS ORDERED: SODIUM CHLORIDE 0.9% 1,000 ML IV STA (20:20)
[2021-12-15 20:36] LABS: Basophils # (A) 0.2 k/uL (0-0.2); Basophils % (A) 2 %; Eosinophils # (A) 0.5 k/uL (0-0.7); Eosinophils % (A) 5 %; HCT 44.5 % (39.0-53.0); HGB 13.8 gm/dL (13.0-17.5); Lymphocytes # (A) 2.2 k/uL (1.0-4.8); Lymphocytes % (A) 21 %; MCH 31.6 pg (25.0-35.0); MCHC 30.9 g/dL (31.0-37.0); Monocytes # (A) 0.6 k/uL (0-1.0); Monocytes % (A) 6 %; Neutrophils # (A) 6.6 k/uL (1.3-7.7); Neutrophils % (A) 64 %; Platelet Count 230 k/uL (150-450); RBC 4.35 m/uL (4.30-5.90); WBC 10.3 k/uL (3.8-10.6)
--- NOTE | 2021-12-15 20:36 | ED ---
General Adult HPI - General Chief complaint: Recheck/Abnormal Lab/Rx Stated complaint: High Blood Sugar Time Seen by Provider: 12/15/21 20:10 Source: patient, RN notes reviewed Mode of arrival: ambulatory Limitations: no limitations - History of Present Illness Initial comments: Patient is a pleasant 56-year-old male presenting to the emergency department with concerns for high blood sugar. Patient states he went to the clinic this morning and had his blood work done. Patient states his blood sugar was reportedly over 1000. Patient states he recently has been fatigued. Patient has also had some blurred vision. Patient has polyuria and polydipsia. Patient was recently started on metformin just a few weeks ago, prior to that note history of diabetes. - Related Data Home Medications Medication Instructions Recorded Confirmed Rosuvastatin [Crestor] 10 mg PO HS 06/30/18 12/15/21 Fluticasone/Umeclidin/Vilanter 1 puff INHALATION RT-DAILY 11/21/19 12/15/21 [Trelegy Ellipta 100-62.5-25] Aspirin EC [Ecotrin] 325 mg PO DAILY 12/15/21 12/15/21 Furosemide [Lasix] 40 mg PO HS 12/15/21 12/15/21 Losartan Potassium 50 mg PO DAILY 12/15/21 12/15/21 Nystatin 100,000 Unit/ml Susp 5 ml PO QID 12/15/21 12/15/21 [Mycostatin Oral Susp] metFORMIN HCL 500 mg PO BID 12/15/21 12/15/21 Previous Rx's Medication Instructions Recorded Apixaban [Eliquis] 5 mg PO BID #180 tab 01/26/20 Levothyroxine Sodium [Synthroid] 50 mcg PO DAILY@0630 #30 tab 01/26/20 Metoprolol Tartrate [Lopressor] 100 mg PO BID #180 tab 01/26/20 Pantoprazole [Protonix] 40 mg PO DAILY #30 tablet. 01/26/20 Allergies Allergy/AdvReac Type Severity Reaction Status Date / Time budesonide [From Symbicort] AdvReac thrush Verified 12/15/21 21:11 formoterol [From Symbicort] AdvReac thrush Verified 12/15/21 21:11 Review of Systems ROS Statement: Those systems with pertinent positive or pertinent negative responses have been documented in the HPI. ROS Other: All systems not noted in ROS Statement are negative. Constitutional: Denies: fever Eyes: Denies: eye pain ENT: Denies: ear pain Respiratory: Denies: cough Cardiovascular: Denies: chest pain Endocrine: Reports: fatigue, polydipsia, polyuria Gastrointestinal: Denies: abdominal pain Genitourinary: Denies: dysuria Musculoskeletal: Denies: back pain Skin: Denies: rash Neurological: Denies: weakness Past Medical History Past Medical History: Atrial Fibrillation, COPD, Hyperlipidemia, Hypertension, Pneumonia, Respiratory Disorder Additional Past Medical History / Comment(s): See Dr Cook H&P,BACK PAIN, RUPTURED DISC L4 and L5. 12/18/19 Admit w/ AE COPD, Pneumonia, AFib; History of Any Multi-Drug Resistant Organisms: None Reported Past Surgical History: Cardiac Ablation, Heart Catheterization With Stent, Hernia Repair, Orthopedic Surgery Additional Past Surgical History / Comment(s): BENIGN LT TIBIA OSTEOCHONDROMA REMOVED, RT KNEE MENISCUS REPAIR, LEFT ACHILLIES TEAR. ATTEMPTED CARDIOVERSION 11/23/19. Heart Cath, and 4/, vasectomy,hiatal hernia repair Past Anesthesia/Blood Transfusion Reactions: No Reported Reaction Date of Last Stent Placement:: 12/29/19 Past Psychological History: No Psychological Hx Reported Smoking Status: Former smoker Past Alcohol Use History: Rare Past Drug Use History: None Reported - Past Family History Mother Family Medical History: No Reported History General Exam Limitations: no limitations General appearance: alert, in no apparent distress Head exam: Present: normocephalic Eye exam: Present: normal appearance ENT exam: Present: mucous membranes dry, other (Minimal white/yellow plaque formation on the tongue. Patient states he is currently on nystatin for thrush) Neck exam: Present: normal inspection Respiratory exam: Present: normal lung sounds bilaterally Cardiovascular Exam: Present: regular rate, normal rhythm GI/Abdominal exam: Present: soft. Absent: tenderness Extremities exam: Present: normal inspection Neurological exam: Present: alert Psychiatric exam: Present: normal affect, normal mood Skin exam: Present: normal color Course Vital Signs 12/15/21 20:05 Temperature 98.3 F Pulse Rate 64 Respiratory 16 Rate Blood Pressure 121/75 O2 Sat by Pulse 95 Oximetry EKG Findings - EKG Comments: EKG Findings:: Sinus rhythm with a rate of 61. TN 188. QRS 94. QT 410. QTc 414. Normal axis. Normal QRS. No acute ST change. Medical Decision Making - Medical Decision Making Patient reevaluated and updated. Case also discussed with Dr. Fink, who will admit his patient. He agrees with IV insulin without bolus. - Lab Data Result diagrams: 12/15/21 20:30 12/15/21 20:30 Lab Results 12/15/21 12/15/21 12/15/21 Range/Units 20:06 20:30 20:30 WBC 10.3 (3.8-10.6) k/uL RBC 4.35 (4.30-5.90) m/uL Hgb 13.8 (13.0-17.5) gm/dL Hct 44.5 (39.0-53.0) % MCV 102.5 H D (80.0-100.0) fL MCH 31.6 (25.0-35.0) pg MCHC 30.9 L (31.0-37.0) g/dL RDW 12.0 (11.5-15.5) % Plt Count 230 (150-450) k/uL MPV 9.0 Neutrophils % 64 % Lymphocytes % 21 % Monocytes % 6 % Eosinophils % 5 % Basophils % 2 % Neutrophils # 6.6 (1.3-7.7) k/uL Lymphocytes # 2.2 (1.0-4.8) k/uL Monocytes # 0.6 (0-1.0) k/uL Eosinophils # 0.5 (0-0.7) k/uL Basophils # 0.2 (0-0.2) k/uL Sodium 125 L (137-145) mmol/L Potassium 5.8 H (3.5-5.1) mmol/L Chloride 89 L (98-107) mmol/L Carbon Dioxide 22 (22-30) mmol/L Anion Gap 14 mmol/L BUN 20 (9-20) mg/dL Creatinine 0.85 (0.66-1.25) mg/dL Est GFR (CKD-EPI)AfAm >90 (>60 ml/min/1.73 sqM) Est GFR (CKD-EPI)NonAf >90 (>60 ml/min/1.73 sqM) Glucose 961 H* (74-99) mg/dL POC Glucose (mg/dL) >600 H (75-99) mg/dL POC Glu Director Of Audiology ID Diane Brothers Calcium 9.3 (8.4-10.2) mg/dL Total Bilirubin 1.0 (0.2-1.3) mg/dL AST 42 (17-59) U/L ALT 42 (4-49) U/L Alkaline Phosphatase 124 (38-126) U/L Troponin I (0.000-0.034) ng/mL Total Protein 7.5 (6.3-8.2) g/dL Albumin 4.0 (3.5-5.0) g/dL Urine Color Urine Appearance (Clear) Urine pH (5.0-8.0) Ur Specific [place] (1.001-1.035) Urine Protein (Negative) Urine Glucose (UA) (Negative) Urine Ketones (Negative) Urine Blood (Negative) Urine Nitrite (Negative) Urine Bilirubin (Negative) Urine Urobilinogen (<2.0) mg/dL Ur Leukocyte Esterase (Negative) Acetone, Qual Negative (Negative) 12/15/21 12/15/21 Range/Units 20:30 20:57 WBC (3.8-10.6) k/uL RBC (4.30-5.90) m/uL Hgb (13.0-17.5) gm/dL Hct (39.0-53.0) % MCV (80.0-100.0) fL MCH (25.0-35.0) pg MCHC (31.0-37.0) g/dL RDW (11.5-15.5) % Plt Count (150-450) k/uL MPV Neutrophils % % Lymphocytes % % Monocytes % % Eosinophils % % Basophils % % Neutrophils # (1.3-7.7) k/uL Lymphocytes # (1.0-4.8) k/uL Monocytes # (0-1.0) k/uL Eosinophils # (0-0.7) k/uL Basophils # (0-0.2) k/uL Sodium (137-145) mmol/L Potassium (3.5-5.1) mmol/L Chloride (98-107) mmol/L Carbon Dioxide (22-30) mmol/L Anion Gap mmol/L BUN (9-20) mg/dL Creatinine (0.66-1.25) mg/dL Est GFR (CKD-EPI)AfAm (>60 ml/min/1.73 sqM) Est GFR (CKD-EPI)NonAf (>60 ml/min/1.73 sqM) Glucose (74-99) mg/dL POC Glucose (mg/dL) (75-99) mg/dL POC Glu Director Of Audiology ID Calcium (8.4-10.2) mg/dL Total Bilirubin (0.2-1.3) mg/dL AST (17-59) U/L ALT (4-49) U/L Alkaline Phosphatase (38-126) U/L Troponin I <0.012 (0.000-0.034) ng/mL Total Protein (6.3-8.2) g/dL Albumin (3.5-5.0) g/dL Urine Color Colorless Urine Appearance Clear (Clear) Urine pH 5.0 (5.0-8.0) Ur Specific [place] 1.019 (1.001-1.035) Urine Protein Negative (Negative) Urine Glucose (UA) 4+ H (Negative) Urine Ketones Negative (Negative) Urine Blood Negative (Negative) Urine Nitrite Negative (Negative) Urine Bilirubin Negative (Negative) Urine Urobilinogen <2.0 (<2.0) mg/dL Ur Leukocyte Esterase Negative (Negative) Acetone, Qual (Negative) - Radiology Data Radiology results: image reviewed (Chest x-ray shows no acute process) Disposition Clinical Impression: Hyperglycemia Disposition: ADMITTED IP TO THIS [facility] Condition: Serious Is patient prescribed a controlled substance at d/c from ED?: No Referrals: Stas Fink DO [Primary Care Provider] - 1-2 days Decision Time: 21:47
[2021-12-15 20:53] LABS: ALT 42 U/L (4-49); AST 42 U/L (17-59); African American GFR (CKD) >90 (>60 ml/min/1.73 sqM); Alkaline Phosphatase 124 U/L (38-126); Anion Gap 14 mmol/L; Blood Urea Nitrogen 20 mg/dL (9-20); Calcium 9.3 mg/dL (8.4-10.2); Carbon Dioxide 22 mmol/L (22-30); Chloride 89 mmol/L (98-107); Non-African American GFR(CKD) >90 (>60 ml/min/1.73 sqM); Potassium 5.8 mmol/L (3.5-5.1); Sodium 125 mmol/L (137-145); Total Protein 7.5 g/dL (6.3-8.2)
[2021-12-15 20:55] LABS: MCV 102.5 fL (80.0-100.0)
[2021-12-15 21:03] LABS: Glucose 961 mg/dL (74-99)
--- NOTE | 2021-12-15 21:06 | XR ---
EXAMINATION TYPE: XR chest 2V DATE OF EXAM: 12/15/2021 COMPARISON: 01/31/2020 HISTORY: Weakness TECHNIQUE: FINDINGS: There is no heart failure nor confluent pneumonic infiltrate. Costophrenic angles are clear . There are no hilar masses. Bony thorax is intact. IMPRESSION: No active cardiopulmonary disease. Normal heart. There is clearing of the mild pulmonary congestion compared to old exam.
[2021-12-15 21:10] LABS: Appearance,Urine Clear (Clear); Bilirubin,Urine Negative (Negative); Blood,Urine Negative (Negative); Color,Urine Colorless; Glucose,Urine (UA) 4+ (Negative); Ketones,Urine Negative (Negative); Leukocyte Esterase,Urine Negative (Negative); Nitrite,Urine Negative (Negative); Protein,Urine Negative (Negative); Specific Gravity,Urine 1.019 (1.001-1.035); Urobilinogen,Urine <2.0 mg/dL (<2.0)
[2021-12-15] MEDS ORDERED: INSULIN REGULAR 100 UNIT in SODIUM CHLORIDE 0.9% 100 ML IV SCH (22:00)
[2021-12-15] MEDS: SODIUM CHLORIDE 0.9% 1,000 ML IV SCH (22:29)
[2021-12-15 22:33] LABS: Glucose,Whole Blood >600 mg/dL (75-99)
[2021-12-15 23:42] LABS: Glucose,Whole Blood >600 mg/dL (75-99)
[2021-12-16 00:24] LABS: African American GFR (CKD) >90 (>60 ml/min/1.73 sqM); Anion Gap 12 mmol/L; Blood Urea Nitrogen 20 mg/dL (9-20); Carbon Dioxide 24 mmol/L (22-30); Chloride 95 mmol/L (98-107); Non-African American GFR(CKD) >90 (>60 ml/min/1.73 sqM); Sodium 131 mmol/L (137-145)
[2021-12-16 00:31] LABS: Glucose,Whole Blood 466 mg/dL (75-99)
[2021-12-16 01:00] LABS: Glucose 670 mg/dL (74-99)
[2021-12-16 01:32] LABS: Glucose,Whole Blood 317 mg/dL (75-99)
[2021-12-16 02:33] LABS: Glucose,Whole Blood 204 mg/dL (75-99)
[2021-12-16] MEDS: SODIUM CHLORIDE 0.9% 1,000 ML IV SCH (02:52)
[2021-12-16] MEDS ORDERED: D5-0.45% NACL WITH KCL 20MEQ/L 1,000 ML IV SCH (03:00)
[2021-12-16 03:45] LABS: Glucose,Whole Blood 192 mg/dL (75-99)
[2021-12-16 04:41] LABS: African American GFR (CKD) >90 (>60 ml/min/1.73 sqM); Anion Gap 9 mmol/L; Blood Urea Nitrogen 19 mg/dL (9-20); Carbon Dioxide 28 mmol/L (22-30); Chloride 105 mmol/L (98-107); Glucose 167 mg/dL (74-99); Non-African American GFR(CKD) >90 (>60 ml/min/1.73 sqM); Phosphorus 4.1 mg/dL (2.5-4.5); Potassium 3.5 mmol/L (3.5-5.1); Sodium 142 mmol/L (137-145)
[2021-12-16 04:49] LABS: Glucose,Whole Blood 110 mg/dL (75-99)
[2021-12-16 05:45] LABS: Glucose,Whole Blood 101 mg/dL (75-99)
[2021-12-16 06:29] LABS: Glucose,Whole Blood 128 mg/dL (75-99)
[2021-12-16 07:47] LABS: Glucose,Whole Blood 187 mg/dL (75-99)
[2021-12-16] MEDS: INSULIN ASPART (NovoLOG) 100 UNIT/ML VIAL SQ SCH ×4 (07:52→20:28)
[2021-12-16] MEDS: LOSARTAN 50 MG TAB PO SCH (09:22)
[2021-12-16] MEDS: METOPROLOL TARTRATE 50 MG TAB PO SCH ×2 (09:22→20:14)
[2021-12-16] MEDS: metFORMIN 500 MG TAB PO SCH ×2 (09:22→20:15)
[2021-12-16] MEDS: ASPIRIN 325 MG TAB PO SCH (09:22)
[2021-12-16] MEDS: APIXABAN 5 MG TAB PO SCH ×2 (09:22→20:15)
[2021-12-16] MEDS: PANTOPRAZOLE 40 MG TABLET PO SCH (09:22)
[2021-12-16 12:22] LABS: Glucose,Whole Blood 331 mg/dL (75-99)
[2021-12-16 17:58] LABS: Glucose,Whole Blood 310 mg/dL (75-99)
[2021-12-16 20:18] LABS: Glucose,Whole Blood 413 mg/dL (75-99)
[2021-12-16] MEDS ORDERED: ATORVASTATIN 20 MG TAB PO SCH (21:00)
[2021-12-16] MEDS ORDERED: FUROSEMIDE 40 MG TAB PO SCH (21:00)
[2021-12-17] MEDS ORDERED: LEVOTHYROXINE 50 MCG TAB PO SCH (06:30)
[2021-12-17 07:16] LABS: Glucose,Whole Blood 298 mg/dL (75-99)
[2021-12-17] MEDS ORDERED: TRELEGY ELLIPTA 100-62.5-25 INHALATION SCH (08:00)
[2021-12-17] MEDS: INSULIN ASPART (NovoLOG) 100 UNIT/ML VIAL SQ SCH ×3 (08:08→18:22)
[2021-12-17] MEDS ORDERED: INSULIN DETEMIR (LEVEMIR) 100 UNIT/ML SYR SQ SCH (08:13)
[2021-12-17 08:17] VITALS: RESP 16
[2021-12-17] MEDS: APIXABAN 5 MG TAB PO SCH (08:22)
[2021-12-17] MEDS: METOPROLOL TARTRATE 50 MG TAB PO SCH (08:22)
[2021-12-17] MEDS: ASPIRIN 325 MG TAB PO SCH (08:22)
[2021-12-17] MEDS: PANTOPRAZOLE 40 MG TABLET PO SCH (08:22)
[2021-12-17] MEDS: LOSARTAN 50 MG TAB PO SCH (08:23)
[2021-12-17] MEDS: metFORMIN 500 MG TAB PO SCH ×4 (08:29→18:25)
[2021-12-17 12:06] VITALS: BP 131/87; PULSE 61; TEMP 97.9
[2021-12-17 12:24] LABS: Glucose,Whole Blood 326 mg/dL (75-99)
[2021-12-17 15:34] VITALS: BMI 31.2
--- NOTE | 2021-12-17 17:08 | P.HPIM ---
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 Patient denies any infection patient denies any chest pain he admits to having polyuria and dehydration Review of Systems Constitutional: Reports night sweats, Reports weakness Eyes: bilateral as per HPI, bilateral blurred vision Cardiovascular: Reports high blood pressure Neurological: Reports headaches, Reports loss of vision, Reports vertigo Endocrine: Reports excessive thirst, Reports high blood sugars, Reports polyphagia, Reports polyuria Hematologic/Lymphatic: Reports easy bruising Past Medical History Past Medical History: Atrial Fibrillation, Atrial Flutter, Coronary Artery Dis ease (CAD), COPD, Diabetes Mellitus, GERD/Reflux, Hyperlipidemia, Hypertension, Pneumonia, Respiratory Disorder, Thyroid Disorder Additional Past Medical History / Comment(s): Current thrush, recently diagnosed with diabetes 11/24/21, Afib with RVR, aflutter, atach, "have a hole in my mitral valve", murmur, cardiomyopathy, chronic low back pain/ruptured L4 L5 discs, scoliosis, R achilles tendon injury, hypothyroid History of Any Multi-Drug Resistant Organisms: None Reported Past Surgical History: Cardiac Ablation, Heart Catheterization, Heart Catheterization With Stent, Hernia Repair, Orthopedic Surgery Additional Past Surgical History / Comment(s): Cardiac ablations x 4, PCI/stents, attempted cardioversion, L tibial osteochondroma-benign, R knee arthroscopic meniscus repair, L achilles tendon tear with surgery, lumbar spine ablations, umbilical hernia repair, colonoscopy, vasectomy. Past Anesthesia/Blood Transfusion Reactions: No Reported Reaction Date of Last Stent Placement:: 01/05/20 Smoking Status: Former smoker - Past Family History Mother Family Medical History: Thyroid Disorder Additional Family Medical History / Comment(s): Lupus, rheumatic fever, hypothyroid, bowel resection. Father Family Medical History: CVA/TIA, Diabetes Mellitus, Myocardial Infarction ([place]) Additional Family Medical History / Comment(s): Father had a [place] in his 30s. He from a cva at the age of 63/64 yrs Medications and Allergies Home Medications Medication Instructions Recorded Confirmed Type RX: Rosuvastatin [Crestor] 10 mg PO HS 06/30/18 12/15/21 History RX: Fluticasone/Umeclidin/Vilanter 1 puff INHALATION RT-DAILY 11/21/19 12/15/21 History [Trelegy Ellipta 100-62.5-25] RX: Apixaban [Eliquis] 5 mg PO BID #180 tab 01/26/20 12/15/21 Rx RX: Levothyroxine Sodium 50 mcg PO DAILY@0630 #30 tab 01/26/20 12/15/21 Rx [Synthroid] RX: Metoprolol Tartrate [Lopressor] 100 mg PO BID #180 tab 01/26/20 12/15/21 Rx RX: Pantoprazole [Protonix] 40 mg PO DAILY #30 tablet.dr 01/26/20 12/15/21 Rx RX: Aspirin EC [Ecotrin] 325 mg PO DAILY 12/15/21 12/15/21 History RX: Furosemide [Lasix] 40 mg PO HS 12/15/21 12/15/21 History RX: Losartan Potassium 50 mg PO DAILY 12/15/21 12/15/21 History RX: Nystatin 100,000 Unit/ml Susp 5 ml PO QID 12/15/21 12/15/21 History [Mycostatin Oral Susp] RX: Insulin Detemir (Levemir) 15 unit SQ DAILY@0700 #1 pen 12/17/21 Rx [Levemir] RX: metFORMIN HCL [Glucophage] 500 mg PO TID BETWEEN MEALS tab 12/17/21 Rx Allergies Allergy/AdvReac Type Severity Reaction Status Date / Time budesonide [From Symbicort] AdvReac thrush Verified 12/15/21 21:11 formoterol [From Symbicort] AdvReac thrush Verified 12/15/21 21:11 Physical Exam Osteopathic Statement: *. No significant issues noted on an osteopathic structural exam other than those noted in the History and Physical/Consult. Vitals: Vital Signs Temp Pulse Pulse Resp BP BP Pulse Ox 12/17/21 12:05 97.9 F 61 16 131/87 96 12/17/21 08:16 98.1 F 72 16 138/82 98 12/17/21 03:52 18 12/17/21 02:00 97.8 F 62 18 124/75 98 12/16/21 23:38 97.7 F 63 16 142/77 99 12/16/21 21:32 97.6 F 66 18 138/81 98 12/16/21 18:32 65 18 146/83 97 Intake and Output 12/17/21 12/17/21 12/17/21 06:59 14:59 22:59 Intake Total 1000 Balance 1000 Intake: Oral 1000 Other: Voiding Method Toilet Toilet # Voids 2 3 # Bowel Movements 1 Weight 107.501 kg GENERAL: This is a -56year-old in no apparent distress at the time of examination. Pleasant and cooperative. HEENT: Head is atraumatic, normocephalic. Pupils are equal, round, and reactive to light. Sclerae anicteric. Conjunctivae are clear. Mucus membranes of the mouth are dry. Neck is supple. RESPIRATORY: Clear to auscultation. No wheezes, rales, or rhonchi. No use of accessory muscles. Patient maintaining oxygen saturation greater than 92%. No chest wall tenderness is noted on palpation or with deep breathing. CARDIOVASCULAR: Regular rate and rhythm. S1 and S2 noted. No systolic or diastolic murmur auscultated. No JVD noted. No S3 or S4 noted. GASTROINTESTINAL: No distention noted. Abdomen soft and round. Normal active bowel sounds auscultated x 4 quadrants. No pain or tenderness noted upon palpation. INTEGUMENTARY: No cyanosis. No jaundice. No rashes noted. No cellulitis noted. EXTREMITIES: 2+ peripheral pulses. No evidence of peripheral edema. No calf tenderness noted. NEUROLOGIC: Cranial nerves II-XII intact. PSYCHIATRIC: Awake, alert, and oriented X 3. Appropriate affect. Intact judgement and insight. Results CBC & Chem 7: 12/15/21 20:30 12/16/21 03:27 Labs: Abnormal Lab Results - Last 24 Hours (Table) 12/16/21 12/16/21 12/17/21 Range/Units 17:57 20:13 07:15 POC Glucose (mg/dL) 310 H 413 H 298 H (75-99) mg/dL 12/17/21 Range/Units 12:23 POC Glucose (mg/dL) 326 H (75-99) mg/dL Thrombosis Risk Factor Assmnt - Choose All That Apply Any of the Below Risk Factors Present?: Yes Each Factor Represents 1 point: Abnormal pulmonary function (COPD), Age 41-60 years, Obesity (BMI >25) Other Risk Factors: No Other congenital or acquired thrombophilia - If yes, enter type in comment: No Thrombosis Risk Factor Assessment Total Risk Factor Score: 3 Thrombosis Risk Factor Assessment Level: Moderate Risk Assessment and Plan (1) Diabetes mellitus, new onset Current Visit: Yes Status: Acute Code(s): E11.9 - TYPE 2 DIABETES MELLITUS WITHOUT COMPLICATIONS SNOMED Code(s): 011710622 (2) Atrial fibrillation Current Visit: Yes Status: Acute Code(s): I48.91 - UNSPECIFIED ATRIAL FIBRILLATION SNOMED Code(s): 16956961 (3) COPD (chronic obstructive pulmonary disease) Current Visit: Yes Status: Acute Code(s): J44.9 - CHRONIC OBSTRUCTIVE PULMONARY DISEASE, UNSPECIFIED SNOMED Code(s): 81965446 (4) CAD (coronary artery disease) Current Visit: Yes Status: Acute Code(s): I25.10 - ATHSCL HEART DISEASE OF LIME CORONARY ARTERY W/O ANG PCTRS SNOMED Code(s): 89109251 (5) Hyperglycemia Current Visit: Yes Status: Acute Code(s): R73.9 - HYPERGLYCEMIA, UNSPECIFIED SNOMED Code(s): 56974195 Plan: Admit patient with IV insulin diabetic education consistent carb diet will place patient on insulin and start metformin. We will place him on a glucometer with testing twice a day
--- NOTE | 2021-12-17 17:09 | P.DS ---
Providers Date of admission: 12/15/21 21:47 Expected date of discharge: 12/17/21 Attending physician: Stas Fink Primary care physician: Stas Fink - Discharge Diagnosis(es) (1) Diabetes mellitus, new onset Current Visit: Yes Status: Acute (2) Atrial fibrillation Current Visit: Yes Status: Acute (3) COPD (chronic obstructive pulmonary disease) Current Visit: Yes Status: Acute (4) CAD (coronary artery disease) Current Visit: Yes Status: Acute (5) Hyperglycemia Current Visit: Yes Status: Acute Hospital Course: Patient was admitted to the hospital with acute new-onset diabetes with sugar well over 1000 patient was placed on IV insulin and then later sliding scale he was placed on Levemir and Glucophage Patient Condition at Discharge: Serious Plan - Discharge Summary Discharge Rx Participant: No New Discharge Prescriptions: New RX: metFORMIN HCL [Glucophage] 500 mg PO TID BETWEEN MEALS tab RX: Insulin Detemir (Levemir) [Levemir] 15 unit SQ DAILY@0700 #1 pen Continue RX: Rosuvastatin [Crestor] 10 mg PO HS RX: Fluticasone/Umeclidin/Vilanter [Trelegy Ellipta 100-62.5-25] 1 puff INHALATION RT-DAILY RX: Apixaban [Eliquis] 5 mg PO BID #180 tab RX: Metoprolol Tartrate [Lopressor] 100 mg PO BID #180 tab RX: Pantoprazole [Protonix] 40 mg PO DAILY #30 tablet.dr RX: Levothyroxine Sodium [Synthroid] 50 mcg PO DAILY@0630 #30 tab RX: Nystatin 100,000 Unit/ml Susp [Mycostatin Oral Susp] 5 ml PO QID RX: Losartan Potassium 50 mg PO DAILY RX: Aspirin EC [Ecotrin] 325 mg PO DAILY RX: Furosemide [Lasix] 40 mg PO HS Discontinued RX: metFORMIN HCL 500 mg PO BID Discharge Medication List RX: Rosuvastatin [Crestor] 10 mg PO HS 06/30/18 [History] RX: Fluticasone/Umeclidin/Vilanter [Trelegy Ellipta 100-62.5-25] 1 puff INHALATION RT-DAILY 11/21/19 [History] RX: Apixaban [Eliquis] 5 mg PO BID #180 tab 01/26/20 [Rx] RX: Levothyroxine Sodium [Synthroid] 50 mcg PO DAILY@0630 #30 tab 01/26/20 [Rx] RX: Metoprolol Tartrate [Lopressor] 100 mg PO BID #180 tab 01/26/20 [Rx] RX: Pantoprazole [Protonix] 40 mg PO DAILY #30 tablet.dr 01/26/20 [Rx] RX: Aspirin EC [Ecotrin] 325 mg PO DAILY 12/15/21 [History] RX: Furosemide [Lasix] 40 mg PO HS 12/15/21 [History] RX: Losartan Potassium 50 mg PO DAILY 12/15/21 [History] RX: Nystatin 100,000 Unit/ml Susp [Mycostatin Oral Susp] 5 ml PO QID 12/15/21 [History] RX: Insulin Detemir (Levemir) [Levemir] 15 unit SQ DAILY@0700 #1 pen 12/17/21 [Rx] RX: metFORMIN HCL [Glucophage] 500 mg PO TID BETWEEN MEALS tab 12/17/21 [Rx] Follow up Appointment(s)/Referral(s): Stas Fink DO [Primary Care Provider] - 1 Week Activity/Diet/Wound Care/Special Instructions: low carb diabetic diet Discharge Disposition: HOME SELF-CARE
[2021-12-17 17:22] LABS: Glucose,Whole Blood 305 mg/dL (75-99)
== END 2021-12-17 19:35 | disposition home or self-care (01) ==
LOC: EC 19:41 → 6NMEDSUR 21:47 → 5NMEDONC 22:49
PROVIDERS: ADMIT Family Medicine; ATTEND Family Medicine
DX: E11.65 Type 2 diabetes mellitus with hyperglycemia (principal); I48.91 Unspecified atrial fibrillation; I10 Essential (primary) hypertension; J44.9 Chronic obstructive pulmonary disease, unspecified; I42.9 Cardiomyopathy, unspecified; I25.10 Atherosclerotic heart disease of native coronary artery without angina pectoris; E78.5 Hyperlipidemia, unspecified; K21.9 Gastro-esophageal reflux disease without esophagitis; I48.92 Unspecified atrial flutter; E03.9 Hypothyroidism, unspecified; M41.9 Scoliosis, unspecified; B37.9 Candidiasis, unspecified; G89.29 Other chronic pain; M51.26 Other intervertebral disc displacement, lumbar region; E66.9 Obesity, unspecified; Z68.31 Body mass index [BMI] 31.0-31.9, adult; Z79.82 Long term (current) use of aspirin; Z79.84 Long term (current) use of oral hypoglycemic drugs; Z79.01 Long term (current) use of anticoagulants; Z79.890 Hormone replacement therapy; Z79.51 Long term (current) use of inhaled steroids; Z79.899 Other long term (current) drug therapy; Z88.8 Allergy status to other drugs, medicaments and biological substances; Z87.01 Personal history of pneumonia (recurrent); Z86.018 Personal history of other benign neoplasm; Z98.52 Vasectomy status; Z95.5 Presence of coronary angioplasty implant and graft; Z98.890 Other specified postprocedural states; Z87.891 Personal history of nicotine dependence; Z83.3 Family history of diabetes mellitus; Z82.49 Family history of ischemic heart disease and other diseases of the circulatory system; Z82.3 Family history of stroke; Z83.49 Family history of other endocrine, nutritional and metabolic diseases; Z84.89 Family history of other specified conditions
CPT/HCPCS: 96361 ×2; 96365; 96366; 99285; 36415; 93005 ×2; 80051 ×2; 80053; 82565 ×2; 82009; 84100 ×2; 82947 ×2; 84520 ×2; 84484; 85025; 81003; 83036; 71046; G0378 ×4

== ENCOUNTER → 2022-01-28 | Outpatient (CLI) | payer OTHER ==
[2022-01-28 14:48] LABS: African American GFR (CKD) 121.4 (60.0-200.0); Albumin 3.9 g/dL (3.8-4.9); Albumin/Globulin Ratio 1.3 (1.60-3.17); Anion Gap 9.3 mmol/L (10.00-18.00); BUN/Creat Ratio 16.29 Ratio (12.00-20.00); Blood Urea Nitrogen 11.4 mg/dL (9.0-27.0); Calcium 9.3 mg/dL (8.7-10.3); Carbon Dioxide 28.7 mmol/L (20.0-27.5); Non-African American GFR(CKD) 104.8 (60.0-200.0); Potassium 4.5 mmol/L (3.5-5.5); Total Bilirubin 0.3 mg/dL (0.30-1.20); Total Protein 6.9 g/dL (6.2-8.2)
[2022-01-29 08:00] LABS: C-Peptide 4.48 ng/mL (0.81-3.85)
== END | disposition home or self-care (01) ==
LOC: LABWHC1 10:27
PROVIDERS: ATTEND Internal Medicine Endocrinology, Diabetes & Metabolism
DX: E11.65 Type 2 diabetes mellitus with hyperglycemia (principal)
CPT/HCPCS: 36415; 80053; 83519; 84681

== ENCOUNTER 2022-11-13 18:06 | Emergency (ER) | payer OTHER ==
[2022-11-13 18:14] VITALS: TEMP 97.8
[2022-11-13] MEDS ORDERED: KETOROLAC 15 MG/ML 1 ML VIAL IVP STA (18:44)
[2022-11-13] MEDS ORDERED: SODIUM CHLORIDE 0.9% 1,000 ML IV STA (18:44)
--- NOTE | 2022-11-13 18:46 | ED ---
General Adult HPI - General Chief complaint: Neck Pain/Injury Stated complaint: Stroke symptoms Time Seen by Provider: 11/13/22 18:37 Source: patient Mode of arrival: ambulatory Limitations: no limitations - History of Present Illness Initial comments: Dictation was produced using goodide[employer] dictation software. please excuse any grammatical, word or spelling errors. Chief Complaint: 57-year-old male presents emergency department for right supraorbital pain, left second and third digit tingling, right-sided neck pain, lightheadedness and bout of confusion History of Present Illness: Since 49-year-old male who presents to the emergency department with family friend. Apparently all day today he's been having symptoms of right orbital pain, right lateral and posterior neck pain, left second and third digit paresthesias. Family friend at bedside reports that patient seemed to be confused briefly review had repetitive questioning. Patient has multiple comorbidities. Patient states that the pain is mild. Denies any vision loss. No weakness in his extremities. Denies any headache. We can half ago patient suffered a fall where she slipped on ice. The pain in his neck is lateral. The ROS documented in this emergency department record has been reviewed and confirmed by me. Those systems with pertinent positive or negative responses have been documented in the HPI. All other systems are other negative and/or noncontributory. PHYSICAL EXAM: General Impression: Alert and oriented x3, not in acute distress HEENT: Normocephalic atraumatic, extra-ocular movements intact, pupils equal and reactive to light bilaterally, mucous membranes moist, pain elicited with head turning. Palpatory tenderness along the sternocleidomastoid. He also has palpatory tenderness along the lateral soft tissues of the right neck Cardiovascular: Heart regular rate and rhythm Chest: Able to complete full sentences, no retractions, no tachypnea Abdomen: abdomen soft, non-tender, non-distended, no organomegaly Musculoskeletal: Pulses present and equal in all extremities, no peripheral edema Motor: no focal deficits noted Neurological: CN II-XII grossly intact, no focal motor or sensory deficits noted Skin: Intact with no visualized rashes Psych: Normal affect and mood ED course: 57-year-old male presents emergency part for multiple complaints. Clinical presentation is not consistent with CVA. Vital signs upon arrival are within acceptable limits. Nursing notes and chart review was performed Was pt. sent in by a medical professional or institution (KETTY Caba, SENIOR LABEL SPECIALIST, urgent care, hospital, or fci...) When possible be specific @ -No Did you speak to anyone other than the patient for history (EMS, parent, family, police, friend...)? What history was obtained from this source @ -Family friend at the bedside Did you review nursing and triage notes (agree or disagree)? Why? @ -I reviewed and agree with nursing and triage notes Were old charts reviewed (outside hosp., previous admission, EMS record, old EKG, old radiological studies, urgent care reports/EKG's, fci records)? Report findings @ -No old charts were reviewed Differential Diagnosis (chest pain, altered mental status, abdominal pain women, abdominal pain men, vaginal bleeding, musculoskeletal, weakness, fever, dyspnea, syncope, headache, dizziness, GI bleed, back pain, seizure, CVA, palpatations, mental health)? @ - Differential CVA: Ischemic stroke, hemorrhagic stroke, brain tumor, atypical migraine, Wernicke's encephalopathy, seizure, multiple sclerosis, meningitis, encephalitis, hypoglycemia, Guillain-Cobb, electrolytes disturbance, myasthenia gravis.... This is not meant to be an all-inclusive list EKG interpreted by me (3pts min.). @ -My EKG interpretation: Ventricular rate 1, sinus rhythm,. 170, QRS 86, QTC 47. No AR prolongation, no QTC prolongation, no ST or T-wave changes noted. Overall, this EKG is unremarkable X-rays interpreted by me (1pt min.). @ -None done CT interpreted by me (1pt min.). @ -No acute processes. There is left maxillary sinusitis U/S interpreted by me (1pt. min.). @ -None done What testing was considered but not performed or refused? (CT, X-rays, U/S, labs)? Why? @ -none What meds were considered but not given or refused? Why? @ -none Did you discuss the management of the patient with other professionals (professionals i.e. KETTY Caba, SENIOR LABEL SPECIALIST, lab, RT, psych nurse, 7th grade social studies teacher, labeling specialist, teacher, adult parole officer, returned case inspector)? Give summary @ -no Was smoking cessation discussed for >3mins.? @ -No Was critical care preformed (if so, how long)? @ -No Were there social determinants of health that impacted care today? How? (Homelessness, low income, unemployed, alcoholism, drug addiction, transportation, low edu. Level, literacy, decrease access to med. care, alf, rehab)? @ -No Was there de-escalation of care discussed even if they declined (Discuss DNR or withdrawal of care, Hospice)? DNR status @ -No What co-morbidities impacted this encounter? (DM, HTN, Smoking, COPD, CAD, Cancer, CVA, ARF, Chemo, Hep., AIDS, mental health diagnosis, sleep apnea, morbid obesity)? @ -None Was patient admitted / discharged? Hospital course, mention meds given and route, prescriptions, significant lab abnormalities, going to OR and other pertinent info. @ -49-year-old male presents emergency Department with multiple complaints. CVA or acute life-threatening intracranial process is unlikely. Laboratory evaluation obtained. CBC is unremarkable. Metabolic panel is negative. Computed tomography scan of the brain and C-spine is negative. No acute processes noted. Patient observed in emergency department for one hour and 34 minutes. Reevaluated at bedside at 7:45 PM on be in stable medical condition. Patient does have incidental finding of sinusitis on a CT. He'll be prescribed antibiotics for 10 days. Undiagnosed new problem with uncertain prognosis? @ -No Drug Therapy requiring intensive monitoring for toxicity (Heparin, Nitro, Insulin, Cardizem)? @ -No Were any procedures done? @ -No Diagnosis/symptom? Acute, or Chronic, or Acute on Chronic? Uncomplicated (without systemic symptoms) or Complicated (systemic symptoms)? @ -1. Acute neck strain, 2. Acute sinusitis, 3. Nonspecific paresthesias to the left upper extremity digits, 4. Orbital pain Side effects of treatment? @ -No Exacerbation, Progression, or Severe Exacerbation? @ -No Poses a threat to life or bodily function? How? (Chest pain, USA, OK, pneumonia, PE, COPD, DKA, ARF, appy, cholecystitis, CVA, Diverticulitis, Homicidal, Suicidal, threat to staff... and all critical care pts) @ -No - Related Data Home Medications Medication Instructions Recorded Confirmed Rosuvastatin [Crestor] 10 mg PO HS 06/30/18 11/13/22 Aspirin EC [Ecotrin] 325 mg PO HS 12/15/21 11/13/22 Furosemide [Lasix] 40 mg PO HS 12/15/21 11/13/22 Losartan Potassium 50 mg PO DAILY 12/15/21 11/13/22 Levothyroxine Sodium [Synthroid] 50 mcg PO DAILY 11/13/22 11/13/22 Metoprolol Tartrate [Lopressor] 100 mg PO BID-W/MEALS 11/13/22 11/13/22 Semaglutide [Rybelsus] 7 mg PO DAILY 11/13/22 11/13/22 glipiZIDE [Glucotrol] 10 mg PO AC-BID 11/13/22 11/13/22 metFORMIN HCL [Glucophage] 500 mg PO BID 11/13/22 11/13/22 Previous Rx's Medication Instructions Recorded Apixaban [Eliquis] 5 mg PO BID #180 tab 01/26/20 Pantoprazole [Protonix] 40 mg PO DAILY #30 tablet. 01/26/20 Amoxic-Pot Clav 875-125Mg 1 tab PO BID 10 Days #20 tab 11/13/22 [Augmentin 875-125] Allergies Allergy/AdvReac Type Severity Reaction Status Date / Time budesonide [From Symbicort] AdvReac thrush Verified 11/13/22 19:35 formoterol [From Symbicort] AdvReac thrush Verified 11/13/22 19:35 Review of Systems ROS Statement: Those systems with pertinent positive or pertinent negative responses have been documented in the HPI. ROS Other: All systems not noted in ROS Statement are negative. Past Medical History Past Medical History: Atrial Fibrillation, Atrial Flutter, Coronary Artery Disease (CAD), COPD, Diabetes Mellitus, GERD/Reflux, Hyperlipidemia, Hypertension, Pneumonia, Respiratory Disorder, Thyroid Disorder Additional Past Medical History / Comment(s): Current thrush, recently diagnosed with diabetes 11/24/21, Afib with RVR, aflutter, atach, "have a hole in my mitral valve", murmur, cardiomyopathy, chronic low back pain/ruptured L4 L5 discs, scoliosis, R achilles tendon injury, hypothyroid History of Any Multi-Drug Resistant Organisms: None Reported Past Surgical History: Cardiac Ablation, Heart Catheterization, Heart Catheterization With Stent, Hernia Repair, Orthopedic Surgery Additional Past Surgical History / Comment(s): Cardiac ablations x 4, PCI/stents, attempted cardioversion, L tibial osteochondroma-benign, R knee arthroscopic meniscus repair, L achilles tendon tear with surgery, lumbar spine ablations, umbilical hernia repair, colonoscopy, vasectomy. Past Anesthesia/Blood Transfusion Reactions: No Reported Reaction Date of Last Stent Placement:: 01/05/20 Past Psychological History: No Psychological Hx Reported Smoking Status: Former smoker - Past Family History Mother Family Medical History: Thyroid Disorder Additional Family Medical History / Comment(s): Lupus, rheumatic fever, hypothyroid, bowel resection. Father Family Medical History: CVA/TIA, Diabetes Mellitus, Myocardial Infarction (OK) Additional Family Medical History / Comment(s): Father had a OK in his 30s. He from a cva at the age of 63/64 yrs General Exam Limitations: no limitations Course Vital Signs 11/13/22 18:11 Temperature 97.8 F Pulse Rate 82 Respiratory 16 Rate Blood Pressure 164/97 O2 Sat by Pulse 95 Oximetry Medical Decision Making - Lab Data Result diagrams: 11/13/22 18:46 11/13/22 18:46 Lab Results 11/13/22 11/13/22 Range/Units 18:46 18:46 WBC 11.5 H (3.8-10.6) k/uL RBC 4.31 (4.30-5.90) m/uL Hgb 13.6 (13.0-17.5) gm/dL Hct 40.8 (39.0-53.0) % MCV 94.5 (80.0-100.0) fL MCH 31.4 (25.0-35.0) pg MCHC 33.3 (31.0-37.0) g/dL RDW 13.2 (11.5-15.5) % Plt Count 251 (150-450) k/uL MPV 7.5 Neutrophils % 71 % Lymphocytes % 18 % Monocytes % 4 % Eosinophils % 5 % Basophils % 1 % Neutrophils # 8.1 H (1.3-7.7) k/uL Lymphocytes # 2.0 (1.0-4.8) k/uL Monocytes # 0.5 (0-1.0) k/uL Eosinophils # 0.5 (0-0.7) k/uL Basophils # 0.1 (0-0.2) k/uL Sodium 137 (137-145) mmol/L Potassium 4.1 (3.5-5.1) mmol/L Chloride 103 (98-107) mmol/L Carbon Dioxide 28 (22-30) mmol/L Anion Gap 6 mmol/L BUN 14 (9-20) mg/dL Creatinine 0.69 (0.66-1.25) mg/dL Est GFR (CKD-EPI)AfAm >90 (>60 ml/min/1.73 sqM) Est GFR (CKD-EPI)NonAf >90 (>60 ml/min/1.73 sqM) Glucose 131 H (74-99) mg/dL Calcium 8.8 (8.4-10.2) mg/dL Magnesium 1.9 (1.6-2.3) mg/dL Disposition Clinical Impression: Strain of neck muscle, Sinusitis Disposition: HOME SELF-CARE Condition: Good Instructions (If sedation given, give patient instructions): Cervical Strain (ED), Sinusitis (ED) Prescriptions: Amoxic-Pot Clav 875-125Mg [Augmentin 875-125] 1 tab PO BID 10 Days #20 tab Is patient prescribed a controlled substance at d/c from ED?: No Referrals: Stas Fink DO [Primary Care Provider] - 1-2 days Time of Disposition: 19:52
[2022-11-13 18:52] LABS: Basophils # (A) 0.1 k/uL (0-0.2); Basophils % (A) 1 %; Eosinophils # (A) 0.5 k/uL (0-0.7); Eosinophils % (A) 5 %; HCT 40.8 % (39.0-53.0); HGB 13.6 gm/dL (13.0-17.5); Lymphocytes % (A) 18 %; MCH 31.4 pg (25.0-35.0); MCHC 33.3 g/dL (31.0-37.0); MCV 94.5 fL (80.0-100.0); Mean Platelet Volume 7.5; Monocytes # (A) 0.5 k/uL (0-1.0); Monocytes % (A) 4 %; Neutrophils # (A) 8.1 k/uL (1.3-7.7); Neutrophils % (A) 71 %; Platelet Count 251 k/uL (150-450); RBC 4.31 m/uL (4.30-5.90); RDW 13.2 % (11.5-15.5); WBC 11.5 k/uL (3.8-10.6)
[2022-11-13 19:09] LABS: African American GFR (CKD) >90 (>60 ml/min/1.73 sqM); Anion Gap 6 mmol/L; Blood Urea Nitrogen 14 mg/dL (9-20); Calcium 8.8 mg/dL (8.4-10.2); Carbon Dioxide 28 mmol/L (22-30); Chloride 103 mmol/L (98-107); Glucose 131 mg/dL (74-99); Magnesium 1.9 mg/dL (1.6-2.3); Non-African American GFR(CKD) >90 (>60 ml/min/1.73 sqM); Potassium 4.1 mmol/L (3.5-5.1); Sodium 137 mmol/L (137-145)
--- NOTE | 2022-11-13 19:37 | CT ---
EXAMINATION TYPE: CT brain cspine wo con DATE OF EXAM: 11/13/2022 COMPARISON: None HISTORY: history of blood clots and mitral stents CT DLP: 1493 mGycm Automated exposure control for dose reduction was used. Images of the brain and cervical spine obtained with no contrast The ventricles have normal size. There is no mass effect or midline shift. No sign of intracranial he morrhage. No evidence of cerebral edema. Skull base is intact. There is normal aeration of the mastoi d sinuses. The cervical vertebra have normal alignment. Posterior elements are intact. Facet joints are intact. Prevertebral soft tissues are intact. No significant disc space narrowing. There is minor spurring at C6-7. IMPRESSION: Negative CT scan of the brain. Negative CT scan cervical spine. Mild left maxillary sinusitis noted.
[2022-11-13 20:04] VITALS: BP 160/86; PULSE 90; RESP 18
== END 2022-11-13 20:04 | disposition home or self-care (01) ==
LOC: EC 18:06
DX: S16.1XXA Strain of muscle, fascia and tendon at neck level, initial encounter (principal); J32.9 Chronic sinusitis, unspecified; I48.91 Unspecified atrial fibrillation; I25.10 Atherosclerotic heart disease of native coronary artery without angina pectoris; J44.9 Chronic obstructive pulmonary disease, unspecified; E11.9 Type 2 diabetes mellitus without complications; E78.5 Hyperlipidemia, unspecified; E03.9 Hypothyroidism, unspecified; K21.9 Gastro-esophageal reflux disease without esophagitis; I10 Essential (primary) hypertension; Z87.891 Personal history of nicotine dependence; Z88.8 Allergy status to other drugs, medicaments and biological substances; Z79.82 Long term (current) use of aspirin; Z79.84 Long term (current) use of oral hypoglycemic drugs; Z79.899 Other long term (current) drug therapy; Z79.890 Hormone replacement therapy; X58.XXXA Exposure to other specified factors, initial encounter
CPT/HCPCS: 99284 ×2; 96374 ×2; 96361 ×2; 36415; 93005; 80048; 83735; 85025; 72125; 70450; J1885

== ENCOUNTER 2023-05-26 10:04 | Emergency (ER) | payer OTHER ==
[2023-05-26] MEDS ORDERED: HYDROmorphone 0.5 MG/0.5 ML SYRINGE IM STA (10:38)
[2023-05-26] MEDS ORDERED: LIDOCAINE 5% PATCH TOPICAL STA (10:42)
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
[2023-05-26] MEDS ORDERED: ACET/COD 300 MG/30 MG STARTER PACK 6 TAB BTL PO STA (11:20)
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
[2023-05-26] MEDS ORDERED: KETOROLAC 15 MG/ML 1 ML VIAL IVP STA (12:28)
[2023-05-26] MEDS ORDERED: KETOROLAC 15 MG/ML 1 ML VIAL IM STA (12:40)
[2023-05-26 13:15] VITALS: BP 154/92; PULSE 71; RESP 20
[2023-05-26 13:16] VITALS: TEMP 98.1
== END 2023-05-26 12:58 | disposition home or self-care (01) ==
LOC: EC 10:04
DX: M25.511 Pain in right shoulder (principal); I48.91 Unspecified atrial fibrillation; I25.10 Atherosclerotic heart disease of native coronary artery without angina pectoris; J44.9 Chronic obstructive pulmonary disease, unspecified; E11.9 Type 2 diabetes mellitus without complications; K21.9 Gastro-esophageal reflux disease without esophagitis; E78.5 Hyperlipidemia, unspecified; I10 Essential (primary) hypertension; E07.9 Disorder of thyroid, unspecified; Z87.891 Personal history of nicotine dependence; Z88.8 Allergy status to other drugs, medicaments and biological substances; Z79.82 Long term (current) use of aspirin; Z79.890 Hormone replacement therapy; Z79.84 Long term (current) use of oral hypoglycemic drugs; Z79.899 Other long term (current) drug therapy; V49.40XA Driver injured in collision with unspecified motor vehicles in traffic accident, initial encounter
CPT/HCPCS: 71101; 73000; 73030; 72125; 70450; 71250; 99284; 96372; J1885

== ENCOUNTER 2023-11-05 10:42 | Day surgery (SDC) | payer OTHER ==
[~2023-11-05 10:42] MED LIST changes: -ASPIRIN 325 MG TAB PO STA; -ATORVASTATIN 80 MG TAB PO STA; -SODIUM CHLORIDE 0.9% 1,000 ML in EMPTY BAG 1 BAG IV ONE
[2023-11-05] MEDS: ASPIRIN 325 MG TAB PO STA (11:08)
[2023-11-05 11:22] LABS: Glucose,Whole Blood 168 mg/dL (70-110)
[2023-11-05] MEDS: SODIUM CHLORIDE 0.9% 1,000 ML in EMPTY BAG 1 BAG IV SCH (11:22)
[2023-11-05] MEDS ORDERED: LIDOCAINE 1% INJ 10MG/ML (20 ML MDV) ONE (13:13)
[2023-11-05] MEDS: LIDOCAINE 1% INJ 10MG/ML (20 ML MDV) SQ ONE (13:18)
[2023-11-05] MEDS: MIDAZOLAM 2 MG/2 ML VIAL IVP ONE (13:18)
[2023-11-05] MEDS ORDERED: fentaNYL (PF) 50 MCG/ML 2 ML AMP ONE (13:20)
[2023-11-05] MEDS: fentaNYL (PF) 50 MCG/ML 2 ML AMP IVP ONE (13:21)
[2023-11-05] MEDS ORDERED: CLOPIDOGREL 75 MG TAB ONE (13:29)
[2023-11-05] MEDS: HEPARIN SODIUM 1,000 UN/ML (10ML VL) IVP ONE (13:34)
[2023-11-05] MEDS: CLOPIDOGREL 75 MG TAB PO ONE (13:37)
[2023-11-05] MEDS ORDERED: NITROGLYCERIN SL TABS 0.4 MG TAB SUBLINGUAL ONE (13:44)
[2023-11-05] MEDS: NITROGLYCERIN SL TABS 0.4 MG TAB SUBLINGUAL ONE (13:45)
[2023-11-05] MEDS ORDERED: MORPHINE SULFATE 4 MG/ML SYRINGE ONE (13:49)
[2023-11-05] MEDS ORDERED: ATROPINE SULFATE 0.1 MG/ML 10ML SYRINGE IV PRN (13:49)
[2023-11-05] MEDS ORDERED: MAG HYDROX/AL HYDROX/SIMETH 30 ML CUP PO PRN (13:49)
[2023-11-05] MEDS ORDERED: ZOLPIDEM 5 MG TAB PO PRN (13:49)
[2023-11-05] MEDS ORDERED: RX INFO: IV CONTRAST WAS GIVEN 1 EACH MISC MISCELLANE PRN (13:49)
[2023-11-05] MEDS ORDERED: ONDANSETRON 4 MG/2 ML VIAL ONE (13:52)
[2023-11-05] MEDS: MORPHINE SULFATE 4 MG/ML SYRINGE IVP ONE (13:54)
[2023-11-05] MEDS: ONDANSETRON 4 MG/2 ML VIAL IVP ONE (13:55)
[2023-11-05] MEDS: IOPAMIDOL-370 100ML BTL INJ ONE (13:56)
[2023-11-05] MEDS: hydrALAZINE HCL 20 MG/ML 1 ML VIAL IVP STA (14:34)
[2023-11-05] MEDS: MORPHINE SULFATE 4 MG/ML SYRINGE ONE (14:37)
[2023-11-05] MEDS: NITROGLYCERIN-D5W PMX 50 MG in DEXTROSE/WATER 1 250ML.BAG IV SCH (15:13)
[2023-11-05] MEDS: ONDANSETRON 4 MG/2 ML VIAL ONE (15:22)
[2023-11-05] MEDS: SODIUM CHLORIDE 0.9% 1,000 ML IV ONE (15:51)
[2023-11-05 16:35] LABS: Glucose,Whole Blood 204 mg/dL (70-110)
[2023-11-05] MEDS: hydrALAZINE HCL 20 MG/ML 1 ML VIAL ONE (16:47)
[2023-11-05] MEDS: METOPROLOL TARTRATE 50 MG TAB PO SCH (16:51)
[2023-11-05] MEDS: FUROSEMIDE 40 MG TAB PO SCH (16:51)
--- NOTE | 2023-11-05 18:45 | P.PCN ---
Date of Procedure: 11/05/23 Operative Findings: CARDIAC CATHETERIZATION AND PERCUTANEOUS CORONARY INTERVENTION PERFORMING PHYSICIAN: Ishaan Prieto MD, [facility] PROCEDURE PERFORMED: 1. Selective right and left coronary angiogram 2. Successful balloon angioplasty of mid RCA using 4.0 mm noncompliant balloon with an excellent angiographic results 3. Adjunctive use of intravascular imaging 4. Ultrasound-guided access of the right common femoral artery and selective right common femoral artery angiogram INDICATION: Symptomatic 58-year-old gentleman with abnormal myocardial perfusion imaging stress test. The patient has CAD with prior stenting of the RCA as well as diabetes hypertension and dyslipidemia COMPLICATION: None APPROACH: Right common femoral artery LEVEL OF SEDATION: Moderate with the sedation time off 31 minutes PROCEDURE DESCRIPTION: After getting informed consent the patient was brought to the cardiac Freelance Writer. The right common femoral artery was cannulated using micropuncture technique under ultrasound guidance the micropuncture wire passed easily then I placed a 6 Ghanaian 11 cm sheath at the right common femoral artery. After that we did selective right and left coronary angiogram using JR4 and JL 4 catheters. After that we did intervene on the right coronary artery. The procedure was completed with no complication SELECTIVE CORONARY ANGIOGRAM: The right coronary artery: Stented in the midportion with severe in-stent restenosis with otherwise RCA is a large-caliber vessel and a dominant vessel Left main: Has mild disease only The left circumflex: Large-caliber vessel and nondominant vessel with mild disease in the proximal portion The left anterior descending artery: Large-caliber vessel with mild to moderate nonobstructive coronary artery disease. The LAD is extremely calcified] PCI OF THE RCA: Anticoagulation was initiated using heparin with continuous ACT monitoring. Sub sequently I did engage the RCA using JR4 guiding catheter. I did wire it using run-through wire. Intravascular imaging performed and I was able to advance the catheter distal to the lesion in the mid RCA and they did manual pullback. That revealed in-stent restenosis with a diameter of the RCA around 4 mm. I did balloon angioplasty using 4 mm noncompliant balloon after that we get excellent angiographic results with reduction of stenosis from 80% to 0%. DONTAE-3 flow was achieved by the end. The procedure was completed with no complication CONCLUSION: Severe in-stent restenosis of the mid RCA. I performed successful stenting of the RCA as described above Extremely calcified right and left coronary system POSTPROCEDURE MANAGEMENT: 1. Dual antiplatelet therapy using aspirin and Plavix for 1 month 2. Aggressive cholesterol control 3. Follow-up with the patient
[2023-11-05] MEDS ORDERED: DEXTROSE 50% SYRINGE 50 ML IVP PRN ×2 (19:29)
[2023-11-05] MEDS: glipiZIDE 10 MG TAB PO SCH (19:35)
[2023-11-05 20:24] LABS: Glucose,Whole Blood 194 mg/dL (70-110)
[2023-11-05] MEDS: INSULIN ASPART (NovoLOG) 100 UNIT/ML VIAL SQ SCH (21:06)
[2023-11-05] MEDS: ATORVASTATIN 20 MG TAB PO SCH (21:06)
[2023-11-06 06:06] LABS: Glucose,Whole Blood 176 mg/dL (70-110)
[2023-11-06] MEDS: PANTOPRAZOLE 40 MG TABLET PO SCH (06:26)
[2023-11-06] MEDS: LEVOTHYROXINE 50 MCG TAB PO SCH (06:26)
[2023-11-06 07:37] LABS: HCT 38.6 % (39.0-53.0); HGB 12.4 gm/dL (13.0-17.5); MCH 31.7 pg (25.0-35.0); MCHC 32.2 g/dL (31.0-37.0); MCV 98.4 fL (80.0-100.0); Mean Platelet Volume 7.7; Platelet Count 295 k/uL (150-450); RBC 3.92 m/uL (4.30-5.90); RDW 13.3 % (11.5-15.5); WBC 15.4 k/uL (3.8-10.6)
[2023-11-06 07:56] LABS: African American GFR (CKD) >90 (>60 ml/min/1.73 sqM); Anion Gap 8 mmol/L; Blood Urea Nitrogen 12 mg/dL (9-20); Carbon Dioxide 27 mmol/L (22-30); Chloride 101 mmol/L (98-107); Glucose 200 mg/dL (74-99); Non-African American GFR(CKD) >90 (>60 ml/min/1.73 sqM); Potassium 4.2 mmol/L (3.5-5.1); Sodium 136 mmol/L (137-145)
[2023-11-06] MEDS: CLOPIDOGREL 75 MG TAB PO SCH (08:43)
[2023-11-06] MEDS: APIXABAN 2.5 MG TABLET PO SCH (08:43)
[2023-11-06] MEDS: ASPIRIN 81 MG PO SCH (08:43)
[2023-11-06] MEDS: LOSARTAN 50 MG TAB PO SCH (08:43)
--- NOTE | 2023-11-06 10:27 | P.PN ---
Subjective Progress Note Date: 11/06/23 Principal diagnosis: Coronary artery disease The patient is a pleasant 58-year-old gentleman with coronary artery disease and prior stenting of the RCA was admitted to the hospital yesterday and underwent a heart catheterization and balloon angioplasty of the mid right coronary artery. Postprocedure he was hypertensive and was experiencing chest discomfort and for that reason he was started on nitro drip and he was admitted to the intensive care unit November 06, 2023 The patient was seen and evaluated this morning. Currently he is feeling better. The pressure has been better but he continues to be on nitro drip which I am going to wean meanwhile increase the dose of losartan. Continue monitor the patient for additional 24 hours. The right groin is soft and nontender with no bruises. The rest of the examination is unremarkable Assessment Coronary artery disease status post balloon angioplasty of the RCA Hypertension emergency Multiple comorbid conditions Paroxysmal atrial fibrillation Plan Increase the dose of losartan Wean the patient from nitro IV Further recommendation to follow Objective - Vital Signs Vital signs: Vital Signs Temp 98.4 F 11/06/23 08:00 Pulse 77 11/06/23 10:00 Resp 15 11/06/23 10:00 BP 124/78 11/06/23 10:00 Pulse Ox 92 L 11/06/23 10:00 FiO2 Intake & Output 11/05/23 11/06/23 11/06/23 18:59 06:59 18:59 Intake Total 1505.425 347.45 279.1 Output Total 300 50 0 Balance 1205.425 297.45 279.1 Weight 115.6 kg 120.9 kg Intake: IV 1500 75 Sodium Chloride 0.9% 1, 150 75 000 ml In Empty Bag 1 bag @ 75 mls/hr IV .[id number] JOSH Rx#:[id number] Intake, IV Titration 5.425 22.45 29.1 Amount Nitroglycerin-D5w Pmx 50 5.425 22.45 29.1 mg In Dextrose/Water 1 250ml.bag @ 5 MCG/MIN 1.5 mls/hr IV .Q24H JOSH Rx#: [id number] Oral 250 250 Output: Urine 0 0 Emesis 50 Oral Regurgitation 300 Other: Voiding Method Bedpan Bedpan Toilet Urinal Urinal Urinal # Voids 1 - Labs CBC & Chem 7: 11/06/23 07:18 11/06/23 07:18 Labs: Abnormal Lab Results - Last 24 Hours (Table) 11/05/23 11/05/23 11/05/23 Range/Units 11:18 16:34 20:22 WBC (3.8-10.6) k/uL RBC (4.30-5.90) m/uL Hgb (13.0-17.5) gm/dL Hct (39.0-53.0) % Sodium (137-145) mmol/L Creatinine (0.66-1.25) mg/dL Glucose (74-99) mg/dL POC Glucose (mg/dL) 168 H 204 H 194 H (70-110) mg/dL Hemoglobin A1c (<=6.0) % 11/06/23 11/06/23 11/06/23 Range/Units 04:18 06:05 07:18 WBC 15.4 H (3.8-10.6) k/uL RBC 3.92 L (4.30-5.90) m/uL Hgb 12.4 L (13.0-17.5) gm/dL Hct 38.6 L (39.0-53.0) % Sodium (137-145) mmol/L Creatinine (0.66-1.25) mg/dL Glucose (74-99) mg/dL POC Glucose (mg/dL) 176 H (70-110) mg/dL Hemoglobin A1c 8.9 H (<=6.0) % 11/06/23 Range/Units 07:18 WBC (3.8-10.6) k/uL RBC (4.30-5.90) m/uL Hgb (13.0-17.5) gm/dL Hct (39.0-53.0) % Sodium 136 L (137-145) mmol/L Creatinine 0.62 L (0.66-1.25) mg/dL Glucose 200 H (74-99) mg/dL POC Glucose (mg/dL) (70-110) mg/dL Hemoglobin A1c (<=6.0) %
[2023-11-06] MEDS: LOSARTAN 50 MG TAB PO STA (11:20)
[2023-11-06 11:49] LABS: Glucose,Whole Blood 176 mg/dL (70-110)
[2023-11-06 12:25] VITALS: BMI 35.2
[2023-11-06 13:21] LABS: Glucose,Whole Blood 161 mg/dL (70-110)
[2023-11-06 16:48] LABS: Glucose,Whole Blood 132 mg/dL (70-110)
[2023-11-06] MEDS: SENNOSIDES 8.6 MG TAB PO PRN (17:54)
[2023-11-06 20:16] LABS: Glucose,Whole Blood 169 mg/dL (70-110)
[2023-11-06] MEDS: CYCLOBENZAPRINE 10 MG TAB PO PRN (21:01)
[2023-11-06] MEDS: traMADol 50 MG TAB PO PRN (21:01)
[2023-11-06 21:25] VITALS: RESP 16; TEMP 98.1
[2023-11-07 05:55] LABS: Glucose,Whole Blood 133 mg/dL (70-110)
[2023-11-07] MEDS: LOSARTAN 50 MG TAB PO SCH (09:23)
[2023-11-07 09:35] VITALS: BP 110/74; PULSE 78
--- NOTE | 2023-11-07 11:25 | P.DS ---
Providers Attending physician: Ishaan Prieto Consults: 11/05/23 13:49 Consult Physician Routine Consulting Provider: [facility] Consult Reason/Comments: Post Interventional patient Do you want consulting provider notified?: Already Contacted Primary care physician: Stas Fink [facility] Course: The patient is a pleasant 58-year-old gentleman who underwent a few days ago successful balloon angioplasty of the right coronary artery and he was kept in the hospital because of hypertension emergency. He was seen and evaluated this morning. He is asymptomatic. The pressure has been under good control after we increase the dose of losartan. From a cardiovascular standpoint of view, the patient is going to be discharged home on dual antiplatelet therapy and I will follow-up with the patient next week in the office. As a matter fact he will be discharged on triple therapy. Plan - Discharge Summary New Discharge Prescriptions: New Apixaban [Eliquis] 2.5 mg PO BID #180 tab Clopidogrel [Plavix] 75 mg PO DAILY #180 tablet Losartan [Cozaar] 50 mg PO BID #180 tab Continue Rosuvastatin [Crestor] 10 mg PO HS Pantoprazole [Protonix] 40 mg PO DAILY #30 tablet. Semaglutide [Rybelsus] 7 mg PO DAILY metFORMIN HCL [Glucophage] 1,000 mg PO BID Aspirin EC [Ecotrin] 81 mg PO HS Furosemide [Lasix] 40 mg PO HS glipiZIDE [Glucotrol] 10 mg PO AC-BID Metoprolol Tartrate [Lopressor] 100 mg PO BID-W/MEALS Levothyroxine Sodium [Synthroid] 50 mcg PO DAILY traMADol HCL 50 mg PO DIRECTED PRN PRN Reason: Pain Albuterol Sulfate [Albuterol Sulfate Hfa] 1 puff PO Q4-6H PRN PRN Reason: Dyspnea Cyclobenzaprine [Flexeril] 10 mg PO DIRECTED PRN PRN Reason: Muscle Spasm Discontinued Apixaban [Eliquis] 5 mg PO BID #180 tab Losartan Potassium 50 mg PO DAILY Discharge Medication List Rosuvastatin [Crestor] 10 mg PO HS 06/30/18 [History] Pantoprazole [Protonix] 40 mg PO DAILY #30 tablet. 01/26/20 [Rx] Aspirin EC [Ecotrin] 81 mg PO HS 12/15/21 [History] Furosemide [Lasix] 40 mg PO HS 12/15/21 [History] Levothyroxine Sodium [Synthroid] 50 mcg PO DAILY 11/13/22 [History] Metoprolol Tartrate [Lopressor] 100 mg PO BID-W/MEALS 11/13/22 [History] Semaglutide [Rybelsus] 7 mg PO DAILY 11/13/22 [History] glipiZIDE [Glucotrol] 10 mg PO AC-BID 11/13/22 [History] metFORMIN HCL [Glucophage] 1,000 mg PO BID 11/13/22 [History] Albuterol Sulfate [Albuterol Sulfate Hfa] 1 puff PO Q4-6H PRN 11/01/23 [History] Cyclobenzaprine [Flexeril] 10 mg PO DIRECTED PRN 11/01/23 [History] traMADol HCL 50 mg PO DIRECTED PRN 11/01/23 [History] Apixaban [Eliquis] 2.5 mg PO BID #180 tab 11/07/23 [Rx] Clopidogrel [Plavix] 75 mg PO DAILY #180 tablet 11/07/23 [Rx] Losartan [Cozaar] 50 mg PO BID #180 tab 11/07/23 [Rx] Follow up Appointment(s)/Referral(s): Ishaan Prieto MD [STAFF PHYSICIAN] - 11/10/23 8:30 am
[2023-11-07 11:37] LABS: Glucose,Whole Blood 191 mg/dL (70-110)
== END 2023-11-07 12:15 ==
LOC: CATHCVL 10:42 → 2SICU 15:34 → 3SCARD 11-06 20:50 → CATHCVL 11-07 12:15
PROVIDERS: ATTEND Internal Medicine Interventional Cardiology
DX: I25.10 Atherosclerotic heart disease of native coronary artery without angina pectoris (principal); I10 Essential (primary) hypertension; E78.5 Hyperlipidemia, unspecified; Z79.01 Long term (current) use of anticoagulants; Z79.02 Long term (current) use of antithrombotics/antiplatelets; Z79.82 Long term (current) use of aspirin; Z79.84 Long term (current) use of oral hypoglycemic drugs; Z79.899 Other long term (current) drug therapy
CPT/HCPCS: 94760; 92978; 93454; 92920; 76937; 80048; 85027; 83036; C1887; C1769 ×3; C1894; C1753; C1725; J2250; J2270; J0360; J2405; J2001; J3010; J1644; Q9967; J2305

== ENCOUNTER 2023-12-15 05:31 | Day surgery (SDC) | payer OTHER ==
--- NOTE | 2023-12-14 22:06 | HP ---
HISTORY AND PHYSICAL DATE OF SURGERY: 12/15/2023. HISTORY OF PRESENT ILLNESS: Aleks Nolan is a 58-year-old gentleman seen with progressive right shoulder pain. Options for treatment were discussed with him. He elected to proceed with right shoulder arthroscopy. Consent was obtained. He received a preoperative medical clearance from Dr. Fink and preoperative cardiac clearance from Dr. Prieto. PAST MEDICAL HISTORY: Cardiovascular disease/atrial fibrillation, [id number] diabetes, hyperlipidemia, hypertension, COPD. PAST SURGICAL HISTORY: Knee arthroscopy. DAILY MEDICATIONS: 1. Albuterol. 2. Apixaban. 3. Aspirin. 4. Furosemide. 5. Glipizide. 6. Levothyroxine. 7. Metformin. 8. Metoprolol. 9. Atorvastatin. ALLERGIES: None. SOCIAL HISTORY: He denies current tobacco use. PHYSICAL EVALUATION OF THE RIGHT SHOULDER: Flexion is 90 degrees. Abduction is 80 degrees. External rotation is 30 degrees with weakness. He has tenderness along the anterolateral acromion and rotator cuff insertion site. Impingement is positive at 90 degrees. Drop-arm sign is positive. Apprehension sign is positive. Distal neurovascular exam is intact. IMAGING STUDIES: Radiographs of the right shoulder revealed a type 2 acromion, acromioclavicular joint osteoarthritis. No fracture. MRI of right shoulder revealed a labral tear, acromioclavicular joint osteoarthritis and rotator cuff tendinitis. IMPRESSION: 1. Right shoulder impingement with labral tear and possible rotator cuff tear. 2. Right shoulder acromioclavicular joint osteoarthritis. 3. Atrial fibrillation/cardiovascular disease. 4. Hypertension. 5. Hyperlipidemia. 6. [id number] diabetes. PLAN: Right shoulder arthroscopy with subacromial decompression, labral debridement versus repair, possible rotator cuff repair, Juan procedure. MMODL / IJN: [id number] /
[2023-12-15 06:52] LABS: Glucose,Whole Blood 190 mg/dL (70-110)
[2023-12-15] MEDS: LACTATED RINGERS 1,000 ML IV SCH (06:59)
[2023-12-15] MEDS: ONDANSETRON 4 MG/2 ML VIAL IVP ONE (07:10)
[2023-12-15] MEDS: DEXAMETHASONE SOD PHOSPHATE 4 MG/ML 1 ML VIAL IV ONE (07:10)
[2023-12-15 07:22] VITALS: TEMP 98.1
[2023-12-15] MEDS ORDERED: MIDAZOLAM 2 MG/2 ML VIAL ONE (07:30)
[2023-12-15] MEDS ORDERED: PROPOFOL 10 MG/ML 20 ML VIAL IV ONE (07:30)
[2023-12-15] MEDS ORDERED: KETAMINE HCL IN 0.9 % NACL 50 MG/5 ML SYRINGE ONE (07:30)
[2023-12-15] MEDS ORDERED: ROCURONIUM 10 MG/ML (5 ML VIAL) IV ONE (07:30)
[2023-12-15] MEDS ORDERED: GLYCOPYRROLATE 0.2 MG/ML 2 ML VIAL ONE (07:30)
[2023-12-15] MEDS ORDERED: LABETALOL 5 MG/ML VIAL MDV ONE (07:30)
[2023-12-15] MEDS ORDERED: fentaNYL (PF) 50 MCG/ML 2 ML AMP ONE (07:30)
[2023-12-15] MEDS ORDERED: NEOSTIGMINE 1 MG/ML 10 ML VIAL ONE (07:30)
[2023-12-15] MEDS ORDERED: ACETAMINOPHEN IV (For NPO) 1,000 MG/100 ML VIAL ONE (07:30)
[2023-12-15] MEDS ORDERED: SUCCINYLCHOLINE CHLORIDE 200 MG/10 ML VIAL IV ONE (07:30)
[2023-12-15] MEDS ORDERED: LIDOCAINE 1% INJ 10MG/ML (20 ML MDV) ONE (07:30)
--- NOTE | 2023-12-15 09:11 | P.OP ---
Date of Procedure: 12/15/23 Preoperative Diagnosis: Right shoulder impingement Postoperative Diagnosis: 1. Right shoulder rotator cuff tear 2. Right shoulder bicipital tendinitis 3. Right shoulder impingement 4. Right shoulder acromioclavicular joint osteoarthritis 5. Right shoulder superficial superior labral tear Procedure(s) Performed: 1. Right shoulder arthroscopic rotator cuff repair 2. Right shoulder arthroscopic biceps tenodesis 3. Right shoulder arthroscopic subacromial decompression 4. Right shoulder arthroscopic Juan procedure 5. Right shoulder arthroscopic debridement labral tear Implants: 1Arthrex 4.75 swivel lock anchor 1Arthrex 5.5 swivel lock anchor Anesthesia: BLANCA Surgeon: Giuseppe Fong Preparation Department Supervisor #1: Roberto Cuevas Estimated Blood Loss (ml): 7 Pathology: none sent Condition: stable Disposition: PACU Indications for Procedure: 58-year-old gentleman seen with progressive right shoulder pain. After having treatment options discussed, he elected to proceed with arthroscopy. Operative Findings: See description of procedure Description of Procedure: Patient underwent an interscalene block by department of anesthesia. The patient was then taken to the operative suite. The patient underwent a general anesthetic by the department of anesthesia. The patient was placed into a lateral position and secured. There was appropriate padding of the bony pro minence. Right shoulder was then prepped and draped in normal sterile orthopedic fashion. We placed the extremity in 10 pounds of longitudinal traction. A posterior incision was now made for a posterior working portal site. The trocar and cannula were inserted into the glenohumeral joint. Arthroscopy was initiated. Spinal needle was now inserted anteriorly, to ascertain the anterior working portal site. An incision was now made in that area, a trocar was inserted followed by a probe. There was some superficial tearing of the superior labrum. There were grade I chondromalacia changes of the humeral head. There was some bicipital tendinitis present. I debrided out the superficial labral tear. The remaining labrum was stable. I decided to proceed with arthroscopic biceps tenodesis to address the bicipital tendinitis. I used a cannula through the anterior portal site. I passed a loop and tack type stitch to the proximal biceps tendon. I now released that tendon from the superior labral anchor. With the assistance of Nick HDEZ I punched a hole at the interval for insertion of an anchor. The suture limb was passed through the eyelet of an Arthrex 4.75 swivel lock anchor. I placed the eyelet into our preplanned hole. I held in position while Nick HDEZ tensioned the suture and deployed the anchor with good fixation noted. The residual suture limb was clipped. We had a stable appearing biceps tenodesis. I again probed the labrum and it was stable. Instruments were now removed from the glenohumeral joint. Utilizing the posterior working portal site, the trocar and cannula were inserted into the subacromial space. Arthroscopy initiated. I made an incision 2 fingerbreadths lateral to the acromion. I introduced my trocar followed by my ArthroCare ablator. I now began ablating thick subacromial bursal tissue, which exposed the undersurface of the anterior acromion. There was diminished subacromial space. There was a very prominent anterior acromion. A motorized bur was introduced and a subacromial decompression was performed. I also excised some osteophytes off the inferior aspect of the distal clavicle. The AC joint was visualized and noted to be fairly arthritic. The motorized bur was introduced in the anterior portal site and a Juan procedure was performed without difficulty removing 8 mm of bone off the distal clavicle, decompressing the AC joint nicely. I turned my attention to the rotator cuff. There was a full-thickness perforation noted along the distal supraspinatus tendon. I debrided the margins getting down to stable tendon tissue. The tear/defect measured about 1 cm and was freely mobile over the footprint. I abraded the footprint with a motorized bur. With the assistance of Nick HDEZ I passed 2 Ubretid mattress sutures through good bites of rotator cuff tendon. I punched a hole in the footprint area for insertion of an anchor. All 4 limbs of suture were passed through the eyelet of an Arthrex 5.5 swivel lock anchor. I placed the eyelet into the prepunched hole. I held in position while Nick HDEZ tensioned all 4 limbs of suture and deployed the anchor with good fixation noted. All residual suture limbs were now clipped. We had good compression of the tendon along the entire footprint. Instruments now removed from the portal sites. All portal sites were approximated with nylon suture. Sterile dressings were applied followed by a shoulder sling. Roberto Branch PA assisted in this complex case. The patient was awakened, transferred to a bed, and taken to recovery in stable condition.
[2023-12-15 09:13] LABS: Glucose,Whole Blood 184 mg/dL (70-110)
[2023-12-15] MEDS: HYDROmorphone 0.5 MG/0.5 ML SYRINGE IVP PRN (09:44)
[2023-12-15 10:11] VITALS: RESP 16
[2023-12-15] MEDS: HYDROcodone/APAP 10-325MG 1 EACH TAB ONE (10:54)
[2023-12-15 11:38] VITALS: BP 158/85; PULSE 66
== END 2023-12-15 12:23 | disposition home or self-care (01) ==
LOC: OR 05:31
PROVIDERS: ATTEND Orthopaedic Surgery
DX: M75.41 Impingement syndrome of right shoulder (principal); M75.101 Unspecified rotator cuff tear or rupture of right shoulder, not specified as traumatic; M75.21 Bicipital tendinitis, right shoulder; M19.011 Primary osteoarthritis, right shoulder; S43.431A Superior glenoid labrum lesion of right shoulder, initial encounter; M94.211 Chondromalacia, right shoulder; I48.91 Unspecified atrial fibrillation; I11.0 Hypertensive heart disease with heart failure; I50.9 Heart failure, unspecified; E11.9 Type 2 diabetes mellitus without complications; I25.10 Atherosclerotic heart disease of native coronary artery without angina pectoris; K21.9 Gastro-esophageal reflux disease without esophagitis; E78.5 Hyperlipidemia, unspecified; E03.9 Hypothyroidism, unspecified; J44.9 Chronic obstructive pulmonary disease, unspecified; Z79.85 Long-term (current) use of injectable non-insulin antidiabetic drugs; X58.XXXA Exposure to other specified factors, initial encounter; Z79.84 Long term (current) use of oral hypoglycemic drugs; Z79.899 Other long term (current) drug therapy; Z95.5 Presence of coronary angioplasty implant and graft; Z79.51 Long term (current) use of inhaled steroids; Z79.01 Long term (current) use of anticoagulants; Z98.890 Other specified postprocedural states; Z79.890 Hormone replacement therapy
CPT/HCPCS: 29827; 29826; 29828; 29824; C1713 ×3; J2250; J0330; J1100; J2710; J0690; J2405; J2001; J3010; J0131; J2704; J1170; J1920

== ENCOUNTER 2024-01-05 22:48 | Observation (INO) | payer OTHER ==
--- NOTE | 2024-01-05 23:05 | ED ---
Chest Pain HPI - General Chief Complaint: Chest Pain Stated Complaint: Chest Pain, Difficulty Breathing Time Seen by Provider: 01/05/24 22:50 Source: patient, EMS Mode of arrival: ambulatory Limitations: no limitations - History of Present Illness Initial Comments: This patient is a 58-year-old man who presents to have evaluation of pain to the chest just to the left of the sternum that started tonight around 9:50 PM. The patient states that it reminds him of pain he was having when he required heart catheterization for stenosis of a previously placed stent. The patient states that there was some associated diaphoresis. He took additional doses of all of his home medications because his blood pressure was also elevated. When his blood pressure continue to be elevated he called EMS and they transported him here. Patient states that the symptoms have started to subside and the pain is just barely present now. MD Complaint: chest pain Onset/Timin -: minutes(s) Onset: during rest Pain Location: left chest Pain Radiation: none Severity: severe Quality: aching Consistency: constant Improves With: nothing Worsens With: nothing Anginal Symptoms: diaphoresis Treatments Prior to Arrival: none - Related Data Home Medications Medication Instructions Recorded Confirmed Rosuvastatin [Crestor] 10 mg PO HS 06/30/18 12/15/23 Aspirin EC [Ecotrin] 81 mg PO HS 12/15/21 12/15/23 Furosemide [Lasix] 40 mg PO HS 12/15/21 12/15/23 Levothyroxine Sodium [Synthroid] 50 mcg PO DAILY 11/13/22 12/15/23 Metoprolol Tartrate [Lopressor] 100 mg PO BID-W/MEALS 11/13/22 12/15/23 Semaglutide [Rybelsus] 14 mg PO DAILY 11/13/22 12/15/23 metFORMIN HCL [Glucophage] 1,000 mg PO BID 11/13/22 12/15/23 Albuterol Sulfate [Albuterol 1 puff PO Q4-6H PRN 11/01/23 12/15/23 Sulfate Hfa] Cyclobenzaprine [Flexeril] 10 mg PO DIRECTED PRN 11/01/23 12/15/23 traMADol HCL 50 mg PO DIRECTED PRN 11/01/23 12/15/23 Apixaban [Eliquis] 5 mg PO BID 12/10/23 12/15/23 Previous Rx's Medication Instructions Recorded Pantoprazole [Protonix] 40 mg PO DAILY #30 tablet. 01/26/20 Losartan [Cozaar] 50 mg PO BID #180 tab 11/07/23 HYDROcodone/APAP 10-325MG [[place] 1 tab PO Q6HR PRN 7 Days #28 tab 12/15/23 10-325] Allergies Allergy/AdvReac Type Severity Reaction Status Date / Time No Known Allergies Allergy Verified 12/15/23 06:29 Review of Systems ROS Statement: Those systems with pertinent positive or pertinent negative responses have been documented in the HPI. ROS Other: All systems not noted in ROS Statement are negative. Constitutional: Denies: fever, chills, weakness Respiratory: Reports: dyspnea. Denies: cough Cardiovascular: Denies: chest pain, palpitations, edema Gastrointestinal: Denies: abdominal pain, nausea, vomiting Genitourinary: Denies: dysuria, hematuria Musculoskeletal: Denies: back pain Skin: Denies: rash Neurological: Denies: headache, weakness, numbness EKG Findings - EKG Results: EKG: interpreted by BRITTANYD, sinus rhythm (Rate 97 bpm), normal axis, normal QRS, normal ST/T, no acute changes Past Medical History Past Medical History: Atrial Fibrillation, Atrial Flutter, Coronary Artery Disease (CAD), COPD, Diabetes Mellitus, GERD/Reflux, Hyperlipidemia, Hypertension, Pneumonia, Respiratory Disorder, Thyroid Disorder Additional Past Medical History / Comment(s): Current thrush, recently diagnosed with diabetes 11/24/21, Afib with RVR, aflutter, atach, "have a hole in my mitral valve", murmur, cardiomyopathy, chronic low back pain/ruptured L4 L5 discs, scoliosis, R achilles tendon injury, hypothyroid History of Any Multi-Drug Resistant Organisms: None Reported Past Surgical History: Cardiac Ablation, Heart Catheterization, Heart Catheterization With Stent, Hernia Repair, Orthopedic Surgery Additional Past Surgical History / Comment(s): Cardiac ablations x 4, PCI/stents, attempted cardioversion, L tibial osteochondroma-benign, R knee arthroscopic meniscus repair, L achilles tendon tear with surgery, lumbar spine ablations, umbilical hernia repair, colonoscopy, vasectomy. Past Anesthesia/Blood Transfusion Reactions: No Reported Reaction Date of Last Stent Placement:: 01/05/20 Past Psychological History: No Psychological Hx Reported Smoking Status: Former smoker - Past Family History Mother Family Medical History: Thyroid Disorder Additional Family Medical History / Comment(s): Lupus, rheumatic fever, hypothyroid, bowel resection. Father Family Medical History: CVA/TIA, Diabetes Mellitus, Myocardial Infarction ([place]) Additional Family Medical History / Comment(s): Father had a [place] in his 30s. He from a cva at the age of 63/64 yrs General Exam Limitations: no limitations General appearance: alert, in no apparent distress Head exam: Present: atraumatic, normocephalic Eye exam: Present: normal appearance. Absent: scleral icterus, conjunctival injection Neck exam: Present: normal inspection Respiratory exam: Present: normal lung sounds bilaterally. Absent: respiratory distress, wheezes, rales, rhonchi, stridor, accessory muscle use Cardiovascular Exam: Present: regular rate, normal rhythm, normal heart sounds. Absent: systolic murmur, diastolic murmur, rubs, gallop GI/Abdominal exam: Present: soft. Absent: distended, tenderness, guarding, rebound, rigid, mass Extremities exam: Present: normal inspection, normal capillary refill. Absent: pedal edema, calf tenderness Back exam: Present: normal inspection. Absent: CVA tenderness (R), CVA tenderness (L) Neurological exam: Present: alert Skin exam: Present: warm, dry, intact, normal color. Absent: rash Course Vital Signs 01/05/24 22:50 Temperature 97.8 F Pulse Rate 98 Respiratory 16 Rate Blood Pressure 161/123 O2 Sat by Pulse 97 Oximetry Disposition Referrals: Stas Fink DO [Primary Care Provider] - 1-2 days
[2024-01-05 23:19] VITALS: TEMP 97.8
[2024-01-05] MEDS: ASPIRIN 81 MG PO STA (23:25)
[2024-01-05] MEDS: NITROGLYCERIN OINT 1 INCH/GM PACKET TOPICAL STA (23:29)
[2024-01-05 23:38] LABS: Basophils # (A) 0.1 k/uL (0-0.2); Basophils % (A) 1 %; Eosinophils # (A) 0.5 k/uL (0-0.7); Eosinophils % (A) 4 %; HCT 45.2 % (39.0-53.0); HGB 13.8 gm/dL (13.0-17.5); Lymphocytes # (A) 1.7 k/uL (1.0-4.8); Lymphocytes % (A) 14 %; MCH 30.5 pg (25.0-35.0); MCHC 30.6 g/dL (31.0-37.0); MCV 99.6 fL (80.0-100.0); Mean Platelet Volume 8.3; Monocytes # (A) 0.6 k/uL (0-1.0); Monocytes % (A) 5 %; Neutrophils % (A) 75 %; Platelet Count 277 k/uL (150-450); RBC 4.53 m/uL (4.30-5.90); RDW 12.9 % (11.5-15.5)
[2024-01-05 23:50] LABS: ALT 34 U/L (4-49); AST 24 U/L (17-59); African American GFR (CKD) >90 (>60 ml/min/1.73 sqM); Albumin 3.9 g/dL (3.5-5.0); Alkaline Phosphatase 116 U/L (38-126); Anion Gap 12 mmol/L; Blood Urea Nitrogen 13 mg/dL (9-20); Calcium 9.2 mg/dL (8.4-10.2); Carbon Dioxide 20 mmol/L (22-30); Chloride 102 mmol/L (98-107); Magnesium 1.7 mg/dL (1.6-2.3); Non-African American GFR(CKD) >90 (>60 ml/min/1.73 sqM); Potassium 4.5 mmol/L (3.5-5.1); Sodium 134 mmol/L (137-145); Total Bilirubin 0.4 mg/dL (0.2-1.3); Total Protein 7.5 g/dL (6.3-8.2)
[2024-01-05 23:51] LABS: INR 0.9 (<1.2); Partial Thromboplastin Time 22.2 sec (22.0-30.0); Prothrombin Time 10.1 sec (10.0-12.5)
[2024-01-06 00:10] LABS: Glucose 622 mg/dL (74-99)
--- NOTE | 2024-01-06 00:28 | XR ---
EXAM: XR Chest, 2 Views CLINICAL HISTORY: ITS.REASON XR Reason: Chest Pain TECHNIQUE: Frontal and lateral views of the chest. COMPARISON: No relevant prior studies available. FINDINGS: Lungs: Unremarkable. No consolidation. Pleural space: Unremarkable. No pneumothorax. Heart: Cardiomegaly. Mediastinum: Unremarkable. Normal mediastinal contour. Bones/joints: Unremarkable. No acute fracture. IMPRESSION: No acute findings in the chest.
[2024-01-06] MEDS: INSULIN REGULAR 100 UNIT/ML VIAL (IV) IV STA (00:42)
[2024-01-06] MEDS: SODIUM CHLORIDE 0.9% 1,000 ML IV ONE (00:42)
[2024-01-06 01:25] LABS: Glucose,Whole Blood 468 mg/dL (70-110)
[2024-01-06] MEDS ORDERED: NITROGLYCERIN SL TABS 0.4 MG TAB SUBLINGUAL PRN (01:32)
[2024-01-06] MEDS ORDERED: traMADol 50 MG TAB PO PRN (01:34)
[2024-01-06] MEDS ORDERED: ALBUTEROL NEBULIZED 2.5 MG/3 ML INHALATION PRN (01:34)
[2024-01-06] MEDS ORDERED: HYDROcodone/APAP 10-325MG 1 EACH TAB PO PRN (01:34)
[2024-01-06 03:42] VITALS: RESP 18
[2024-01-06] MEDS: LEVOTHYROXINE 50 MCG TAB PO SCH (06:32)
[2024-01-06] MEDS: NON FORMULARY DRUG (Semaglutide [Rybelsus] 7 MG Tablet) PO SCH (08:38)
[2024-01-06 09:30] LABS: Glucose,Whole Blood 315 mg/dL (70-110)
[2024-01-06] MEDS: metFORMIN 500 MG TAB PO SCH (09:33)
[2024-01-06] MEDS: METOPROLOL TARTRATE 50 MG TAB PO SCH (09:33)
[2024-01-06] MEDS: PANTOPRAZOLE 40 MG TABLET PO SCH (09:33)
[2024-01-06] MEDS: APIXABAN 5 MG TAB PO SCH (09:33)
[2024-01-06] MEDS: LOSARTAN 50 MG TAB PO SCH (09:34)
--- NOTE | 2024-01-06 11:13 | P.CRDCN ---
History of Present Illness Consult date: 01/06/24 Consult reason: chest pain History of present illness: History of present illness: This is a 58-year-old male patient of Dr. Prieto with past medical history of coronary artery disease with prior stenting of the RCA, hypertension, dyslipidemia, diabetes, valvular heart disease with aortic stenosis and regurgitation and mitral regurgitation, paroxysmal atrial fibrillation status post ablation, overweight. We have been asked to evaluate the patient for chest pain. Patient states he had onset yesterday evening of chest pain in the midsternal area. No previous episodes of chest pain. He found his blood pressure was initially 236 followed by 207/101. He states he has been taking all of his medications as directed and following a low-sodium diet. He denies having any shortness of breath, lightheadedness or dizziness, no syncopal episod es. Initial blood pressure was 161/123. Patient is seen today in the emergency center waiting for a bed on the observation unit EKG sinus rhythm with no acute ST-T wave changes. Chest x-ray: No acute process WBC 12, hemoglobin 13.8. INR 0.9. Sodium 134, potassium 4.5,. And 0.6. Glucose 622 and most recently 315. Troponin negative x 3. Home cardiac medications: Eliquis 5 mg twice daily, aspirin 325 mg at bedtime, Lasix 40 mg at bedtime, losartan 50 mg daily, Lopressor 100 mg twice daily, Crestor 10 mg at bedtime, levothyroxine 50 mcg daily. Cardiac catheterization performed on 11/05/2023 revealed severe in-stent restenosis of the mid RCA status post successful stenting. Plan was for dual antiplatelet therapy with aspirin and Plavix for 1 month. Echocardiogram performed on 10/11/2023 in the office revealed EF of 50%. Large hypokinetic area in the anterior, anterior lateral and inferior lateral, inferior and anterior septal esteban. Small hypokinetic area in the inferior septal wall at the base. Grade 2 diastolic dysfunction. Mild left ventricular hypertrophy. Mild aortic regurgitation and mild aortic stenosis. Moderate mitral regurgitation. Mild to moderate tricuspid regurgitation. Moderately increased pulmonary artery systolic pressure of 51 mmHg. Mild pulmonic regurgi tation. Review Of Systems: At the time of my exam: CONSTITUTIONAL: Denies fever or chills. HEENT: Denies blurred vision, vision changes, or eye pain. Denies hemoptysis CARDIOVASCULAR: Denies chest pain. Denies orthopnea. Denies PND. Denies palpitations RESPIRATORY: Denies shortness of breath. GASTROINTESTINAL: Denies abdominal pain. Denies nausea or vomiting. HEMATOLOGIC: Denies bleeding disorders. GENITOURINARY: Denies any blood in urine. SKIN: Denies pruitis. Denies rash. Physical examination: Gen: This is a 58-year-old male in no acute distress VS: reviewed, blood pressure 109/63, heart rate 79, pulse ox 96% on room air. HEENT: Head is atraumatic, normocephalic. Pupils equal, round. Sclerae is anicteric. NECK: Supple. No JVD. LUNGS: Clear to auscultation. No wheezes or rhonchi. No intercostal retractions. HEART: Regular rate and rhythm. Systolic murmur at the right and left upper sternal border and apical area. ABDOMEN: Soft No tenderness. EXTREMITIES: No pedal edema. No calf tenderness. NEUROLOGICAL: Patient is awake, alert and oriented x3. Assessment: Chest pain most likely secondary to hypertension Hypertensive emergency Coronary artery disease with prior stenting Hypertension Dyslipidemia Diabetes Valvular heart disease with aortic stenosis and regurgitation, mitral regurgitation Paroxysmal atrial fibrillation status post ablation Plan: Resume patient's home cardiac medications Schedule patient for exercise stress test tomorrow if blood sugars are improved N.p.o. after midnight No need to repeat echocardiogram Further recommendations to follow based upon clinical course Thank you kindly for this consultation. Nurse practitioner note has been reviewed, I agree with documented findings and plan of care. Patient was seen and examined. Past Medical History Past Medical History: Atrial Fibrillation, Atrial Flutter, Coronary Artery Disease (CAD), COPD, Diabetes Mellitus, GERD/Reflux, Hyperlipidemia, Hyperten pato, Pneumonia, Respiratory Disorder, Thyroid Disorder Additional Past Medical History / Comment(s): Current thrush, recently diagnosed with diabetes 11/24/21, Afib with RVR, aflutter, atach, "have a hole in my mitral valve", murmur, cardiomyopathy, chronic low back pain/ruptured L4 L5 discs, scoliosis, R achilles tendon injury, hypothyroid History of Any Multi-Drug Resistant Organisms: None Reported Past Surgical History: Cardiac Ablation, Heart Catheterization, Heart Catheterization With Stent, Hernia Repair, Orthopedic Surgery Additional Past Surgical History / Comment(s): Cardiac ablations x 4, PCI/stents, attempted cardioversion, L tibial osteochondroma-benign, R knee arthroscopic meniscus repair, L achilles tendon tear with surgery, lumbar spine ablations, umbilical hernia repair, colonoscopy, vasectomy. Past Anesthesia/Blood Transfusion Reactions: No Reported Reaction Date of Last Stent Placement:: 01/05/20 Past Psychological History: No Psychological Hx Reported Smoking Status: Former smoker - Past Family History Mother Family Medical History: Thyroid Disorder Additional Family Medical History / Comment(s): Lupus, rheumatic fever, hypothyroid, bowel resection. Father Family Medical History: CVA/TIA, Diabetes Mellitus, Myocardial Infarction ([place]) Additional Family Medical History / Comment(s): Father had a [place] in his 30s. He from a cva at the age of 63/64 yrs Medications and Allergies Home Medications Medication Instructions Recorded Confirmed Type Rosuvastatin [Crestor] 10 mg PO HS 06/30/18 01/06/24 History Pantoprazole [Protonix] 40 mg PO DAILY #30 tablet. 01/26/20 01/06/24 Rx Aspirin EC [Ecotrin] 325 mg PO HS 12/15/21 01/06/24 History Furosemide [Lasix] 40 mg PO HS 12/15/21 01/06/24 History Levothyroxine Sodium [Synthroid] 50 mcg PO DAILY 11/13/22 01/06/24 History Metoprolol Tartrate [Lopressor] 100 mg PO BID-W/MEALS 11/13/22 01/06/24 History metFORMIN HCL [Glucophage] 1,000 mg PO BID 11/13/22 01/06/24 History Albuterol Sulfate [Albuterol 1 puff INHALATION RT-Q4H PRN 11/01/23 01/06/24 History Sulfate Hfa] Apixaban [Eliquis] 5 mg PO BID 12/10/23 01/06/24 History Losartan [Cozaar] 50 mg PO DAILY 01/06/24 01/06/24 History Semaglutide [Rybelsus] 14 mg PO DAILY 01/06/24 01/06/24 History Allergies Allergy/AdvReac Type Severity Reaction Status Date / Time No Known Allergies Allergy Verified 01/06/24 07:36 Physical Exam Vitals: Vital Signs Temp Pulse Resp BP Pulse Ox 01/06/24 07:43 94 L 05/02/24 06:00 79 18 109/63 96 01/06/24 03:00 80 18 116/70 97 01/06/24 00:53 89 16 149/85 96 01/05/24 23:31 93 18 135/97 98 01/05/24 22:50 97.8 F 98 16 161/123 97 Intake and Output 01/05/24 01/06/24 01/06/24 22:59 06:59 14:59 Other: Weight 111.584 kg Results 01/05/24 23:29 01/05/24 23:29 Cardiac Enzymes 01/05/24 01/05/24 01/06/24 Range/Units 23:29 23:29 02:40 AST 24 (17-59) U/L Troponin I <0.012 <0.012 (0.000-0.034) ng/mL 01/06/24 Range/Units 05:04 AST (17-59) U/L Troponin I <0.012 (0.000-0.034) ng/mL Coagulation 01/05/24 Range/Units 23:29 PT 10.1 (10.0-12.5) sec APTT 22.2 (22.0-30.0) sec CBC 01/05/24 Range/Units 23:29 WBC 12.0 H (3.8-10.6) k/uL RBC 4.53 (4.30-5.90) m/uL Hgb 13.8 (13.0-17.5) gm/dL Hct 45.2 (39.0-53.0) % Plt Count 277 (150-450) k/uL Comprehensive Metabolic Panel 01/05/24 Range/Units 23:29 Sodium 134 L (137-145) mmol/L Potassium 4.5 (3.5-5.1) mmol/L Chloride 102 (98-107) mmol/L Carbon Dioxide 20 L (22-30) mmol/L BUN 13 (9-20) mg/dL Creatinine 0.60 L (0.66-1.25) mg/dL Glucose 622 H* (74-99) mg/dL Calcium 9.2 (8.4-10.2) mg/dL AST 24 (17-59) U/L ALT 34 (4-49) U/L Alkaline Phosphatase 116 (38-126) U/L Total Protein 7.5 (6.3-8.2) g/dL Albumin 3.9 (3.5-5.0) g/dL Current Medications Generic Name Dose Route Start Last Admin Trade Name Freq PRN Reason Stop Dose Admin Hydrocodone Bitart/Acetaminophen 1 each 01/06/24 01:34 Hydrocodone/Apap 10-325mg 1 Each Tab PO Q6HR PRN SEVERE PAIN Pain Albuterol Sulfate 2.5 mg 01/06/24 01:34 Albuterol Nebulized 2.5 Mg/3 Ml INHALATION RT-Q6H PRN Dyspnea Apixaban 5 mg 01/06/24 09:00 Apixaban 5 Mg Tab PO BID [facility] Protocol Aspirin 81 mg 01/06/24 21:00 Aspirin 81 Mg PO HS [facility] Atorvastatin Calcium 20 mg 01/06/24 21:00 Atorvastatin 20 Mg Tab PO HS [facility] Furosemide 40 mg 01/06/24 21:00 Furosemide 40 Mg Tab PO HS [facility] Insulin Aspart 0 unit 01/06/24 12:30 Insulin Aspart (Novolog) 100 Unit/Ml Vial SQ ACHS [facility] Protocol Levothyroxine Sodium 50 mcg 01/06/24 06:30 01/06/24 06:32 Levothyroxine 50 Mcg Tab PO 50 mcg DAILY@0630 [facility] Administration Losartan Potassium 50 mg 01/06/24 09:00 Losartan 50 Mg Tab PO BID [facility] Metformin HCl 1,000 mg 01/06/24 09:00 Metformin 500 Mg Tab PO BID [facility] Metoprolol Tartrate 100 mg 01/06/24 07:30 Metoprolol Tartrate 50 Mg Tab PO BID-W/MEALS [facility] Nitroglycerin 0.4 mg 01/06/24 01:32 Nitroglycerin Sl Tabs 0.4 Mg Tab SUBLINGUAL Q5M PRN Chest Pain Non-Formulary Medication 14 mg 01/06/24 09:00 01/06/24 08:38 Semaglutide [Rybelsus] PO Not Given DAILY [facility] Pantoprazole Sodium 40 mg 01/06/24 07:30 Pantoprazole 40 Mg Tablet PO AC-BRKFST [facility] Tramadol HCl 50 mg 01/06/24 01:34 Tramadol 50 Mg Tab PO Q6H PRN MILD TO MODERATE Pain Intake and Output 01/05/24 01/06/24 01/06/24 22:59 06:59 14:59 Other: Weight 111.584 kg 01/05/24 23:29 01/05/24 23:29
[2024-01-06 12:42] LABS: Glucose,Whole Blood 335 mg/dL (70-110)
[2024-01-06] MEDS: INSULIN ASPART (NovoLOG) 100 UNIT/ML VIAL SQ SCH (12:44)
[2024-01-06 14:34] VITALS: BP 118/70; PULSE 77
[2024-01-06] MEDS ORDERED: FUROSEMIDE 40 MG TAB PO SCH (21:00)
[2024-01-06] MEDS ORDERED: ASPIRIN 81 MG PO SCH (21:00)
[2024-01-06] MEDS ORDERED: ATORVASTATIN 20 MG TAB PO SCH (21:00)
== END 2024-01-06 17:35 | disposition home or self-care (01) ==
LOC: EC 22:48 → 6NMEDSUR 01-06 01:32
PROVIDERS: ADMIT Family Medicine; ATTEND Family Medicine
DX: R07.9 Chest pain, unspecified (principal); I16.1 Hypertensive emergency; I10 Essential (primary) hypertension; I25.10 Atherosclerotic heart disease of native coronary artery without angina pectoris; J44.9 Chronic obstructive pulmonary disease, unspecified; E11.9 Type 2 diabetes mellitus without complications; K21.9 Gastro-esophageal reflux disease without esophagitis; E78.5 Hyperlipidemia, unspecified; E03.9 Hypothyroidism, unspecified; I48.0 Paroxysmal atrial fibrillation; I08.0 Rheumatic disorders of both mitral and aortic valves; Z87.891 Personal history of nicotine dependence; Z95.5 Presence of coronary angioplasty implant and graft; Z79.82 Long term (current) use of aspirin; Z79.890 Hormone replacement therapy; Z79.899 Other long term (current) drug therapy; Z79.84 Long term (current) use of oral hypoglycemic drugs; Z79.01 Long term (current) use of anticoagulants
CPT/HCPCS: 96374; 99285; 36415 ×2; 94760; 93005; 80053; 83735; 84484 ×2; 85025; 85610; 85730; 71046; G0378

== ENCOUNTER → 2024-06-12 | Day surgery (SDC) | payer OTHER ==
--- NOTE | 2024-06-11 13:43 | HP ---
HISTORY AND PHYSICAL DATE OF SURGERY: 06/12/2024. HISTORY OF PRESENT ILLNESS: Aleks Nolan is a 59-year-old gentleman, seen with right shoulder adhesive capsulitis. Options were discussed. He had to proceed with manipulation under anesthesia of right shoulder with steroid injection. Consent obtained. PAST MEDICAL HISTORY: [id number]-lsxtzneek diabetes, atrial fibrillation, hyperlipidemia, hypertension. PAST SURGICAL HISTORY: Shoulder arthroscopy, knee surgery. DAILY MEDICATIONS: 1. Albuterol inhaler. 2. Glipizide. 3. Levothyroxine. 4. Metformin. 5. Metoprolol. 6. Rosuvastatin. 7. Tramadol. ALLERGIES: None. SOCIAL HISTORY: He denies tobacco use. PHYSICAL EVALUATION OF THE RIGHT SHOULDER: Flexion is 80 degrees, abduction 70 degrees. External rotation is 30 degrees with good strength. He does have diffuse tenderness about the shoulder girdle. Previous arthroscopic portal sites are well healed. His distal neurovascular exam is intact. IMAGING: Shoulder radiographs reveal stable conversion to a flat anterior acromion. IMPRESSION: 1. Right shoulder adhesive capsulitis. 2. History of right shoulder arthroscopy with decompression, rotator cuff repair. 3. Mri-[id number]-[id number] diabetes. 4. Hypertension. 5. Hyperlipidemia. 6. Atrial fibrillation. PLAN: Manipulation under anesthesia of right shoulder with steroid injection. MMODL / IJN: [id number] /
[~2024-06-12] MED LIST changes: -ALPRAZolam 0.25 MG TAB PO PRN; -ALPRAZolam 0.5 MG TAB PO PRN; +HYDROmorphone (PF) 1 MG/ML ONE; +LACTATED RINGERS 1,000 ML IV SCH; +LIDOCAINE 1% (10MG/ML) FOR IV START INTRADERMA PRN; -NITROGLYCERIN SL TABS 0.4 MG TAB SUBLINGUAL PRN; +PROPOFOL 10 MG/ML 20 ML VIAL IV ONE; +fentaNYL (PF) 50 MCG/ML 2 ML AMP IV PRN
[2024-06-12 08:39] LABS: Glucose,Whole Blood 197 mg/dL (70-110)
[2024-06-12] MEDS: ONDANSETRON 4 MG/2 ML VIAL IVP PRN (08:40)
[2024-06-12] MEDS: LACTATED RINGERS 1,000 ML IV SCH (08:41)
[2024-06-12] MEDS: IV FLUID CONTINUATION 1,000 ML IV ONE (08:49)
[2024-06-12] MEDS: ROPIVACAINE 5 MG/ML 30 ML VIAL MISCELLANE ONE (09:15)
[2024-06-12] MEDS: methylPREDNISolone ACETATE 80 MG/ML 1 ML VIAL INTRAARTIC ONE (09:15)
--- NOTE | 2024-06-12 09:24 | P.OP ---
Date of Procedure: 06/12/24 Preoperative Diagnosis: Right shoulder adhesive capsulitis Postoperative Diagnosis: Right shoulder adhesive capsulitis Procedure(s) Performed: Manipulation under anesthesia right shoulder with steroid injection Anesthesia: MAC, local Surgeon: Giuseppe Fong Estimated Blood Loss (ml): 0 Pathology: none sent Condition: stable Disposition: PACU Indications for Procedure: 59-year-old gentleman seen with persistent right shoulder adhesive capsulitis with previous history of arthroscopic rotator cuff repair. After having treatment options discussed, he elected to proceed with manipulation under anesthesia with steroid injection. Operative Findings: See description of procedure Description of Procedure: Patient was taken to a monitored anesthesia area. He received IV sedation by the department of anesthesia. When sufficient anesthesia was noted I performed a manipulation of the right shoulder achieving near full range of motion with audible tearing of the adhesions. The anterior aspect right shoulder was prepped and draped in the normal sterile orthopedic fashion. I injected a solution of 2 cc cc quarter percent plain Marcaine and 1 cc Depo-Medrol intra- articular glenohumeral joint under sterile technique. I again took the shoulder through range of motion. I applied a sterile bandage at the puncture site. The patient tolerated procedure well. He was awakened in stable condition.
[2024-06-12 09:40] VITALS: RESP 16; TEMP 97
[2024-06-12] MEDS: HYDROmorphone 0.5 MG/0.5 ML SYRINGE IVP PRN (09:48)
[2024-06-12 10:18] VITALS: BP 136/72; PULSE 76
== END | disposition home or self-care (01) ==
LOC: OR 07:56
PROVIDERS: ATTEND Orthopaedic Surgery
DX: M75.01 Adhesive capsulitis of right shoulder (principal); E11.9 Type 2 diabetes mellitus without complications; I48.91 Unspecified atrial fibrillation; E78.5 Hyperlipidemia, unspecified; I10 Essential (primary) hypertension; Z79.84 Long term (current) use of oral hypoglycemic drugs; Z79.890 Hormone replacement therapy; Z79.899 Other long term (current) drug therapy
CPT/HCPCS: 23700; J2405; J1171 ×2; J2795; J2704; J1010

== ENCOUNTER 2025-01-10 15:15 | Inpatient (IN) | payer OTHER ==
[2025-01-10 15:55] LABS: Basophils # (A) 0.07 10*3/uL (0.00-0.10); Basophils % (A) 0.7 %; Eosinophils # (A) 0.41 10*3/uL (0.04-0.35); Eosinophils % (A) 4.1 %; HCT 41.3 % (39.6-50.0); HGB 13.8 g/dL (13.0-17.0); Lymphocytes # (A) 1.56 10*3/uL (0.90-5.00); Lymphocytes % (A) 15.5 %; MCH 30.3 pg (27.0-32.0); MCHC 33.4 g/dL (32.0-37.0); MCV 90.8 fL (80.0-97.0); Mean Platelet Volume 9.7 fL (9.5-12.2); Monocytes # (A) 0.76 10*3/uL (0.20-1.00); Monocytes % (A) 7.6 %; Neutrophils % (A) 71.5 %; Platelet Count 284 10*3/uL (140-440); RBC 4.55 10*6/uL (4.40-5.60); RDW 14.1 % (11.5-14.5); WBC 10.06 10*3/uL (4.50-10.00)
--- NOTE | 2025-01-10 15:59 | ED ---
General Adult HPI - General Chief complaint: Chest Pain Stated complaint: Sent by doctor/Heart Time Seen by Provider: 01/10/25 15:24 Source: patient Mode of arrival: ambulatory Limitations: no limitations - History of Present Illness Initial comments: Dictation was produced using [employer] dictation software. please excuse any grammatical, word or spelling errors. Chief Complaint: 59-year-old male presents emergency department with abnormal stress test History of Present Illness: 59-year-old male with multiple cardiac stents presents to the ER for abnormal stress test. Today he had a treadmill stress test. Is found to be abnormal and patient was symptomatic he was sent directly to the ER to be admitted with plans for cardiac catheterization later today. Patient states that during the stress test he had some shortness of breath. States that after he came off the treadmill his symptoms resolved. Patient denies any symptoms currently at the bedside. The ROS documented in this emergency department record has been reviewed and confirmed by me. Those systems with pertinent positive or negative responses have been documented in the HPI. All other systems are other negative and/or noncontributory. - Related Data Home Medications Medication Instructions Recorded Confirmed Rosuvastatin [Crestor] 10 mg PO HS 06/30/18 01/10/25 Aspirin EC [Ecotrin] 81 mg PO HS 12/15/21 01/10/25 Furosemide [Lasix] 40 mg PO HS 12/15/21 01/10/25 Levothyroxine Sodium [Synthroid] 50 mcg PO DAILY 11/13/22 01/10/25 Metoprolol Tartrate [Lopressor] 50 mg PO BID 11/13/22 01/10/25 Albuterol Sulfate [Albuterol 2 puff INHALATION RT-QID PRN 11/01/23 01/10/25 Sulfate Hfa] Losartan [Cozaar] 50 mg PO DAILY 01/06/24 01/10/25 Semaglutide [Rybelsus] 14 mg PO DAILY 01/06/24 01/10/25 Apixaban [Eliquis] 5 mg PO BID 01/10/25 01/10/25 Cyclobenzaprine [Flexeril] 10 mg PO HS PRN 01/10/25 01/10/25 Fluticasone/Umeclidin/Vilanter 1 puff INHALATION RT-DAILY 01/10/25 01/10/25 [Treleedward Ellipta 100-62.5-25] Insulin Glargine,Hum.rec.anlog 30 unit SQ HS PRN 01/10/25 01/10/25 [Starraglcorine Guerra U-100] glipiZIDE [Glucotrol] 5 mg PO AC-BID 01/10/25 01/10/25 metFORMIN HCL 1,000 mg PO BID-W/MEALS 01/10/25 01/10/25 Previous Rx's Medication Instructions Recorded Pantoprazole [Protonix] 40 mg PO DAILY #30 tablet. 01/26/20 Allergies Allergy/AdvReac Type Severity Reaction Status Date / Time No Known Allergies Allergy Verified 01/10/25 16:19 Review of Systems ROS Statement: Those systems with pertinent positive or pertinent negative responses have been documented in the HPI. ROS Other: All systems not noted in ROS Statement are negative. Past Medical History Past Medical History: Atrial Fibrillation, Atrial Flutter, Coronary Artery Disease (CAD), COPD, Diabetes Mellitus, GERD/Reflux, Hyperlipidemia, Hypertension, Pneumonia, Respiratory Disorder, Thyroid Disorder Additional Past Medical History / Comment(s): Hx. Afib with RVR, aflutter, atach, "leaky mitral valve", murmur, cardiomyopathy, chronic low back pain/ruptured L4 L5 discs, scoliosis, hx. radhika. achilles tendon injury, hypothyroid History of Any Multi-Drug Resistant Organisms: None Reported Past Surgical History: Cardiac Ablation, Heart Catheterization, Heart C atheterization With Stent, Hernia Repair, Orthopedic Surgery Additional Past Surgical History / Comment(s): Cardiac ablations x 4, PCI/stents, attempted cardioversion, L tibial osteochondroma-benign, R knee arthroscopic meniscus repair, L achilles tendon tear with surgery, lumbar spine ablations, umbilical hernia repair, colonoscopy, vasectomy. right shoulder arthroscopy in December Past Anesthesia/Blood Transfusion Reactions: No Reported Reaction Date of Last Stent Placement:: 01/05/20 Past Psychological History: No Psychological Hx Reported Smoking Status: Former smoker - Past Family History Mother Family Medical History: Thyroid Disorder Additional Family Medical History / Comment(s): Lupus, rheumatic fever, hypothyroid, bowel resection. Father Family Medical History: CVA/TIA, Diabetes Mellitus, Myocardial Infarction (MN) Additional Family Medical History / Comment(s): Father had a MN in his 30s. He from a cva at the age of 63/64 yrs General Exam - General Exam Comments Initial Comments: PHYSICAL EXAM: General Impression: Alert and oriented x3, not in acute distress HEENT: Normocephalic atraumatic, extra-ocular movements intact, pupils equal and reactive to light bilaterally, mucous membranes moist. Cardiovascular: Heart regular rate and rhythm Chest: Able to complete full sentences, no retractions, no tachypnea Abdomen: abdomen soft, non-tender, non-distended, no organomegaly Musculoskeletal: Pulses present and equal in all extremities, no peripheral edema Motor: no focal deficits noted Neurological: CN II-XII grossly intact, no focal motor or sensory deficits noted Skin: Intact with no visualized rashes Psych: Normal affect and mood Limitations: no limitations Course Vital Signs 01/10/25 01/10/25 01/10/25 15:18 15:38 15:53 Temperature 98.1 F Pulse Rate 101 H 96 93 Respiratory 18 20 18 Rate Blood Pressure 136/83 145/77 145/77 O2 Sat by Pulse 95 97 94 L Oximetry EKG Findings - EKG Comments: EKG Findings:: My EKG interpretation: Ventricular rate 97, sinus rhythm, AL 173, QRS 103, QTc 389. No AL prolongation, no QTC prolongation, no ST or T-wave changes noted. Overall, this EKG is unremarkable Medical Decision Making - Medical Decision Making Was pt. sent in by a medical professional or institution (, [facility], [employer]ERAL CAR DRIVER, urgent care, hospital, or custodial...) When possible be specific @ -Cardiac clinic Did you speak to anyone other than the patient for history (EMS, parent, family, police, friend...)? What history was obtained from this source @ -No Did you review nursing and triage notes (agree or disagree)? Why? @ -I reviewed and agree with nursing and triage notes Were old charts reviewed (outside hosp., previous admission, EMS record, old EKG, old radiological studies, urgent care reports/EKG's, custodial records)? Report findings @ -No old charts were reviewed Differential Diagnosis (chest pain, altered mental status, abdominal pain women, abdominal pain men, vaginal bleeding, musculoskeletal, weakness, fever, dyspnea, syncope, headache, dizziness, GI bleed, back pain, seizure, CVA, palpatations, mental health)? @ -Differential Chest Pain: Stable Angina, Unstable Angina, STEMI, NSTEMI Aortic Dissection, Pneumothorax, Musculoskeletal, Esophageal Spasm GERD, Cholecystitis, Pancreatitis, Zoster, this is not meant to be an all-inclusive list. EKG interpreted by me (3pts min.). @ -See above X-rays interpreted by me (1pt min.). @ -Chest x-ray is nonacute CT interpreted by me (1pt min.). @ -None done U/S interpreted by me (1pt. min.). @ -None done What testing was considered but not performed or refused? (CT, X-rays, U/S, labs)? Why? @ -None What meds were considered but not given or refused? Why? @ -None Was smoking cessation discussed for >3mins.? @ -No Were there social determinants of health that impacted care today? How? (Homelessness, low income, unemployed, alcoholism, drug addiction, transportation, low edu. Level, literacy, decrease access to med. care, [facility], rehab)? @ -No Was there de-escalation of care discussed even if they declined (Discuss DNR or withdrawal of care, Hospice)? DNR status @ -No What co-morbidities impacted this encounter? (DM, HTN, Smoking, COPD, CAD, Cancer, CVA, ARF, Chemo, Hep., AIDS, mental health diagnosis, sleep apnea, morbid obesity)? @ -Acute coronary syndrome Was patient admitted / discharged? Hospital course, mention meds given and route, prescriptions, significant lab abnormalities, going to OR and other per tinent info. @ -59-year-old male sent from cardiac clinic for abnormal cardiac stress test. Vital signs stable. EKG is unremarkable. Patient is well-appearing with no acute complaints. Labs are unremarkable. Patient given aspirin will be admitted. Case discussed with hospitalist for admission. Did you discuss the management of the patient with other professionals (professionals i.e. , PA, FUNERAL CAR DRIVER, lab, RT, psych nurse, oncology social worker, edge cutter, teacher, learning and development officer, case worker)? Give summary @ -See above Was critical care preformed (if so, how long)? @ -No Undiagnosed new problem with uncertain prognosis? @ -No Drug Therapy requiring intensive monitoring for toxicity (Heparin, Nitro, Insulin, Cardizem)? @ -No Were any procedures done? @ -No Diagnosis/symptom? Acute, or Chronic, or Acute on Chronic? Uncomplicated (without systemic symptoms) or Complicated (systemic symptoms)? @ -Acute coronary syndrome Side effects of treatment? @ -No Exacerbation, Progression, or Severe Exacerbation? @ -No Poses a threat to life or bodily function? How? (Chest pain, [place], [place], pneumonia, PE, COPD, DKA, ARF, appy, cholecystitis, CVA, Diverticulitis, Homicidal, Suicidal, threat to staff... and all critical care pts) @ -yes - Lab Data Result diagrams: 01/10/25 15:40 01/10/25 15:40 Lab Results 01/10/25 01/10/25 01/10/25 Range/Units 15:40 15:40 15:40 WBC 10.06 H (4.50-10.00) 10*3/uL RBC 4.55 (4.40-5.60) 10*6/uL Hgb 13.8 (13.0-17.0) g/dL Hct 41.3 (39.6-50.0) % MCV 90.8 (80.0-97.0) fL MCH 30.3 (27.0-32.0) pg MCHC 33.4 (32.0-37.0) g/dL Plt Count 284 (140-440) 10*3/uL MPV 9.7 (9.5-12.2) fL Immature Gran % (Auto) 0.6 % Neutrophils % 71.5 % Lymphocytes % 15.5 % Monocytes % 7.6 % Eosinophils % 4.1 % Basophils % 0.7 % Immature Gran # 0.06 H (0.00-0.04) 10*3/uL Neutrophils # 7.20 (1.80-7.70) 10*3/uL Lymphocytes # 1.56 (0.90-5.00) 10*3/uL Monocytes # 0.76 (0.20-1.00) 10*3/uL Eosinophils # 0.41 H (0.04-0.35) 10*3/uL Basophils # 0.07 (0.00-0.10) 10*3/uL PT 10.9 (10.0-12.5) sec INR 1.0 (<1.2) APTT 22.0 (22.0-30.0) sec Sodium 139 (137-145) mmol/L Potassium 3.8 (3.5-5.1) mmol/L Chloride 99 (98-107) mmol/L Carbon Dioxide 30 (22-30) mmol/L Anion Gap 10 mmol/L BUN 12 (9-20) mg/dL Creatinine 0.62 L (0.66-1.25) mg/dL Est GFR (CKD-EPI)AfAm >90 (>60 ml/min/1.73 sqM) Est GFR (CKD-EPI)NonAf >90 (>60 ml/min/1.73 sqM) Glucose 144 H (74-99) mg/dL Calcium 9.6 (8.4-10.2) mg/dL Magnesium 1.7 (1.6-2.3) mg/dL Total Bilirubin 0.4 (0.2-1.3) mg/dL AST 16 L (17-59) U/L ALT 14 (4-49) U/L Alkaline Phosphatase 62 (38-126) U/L Troponin I (0.000-0.034) ng/mL Total Protein 7.6 (6.3-8.2) g/dL Albumin 3.9 (3.5-5.0) g/dL 01/10/25 Range/Units 15:40 WBC (4.50-10.00) 10*3/uL RBC (4.40-5.60) 10*6/uL Hgb (13.0-17.0) g/dL Hct (39.6-50.0) % MCV (80.0-97.0) fL MCH (27.0-32.0) pg MCHC (32.0-37.0) g/dL Plt Count (140-440) 10*3/uL MPV (9.5-12.2) fL Immature Gran % (Auto) % Neutrophils % % Lymphocytes % % Monocytes % % Eosinophils % % Basophils % % Immature Gran # (0.00-0.04) 10*3/uL Neutrophils # (1.80-7.70) 10*3/uL Lymphocytes # (0.90-5.00) 10*3/uL Monocytes # (0.20-1.00) 10*3/uL Eosinophils # (0.04-0.35) 10*3/uL Basophils # (0.00-0.10) 10*3/uL PT (10.0-12.5) sec INR (<1.2) APTT (22.0-30.0) sec Sodium (137-145) mmol/L Potassium (3.5-5.1) mmol/L Chloride (98-107) mmol/L Carbon Dioxide (22-30) mmol/L Anion Gap mmol/L BUN (9-20) mg/dL Creatinine (0.66-1.25) mg/dL Est GFR (CKD-EPI)AfAm (>60 ml/min/1.73 sqM) Est GFR (CKD-EPI)NonAf (>60 ml/min/1.73 sqM) Glucose (74-99) mg/dL Calcium (8.4-10.2) mg/dL Magnesium (1.6-2.3) mg/dL Total Bilirubin (0.2-1.3) mg/dL AST (17-59) U/L ALT (4-49) U/L Alkaline Phosphatase (38-126) U/L Troponin I <0.012 (0.000-0.034) ng/mL Total Protein (6.3-8.2) g/dL Albumin (3.5-5.0) g/dL Disposition Clinical Impression: ACS (acute coronary syndrome) Disposition: ADMITTED IP TO THIS [facility] Condition: Fair Referrals: Stas Fink DO [Primary Care Provider] - 1-2 days Decision Time: 16:40
[2025-01-10 16:08] LABS: Prothrombin Time 10.9 sec (10.0-12.5)
--- NOTE | 2025-01-10 16:11 | XR ---
EXAMINATION TYPE: XR chest 2V DATE OF EXAM: 01/10/2025 4:07 PM COMPARISON: Chest radiographs from 01/05/2024, CT chest 05/26/2023 TECHNIQUE: XR chest 2V Frontal and lateral views of the chest. CLINICAL INDICATION:Male, 59 years old with history of Chest Pain; FINDINGS: Lungs/Pleura: There is flattening of the diaphragm with increased lucency of the lungs. No evidence o f pneumothorax, pleural effusion or focal consolidation. Pulmonary vascularity: Unremarkable. Heart/mediastinum: Cardiomediastinal silhouette is enlarged and stable. Musculoskeletal: No acute osseous pathology. IMPRESSION: 1. No acute cardiopulmonary disease process. 2. COPD changes. [facility], , 01/10/2025 4:09 PM
[2025-01-10 16:12] LABS: ALT 14 U/L (4-49); AST 16 U/L (17-59); African American GFR (CKD) >90 (>60 ml/min/1.73 sqM); Albumin 3.9 g/dL (3.5-5.0); Alkaline Phosphatase 62 U/L (38-126); Anion Gap 10 mmol/L; Blood Urea Nitrogen 12 mg/dL (9-20); Calcium 9.6 mg/dL (8.4-10.2); Carbon Dioxide 30 mmol/L (22-30); Chloride 99 mmol/L (98-107); Glucose 144 mg/dL (74-99); Magnesium 1.7 mg/dL (1.6-2.3); Non-African American GFR(CKD) >90 (>60 ml/min/1.73 sqM); Potassium 3.8 mmol/L (3.5-5.1); Sodium 139 mmol/L (137-145); Total Bilirubin 0.4 mg/dL (0.2-1.3); Total Protein 7.6 g/dL (6.3-8.2)
[2025-01-10] MEDS ORDERED: NITROGLYCERIN SL TABS 0.4 MG TAB SUBLINGUAL PRN (16:36)
[2025-01-10] MEDS: ASPIRIN 81 MG PO STA (16:43)
[2025-01-10] MEDS: HEPARIN SODIUM 1,000 UN/ML (10ML VL) IV ONE (18:50)
[2025-01-10] MEDS: HEPARIN SOD,PORK IN 0.45% NACL 25,000 UNIT in 0.45% NACL 1 250ML.BAG IV SCH (18:51)
[2025-01-10 20:39] LABS: Glucose,Whole Blood 188 mg/dL (70-110)
[2025-01-11] MEDS: HEPARIN SODIUM 1,000 UN/ML (10ML VL) IV PRN (02:22)
[2025-01-11 06:18] LABS: Glucose,Whole Blood 143 mg/dL (70-110)
[2025-01-11 08:54] LABS: Chol/HDL Ratio 5.87 Ratio; LDL Cholesterol,Calculated 108.5 mg/dL (0.0-131.0)
[2025-01-11] MEDS: ASPIRIN 325 MG TAB PO SCH (08:57)
[2025-01-11] MEDS ORDERED: ALBUTEROL NEBULIZED 2.5 MG/3 ML INHALATION PRN (09:00)
[2025-01-11] MEDS ORDERED: ALPRAZolam 0.25 MG TAB PO PRN (09:02)
[2025-01-11] MEDS ORDERED: NITROGLYCERIN SL TABS 0.4 MG TAB SUBLINGUAL PRN (09:02)
[2025-01-11] MEDS ORDERED: ALPRAZolam 0.5 MG TAB PO PRN (09:02)
[2025-01-11] MEDS: ATORVASTATIN 80 MG TAB PO STA (10:07)
[2025-01-11] MEDS: METOPROLOL TARTRATE 50 MG TAB PO SCH (10:07)
[2025-01-11] MEDS: LOSARTAN 50 MG TAB PO SCH (10:07)
--- NOTE | 2025-01-11 11:15 | P.HPIM ---
History of Present Illness H&P Date: 01/11/25 Chief Complaint: Abnormal stress test Patient is a 59-year-old male with a past medical history of coronary artery disease with stent placement on 01/05/2020, atrial fibrillation/flutter with history of ablation and attempted cardioversion, COPD, diabetes type 2 [id number], hypertension, hyperlipidemia, hypothyroidism and chronic low back pain and prior history of smoking. Patient was had stress test done yesterday, while he was on the treadmill after doing 30 minutes his blood pressure went up to 190s and he felt stiff shoulders and shortness of breath. He was also having palpitations and cardiology was called. They could not able to complete the nuclear part. Patient was transferred to ER for cardiac catheterization. Patient previously had right shoulder surgery. Cardiac catheterization with radial artery was attempted last year and had to change to femoral. But could not proceed. Patient has been having exertional dyspnea for the last couple of months. Denied any complains of fever or chills. No cough or sputum production. No leg swelling. Currently patient denied any chest pain. Chest x-ray showed no acute cardiopulmonary process. COPD changes. EKG showed sinus rhythm. Patient was started on heparin drip overnight. Laboratory data showed troponin x 3 negative, WBC 10.0 hemoglobin 13.8 and platelets 284 sodium 139 potassium 3.8 chloride 99 bicarb is 30 BUN 12 and creatinine 0.16 blood sugar 144 LDL 108.5 and HDL 28.3. Review of Systems Constitutional: Patient denies any fever or chills . No generalized weakness or weight loss. Abdomen: Patient denied nausea vomiting and diarrhea and abdominal pain. Cardiovascular: Patient denies any chest pain or short of breath no palpitations. Respiratory: patient denied any cough or sputum production. No shortness of breath Neurologic: Patient denied any numbness or tingling. no headache. Musculoskeletal: Patient denies any complaints of joint swelling or deformity. Skin: Negative Psychiatric: Negative Endocrine: No heat or cold intolerance. No recent weight gain. Genitourinary: No dysuria or hematuria. All other 14 point ROS negative except the above Past Medical History Past Medical History: Atrial Fibrillation, Atrial Flutter, Coronary Artery Disease (CAD), COPD, Diabetes Mellitus, GERD/Reflux, Hyperlipidemia, Hypertension, Pneumonia, Respiratory Disorder, Thyroid Disorder Additional Past Medical History / Comment(s): Hx. Afib with RVR, aflutter, atach, "leaky mitral valve", murmur, cardiomyopathy, chronic low back pain/ruptured L4 L5 discs, scoliosis, hx. radhika. achilles tendon injury, hypothyroid History of Any Multi-Drug Resistant Organisms: None Reported Past Surgical History: Cardiac Ablation, Heart Catheterization, Heart Catheterization With Stent, Hernia Repair, Orthopedic Surgery Additional Past Surgical History / Comment(s): Cardiac ablations x 4, PCI/stents, attempted cardioversion, L tibial osteochondroma-benign, R knee arthroscopic meniscus repair, L achilles tendon tear with surgery, lumbar spine ablations, umbilical hernia repair, colonoscopy, vasectomy. right shoulder a rthroscopy in December Past Anesthesia/Blood Transfusion Reactions: No Reported Reaction Date of Last Stent Placement:: 01/05/20 Past Psychological History: No Psychological Hx Reported Additional Psychological History / Comment(s): Pt resides alone. He is independent. He is an [employer] and served in [email or web address]. He works for the [employer]. Smoking Status: Former smoker Past Alcohol Use History: None Reported Additional Past Alcohol Use History / Comment(s): Pt stared smoking in 1978 and quit in 2018 Past Drug Use History: None Reported - Past Family History Mother Family Medical History: Thyroid Disorder Additional Family Medical History / Comment(s): Lupus, rheumatic fever, hypothyroid, bowel resection. Father Family Medical History: CVA/TIA, Diabetes Mellitus, Myocardial Infarction (HI) Additional Family Medical History / Comment(s): Father had a HI in his 30s. He from a cva at the age of 63/64 yrs Medications and Allergies Home Medications Medication Instructions Recorded Confirmed Type Rosuvastatin [Crestor] 10 mg PO HS 06/30/18 01/10/25 History Pantoprazole [Protonix] 40 mg PO DAILY #30 tablet. 01/26/20 01/10/25 Rx Aspirin EC [Ecotrin] 81 mg PO HS 12/15/21 01/10/25 History Furosemide [Lasix] 40 mg PO HS 12/15/21 01/10/25 History Levothyroxine Sodium [Synthroid] 50 mcg PO DAILY 11/13/22 01/10/25 History Metoprolol Tartrate [Lopressor] 50 mg PO BID 11/13/22 01/10/25 History Albuterol Sulfate [Albuterol 2 puff INHALATION RT-QID PRN 11/01/23 01/10/25 History Sulfate Hfa] Losartan [Cozaar] 50 mg PO DAILY 01/06/24 01/10/25 History Semaglutide [Rybelsus] 14 mg PO DAILY 01/06/24 01/10/25 History Apixaban [Eliquis] 5 mg PO BID 01/10/25 01/10/25 History Cyclobenzaprine [Flexeril] 10 mg PO HS PRN 01/10/25 01/10/25 History Fluticasone/Umeclidin/Vilanter 1 puff INHALATION RT-DAILY 01/10/25 01/10/25 History [Trelegy Ellipta 100-62.5-25] Insulin Glargine,Hum.rec.anlog 30 unit SQ HS PRN 01/10/25 01/10/25 History [Basaglar Kwikpen U-100] glipiZIDE [Glucotrol] 5 mg PO AC-BID 01/10/25 01/10/25 History metFORMIN HCL 1,000 mg PO BID-W/MEALS 01/10/25 01/10/25 History Allergies Allergy/AdvReac Type Severity Reaction Status Date / Time No Known Allergies Allergy Verified 01/10/25 16:19 Physical Exam Vitals: Vital Signs Temp Pulse Pulse Resp BP BP Pulse Ox 01/11/25 08:00 98.5 F 83 16 146/83 93 L 01/11/25 04:00 84 18 119/80 92 L 01/10/25 23:20 98.2 F 84 18 106/68 93 L 01/10/25 20:35 79 18 136/87 95 01/10/25 20:03 98.9 F 95 18 93 L 01/10/25 19:29 92 18 140/87 93 L 01/10/25 18:14 83 16 176/90 93 L 01/10/25 15:53 93 18 145/77 94 L 01/10/25 15:38 96 20 145/77 97 01/10/25 15:18 98.1 F 101 H 18 136/83 95 Intake and Output 01/10/25 01/11/25 01/11/25 22:59 06:59 14:59 Intake Total 75.333 Balance 75.333 Intake: Intake, IV Titration 75.333 Amount Heparin Sod,Pork in 0.45% 75.333 NaCl 25,000 unit In 0.45 % NaCl 1 250ml.bag @ 10. 067 UNITS/KG/HR 10 mls/hr IV .Q24H [facility] Rx#: [id number] Other: # Voids 1 Weight 99.337 kg 100.7 kg PHYSICAL EXAMINATION: Patient is lying in the bed comfortably, no acute distress, awake alert and oriented.. HEENT: Normocephalic. Neck is supple. Pupils reactive. Nostrils clear. Oral cavity is moist. Neck reveals no JVD, carotid bruits, or thyromegaly. CHEST EXAMINATION: Trachea is central. Symmetrical expansion. Lung sauceda clear to auscultation and percussion. CARDIAC: Normal S1, S2 with no gallops. Systolic murmur ABDOMEN: Soft. Bowel sounds normal. No organomegaly. No abdominal bruits. Extremities: reveal no edema. No clubbing or cyanosis Neurologically awake, alert, oriented x3 with well-coordinated movements. No focal deficits noted Skin: No rash or skin lesions. Psychiatric: Coperative. Nonsuicidal Musculoskeletal: No joint swelling or deformity. Normal range of motion. Results CBC & Chem 7: 01/10/25 15:40 01/10/25 15:40 Labs: Abnormal Lab Results - Last 24 Hours (Table) 01/10/25 01/10/25 01/10/25 Range/Units 15:40 15:40 20:38 WBC 10.06 H (4.50-10.00) 10*3/uL Immature Gran # 0.06 H (0.00-0.04) 10*3/uL Eosinophils # 0.41 H (0.04-0.35) 10*3/uL Creatinine 0.62 L (0.66-1.25) mg/dL Glucose 144 H (74-99) mg/dL POC Glucose (mg/dL) 188 H (70-110) mg/dL AST 16 L (17-59) U/L HDL Cholesterol (40.00-60.00) mg/dL 01/11/25 01/11/25 Range/Units 01:27 06:15 WBC (4.50-10.00) 10*3/uL Immature Gran # (0.00-0.04) 10*3/uL Eosinophils # (0.04-0.35) 10*3/uL Creatinine (0.66-1.25) mg/dL Glucose (74-99) mg/dL POC Glucose (mg/dL) 143 H (70-110) mg/dL AST (17-59) U/L HDL Cholesterol 28.30 L (40.00-60.00) mg/dL Thrombosis Risk Factor Assmnt - DVT/VTE Prophylaxis DVT/VTE Prophylaxis: Pharmacologic Prophylaxis ordered - Choose All That Apply Each Factor Represents 1 point: Age 41-60 years, Obesity (BMI >25) Other Risk Factors: No Thrombosis Risk Factor Assessment Total Risk Factor Score: 2 Thrombosis Risk Factor Assessment Level: Low Risk Assessment and Plan Assessment: Abnormal stress test. Rule out ACS Exertional dyspnea Coronary artery disease with history of stent placement in 2019 Atrial fibrillation/flutter. On anticoagulation with Eliquis. Prior history of cardioversion and cardiac ablation Diabetes type 2 hyperglycemia is uncontrolled [id number] Hypertension Hypothyroidism COPD Prior history of smoking Chronic low back pain DVT prophylaxis patient is already on full anticoagulation Plan: Patient will be continued on telemonitoring. Troponin x 3 negative. Will continue on heparin drip overnight. Cardiology is planning for catheterization today. Continue with aspirin, statin and metoprolol and losartan and Lasix. Follow-up closely. Continue insulin sliding scale for better blood sugar control. Time with Patient: Greater than 30
[2025-01-11] MEDS ORDERED: DEXTROSE 50% SYRINGE 50 ML IVP PRN ×2 (11:16)
--- NOTE | 2025-01-11 12:04 | P.CRDCN ---
History of Present Illness Consult date: 01/11/25 Reason for Consult (text): Abnormal stress test History of present illness: This is a 59-year-old male patient of Dr. Prieto with past medical history of coronary artery disease with prior stenting of the RCA, cardiomyopathy, valvular heart disease including aortic and mitral regurgitation, paroxysmal atrial fibrillation status post ablation, diabetes, hypertension, dyslipidemia, overweight, COPD. We have been asked to evaluate patient for abnormal stress test. Patient last saw Dr. Prieto in the office on 11/30/2024 and at that time had complaints of not feeling well with shortness of breath with exertion that seem to have progressed since September. He was having some chest discomfort with exertion as well. Arrangements were made for patient to have a stress test in the office as well as echocardiogram. Patient was in the office yesterday and during the testing, he he states he developed what he thought was his throat constricting and then he had chest pain down his midsternal area with shortness of breath and he had left elbow pain. Patient was then sent over to the emergency center for admission with plan for cardiac catheterization which is scheduled for today. Patient denies any chest pain or shortness of breath at rest. No lightheadedness or dizziness no palpitations. Patient has been started on a heparin drip and Eliquis is on hold. Blood pressure 146/83, heart rate 83, pulse ox 93% on room air. -EKG: Sinus rhythm 97 bpm with no acute ST changes. -Chest x-ray: No acute process. COPD. -Laboratory studies: WBC 10, hemoglobin 13.8, electrolytes are normal. BUN 12 and creatinine 0.62. Troponins are negative x 3. Triglycerides 146, cholesterol 166, LDL 108. -Home cardiac medications: Eliquis 5 mg twice daily, aspirin 81 mg daily, losartan 50 mg daily, rosuvastatin 10 mg at bedtime. -Cardiac catheterization performed 11/05/2023 revealed severe in-stent restenosis of the mid RCA status post PCI. -Echocardiogram performed in the office on 12/27/2024 revealed EF 50%, mild concentric left ventricular hypertrophy. Trace aortic regurgitation and mild aortic stenosis. Severe mitral regurgitation. Myxomatous mitral valve. Trace tricuspid regurgitation. -Lexiscan Cardiolite stress test performed in the office in 10/19/2023 revealed nondiagnostic-electrocardiographic stress testing response to Lexiscan. Abnormal myocardial perfusion imaging with evidence of reversible defect inferiorly. Normal left ventricular systolic function. Review Of Systems: At the time of my exam: CONSTITUTIONAL: Denies fever or chills. HEENT: Denies blurred vision, vision changes, or eye pain. Denies hemoptysis CARDIOVASCULAR: Denies chest pain. Denies orthopnea. Denies PND. Denies palpitations RESPIRATORY: Denies shortness of breath. GASTROINTESTINAL: Denies abdominal pain. Denies nausea or vomiting. HEMATOLOGIC: Denies bleeding disorders. GENITOURINARY: Denies any blood in urine. SKIN: Denies puritis. Denies rash. Physical examination: Gen: This is 59-year-old male in no acute distress VS: reviewed HEENT: Head is atraumatic, normocephalic. Pupils equal, round. Sclerae is anicteric. NECK: Supple. No JVD. LUNGS: Clear to auscultation. No wheezes or rhonchi. No intercostal retractions. HEART: Regular rate and rhythm. Soft systolic ejection murmur at the right sternal border, pansystolic murmur at the apex. ABDOMEN: Soft No tenderness. EXTREMITIES: No pedal edema. No calf tenderness. NEUROLOGICAL: Patient is awake, alert and oriented x3. Assessment: Abnormal stress test Known coronary artery disease with prior stenting of the RCA with in-stent restenosis status post PCI 11/05/2023 Hypertension Dyslipidemia Diabetes Cardiomyopathy, valvular heart disease with severe mitral regurgitation, mild aortic stenosis COPD Plan: Resume patient's home cardiac medica Start patient on IV fluids 0.9 normal saline at 75 cc/h Patient will be scheduled for cardiac catheterization today with Dr. Prieto. No need to obtain echocardiogram as this was done in the office in December Further recommendations to follow based upon clinical course Thank you kindly for this consultation. Nurse practitioner note has been reviewed, I agree with documented findings and plan of care. Patient was seen and examined. Past Medical History Past Medical History: Atrial Fibrillation, Atrial Flutter, Coronary Artery Disease (CAD), COPD, Diabetes Mellitus, GERD/Reflux, Hyperlipidemia, Hypertension, Pneumonia, Respiratory Disorder, Thyroid Disorder Additional Past Medical History / Comment(s): Hx. Afib with RVR, aflutter, atach, "leaky mitral valve", murmur, cardiomyopathy, chronic low back pain/ruptured L4 L5 discs, scoliosis, hx. radhika. achilles tendon injury, hypothyroid History of Any Multi-Drug Resistant Organisms: None Reported Past Surgical History: Cardiac Ablation, Heart Catheterization, Heart Catheterization With Stent, Hernia Repair, Orthopedic Surgery Additional Past Surgical History / Comment(s): Cardiac ablations x 4, PCI/stents, attempted cardioversion, L tibial osteochondroma-benign, R knee arthroscopic meniscus repair, L achilles tendon tear with surgery, lumbar spine ablations, umbilical hernia repair, colonoscopy, vasectomy. right shoulder arthroscopy in December Past Anesthesia/Blood Transfusion Reactions: No Reported Reaction Date of Last Stent Placement:: 01/05/20 Past Psychological History: No Psychological Hx Reported Additional Psychological History / Comment(s): Pt resides alone. He is independent. He is an [employer] and served in [employer]. He works for the [employer] ?[employer] service. Smoking Status: Former smoker Past Alcohol Use History: None Reported Additional Past Alcohol Use History / Comment(s): Pt stared smoking in 1978 and quit in 2018 Past Drug Use History: None Reported - Past Family History Mother Family Medical History: Thyroid Disorder Additional Family Medical History / Comment(s): Lupus, rheumatic fever, hypothyroid, bowel resection. Father Family Medical History: CVA/TIA, Diabetes Mellitus, Myocardial Infarction (VT) Additional Family Medical History / Comment(s): Father had a VT in his 30s. He from a cva at the age of 63/64 yrs Medications and Allergies Home Medications Medication Instructions Recorded Confirmed Type Rosuvastatin [Crestor] 10 mg PO HS 06/30/18 01/10/25 History Pantoprazole [Protonix] 40 mg PO DAILY #30 tablet. 01/26/20 01/10/25 Rx Aspirin EC [Ecotrin] 81 mg PO HS 12/15/21 01/10/25 History Furosemide [Lasix] 40 mg PO HS 12/15/21 01/10/25 History Levothyroxine Sodium [Synthroid] 50 mcg PO DAILY 11/13/22 01/10/25 History Metoprolol Tartrate [Lopressor] 50 mg PO BID 11/13/22 01/10/25 History Albuterol Sulfate [Albuterol 2 puff INHALATION RT-QID PRN 11/01/23 01/10/25 History Sulfate Hfa] Losartan [Cozaar] 50 mg PO DAILY 01/06/24 01/10/25 History Semaglutide [Rybelsus] 14 mg PO DAILY 01/06/24 01/10/25 History Apixaban [Eliquis] 5 mg PO BID 01/10/25 01/10/25 History Cyclobenzaprine [Flexeril] 10 mg PO HS PRN 01/10/25 01/10/25 History Fluticasone/Umeclidin/Vilanter 1 puff INHALATION RT-DAILY 01/10/25 01/10/25 History [Treleedward Ellipta 100-62.5-25] Insulin Glargine,Hum.rec.anlog 30 unit SQ HS PRN 01/10/25 01/10/25 History [Basaglar Kwikpen U-100] glipiZIDE [Glucotrol] 5 mg PO AC-BID 01/10/25 01/10/25 History metFORMIN HCL 1,000 mg PO BID-W/MEALS 01/10/25 01/10/25 History Allergies Allergy/AdvReac Type Severity Reaction Status Date / Time No Known Allergies Allergy Verified 01/10/25 16:19 Physical Exam Vitals: Vital Signs Temp Pulse Pulse Resp BP BP Pulse Ox 01/11/25 08:00 98.5 F 83 16 146/83 93 L 01/11/25 04:00 84 18 119/80 92 L 01/10/25 23:20 98.2 F 84 18 106/68 93 L 01/10/25 20:35 79 18 136/87 95 01/10/25 20:03 98.9 F 95 18 93 L 01/10/25 19:29 92 18 140/87 93 L 01/10/25 18:14 83 16 176/90 93 L 01/10/25 15:53 93 18 145/77 94 L 01/10/25 15:38 96 20 145/77 97 01/10/25 15:18 98.1 F 101 H 18 136/83 95 Intake and Output 01/10/25 01/11/25 01/11/25 22:59 06:59 14:59 Intake Total 75.333 Balance 75.333 Intake: Intake, IV Titration 75.333 Amount Heparin Sod,Pork in 0.45% 75.333 NaCl 25,000 unit In 0.45 % NaCl 1 250ml.bag @ 10. 067 UNITS/KG/HR 10 mls/hr IV .Q24H [facility] Rx#: [id number] Other: # Voids 1 Weight 99.337 kg 100.7 kg Results 01/10/25 15:40 01/10/25 15:40 Cardiac Enzymes 01/10/25 01/10/25 01/10/25 Range/Units 15:40 15:40 19:23 AST 16 L (17-59) U/L Troponin I <0.012 0.014 (0.000-0.034) ng/mL 01/11/25 Range/Units 01:27 AST (17-59) U/L Troponin I <0.012 (0.000-0.034) ng/mL Coagulation 01/10/25 01/11/25 01/11/25 Range/Units 15:40 01:27 08:07 PT 10.9 (10.0-12.5) sec APTT 22.0 24.8 29.8 (22.0-30.0) sec Lipids 01/11/25 Range/Units 01:27 Triglycerides 146.00 (0.00-149.00) mg/dL Cholesterol 166.00 (0.00-200.00) mg/dL HDL Cholesterol 28.30 L (40.00-60.00) mg/dL Cholesterol/HDL Ratio 5.87 Ratio CBC 01/10/25 Range/Units 15:40 WBC 10.06 H (4.50-10.00) 10*3/uL RBC 4.55 (4.40-5.60) 10*6/uL Hgb 13.8 (13.0-17.0) g/dL Hct 41.3 (39.6-50.0) % Plt Count 284 (140-440) 10*3/uL Comprehensive Metabolic Panel 01/10/25 Range/Units 15:40 Sodium 139 (137-145) mmol/L Potassium 3.8 (3.5-5.1) mmol/L Chloride 99 (98-107) mmol/L Carbon Dioxide 30 (22-30) mmol/L BUN 12 (9-20) mg/dL Creatinine 0.62 L (0.66-1.25) mg/dL Glucose 144 H (74-99) mg/dL Calcium 9.6 (8.4-10.2) mg/dL AST 16 L (17-59) U/L ALT 14 (4-49) U/L Alkaline Phosphatase 62 (38-126) U/L Total Protein 7.6 (6.3-8.2) g/dL Albumin 3.9 (3.5-5.0) g/dL Current Medications Generic Name Dose Route Start Last Admin Trade Name Elizabeth PRN Reason Stop Dose Admin Aspirin 325 mg 01/11/25 09:00 01/11/25 08:57 Aspirin 325 Mg Tab PO 325 mg DAILY [facility] Administration Heparin Sodium (Porcine) 0 unit 01/10/25 18:40 01/11/25 02:22 Heparin Sodium 1,000 Un/Ml (10ml Vl) IV 4,967 unit PER PROTOCOL PRN Administration Low PTT Protocol Heparin Sodium/Sodium Chloride 250 mls @ 10 mls/hr 01/10/25 18:45 01/11/25 02:23 25,000 unit/ Sodium Chloride IV 13.067 units/kg/hr .Q24H [facility] 12.98 mls/hr Titration Protocol 10.067 UNITS/KG/HR Nitroglycerin 0.4 mg 01/10/25 16:36 Nitroglycerin Sl Tabs 0.4 Mg Tab SUBLINGUAL Q5M PRN Chest Pain Intake and Output 01/10/25 01/11/25 01/11/25 22:59 06:59 14:59 Intake Total 75.333 Balance 75.333 Intake: Intake, IV Titration 75.333 Amount Heparin Sod,Pork in 0.45% 75.333 NaCl 25,000 unit In 0.45 % NaCl 1 250ml.bag @ 10. 067 UNITS/KG/HR 10 mls/hr IV .Q24H [facility] Rx#: [id number] Other: # Voids 1 Weight 99.337 kg 100.7 kg 01/10/25 15:40 01/10/25 15:40
[2025-01-11] MEDS: MIDAZOLAM 2 MG/2 ML VIAL IV ONE (13:10)
[2025-01-11] MEDS: INSULIN LISPRO (HumaLOG) 100 UNIT/ML 10 mL VL SQ SCH (13:48)
[2025-01-11 16:24] LABS: Glucose,Whole Blood 158 mg/dL (70-110)
[2025-01-11] MEDS: SODIUM CHLORIDE 0.9% 1,000 ML IV SCH (16:30)
[2025-01-11] MEDS: ATORVASTATIN 20 MG TAB PO SCH (20:20)
[2025-01-11] MEDS: ASPIRIN 81 MG PO SCH (20:20)
[2025-01-11] MEDS: FUROSEMIDE 40 MG TAB PO SCH (20:20)
[2025-01-11] MEDS: PANTOPRAZOLE 40 MG TABLET PO SCH (20:20)
[2025-01-11 20:39] LABS: Glucose,Whole Blood 133 mg/dL (70-110)
[2025-01-11] MEDS: SYMBICORT 160-4.5 MCG INHALER INHALATION SCH (21:15)
[2025-01-12 04:40] LABS: Basophils # (A) 0.06 10*3/uL (0.00-0.10); Basophils % (A) 0.6 %; Eosinophils # (A) 0.53 10*3/uL (0.04-0.35); Eosinophils % (A) 5.5 %; HCT 37.7 % (39.6-50.0); HGB 12.8 g/dL (13.0-17.0); Lymphocytes # (A) 2.01 10*3/uL (0.90-5.00); Lymphocytes % (A) 20.8 %; MCH 31.3 pg (27.0-32.0); MCV 92.2 fL (80.0-97.0); Mean Platelet Volume 9.5 fL (9.5-12.2); Monocytes # (A) 0.83 10*3/uL (0.20-1.00); Monocytes % (A) 8.6 %; Neutrophils # (A) 6.19 10*3/uL (1.80-7.70); Neutrophils % (A) 63.9 %; Platelet Count 266 10*3/uL (140-440); RBC 4.09 10*6/uL (4.40-5.60); RDW 14.4 % (11.5-14.5); WBC 9.68 10*3/uL (4.50-10.00)
[2025-01-12 05:04] LABS: African American GFR (CKD) >90 (>60 ml/min/1.73 sqM); Anion Gap 7 mmol/L; Blood Urea Nitrogen 11 mg/dL (9-20); Carbon Dioxide 26 mmol/L (22-30); Chloride 105 mmol/L (98-107); Glucose 155 mg/dL (74-99); Non-African American GFR(CKD) >90 (>60 ml/min/1.73 sqM); Potassium 4.2 mmol/L (3.5-5.1); Sodium 138 mmol/L (137-145)
[2025-01-12] MEDS: LEVOTHYROXINE 50 MCG TAB PO SCH (06:09)
[2025-01-12 06:15] LABS: Glucose,Whole Blood 160 mg/dL (70-110)
[2025-01-12] MEDS: MIDAZOLAM 2 MG/2 ML VIAL IVP ONE ×2 (07:49→08:08)
[2025-01-12] MEDS: IV FLUID CONTINUATION 1,000 ML IV ONE (07:49)
[2025-01-12] MEDS: LIDOCAINE 1% INJ 10MG/ML (20 ML MDV) SQ ONE (07:49)
[2025-01-12] MEDS: VERAPAMIL SYRINGE (5 MG/10 ML) INTRAARTER ONE (07:50)
[2025-01-12] MEDS: HEPARIN SODIUM 1,000 UN/ML (10ML VL) IVP ONE ×2 (07:55→08:26)
[2025-01-12] MEDS: fentaNYL (PF) 50 MCG/1 ML VIAL IVP ONE (07:55)
[2025-01-12] MEDS: HEPARIN SODIUM,PORCINE 10,000 UNIT in SODIUM CHLORIDE 0.9% 1,000 ML IRRIGATION PRN (08:08)
[2025-01-12] MEDS: HEPARIN SODIUM,PORCINE (1 ML) 2,500 UNIT in SODIUM CHLORIDE 0.9% 250 ML IRRIGATION PRN (08:09)
[2025-01-12] MEDS: PRASUGREL 10 MG TAB PO ONE (08:11)
[2025-01-12] MEDS: MORPHINE SULFATE 4 MG/ML SYRINGE IVP ONE (08:14)
[2025-01-12] MEDS: TIOTROPIUM 2.5 MCG INHALER INHALATION SCH (08:18)
[2025-01-12] MEDS: IOPAMIDOL-370 100ML BTL INJ ONE ×2 (08:37→08:58)
[2025-01-12] MEDS: HYDROmorphone 0.5 MG/0.5 ML SYRINGE IVP ONE (08:51)
[2025-01-12] MEDS: niCARdipine Syringe (1,000 mcg/10 mL) INTRACORON ONE (08:55)
[2025-01-12] MEDS: NITROGLYCERIN 1000MCG/10ML SYRINGE INTRACORON ONE (08:55)
[2025-01-12] MEDS ORDERED: ZOLPIDEM 5 MG TAB PO PRN (09:01)
[2025-01-12] MEDS ORDERED: MAG HYDROX/AL HYDROX/SIMETH 30 ML CUP PO PRN (09:01)
[2025-01-12] MEDS ORDERED: RX INFO: IV CONTRAST WAS GIVEN 1 EACH MISC MISCELLANE PRN (09:01)
[2025-01-12] MEDS ORDERED: ATROPINE SULFATE 0.1 MG/ML 10ML SYRINGE IV PRN (09:01)
[2025-01-12] MEDS ORDERED: NITROGLYCERIN SL TABS 0.4 MG TAB SUBLINGUAL PRN (09:01)
--- NOTE | 2025-01-12 09:06 | P.PCN ---
Date of Procedure: 01/12/25 Operative Findings: CARDIAC CATHETERIZATION AND PERCUTANEOUS CORONARY INTERVENTION PERFORMING PHYSICIAN: Ishaan Prieto MD, BERNARDINO Cunningham MD PROCEDURE PERFORMED: 1. Selective right and left coronary angiogram 2. Successful stenting of distal and proximal RCA using 3.5 x 28 and 4.5 x 15 mm Xience AVI with an excellent angiographic results 3. Adjunctive use of IVUS and lithotripsy balloon 4. Ultrasound-guided access of the right radial artery INDICATION: Unstable angina COMPLICATION: None APPROACH: Right radial artery LEVEL OF SEDATION: Moderate with the sedation time off 7 minutes PROCEDURE DESCRIPTION: After obtaining informed consent the patient was brought to the cardiac Sample Tester with right radial artery was cannulated using micropuncture technique under ultrasound guidance a micropuncture wire passed easily and then I placed a 6 [place] 11 cm sheath at the right radial artery with a give the patient 2 mg of verapamil intra-arterial and 6000's of unit of heparin intravenous with continuous ACT monitoring with selective right and left coronary angiogram performed using JR4 and JL 3.5 catheter. After that I did intervene on the RCA. Anticoagulation continued using heparin with continuous ACT monitoring. Subsequently I did engage using JR4 guiding catheter with I did wired using a whisper wire with the backup support of Corsair catheter. After that I did balloon angioplasty using initially 1.5 mm balloon and subsequently 2.0 and then 2.5 balloon and after that 3.5 mm NC balloon. IVUS was performed and showed a diameter proximally around 4.5 and distally around 3.5 mm. I did lithotripsy balloon using 3.5 mm balloon before I deployed distally 3.5 x 28 mm stent and in the ostial and proximal portion 4.5 x 15 mm. Final angiogram was performed after postdilatation using 8.4 mm NC balloon was performed and showed an excellent angiographic results and the procedure was completed with no SELECTIVE CORONARY ANGIOGRAM: The right coronary artery: Occluded in the proximal to distal portion Left main: Has mild disease The left circumflex: Has intermediate lesion appears to be in the range of 60 to 70% The left anterior descending artery: Has mild to moderate diffuse disease with no evidence of high-grade stenosis CONCLUSION: 1. Occluded mid to distal RCA. I did perform successful PCI of the RCA as described 2. Intermediate to severe disease involving the LCx in the mid part POSTPROCEDURE MANAGEMENT: 1. Dual antiplatelet therapy using aspirin and for 6 month and consider IFR of the left circumflex 2. Aggressive cholesterol control 3. Follow-up with the patient
[2025-01-12] MEDS: SODIUM CHLORIDE 0.9% 1,000 ML in EMPTY BAG 1 BAG IV SCH (09:25)
[2025-01-12 11:26] LABS: Glucose,Whole Blood 191 mg/dL (70-110)
[2025-01-12 12:03] VITALS: BMI 29.3
--- NOTE | 2025-01-12 13:29 | P.PN ---
Subjective Progress Note Date: 01/12/25 Reason for Consult (text): Abnormal stress test History of present illness: This is a 59-year-old male patient of Dr. Prieto with past medical history of coronary artery disease with prior stenting of the RCA, cardiomyopathy, valvular heart disease including aortic and mitral regurgitation, paroxysmal atrial fibrillation status post ablation, diabetes, hypertension, dyslipidemia, overweight, COPD. We have been asked to evaluate patient for abnormal stress test. Patient last saw Dr. Prieto in the office on 11/30/2024 and at that time had complaints of not feeling well with shortness of breath with exertion that seem to have progressed since September. He was having some chest discomfort with exertion as well. Arrangements were made for patient to have a stress test in the office as well as echocardiogram. Patient was in the office yesterday and during the testing, he he states he developed what he thought was his throat constricting and then he had chest pain down his midsternal area with shortness of breath and he had left elbow pain. Patient was then sent over to the emergency center for admission with plan for cardiac catheterization which is scheduled for today. Patient denies any chest pain or shortness of breath at rest. No lightheadedness or dizziness no palpitations. Patient has been started on a heparin drip and Eliquis is on hold. Blood pressure 146/83, heart rate 83, pulse ox 93% on room air. -EKG: Sinus rhythm 97 bpm with no acute ST changes. -Chest x-ray: No acute process. COPD. -Laboratory studies: WBC 10, hemoglobin 13.8, electrolytes are normal. BUN 12 and creatinine 0.62. Troponins are negative x 3. Triglycerides 146, cholesterol 166, LDL 108. -Home cardiac medications: Eliquis 5 mg twice daily, aspirin 81 mg daily, losartan 50 mg daily, rosuvastatin 10 mg at bedtime. -Cardiac catheterization performed 11/05/2023 revealed severe in-stent restenosis of the mid RCA status post PCI. -Echocardiogram performed in the office on 12/27/2024 revealed EF 50%, mild concentric left ventricular hypertrophy. Trace aortic regurgitation and mild aortic stenosis. Severe mitral regurgitation. Myxomatous mitral valve. Trace tricuspid regurgitation. -Lexiscan Cardiolite stress test performed in the office in 10/19/2023 revealed nondiagnostic-electrocardiographic stress testing response to Lexiscan. Abnorma l myocardial perfusion imaging with evidence of reversible defect inferiorly. Normal left ventricular systolic function. 01/12 Patient seen and examined. This morning, patient underwent cardiac ruth terization with Dr. Prieto which revealed occluded mid to distal RCA s/p PCI of the RCA as well. Patient also had intermediate to severe disease involving the left circumflex in the mid part. Plan for dual antiplatelet therapy for 6 months and consider IFR of the left circumflex. Aggressive cholesterol control as well. Patient denies chest pain at this time. No chest pressure no chest tightness. No shortness of breath. No palpitations. Blood pressure 149/89, heart rate in the 70s, pulse ox 93% on room air. Repeat blood work reveals hemoglobin 12.8, BUN 11, creatinine 0.63. Physical examination: Gen: This is 59-year-old male in no acute distress VS: reviewed HEENT: Head is atraumatic, normocephalic. Pupils equal, round. Sclerae is anicteric. NECK: Supple. No JVD. LUNGS: Clear to auscultation. No wheezes or rhonchi. No intercostal retractions. HEART: Regular rate and rhythm. Soft systolic ejection murmur at the right sternal border, pansystolic murmur at the apex. ABDOMEN: Soft No tenderness. EXTREMITIES: No pedal edema. No calf tenderness. NEUROLOGICAL: Patient is awake, alert and oriented x3. Assessment: Abnormal stress test Known coronary artery disease with prior stenting of the RCA with in-stent restenosis status post PCI 11/05/2023 Paroxysmal atrial fibrillation status post ablation Hypertension Dyslipidemia Diabetes Cardiomyopathy, valvular heart disease with severe mitral regurgitation, mild aortic stenosis COPD Plan: Continue patient's home cardiac medications Start patient on Effient 10 mg daily Resume Eliquis 5 mg twice daily Monitor patient overnight and plan for discharge home tomorrow No need to repeat echocardiogram as this was done in the office in December. Nurse practitioner note has been reviewed, I agree with documented findings and plan of care. Patient was seen and examined. Objective - Vital Signs Vital signs: Vital Signs Temp 98.1 F 01/11/25 19:40 Pulse 78 01/12/25 08:00 Resp 18 01/12/25 08:00 BP 149/89 01/12/25 08:00 Pulse Ox 93 L 01/12/25 08:00 FiO2 Intake & Output 01/11/25 01/12/25 01/12/25 18:59 06:59 18:59 Intake Total 385.919 475.691 400 Balance 385.919 475.691 400 Weight 100.9 kg Intake: IV 400 Intake, IV Titration 149.919 235.691 Amount Heparin Sod,Pork in 0.45% 149.919 235.691 NaCl 25,000 unit In 0.45 % NaCl 1 250ml.bag @ 10. 067 UNITS/KG/HR 10 mls/hr IV .Q24H [facility] Rx#: [id number] Oral 236 240 Other: Voiding Method Toilet # Voids 1 1 - Labs CBC & Chem 7: 01/12/25 04:16 01/12/25 04:16 Labs: Abnormal Lab Results - Last 24 Hours (Table) 01/11/25 01/11/25 01/12/25 Range/Units 16:23 20:38 04:16 RBC (4.40-5.60) 10*6/uL Hgb (13.0-17.0) g/dL Hct (39.6-50.0) % Immature Gran # (0.00-0.04) 10*3/uL Eosinophils # (0.04-0.35) 10*3/uL APTT (22.0-30.0) sec Creatinine (0.66-1.25) mg/dL Glucose (74-99) mg/dL POC Glucose (mg/dL) 158 H 133 H (70-110) mg/dL Hemoglobin A1c 8.2 H (<=6.0) % 01/12/25 01/12/25 01/12/25 Range/Units 04:16 04:16 04:16 RBC 4.09 L (4.40-5.60) 10*6/uL Hgb 12.8 L (13.0-17.0) g/dL Hct 37.7 L (39.6-50.0) % Immature Gran # 0.06 H (0.00-0.04) 10*3/uL Eosinophils # 0.53 H (0.04-0.35) 10*3/uL APTT 37.6 H (22.0-30.0) sec Creatinine 0.63 L (0.66-1.25) mg/dL Glucose 155 H (74-99) mg/dL POC Glucose (mg/dL) (70-110) mg/dL Hemoglobin A1c (<=6.0) % 01/12/25 Range/Units 06:14 RBC (4.40-5.60) 10*6/uL Hgb (13.0-17.0) g/dL Hct (39.6-50.0) % Immature Gran # (0.00-0.04) 10*3/uL Eosinophils # (0.04-0.35) 10*3/uL APTT (22.0-30.0) sec Creatinine (0.66-1.25) mg/dL Glucose (74-99) mg/dL POC Glucose (mg/dL) 160 H (70-110) mg/dL Hemoglobin A1c (<=6.0) %
[2025-01-12 16:32] LABS: Glucose,Whole Blood 173 mg/dL (70-110)
[2025-01-12 17:33] VITALS: RESP 16
[2025-01-12] MEDS: APIXABAN 5 MG TAB PO SCH (20:01)
[2025-01-12 20:04] VITALS: TEMP 98.4
[2025-01-12 20:08] LABS: Glucose,Whole Blood 132 mg/dL (70-110)
[2025-01-13 05:51] LABS: Glucose,Whole Blood 129 mg/dL (70-110)
[2025-01-13 08:00] LABS: African American GFR (CKD) >90 (>60 ml/min/1.73 sqM); Non-African American GFR(CKD) >90 (>60 ml/min/1.73 sqM)
[2025-01-13 08:08] VITALS: PULSE 80
[2025-01-13] MEDS: PRASUGREL 10 MG TAB PO SCH (08:11)
--- NOTE | 2025-01-13 08:51 | P.PN ---
Subjective Progress Note Date: 01/12/25 59-year-old male with a past medical history of coronary artery disease with stent placement on 01/05/2020, atrial fibrillation/flutter with history of ablation and attempted cardioversion, COPD, diabetes type 2 [id number], hypertension, hyperlipidemia, hypothyroidism and chronic low back pain and prior history of smoking. Patient was had stress test done yesterday, while he was on the treadmill after doing 30 minutes his blood pressure went up to 190s and he felt stiff shoulders and shortness of breath. He was also having palpitations and cardiology was called. They could not able to complete the nuclear part. Patient was transferred to ER for cardiac catheterization. Patient previously had right shoulder surgery. Cardiac catheterization with radial artery was attempted last year and had to change to femoral. But could not proceed. Patient has been having exertional dyspnea for the last couple of months. Denied any complains of fever or chills. No cough or sputum production. No leg swelling. Currently patient denied any chest pain. Chest x-ray showed no acute cardiopulmonary process. COPD changes. EKG showed sinus rhythm. Patient was started on heparin drip overnight. Laboratory data showed troponin x 3 negative, WBC 10.0 hemoglobin 13.8 and platelets 284 sodium 139 potassium 3.8 chloride 99 bicarb is 30 BUN 12 and creatinine 0.16 blood sugar 144 LDL 108.5 and HDL 28.3. -- patient underwent cardiac catheterization with Dr. Prieto which revealed occluded mid to distal RCA s/p PCI of the RCA as well. Patient also had intermediate to severe disease involving the left circumflex in the mid part. Plan for dual antiplatelet therapy for 6 months and consider IFR of the left circumflex. Aggressive cholesterol control as well. Patient denies chest pain at this time. No chest pressure no chest tightness. No shortness of breath. Objective - Vital Signs Vital signs: Vital Signs Temp 98.1 F 01/11/25 19:40 Pulse 78 01/12/25 08:00 Resp 18 01/12/25 08:00 BP 149/89 01/12/25 08:00 Pulse Ox 93 L 01/12/25 08:00 FiO2 Intake & Output 01/11/25 01/12/25 01/12/25 18:59 06:59 18:59 Intake Total 385.919 475.691 400 Balance 385.919 475.691 400 Weight 100.9 kg Intake: IV 400 Intake, IV Titration 149.919 235.691 Amount Heparin Sod,Pork in 0.45% 149.919 235.691 NaCl 25,000 unit In 0.45 % NaCl 1 250ml.bag @ 10. 067 UNITS/KG/HR 10 mls/hr IV .Q24H JOSH Rx#: [id number] Oral 236 240 Other: Voiding Method Toilet # Voids 1 1 - Exam Patient is lying in the bed comfortably, no acute distress, awake alert and oriented.. HEENT: Normocephalic. Neck is supple. Pupils reactive. Nostrils clear. Oral cavity is moist. Neck reveals no JVD, carotid bruits, or thyromegaly. CHEST EXAMINATION: Trachea is central. Symmetrical expansion. Lung sauceda clear to auscultation and percussion. CARDIAC: Normal S1, S2 with no gallops. Systolic murmur ABDOMEN: Soft. Bowel sounds normal. No organomegaly. No abdominal bruits. Extremities: reveal no edema. No clubbing or cyanosis Neurologically awake, alert, oriented x3 with well-coordinated movements. No focal deficits noted Skin: No rash or skin lesions. Psychiatric: Coperative. Nonsuicidal Musculoskeletal: No joint swelling or deformity. Normal range of motion. - Labs CBC & Chem 7: 01/12/25 04:16 01/13/25 07:30 Labs: Abnormal Lab Results - Last 24 Hours (Table) 01/11/25 01/11/25 01/12/25 Range/Units 16:23 20:38 04:16 RBC (4.40-5.60) 10*6/uL Hgb (13.0-17.0) g/dL Hct (39.6-50.0) % Immature Gran # (0.00-0.04) 10*3/uL Eosinophils # (0.04-0.35) 10*3/uL APTT (22.0-30.0) sec Creatinine (0.66-1.25) mg/dL Glucose (74-99) mg/dL POC Glucose (mg/dL) 158 H 133 H (70-110) mg/dL Hemoglobin A1c 8.2 H (<=6.0) % 05/09/25 05/09/25 05/09/25 Range/Units 04:16 04:16 04:16 RBC 4.09 L (4.40-5.60) 10*6/uL Hgb 12.8 L (13.0-17.0) g/dL Hct 37.7 L (39.6-50.0) % Immature Gran # 0.06 H (0.00-0.04) 10*3/uL Eosinophils # 0.53 H (0.04-0.35) 10*3/uL APTT 37.6 H (22.0-30.0) sec Creatinine 0.63 L (0.66-1.25) mg/dL Glucose 155 H (74-99) mg/dL POC Glucose (mg/dL) (70-110) mg/dL Hemoglobin A1c (<=6.0) % 01/12/25 01/12/25 Range/Units 06:14 11:23 RBC (4.40-5.60) 10*6/uL Hgb (13.0-17.0) g/dL Hct (39.6-50.0) % Immature Gran # (0.00-0.04) 10*3/uL Eosinophils # (0.04-0.35) 10*3/uL APTT (22.0-30.0) sec Creatinine (0.66-1.25) mg/dL Glucose (74-99) mg/dL POC Glucose (mg/dL) 160 H 191 H (70-110) mg/dL Hemoglobin A1c (<=6.0) % Assessment and Plan Assessment: Abnormal stress test. Rule out ACS Exertional dyspnea Coronary artery disease with history of stent placement in 2019 Atrial fibrillation/flutter. On anticoagulation with Eliquis. Prior history of cardioversion and cardiac ablation Diabetes type 2 hyperglycemia is uncontrolled [id number] Hypertension Hypothyroidism COPD Prior history of smoking Chronic low back pain DVT prophylaxis patient is already on full anticoagulation Plan: Patient will be continued on telemonitoring. Troponin x 3 negative. Will continue on heparin drip overnight. Cardiology is planning for catheterization today. Continue with aspirin, statin and metoprolol and losartan and Lasix. Follow-up closely. Continue insulin sliding scale for better blood sugar control.
[2025-01-13 10:49] LABS: Basophils # (A) 0.05 10*3/uL (0.00-0.10); Basophils % (A) 0.5 %; Eosinophils # (A) 0.43 10*3/uL (0.04-0.35); Eosinophils % (A) 4.3 %; HCT 39.9 % (39.6-50.0); HGB 12.8 g/dL (13.0-17.0); Lymphocytes # (A) 1.74 10*3/uL (0.90-5.00); Lymphocytes % (A) 17.4 %; MCH 29.7 pg (27.0-32.0); MCHC 32.1 g/dL (32.0-37.0); MCV 92.6 fL (80.0-97.0); Mean Platelet Volume 10.1 fL (9.5-12.2); Monocytes # (A) 0.93 10*3/uL (0.20-1.00); Monocytes % (A) 9.3 %; Neutrophils % (A) 68.2 %; Platelet Count 287 10*3/uL (140-440); RBC 4.31 10*6/uL (4.40-5.60); RDW 14.1 % (11.5-14.5); WBC 9.98 10*3/uL (4.50-10.00)
[2025-01-13 11:04] LABS: African American GFR (CKD) >90 (>60 ml/min/1.73 sqM); Anion Gap 10 mmol/L; Blood Urea Nitrogen 13 mg/dL (9-20); Calcium 9.3 mg/dL (8.4-10.2); Carbon Dioxide 24 mmol/L (22-30); Chloride 103 mmol/L (98-107); Glucose 163 mg/dL (74-99); Non-African American GFR(CKD) >90 (>60 ml/min/1.73 sqM); Potassium 4.4 mmol/L (3.5-5.1); Sodium 137 mmol/L (137-145)
--- NOTE | 2025-01-13 11:13 | P.PN ---
Subjective Progress Note Date: 01/13/25 This is a 59-year-old male patient of Dr. Prieto with past medical history of coronary artery disease with prior stenting of the RCA, cardiomyopathy, valvular heart disease including aortic and mitral regurgitation, paroxysmal atrial fibrillation status post ablation, diabetes, hypertension, dyslipidemia, o verweight, COPD. We have been asked to evaluate patient for abnormal stress test. Patient last saw Dr. Prieto in the office on 11/30/2024 and at that time had complaints of not feeling well with shortness of breath with exertion that seem to have progressed since September. He was having some chest discomfort with exertion as well. Arrangements were made for patient to have a stress test in the office as well as echocardiogram. Patient was in the office yesterday and during the testing, he he states he developed what he thought was his throat constricting and then he had chest pain down his midsternal area with shortness of breath and he had left elbow pain. Patient was then sent over to the emergency center for admission with plan for cardiac catheterization which is scheduled for today. Patient denies any chest pain or shortness of breath at rest. No lightheadedness or dizziness no palpitations. Patient has been started on a heparin drip and Eliquis is on hold. Blood pressure 146/83, heart rate 83, pulse ox 93% on room air. -EKG: Sinus rhythm 97 bpm with no acute ST changes. -Chest x-ray: No acute process. COPD. -Laboratory studies: WBC 10, hemoglobin 13.8, electrolytes are normal. BUN 12 and creatinine 0.62. Troponins are negative x 3. Triglycerides 146, cholesterol 166, LDL 108. -Home cardiac medications: Eliquis 5 mg twice daily, aspirin 81 mg daily, losartan 50 mg daily, rosuvastatin 10 mg at bedtime. -Cardiac catheterization performed 11/05/2023 revealed severe in-stent restenosis of the mid RCA status post PCI. -Echocardiogram performed in the office on 12/27/2024 revealed EF 50%, mild concentric left ventricular hypertrophy. Trace aortic regurgitation and mild aortic stenosis. Severe mitral regurgitation. Myxomatous mitral valve. Trace tricuspid regurgitation. -Lexiscan Cardiolite stress test performed in the office in 10/19/2023 revealed nondiagnostic-electrocardiographic stress testing response to Lexiscan. Abnormal myocardial perfusion imaging with evidence of reversible defect inferiorly. Normal left ventricular systolic function. 01/12 Patient seen and examined. This morning, patient underwent cardiac catheterization with Dr. Prieto which revealed occluded mid to distal RCA s/p PCI of the RCA as well. Patient also had intermediate to severe disease involving the left circumflex in the mid part. Plan for dual antiplatelet therapy for 6 months and consider IFR of the left circumflex. Aggressive cholesterol control as well. Patient denies chest pain at this time. No chest pressure no chest tightness. No shortness of breath. No palpitations. Blood pressure 149/89, heart rate in the 70s, pulse ox 93% on room air. Repeat blood work reveals hemoglobin 12.8, BUN 11, creatinine 0.63. 01/23/2025 Patient underwent heart cath yesterday and had a successful PCI to distal RCA. Patient is on aspirin and Effient and Eliquis. Will continue triple therapy for next 2 weeks and after follow-up with Dr. Alejandro in the office we can decide about on escalating the triple therapy to dual therapy. Physical examination: Gen: This is 59-year-old male in no acute distress VS: reviewed HEENT: Head is atraumatic, normocephalic. Pupils equal, round. Sclerae is anicteric. NECK: Supple. No JVD. LUNGS: Clear to auscultation. No wheezes or rhonchi. No intercostal retractions. HEART: Regular rate and rhythm. Soft systolic ejection murmur at the right sternal border, pansystolic murmur at the apex. ABDOMEN: Soft No tenderness. EXTREMITIES: No pedal edema. No calf tenderness. NEUROLOGICAL: Patient is awake, alert and oriented x3. Assessment: Abnormal stress test Known coronary artery disease with prior stenting of the RCA with in-stent restenosis status post PCI 11/05/2023 Paroxysmal atrial fibrillation status post ablation Hypertension Dyslipidemia Diabetes Cardiomyopathy, valvular heart disease with severe mitral regurgitation, mild aortic stenosis COPD Plan: Continue patient's home cardiac medications Discharge on aspirin Effient and Eliquis. Resume Eliquis 5 mg twice daily Follow-up with Dr. Alejandro in next 1 to 2 weeks Recommend SGLT2 and Aldactone and down titrating Lasix on outpatient basis. Patient is cleared to be discharged from cardiac standpoint Objective - Vital Signs Vital signs: Vital Signs Temp 98.4 F 01/12/25 20:00 Pulse 80 01/13/25 10:02 Resp 16 01/13/25 10:02 BP 138/81 01/13/25 08:07 Pulse Ox 95 01/13/25 08:07 FiO2 Intake & Output 01/12/25 01/13/25 01/13/25 18:59 06:59 18:59 Intake Total 640 Balance 640 Weight 100.9 kg 101.7 kg Intake: IV 400 Oral 240 Other: Voiding Method Toilet Toilet # Voids 1 # Bowel Movements 1 - Labs CBC & Chem 7: 01/13/25 07:30 01/13/25 07:30 Labs: Abnormal Lab Results - Last 24 Hours (Table) 01/12/25 01/12/25 01/12/25 Range/Units 11:23 16:30 20:07 RBC (4.40-5.60) 10*6/uL Hgb (13.0-17.0) g/dL Eosinophils # (0.04-0.35) 10*3/uL Creatinine (0.66-1.25) mg/dL Glucose (74-99) mg/dL POC Glucose (mg/dL) 191 H 173 H 132 H (70-110) mg/dL 01/13/25 01/13/25 01/13/25 Range/Units 05:50 07:30 07:30 RBC 4.31 L (4.40-5.60) 10*6/uL Hgb 12.8 L (13.0-17.0) g/dL Eosinophils # 0.43 H (0.04-0.35) 10*3/uL Creatinine 0.65 L (0.66-1.25) mg/dL Glucose (74-99) mg/dL POC Glucose (mg/dL) 129 H (70-110) mg/dL 01/13/25 Range/Units 07:30 RBC (4.40-5.60) 10*6/uL Hgb (13.0-17.0) g/dL Eosinophils # (0.04-0.35) 10*3/uL Creatinine 0.62 L (0.66-1.25) mg/dL Glucose 163 H (74-99) mg/dL POC Glucose (mg/dL) (70-110) mg/dL
[2025-01-13 11:29] LABS: Glucose,Whole Blood 149 mg/dL (70-110)
[2025-01-13 12:17] VITALS: BP 148/85
--- NOTE | 2025-01-13 13:49 | P.DS ---
Providers Date of admission: 01/12/25 07:07 Expected date of discharge: 01/13/25 Attending physician: Ortega Hadley Consults: 01/10/25 16:36 Consult Physician Urgent Consulting Provider: Ishaan Prieto Consult Reason/Comments: abnormal stress test Do you want consulting provider notified?: Yes 01/12/25 09:01 Consult Physician Routine Consulting Provider: [facility] Consult Reason/Comments: Post Interventional patient Do you want consulting provider notified?: Already Contacted Primary care physician: [facility] Course: Patient is a 59-year-old male with a past medical history of coronary artery disease with stent placement on 01/05/2020, atrial fibrillation/flutter with history of ablation and attempted cardioversion, COPD, diabetes type 2 [id number], hypertension, hyperlipidemia, hypothyroidism and chronic low back pain and prior history of smoking. Patient was had stress test done yesterday, while he was on the treadmill after doing 30 minutes his blood pressure went up to 190s and he felt stiff shoulders and shortness of breath. He was also having palpitations and cardiology was called. They could not able to complete the nuclear part. Patient was transferred to ER for cardiac catheterization. Patient previously had right shoulder surgery. Cardiac catheterization with radial artery was attempted last year and had to change to femoral. But could not proceed. Patient has been having exertional dyspnea for the last couple of months. Denied any complains of fever or chills. No cough or sputum production. No leg swelling. Currently patient denied any chest pain. Chest x-ray showed no acute cardiopulmonary process. COPD changes. EKG showed sinus rhythm. Patient was started on heparin drip overnight. Laboratory data showed troponin x 3 negative, WBC 10.0 hemoglobin 13.8 and platelets 284 sodium 139 potassium 3.8 chloride 99 bicarb is 30 BUN 12 and creatinine 0.16 blood sugar 144 LDL 108.5 and HDL 28.3. Abnormal stress test. Rule out ACS Exertional dyspnea Coronary artery disease with history of stent placement in 2019 Atrial fibrillation/flutter. On anticoagulation with Eliquis. Prior history of cardioversion and cardiac ablation Diabetes type 2 hyperglycemia is uncontrolled [id number] Hypertension Hypothyroidism COPD Prior history of smoking Chronic low back pain DVT prophylaxis patient is already on full anticoagulation Plan: Patient will be continued on telemonitoring. Troponin x 3 negative. Will continue on heparin drip overnight. Cardiology is planning for catheterization today. Continue with aspirin, statin and metoprolol and losartan and Lasix. Follow-up closely. Continue insulin sliding scale for better blood sugar control. Patient underwent heart cath yesterday and had a successful PCI to distal RCA. Patient is on aspirin and Effient and Eliquis. Will continue triple therapy for next 2 weeks and after follow-up with Dr. Alejandro in the office we can decide a bout on escalating the triple therapy to dual therapy. Patient Condition at Discharge: Fair Plan - Discharge Summary Discharge Rx Participant: No New Discharge Prescriptions: New Prasugrel [Effient] 10 mg PO DAILY #90 tab Nitroglycerin Sl Tabs [Nitrostat] 0.4 mg SUBLINGUAL Q5M PRN #25 tab PRN Reason: Chest Pain Aspirin 81 mg PO HS tab Continue Rosuvastatin [Crestor] 10 mg PO HS Pantoprazole [Protonix] 40 mg PO DAILY #30 tablet. Cyclobenzaprine [Flexeril] 10 mg PO HS PRN PRN Reason: Muscle Spasm metFORMIN HCL 1,000 mg PO BID-W/MEALS Insulin Glargine,Hum.rec.anlog [Basaglar Kwikpen U-100] 30 unit SQ HS PRN PRN Reason: HIGH BS Fluticasone/Umeclidin/Vilanter [Trelegy Ellipta 100-62.5-25] 1 puff INHALATION RT-DAILY Furosemide [Lasix] 40 mg PO HS Metoprolol Tartrate [Lopressor] 50 mg PO BID Levothyroxine Sodium [Synthroid] 50 mcg PO DAILY Albuterol Sulfate [Albuterol Sulfate Hfa] 2 puff INHALATION RT-QID PRN PRN Reason: Shortness Of Breath Semaglutide [Rybelsus] 14 mg PO DAILY Losartan [Cozaar] 50 mg PO DAILY Apixaban [Eliquis] 5 mg PO BID glipiZIDE [Glucotrol] 5 mg PO AC-BID Discontinued Aspirin EC [Ecotrin] 81 mg PO HS Discharge Medication List Rosuvastatin [Crestor] 10 mg PO HS 06/30/18 [History] Pantoprazole [Protonix] 40 mg PO DAILY #30 tablet. 01/26/20 [Rx] Furosemide [Lasix] 40 mg PO HS 12/15/21 [History] Levothyroxine Sodium [Synthroid] 50 mcg PO DAILY 11/13/22 [History] Metoprolol Tartrate [Lopressor] 50 mg PO BID 11/13/22 [History] Albuterol Sulfate [Albuterol Sulfate Hfa] 2 puff INHALATION RT-QID PRN 11/01/23 [History] Losartan [Cozaar] 50 mg PO DAILY 01/06/24 [History] Semaglutide [Rybelsus] 14 mg PO DAILY 01/06/24 [History] Apixaban [Eliquis] 5 mg PO BID 01/10/25 [History] Cyclobenzaprine [Flexeril] 10 mg PO HS PRN 01/10/25 [History] Fluticasone/Umeclidin/Vilanter [Trelegy Ellipta 100-62.5-25] 1 puff INHALATION RT-DAILY 01/10/25 [History] Insulin Glargine,Hum.rec.anlog [Basaglar Kwikpen U-100] 30 unit SQ HS PRN 01/10/25 [History] glipiZIDE [Glucotrol] 5 mg PO AC-BID 01/10/25 [History] metFORMIN HCL 1,000 mg PO BID-W/MEALS 01/10/25 [History] Aspirin 81 mg PO HS tab 01/12/25 [Rx] Nitroglycerin Sl Tabs [Nitrostat] 0.4 mg SUBLINGUAL Q5M PRN #25 tab 01/12/25 [Rx] Prasugrel [Effient] 10 mg PO DAILY #90 tab 01/12/25 [Rx] Follow up Appointment(s)/Referral(s): Ishaan Prieto MD [STAFF PHYSICIAN] - 1 Week Stas Fink DO [Primary Care Provider] - 1-2 days
== END 2025-01-13 15:02 | disposition home or self-care (01) | DRG 322 ==
LOC: EC 15:15 → 3SCARD 16:36 → UNDOADMOB 16:36 → 3SCARD 16:36 → INTOOBSV 01-12 07:07 → OBSVTOIN 01-12 07:07 → UNDODISIN 01-13 15:02
PROVIDERS: ADMIT Hospitalist; ATTEND Hospitalist
PROC: 4A033BC Measurement of Arterial Pressure, Coronary, Percutaneous Approach (ICD-10-PCS; principal; 2025-01-12 07:30)
PROC: B2111ZZ Fluoroscopy of Multiple Coronary Arteries using Low Osmolar Contrast (ICD-10-PCS; principal; 2025-01-12 07:30)
PROC: 027035Z Dilation of Coronary Artery, One Artery with Two Drug-eluting Intraluminal Devices, Percutaneous Approach (ICD-10-PCS; principal; 2025-01-12 07:30)
PROC: B241ZZ3 Ultrasonography of Multiple Coronary Arteries, Intravascular (ICD-10-PCS; principal; 2025-01-12 07:30)
PROC: 4A023N7 Measurement of Cardiac Sampling and Pressure, Left Heart, Percutaneous Approach (ICD-10-PCS; principal; 2025-01-12 07:30)
DX: T82.855A Stenosis of coronary artery stent, initial encounter (principal); I42.9 Cardiomyopathy, unspecified; I25.110 Atherosclerotic heart disease of native coronary artery with unstable angina pectoris; E11.65 Type 2 diabetes mellitus with hyperglycemia; J44.9 Chronic obstructive pulmonary disease, unspecified; E03.9 Hypothyroidism, unspecified; I10 Essential (primary) hypertension; I08.0 Rheumatic disorders of both mitral and aortic valves; I48.92 Unspecified atrial flutter; Z79.4 Long term (current) use of insulin; I48.0 Paroxysmal atrial fibrillation; M54.50 Low back pain, unspecified; D16.22 Benign neoplasm of long bones of left lower limb; Z79.84 Long term (current) use of oral hypoglycemic drugs; Y83.1 Surgical operation with implant of artificial internal device as the cause of abnormal reaction of the patient, or of later complication, without mention of misadventure at the time of the procedure; E66.3 Overweight; E78.5 Hyperlipidemia, unspecified; K21.9 Gastro-esophageal reflux disease without esophagitis; G89.29 Other chronic pain; M41.9 Scoliosis, unspecified; Z79.01 Long term (current) use of anticoagulants; Z79.82 Long term (current) use of aspirin; Z79.890 Hormone replacement therapy; Z79.899 Other long term (current) drug therapy; Z87.891 Personal history of nicotine dependence; Z60.2 Problems related to living alone; Z87.01 Personal history of pneumonia (recurrent)
CPT/HCPCS: 36415; 71046; 80048; 80053; 80061; 82565; 83036; 83735; 84484; 85025; 85610; 85730; 92972; 92978; 93005; 93454; 94760; 96365; 99285